=== PATIENT | male | born 1935 | race Caucasian/White ===

== ENCOUNTER 2018-05-13 10:05 | Inpatient (IN) ==
--- NOTE | 2018-05-13 11:17 | XRay Report ---
XR chest 1V portable CLINICAL HISTORY: weakness dyspnea COMPARISON STUDY: 03/13/2018 FINDINGS: Central catheter in superior vena cava. Lungs are considered clear. Diaphragms are smooth. IMPRESSION: No acute process. Lungs are clear. The above report was generated using voice recognition software. It may contain grammatical, syntax or spelling errors. Electronically signed by: Russell Rao M.D. 05/13/2018 11:16 AM
[2018-05-13 11:20] LABS: Hematocrit (blood only) 21.6 % (42-52); Hemoglobin 7.1 g/dL (14.0-18.0); Mean Corpuscular Hgb Conc 32.9 g/dL (32-36); Mean Corpuscular Volume 100.9 fL (80-100); RDW Coefficient of Variation 15.6 % (11.5-14.5); RDW Standard Deviation 57.2 fL (36.4-46.3); Red Blood Count 2.14 M/uL (4.7-6.1); White Blood Count 1.08 K/uL (4.8-10.8)
--- NOTE | 2018-05-13 11:26 | CT Scan Report ---
CT head/brain wo con CT DOSE: 537.48 mGy.cm HISTORY: Mental status change ams TECHNIQUE: Multiaxial CT images of the head were performed without the use of intravenous contrast. A dose lowering technique was utilized adhering to the principles of ALARA. Comparison: None. Findings: The paranasal sinuses and mastoid air cells are clear. The calvarium and skull base are int act. The ventricles and sulci are within normal limits. There is no mass, hematoma, midline shift, or acute infarct. Age-related atrophy and chronic small vessel change. Impression: No acute intracranial abnormality. Age-related change The above report was generated using voice recognition software. It may contain grammatical, syntax or spelling errors. Electronically signed by: Russell Rao M.D. 05/13/2018 11:24 AM
[2018-05-13 11:29] LABS: Albumin Level 2.6 gm/dl (3.4-5.0); BUN Creatinine Ratio 27.1 (10-20); Calcium 8.4 mg/dl (8.5-10.1); Creatinine Clr Calc Pharmacy 65.2 ml/min; Est GFR (African American) 86.6; Est GFR (Non-African American) 74.7; Potassium 4.4 mmol/L (3.5-5.1)
[2018-05-13 11:35] LABS: Platelet Count 40 K/uL (130-400)
[2018-05-13 11:40] LABS: Albumin Globulin Ratio 0.7 (0.9-2); Bilirubin,Total 0.5 mg/dl (0.2-1); Globulin 3.7 gm/dl (2.5-4.0); Total Protein 6.3 gm/dl (6.4-8.2)
[2018-05-13 11:41] LABS: Eosinophils # (auto) 0.02 K/uL (0-0.5); Eosinophils % (auto) 1.9 %; Immature Granulocytes # (auto) 0.02 K/uL (0.00-0.02); Immature Granulocytes % (auto) 1.9 %; Lymphocytes # (auto) 0.23 K/uL (1.2-3.4); Lymphocytes % (auto) 21.3 %; Monocytes # (auto) 0.01 K/uL (0.11-0.59); Monocytes % (auto) 0.9 %; Platelet Estimate Decreased (Normal)
[2018-05-13 11:55] LABS: Appearance Urine Clear (Clear); Bacteria Urine Automated Negative (Negative); Bilirubin Urine Negative (Negative); Blood Urine Trace (Negative); Color Urine Yellow; Glucose Urine UA Negative (Negative); Ketones Urine Negative (Negative); Leukocyte Esterase Urine Trace (Negative); Nitrite Urine Negative (Negative); Protein Urine Negative (Negative); RBC Urine Automated 0-4 /hpf (0-4); Specific Gravity Urine 1.021 (1.000-1.030); Urobilinogen Urine Negative (Negative); pH Urine 5.5 (4.5-7.5)
--- NOTE | 2018-05-13 14:01 | Emergency Department Note ---
Entered by Milana Romero acting as a scribe for History of Present Illness General Chief complaint: Referred by Doctor Stated complaint: REF BY , "CHEMO KEVIN" ([facility]) Source: patient and family () History of Present Illness Provider complaint: confusion Onset (ago): week(s) (last week) Location: head Pain Consistency: + other (persistent) Quality: + other (confusion) Associated symptoms: + other (increased urination, decreased appetite. Deneis: headache, chest pain, abdominal pain, nausea, vomiting, diarrhea, pain or burning with urination, any new pain) The patient is an 82 year old male who presents to the Emergency Room with complaints of persistent confusion beginning last week. His reports the patient has bladder cancer and last had chemo 5 days ago, and has had 35 days of radiation treatment. She notes the patient seems unable to express himself. The patient denies headache, chest pain, abdominal pain, nausea, vomiting, diarrhea, pain or burning with urination, or any new pain. His reports she believes he has had recent increased urination. She notes he has a decreased appetite. No other exacerbating or remitting factors. Home Medications Home Medications Medication Instructions Recorded Confirmed Type cyanocobalamin (vitamin B-12) 1,000 mcg PO QAM 02/15/18 05/13/18 History donepezil 10 mg PO HS 02/15/18 05/13/18 History glucosamine-chondroitin 1 cap PO BID 02/15/18 05/13/18 History memantine 5 mg PO BID 02/15/18 05/13/18 History cholecalciferol (vitamin D3) 2,000 2,000 units PO HS 03/01/18 05/13/18 History unit tablet lisinopril 10 mg tablet 10 mg PO QAM 03/01/18 05/13/18 History atorvastatin 20 mg PO HS 03/08/18 05/13/18 History ondansetron HCl 4 mg tablet 4 mg PO TID PRN 03/18/18 05/13/18 History prochlorperazine maleate 10 mg 10 mg PO BID PRN tab 03/18/18 05/13/18 History tablet tamsulosin 0.4 mg capsule 0.4 mg PO HS 03/18/18 05/13/18 History aspirin 81 mg PO QAM 04/29/18 05/13/18 History aprepitant 130 mg PO UD 05/13/18 05/13/18 History carboplatin 340 mg IV UD 05/13/18 05/13/18 History dexamethasone in 0.9 % sod chl 10 mg IV UD 05/13/18 05/13/18 History diphenhydramine in 0.9 % NaCl 50 mg IV UD 05/13/18 05/13/18 History epinephrine 0.3 mg IM UD 05/13/18 05/13/18 History etoposide phosphate 210 mg IV UD 05/13/18 05/13/18 History hydrocortisone sod succinate 100 mg IV UD 05/13/18 05/13/18 History methylprednisolone sod suc(PF) 125 mg IV UD 05/13/18 05/13/18 History olanzapine 2.5 mg PO UD 05/13/18 05/13/18 History palonosetron 0.25 mg IV UD 05/13/18 05/13/18 History pegfilgrastim [Neulasta] 0 mg SUBCUT UD 05/13/18 05/13/18 History psyllium husk [Metamucil] 1 tsp PO QAM 05/13/18 05/13/18 History Allergies Allergy/AdvReac Type Severity Reaction Status Date / Time No Known Allergies Allergy Verified 05/13/18 11:51 Past Med/Surg History Medical History CA prostate, adenoca DIAGNOSED 2009 Fatty liver disease, nonalcoholic Anemia CHRONIC PER RECORDS- BASELINE HGB 10 RANGE Asthma CHILDHOOD= "NO CURRENT PROBLEMS" BPH (benign prostatic hyperplasia) CVA (cerebral vascular accident) EVIDENCE OF OLD INFARCT ON MRI "YEARS AGO" Cancer BLADDER CANCER Enlarged prostate with lower urinary tract symptoms (LUTS) Gross hematuria HLD (hyperlipidemia) HTN (hypertension) History of asthma Impaired fasting glucose Memory loss Obesity Surgical History H/O transurethral resection of prostate Cystoscopy, TURBT= 02/18/18= LMA#5 at [facility] History of cataract surgery R/L History of colonoscopy History of tooth extraction Tibia fracture LEFT TIBIAL FRACTURE REPAIR (HARDWARE INTACT) Family History Mother , age 79 No problems noted. Father , age 79 Heart attack Brother , age 79 Dementia Daughter COPD (chronic obstructive pulmonary disease) Son No problems noted. Son No problems noted. Social History Preferred Language: Maori Beliefs That Will Affect Care: None Current Living Situation: Spouse Feels Safe at Home: Yes Smoking Status: Former smoker Hx Alcohol Use: Yes Hx Substance Use: No Review of Systems See HPI for pertinent positives & negatives. and A total of 10 systems reviewed and were otherwise negative Physical Exam Vital Signs Vital Signs - 24 hr 05/13/18 10:14 05/13/18 10:58 05/13/18 11:03 Temperature 36.6 C Temperature Source Oral Sepsis Recent Fever Within 48 Hours No Sepsis New/Unexplained Change in Mental Status No Sepsis Action Taken by Nursing No Action Required Pulse Rate 78 Pulse Rate [Right Finger] 66 Respiratory Rate 18 18 Respiratory Effort / Characteristics Non-Labored Spontaneous Respiratory Depth Normal Respiratory Pattern Regular Blood Pressure 119/65 Blood Pressure [Right Arm] 118/65 Blood Pressure Mean 83 Blood Pressure Mean [Right Arm] 82 Blood Pressure Position Sitting Pulse Oximetry 97 94 97 Oxygen Delivery Method Room Air Room Air Room Air 05/13/18 11:28 05/13/18 12:01 05/13/18 13:34 Temperature Temperature Source Sepsis Recent Fever Within 48 Hours Sepsis New/Unexplained Change in Mental Status Sepsis Action Taken by Nursing Pulse Rate Pulse Rate [Right Finger] 72 60 66 Respiratory Rate 17 18 18 Respiratory Effort / Characteristics Respiratory Depth Respiratory Pattern Blood Pressure Blood Pressure [Right Arm] 127/87 149/62 H 158/82 H Blood Pressure Mean Blood Pressure Mean [Right Arm] 100 91 107 Blood Pressure Position Pulse Oximetry 98 98 100 Oxygen Delivery Method Room Air Room Air Room Air GENERAL: Sitting up in bed, alert, well appearing, well nourished, no distress, non-toxic EYE EXAM: normal conjunctiva. PERRL and EOM's intact. OROPHARYNX: no exudate, no erythema, lips, buccal mucosa, and tongue normal and mucous membranes are moist NECK: supple, no nuchal rigidity, no adenopathy, non-tender LUNGS: Clear to auscultation. Normal chest wall mechanics HEART: no murmurs, S1 normal and S2 normal ABDOMEN: abdomen soft, non-tender, normo-active bowel, sounds, no masses, no rebound or guarding. BACK: Back is symmetrical on inspection and there is no deformity, no midline tenderness, no CVA tenderness. SKIN: no rashes and no bruising UPPER EXTREMITIES: upper extremities are grossly normal. LOWER EXTREMITIES: No pitting edema. NEURO EXAM: Normal sensorium, cranial nerves II-XII grossly intact, normal speech, no gross weakness of arms, no gross weakness of legs. No drift. Finger to nose intact. Gross sensation intact. Oriented to person, place, not year. Course ED COURSE: Vital signs were reviewed and showed no abnormalities. The patients medical record was reviewed The above diagnostic studies were performed and reviewed. ED treatments and interventions as stated above. 1036: The patient was evaluated in room B3B. A complete history and physical examination was performed. 1234: I reviewed the patient's case with Dr. العراقي, oncology. He recommends inpatient treatment. 1238: Upon reevaluation, the patient is resting. I discussed my findings with the patient and he understands and agrees with the treatment plan. 1245: I reviewed the patient's case with Dr. Greene, [facility] hospitalist. She will evaluate the patient for further management. Based on the patients age, coexisting illnesses, exam and lab findings the deci kristy to treat as an inpatient was made. The patient remained stable while under my care. The patient will be evaluated for further management. Consultations Consultation #1: Dr. العراقي, oncology. Time: 12:34 Consultation #2: Dr. Greene, [facility] hospitalist Time: 12:45 Medical Decision Making Differential Diagnosis Differential diagnoses includes but is not limited to toxic, metabolic, infectious, traumatic, cardiac, neurologic, hematologic, psychiatric and inflammatory etiologies. Medical Records Attestation: I reviewed the patient's medical records. Home Medications Current Medication List: was personally reviewed by me Laboratory Data Attestation: I reviewed the patient's lab results. Result diagrams: 05/13/18 11:01 05/13/18 11:01 Lab Results 05/13/18 05/13/18 05/13/18 Range/Units 11:01 11:01 11:28 WBC 1.08 L (4.8-10.8) K/uL RBC 2.14 L (4.7-6.1) M/uL Hgb 7.1 L (14.0-18.0) g/dL Hct 21.6 L (42-52) % MCV 100.9 H (80-100) fL MCH 33.2 (25-34) pg MCHC 32.9 (32-36) g/dL RDW Std Deviation 57.2 H (36.4-46.3) fL RDW Coeff of Latasha 15.6 H (11.5-14.5) % Plt Count 40 L (130-400) K/uL MPV 10.0 (7.4-10.4) fL Immature Gran % (Auto) 1.9 % Neut % (Auto) 74.0 % Lymph % (Auto) 21.3 % Fountain % (Auto) 0.9 % Eos % (Auto) 1.9 % Baso % (Auto) 0.0 % Immature Gran # (Auto) 0.02 (0.00-0.02) K/uL Neut # (Auto) 0.80 L* (1.4-6.5) K/uL Lymph # (Auto) 0.23 L (1.2-3.4) K/uL Fountain # (Auto) 0.01 L (0.11-0.59) K/uL Eos # (Auto) 0.02 (0-0.5) K/uL Baso # (Auto) 0.00 (0-0.2) K/uL Hyposegmented Neuts 1+ Platelet Estimate Decreased (Normal) Sodium 142 (136-145) mmol/L Potassium 4.4 (3.5-5.1) mmol/L Chloride 108 H (98-107) mmol/L Carbon Dioxide 28 (21-32) mmol/L Anion Gap 5.0 (3-11) BUN 25 H (7-18) mg/dl Creatinine 0.94 (0.6-1.4) mg/dl Est Cr Clr Drug Dosing 65.2 ml/min Est GFR ( Amer) 86.6 Est GFR (Non-Af Amer) 74.7 BUN/Creatinine Ratio 27.1 H (10-20) Glucose 144 H (70-99) mg/dl Calcium 8.4 L (8.5-10.1) mg/dl Total Bilirubin 0.5 (0.2-1) mg/dl AST 12 L (15-37) U/L ALT 22 (12-78) U/L Alkaline Phosphatase 60 (45-117) U/L Total Protein 6.3 L (6.4-8.2) gm/dl Albumin 2.6 L (3.4-5.0) gm/dl Globulin 3.7 (2.5-4.0) gm/dl Albumin/Globulin Ratio 0.7 L (0.9-2) TSH 0.519 (0.300-4.500) uIu/ml Urine Color Yellow Urine Appearance Clear (Clear) Urine pH 5.5 (4.5-7.5) Ur Specific [place] 1.021 (1.000-1.030) Urine Protein Negative (Negative) Urine Glucose (UA) Negative (Negative) Urine Ketones Negative (Negative) Urine Blood Trace H (Negative) Urine Nitrite Negative (Negative) Urine Bilirubin Negative (Negative) Urine Urobilinogen Negative (Negative) Ur Leukocyte Esterase Trace H (Negative) Urine WBC (Auto) 1-5 (0-5) /hpf Urine RBC (Auto) 0-4 (0-4) /hpf U Hyaline Cast (Auto) 1-5 (0-5) /lpf U Epithel Cells (Auto) 5-10 H (0-5) /lpf Urine Bacteria (Auto) Negative (Negative) Imaging Data Radiologist's Impression: Radiology results as stated below per my review and t he radiologist's interpretation: CT head/brain wo con CT DOSE: 537.48 mGy.cm HISTORY: Mental status change ams TECHNIQUE: Multiaxial CT images of the head were performed without the use of intravenous contrast. A dose lowering technique was utilized adhering to the principles of ALARA. Comparison: None. Findings: The paranasal sinuses and mastoid air cells are clear. The calvarium and skull base are intact. The ventricles and sulci are within normal limits. There is no mass, hematoma, midline shift, or acute infarct. Age-related atrophy and chronic small vessel change. Impression: No acute intracranial abnormality. Age-related change The above report was generated using voice recognition software. It may contain grammatical, syntax or spelling errors. Electronically signed by: Russell Rao M.D. 05/13/2018 11:24 AM XR chest 1V portable CLINICAL HISTORY: weakness dyspnea COMPARISON STUDY: 03/13/2018 FINDINGS: Central catheter in superior vena cava. Lungs are considered clear. Diaphragms are smooth. IMPRESSION: No acute process. Lungs are clear. The above report was generated using voice recognition software. It may contain grammatical, syntax or spelling errors. Electronically signed by: Russell Rao M.D. 05/13/2018 11:16 AM ECG Data Attestation: I personally reviewed and interpreted this ECG as follows: Indication: altered mental status Rate (beats per minute): 65 Rhythm: normal sinus Findings: + left axis deviation; no PVC Blood Pressure Blood Pressure Findings: Normal blood pressure Blood Pressure Disposition: did not require urgent referral MDM Narrative Patient is an 82-year-old male with squamous cell carcinoma of the bladder referred in for confusion. This is been present since this past Sunday and gradually worsening. No other complaints at this time. He denies any headaches or change in vision. No neck pain. Nothing to suggest meningitis. Afebrile. Patient did get chemo on the first of this month. Labs were obtained and show an anemia at 7 down from a baseline of about 8. Patient also has a leukopenia with an absolute neutrophil count of 800 showing a moderate neutropenia. BMP was unremarkable. LFTs and TSH was unremarkable. UA was negative. CT head and chest x-ray were unremarkable. Patient was updated bedside as well as his . Discussed with the hospitalist and hematology oncology for observation secondary to confusion. Impression & Plan Altered mental status Discharge Plan Visit Data Chief Complaint: Referred by Doctor Stated Complaint: REF BY , "CHEMO FOG" ([facility]) ED Provider: Haroon Noguera Discharge Problem: Altered mental status Patient Disposition: Being Evaluated by Hospitalist Forms Stand Alone Forms: My [facility] [employer] Prescriptions Prescriptions: No Action lisinopril 10 mg tablet 10 mg PO QAM RF: 0 cholecalciferol (vitamin D3) 2,000 unit tablet 2,000 units PO HS RF: 0 tamsulosin 0.4 mg capsule 0.4 mg PO HS RF: 0 ondansetron HCl [Zofran] 4 mg tablet 4 mg PO TID PRN (Reason: nausea and vomiting) RF: 0 prochlorperazine maleate [Compazine] 10 mg tablet 10 mg PO BID PRN (Reason: nausea and vomiting) RF: 0 donepezil 10 mg Tablet 10 mg PO HS RF: 0 cyanocobalamin (vitamin B-12) 1,000 mcg Tablet 1,000 mcg PO QAM RF: 0 memantine 5 mg Tablet 5 mg PO BID RF: 0 glucosamine-chondroitin 167-133 mg Capsule 1 cap PO BID RF: 0 aspirin 81 mg Tablet,Delayed Release (Dr/Ec) 81 mg PO QAM RF: 0 atorvastatin 20 mg Tablet 20 mg PO HS RF: 0 olanzapine 2.5 mg Tablet 2.5 mg PO UD RF: 0 etoposide phosphate 100 mg Recon Soln 210 mg IV UD RF: 0 hydrocortisone sod succinate 100 mg Recon Soln 100 mg IV UD RF: 0 palonosetron 0.25 mg/5 mL Solution 0.25 mg IV UD RF: 0 epinephrine 1 mg/mL Solution 0.3 mg IM UD RF: 0 carboplatin 10 mg/mL Solution 340 mg IV UD RF: 0 methylprednisolone sod suc(PF) 125 mg/2 mL Recon Soln 125 mg IV UD RF: 0 diphenhydramine in 0.9 % NaCl 50 mg/50 mL Piggyback 50 mg IV UD RF: 0 dexamethasone in 0.9 % sod chl 10 mg/50 mL Piggyback 10 mg IV UD RF: 0 Neulasta 6 mg/0.6 mL Syringe, W/ Wearable Injector SUBCUT UD RF: 0 Metamucil 3.4 gram/5.4 gram Powder 1 tsp PO QAM RF: 0 aprepitant 125 mg (25 mg/ mL final conc.) Suspension For Reconstitution 130 mg PO UD RF: 0 Referrals Referrals: Yeny Mast MD [Primary Care Provider] - Discharge Problem: Altered mental status Qualifiers: Altered mental status type: unspecified Qualified Code(s): R41.82 - Altered mental status, unspecified The scribe's documentation has been prepared under my direction and personally reviewed by me in its entirety. I confirm that the note above accurately reflects all work, treatment, procedures, and medical decision making performed by me.
--- NOTE | 2018-05-13 14:51 | History & Physical Report ---
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 العراقي is 05/24 (3) Thrombocytopenia: Noted Recent chemo Recheck in AM Required PRBC x2 units 2 weeks ago (4) Hyperlipidemia: continue home meds (5) HTN (hypertension): continue home meds (6) Dementia: continue home meds (7) Abnormal urine: + leuk est, neg nitrites Cx pending Will start on ceftriaxone given AMS and immunosuppressed state, can d/c if cx neg (8) RBBB: Appears to be a new issue Repeat EKG Will hold on ECHO for now given no cardiac based sx, t/c outpt ECHO for further work-up if desired (9) CA prostate, adenoca: Not an active issue (10) DVT prophylaxis: SCDs Aspirin 81mg Holding on further rx proph until repeat Hb noted History of Present Illness Primary Care Provider: Yeny Mast MD 82 y/o M c/o confusion. states that pt has had issues for several months with following directions. She can only give him one directive at a time or else he becomes confused. She states that since pt has been having even more difficulty with directions. He also doesn't answer questions directly, now instead responding with "I don't know" for questions like what would you like to eat or what would you like to do about something. She states that yesterday he did not know what the car fob was for and she had to explain this to him. He is walking without issue. No trouble with eating although she feels his appetite is a bit less than usual. Pt himself states that he feels fine in general but "I just can't keep up with it all." He states he is feeling overwhelmed with the number of appts and tx and labs, etc related to his cancer tx. Pt denies fever, SOB, chest pain, abd pain, n/v/c/d, LE pain or swelling. No urinary sx or bleeding noted. Pt is currently undergoing chemo for small cell bladder cancer. His last chemo was 05/06. He finished 35 radiation tx prior to this. He is currently scheduled for f/u with Dr. العراقي on 05/24 with plans to have 3 days of chemo shortly after. Pt required 2 units PRBC about 2 weeks ago for low Hb noted on routine labs. Allergies Allergy/AdvReac Type Severity Reaction Status Date / Time No Known Allergies Allergy Verified 05/13/18 11:51 Home Medications Home Medications Medication Instructions Recorded Confirmed Type cyanocobalamin (vitamin B-12) 1,000 mcg PO QAM 02/15/18 05/13/18 History donepezil 10 mg PO HS 02/15/18 05/13/18 History glucosamine-chondroitin 1 cap PO BID 02/15/18 05/13/18 History memantine 5 mg PO BID 02/15/18 05/13/18 History cholecalciferol (vitamin D3) 2,000 2,000 units PO HS 03/01/18 05/13/18 History unit tablet lisinopril 10 mg tablet 10 mg PO QAM 03/01/18 05/13/18 History atorvastatin 20 mg PO HS 03/08/18 05/13/18 History ondansetron HCl 4 mg tablet 4 mg PO TID PRN 03/18/18 05/13/18 History prochlorperazine maleate 10 mg 10 mg PO BID PRN tab 03/18/18 05/13/18 History tablet tamsulosin 0.4 mg capsule 0.4 mg PO HS 03/18/18 05/13/18 History aspirin 81 mg PO QAM 04/29/18 05/13/18 History aprepitant 130 mg PO 05/13/18 05/13/18 History carboplatin 340 mg IV UD 05/13/18 05/13/18 History dexamethasone in 0.9 % sod chl 10 mg IV UD 05/13/18 05/13/18 History diphenhydramine in 0.9 % NaCl 50 mg IV UD 05/13/18 05/13/18 History epinephrine 0.3 mg IM UD 05/13/18 05/13/18 History etoposide phosphate 210 mg IV UD 05/13/18 05/13/18 History hydrocortisone sod succinate 100 mg IV UD 05/13/18 05/13/18 History methylprednisolone sod suc(PF) 125 mg IV UD 05/13/18 05/13/18 History olanzapine 2.5 mg PO UD 05/13/18 05/13/18 History palonosetron 0.25 mg IV UD 05/13/18 05/13/18 History pegfilgrastim [Neulasta] 0 mg SUBCUT UD 05/13/18 05/13/18 History psyllium husk [Metamucil] 1 tsp PO QAM 05/13/18 05/13/18 History Past Med/Surg History Medical History CA prostate, adenoca DIAGNOSED 2010 Fatty liver disease, nonalcoholic Anemia CHRONIC PER RECORDS- BASELINE HGB 10 RANGE Asthma CHILDHOOD= "NO CURRENT PROBLEMS" BPH (benign prostatic hyperplasia) CVA (cerebral vascular accident) EVIDENCE OF OLD INFARCT ON MRI "YEARS AGO" Cancer BLADDER CANCER Enlarged prostate with lower urinary tract symptoms (LUTS) Gross hematuria HLD (hyperlipidemia) HTN (hypertension) History of asthma Impaired fasting glucose Memory loss Obesity Surgical History H/O transurethral resection of prostate Cystoscopy, TURBT= 02/18/18= LMA#5 at [facility] History of cataract surgery R/L History of colonoscopy History of tooth extraction Tibia fracture LEFT TIBIAL FRACTURE REPAIR (HARDWARE INTACT) Family History Mother , age 79 No problems noted. Father , age 79 Heart attack Brother , age 79 Dementia Daughter COPD (chronic obstructive pulmonary disease) Son No problems noted. Son No problems noted. 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 Beliefs That Will Affect Care: None Current Living Situation: Spouse Other Information That Helps Us Care for You: No Feels Safe at Home: Yes Safety Concerns: Feels Safe At This Time Smoking Status: Former smoker Hx Alcohol Use: Yes Hx Substance Use: No Review of Systems Pertinent positives and negatives reviewed in HPI--all others negative Physical Exam 2 Vital Signs (Past 24 Hours): Last Vital Signs Temp 36.6 C 05/13/18 10:14 Pulse 66 05/13/18 13:34 Resp 18 05/13/18 13:34 BP 158/82 H 05/13/18 13:34 Pulse Ox 100 05/13/18 13:34 Constitutional: WD/WN, vitals as above Eyes: normal visual samayoa by confrontation and + anicteric sclerae Neck: normal visual inspection and trachea midline Respiratory: normal respiratory effort, lungs clear to auscultation Cardiovascular: Rate/Rhythm: regular rate and regular rhythm Gastrointestinal (Abdomen): Inspection/Auscultation: abdomen not distended Percussion/Palpation: abdomen soft; abdomen nontender Musculoskeletal: Head/Neck/Chest: normocephalic and head atraumatic negative for edema, peripheral pulses intact Skin: no rashes, warm and dry Neurologic: awake Speech / Cognition: normal speech Psychiatric: Orientation: oriented to person and oriented to place; + not oriented to time (pt cannot tell me year, month, or day of the week) Speech: normal rate/rhythm/volume of speech Affect: euthymic affect Pt follows basic commands. Answers to questions are appropriate for the question asked. If he is uncertain he states he does not know Results & Data Diagnostic Findings CXR: neg for acute CT head: neg for acute ECG Additional Comments: RBBB Code Status & VTE Plan Code Status DNR/DNI after prolonged discussion with pt and . This has no been discussed with pt prior. VTE Prophylaxis Plan VTE Prophylaxis will be ordered: Yes (1) Altered mental status Altered mental status type: unspecified Qualified Code(s): R41.82 - Altered mental status, unspecified
[2018-05-13] MEDS ORDERED: ACETAMINOPHEN 325 MG TAB PO PRN (17:01)
[2018-05-13] MEDS ORDERED: PROCHLORPERAZINE MALEATE 10 MG TAB PO PRN (17:01)
[2018-05-13] MEDS ORDERED: ONDANSETRON 4 MG TAB PO PRN (17:01)
[2018-05-13] MEDS ORDERED: APREPITANT 125 MG CAP PO PRN (17:01)
[2018-05-13] MEDS ORDERED: MAGNESIUM HYDROXIDE SUSP 30 ML UDC PO PRN (17:01)
[2018-05-13] MEDS ORDERED: ONDANSETRON INJ 2 MG/ML 2 ML VIAL IV PRN (17:01)
[2018-05-13] MEDS: cefTRIAXone SODIUM 1,000 MG in DEXTROSE 5% 50 ML IV SCH (19:17)
[2018-05-13] MEDS: HEPARIN 100 UNIT/ML 5ML FLUSH FLUSH PRN (19:52)
[2018-05-13] MEDS: MEMANTINE HCL 5 MG TAB PO SCH (20:00)
[2018-05-13] MEDS: TAMSULOSIN HCL 0.4 MG CAP PO SCH (20:00)
[2018-05-13] MEDS: CHOLECALCIFEROL 1,000 UNITS TAB PO SCH (20:00)
[2018-05-13] MEDS: DONEPEZIL HCL 10 MG TAB PO SCH (20:00)
[2018-05-13] MEDS: ATORVASTATIN 20 MG TAB PO SCH (20:01)
[2018-05-13] MEDS ORDERED: NON-FORMULARY MEDICATION (Glucosamine-Chondroitin 1 CAP) PO SCH (21:00)
[2018-05-14] MEDS: ASPIRIN 81 MG ECTAB PO SCH (08:57)
[2018-05-14] MEDS: CYANOCOBALAMIN 500 MCG TABLET (VITAMIN B-12) PO SCH (08:57)
[2018-05-14] MEDS: MEMANTINE HCL 5 MG TAB PO SCH ×2 (08:57→19:44)
[2018-05-14] MEDS: PSYLLIUM 58.6% POWDER PACKET PO SCH (08:57)
[2018-05-14] MEDS: LISINOPRIL 10 MG TAB PO SCH (08:57)
[2018-05-14 09:07] LABS: Mean Corpuscular Hgb Conc 33.3 g/dL (32-36); Mean Corpuscular Volume 97.7 fL (80-100); Mean Platelet Volume 10.9 fL (7.4-10.4); Platelet Count 27 K/uL (130-400); Platelet Estimate SIGNIFIC DECREASED (Normal); RDW Coefficient of Variation 15.4 % (11.5-14.5); RDW Standard Deviation 55.2 fL (36.4-46.3); Red Blood Count 2.15 M/uL (4.7-6.1)
[2018-05-14 09:27] LABS: BUN Creatinine Ratio 21.8 (10-20); Calcium 8.3 mg/dl (8.5-10.1); Creatinine Clr Calc Pharmacy 54.9 ml/min; Est GFR (African American) 78.4; Est GFR (Non-African American) 67.7; Potassium 4.2 mmol/L (3.5-5.1)
--- NOTE | 2018-05-14 17:35 | Hospitalist Progress Note ---
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 (10) DVT prophylaxis: SCDs Aspirin 81mg Holding on further rx proph until repeat Hb noted (11) Pancytopenia: Today's WBC is 0.4 from 1, hemoglobin 7 from 7.1 platelet 27,000 from 40 We will continue monitor, transfusion, Neupogen, or platelet transfusion if needed, consult oncology if needed, Need to follow blood culture and sensitivity results, Possible not ready to be discharge yet Physical Exam Vital Signs (Past 24 Hours): Last Vital Signs Temp 36.7 C 05/14/18 15:34 Pulse 73 05/14/18 15:34 Resp 18 05/14/18 15:34 BP 137/70 05/14/18 15:34 Pulse Ox 98 05/14/18 15:34 (1) Altered mental status Altered mental status type: unspecified Qualified Code(s): R41.82 - Altered mental status, unspecified
[2018-05-14] MEDS: cefTRIAXone SODIUM 1,000 MG in DEXTROSE 5% 50 ML IV SCH (18:27)
[2018-05-14] MEDS: DONEPEZIL HCL 10 MG TAB PO SCH (19:40)
[2018-05-14] MEDS: ATORVASTATIN 20 MG TAB PO SCH (19:41)
[2018-05-14] MEDS: CHOLECALCIFEROL 1,000 UNITS TAB PO SCH (19:42)
[2018-05-14] MEDS: TAMSULOSIN HCL 0.4 MG CAP PO SCH (19:43)
[2018-05-15] MEDS: ASPIRIN 81 MG ECTAB PO SCH (08:00)
[2018-05-15] MEDS: CYANOCOBALAMIN 500 MCG TABLET (VITAMIN B-12) PO SCH (08:00)
[2018-05-15] MEDS: MEMANTINE HCL 5 MG TAB PO SCH ×2 (08:01→20:13)
[2018-05-15] MEDS: LISINOPRIL 10 MG TAB PO SCH (08:01)
[2018-05-15] MEDS: PSYLLIUM 58.6% POWDER PACKET PO SCH (08:01)
[2018-05-15 08:04] LABS: BUN Creatinine Ratio 25.1 (10-20); Calcium 8.5 mg/dl (8.5-10.1); Creatinine Clr Calc Pharmacy 55.4 ml/min; Est GFR (African American) 79.4; Est GFR (Non-African American) 68.5; Magnesium 1.5 mg/dl (1.8-2.4); Potassium 4.1 mmol/L (3.5-5.1)
[2018-05-15 08:07] LABS: Hematocrit (blood only) 21.6 % (42-52); Hemoglobin 7.2 g/dL (14.0-18.0); Mean Corpuscular Hgb Conc 33.3 g/dL (32-36); Mean Corpuscular Volume 99.1 fL (80-100); Mean Platelet Volume 10.9 fL (7.4-10.4); Platelet Count 16 K/uL (130-400); RDW Coefficient of Variation 15.4 % (11.5-14.5); RDW Standard Deviation 55.8 fL (36.4-46.3); Red Blood Count 2.18 M/uL (4.7-6.1); White Blood Count 0.24 K/uL (4.8-10.8)
[2018-05-15] MEDS: MAGNESIUM SULFATE / D5W 1 GM/100 ML BAG IV SCH ×2 (10:04→11:01)
[2018-05-15] MEDS: HEPARIN 100 UNIT/ML 5ML FLUSH FLUSH PRN ×2 (12:03→19:14)
--- NOTE | 2018-05-15 17:10 | Hospitalist Progress Note ---
Date of Service May 15, 2018 Assessment & Plan (1) UTI (urinary tract infection): UA on 05/13 indicated infection, but urine culture grew nothing >1,000 CFU. However, given neutropenia; will treat with 7-day course and follow blood cultures. - Continue ceftriaxone (2) Altered mental status: Likely from UTI which has been improving and resolved. - UTI as above (3) Pancytopenia: Presumably due to his chemotherapy on 05/06. Neutropenia - ANC was almost certainly <500 today, though his diff was not done. Also with thrombocytopenia and anemia. Due to chemotherapy. 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 العراقي is 05/24 (6) Hyperlipidemia: - Continue home statin (7) HTN (hypertension): BP presently 105/65. - Continue home meds (8) Dementia: On 05/15, he was alert and conversant. At baseline per his . - Continue home meds (9) RBBB: New issue from 02/2018. - Repeat EKG on 05/16 - Hold echo for now given no cardiac based sx (10) CA prostate, adenoca: - Not an active issue (11) DVT prophylaxis: SCDs - Holding heparin and ASA until counts return to normal Subjective Improved today. Feels he is seeing lots of people, but really denies any focal complaints. Reports no fevers/chills, chest pain, shortness of breath, abdominal pain, nausea, or vomiting. Physical Exam Vital Signs (Past 24 Hours): Last Vital Signs Temp 35.7 C L 05/15/18 15:57 Pulse 77 05/15/18 15:57 Resp 18 05/15/18 15:57 BP 105/64 05/15/18 15:57 Pulse Ox 96 05/15/18 15:57 Constitutional: WD/WN, vitals as above Eyes: normal visual samayoa by confrontation and + anicteric sclerae Neck: normal visual inspection and trachea midline Respiratory: normal respiratory effort, lungs clear to auscultation Cardiovascular: Rate/Rhythm: regular rate and regular rhythm Gastrointestinal (Abdomen): Inspection/Auscultation: abdomen not distended Percussion/Palpation: abdomen soft; abdomen nontender Musculoskeletal: Head/Neck/Chest: normocephalic and head atraumatic Skin: no rashes, warm and dry Neurologic: awake Speech / Cognition: normal speech Psychiatric: Orientation: oriented to person and oriented to place Speech: normal rate/rhythm/volume of speech Affect: euthymic affect (1) Altered mental status Altered mental status type: unspecified Qualified Code(s): R41.82 - Altered mental status, unspecified
[2018-05-15] MEDS: cefTRIAXone SODIUM 1,000 MG in DEXTROSE 5% 50 ML IV SCH (18:41)
[2018-05-15] MEDS: TAMSULOSIN HCL 0.4 MG CAP PO SCH (20:12)
[2018-05-15] MEDS: CHOLECALCIFEROL 1,000 UNITS TAB PO SCH (20:14)
[2018-05-15] MEDS: DONEPEZIL HCL 10 MG TAB PO SCH (20:14)
[2018-05-16 06:29] LABS: Hematocrit (blood only) 20.2 % (42-52); Hemoglobin 6.7 g/dL (14.0-18.0); Mean Corpuscular Hgb Conc 33.2 g/dL (32-36); Mean Corpuscular Volume 98.5 fL (80-100); Platelet Count 10 K/uL (130-400); RDW Coefficient of Variation 15.5 % (11.5-14.5); RDW Standard Deviation 56.3 fL (36.4-46.3); Red Blood Count 2.05 M/uL (4.7-6.1); White Blood Count 0.29 K/uL (4.8-10.8)
[2018-05-16 06:45] LABS: Albumin Level 2.4 gm/dl (3.4-5.0); BUN Creatinine Ratio 32.1 (10-20); Calcium 8.2 mg/dl (8.5-10.1); Creatinine Clr Calc Pharmacy 56.5 ml/min; Est GFR (Non-African American) 63.9; Magnesium 1.8 mg/dl (1.8-2.4); Potassium 4.1 mmol/L (3.5-5.1)
[2018-05-16 06:48] LABS: Albumin Globulin Ratio 0.6 (0.9-2); Bilirubin,Total 0.3 mg/dl (0.2-1); Globulin 3.7 gm/dl (2.5-4.0); Phosphorus 3.9 mg/dl (2.5-4.9); Total Protein 6.1 gm/dl (6.4-8.2)
[2018-05-16] MEDS ORDERED: SODIUM CHLORIDE 0.9% 250 ML IV PRN (07:22)
[2018-05-16] MEDS: LISINOPRIL 10 MG TAB PO SCH (07:49)
[2018-05-16] MEDS: PSYLLIUM 58.6% POWDER PACKET PO SCH (07:49)
[2018-05-16] MEDS: MEMANTINE HCL 5 MG TAB PO SCH ×2 (07:49→21:03)
[2018-05-16] MEDS: CYANOCOBALAMIN 500 MCG TABLET (VITAMIN B-12) PO SCH (07:49)
--- NOTE | 2018-05-16 10:09 | Consultation Report ---
DATE OF CONSULTATION: 05/16/2018 MEDICAL ONCOLOGY CONSULTATION REASON FOR CONSULTATION: An 82-year-old gentleman with extrapulmonary small cell cancer (bladder) admitted to [facility] with altered mental status. HISTORY OF PRESENT ILLNESS: Mr. Arenas is a pleasant very confused 82-year-old gentleman who was admitted to [facility] on May 13, basically admitted because of diminishing cognitive function and memory issues. According to the H and P, the patient's has become increasingly frustrated because Mr. Arenas cannot follow directions. He has also failed to answer direct questions and I experienced that with my interview with him today, not really knowing why he is in the hospital. He does know his name and he knows where he is, but beyond that, really cannot fill in with significant details. He has no specific complaints at this time. He is currently under Dr. 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 According to his outpatient records, recently finished his fourth cycle of combination carboplatin and etoposide administered on May 08. He is certainly pancytopenic attributable to combined modality therapy as I believe he is receiving radiation at this time as well. Again, unfortunately, Mr. Arenas himself is not a very good informant, his is not here at the time of my encounter. Thus, I am relying on clinical information from his medical record and nursing input. 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 PAST SURGICAL HISTORY: Includes TURP, cataract surgery, colonoscopy, tooth extraction, tibial fracture repair. MEDICATIONS: Prior to admission include cyanocobalamin 1000 mcg p.o. daily, donepezil 10 mg p.o. at bedtime, glucosamine chondroitin 1 capsule p.o. b.i.d., memantine 5 mg p.o. b.i.d., cholecalciferol 2000 units p.o. at bedtime, lisinopril 10 mg p.o. daily, atorvastatin 20 mg p.o. daily, Zofran 4 mg p.o. t.i.d. p.r.n., Compazine 10 mg p.o. b.i.d., tamsulosin 0.4 mg p.o. daily, aspirin 81 mg p.o. daily, ____ 130 mg p.o. UD, carboplatin 340 mg IV UD, dexamethasone 10 mg IV UD, Benadryl 50 mg IV UD, etoposide 210 mg IV UD, Neulasta 6 mg subQ UD and Metamucil 1 tablespoon p.o. daily. ALLERGIES: No known drug allergies. FAMILY AND SOCIAL HISTORY: Unobtainable because of patient's mental status. According to records, however, on family history, mother at age 79. Father at age 79 from heart attack. Brother at age 79 from dementia. REVIEW OF SYSTEMS: Again, unobtainable because of patient's mental status. PHYSICAL EXAMINATION: GENERAL: Very pleasant 82-year-old, awake and alert, but again, cannot answer direct questions. VITAL SIGNS: Temperature 36.5, pulse 79, respiratory rate 18, blood pressure 137/71. SKIN: No rashes or lesions. No petechiae or ecchymosis noted. HEENT: Atraumatic, normocephalic. Eyes: PERRLA, EOMI. Sclerae nonicteric. Nares patent without rhinorrhea or discharge. Throat is clear. Tongue midline. No buccal lesions or ulcerations. No evidence of thrush. NECK: Supple. Trachea midline. LYMPH: No cervical, supraclavicular palpable nodes. HEART: Regular rate and rhythm. No clicks, rubs or murmurs. LUNGS: Clear to auscultation bilaterally. ABDOMEN: Soft, nontender, nondistended. EXTREMITIES: No clubbing, cyanosis or edema. NEUROLOGICAL: He is awake and alert. He is oriented to name and place. LABORATORY DATA: WBC count 290, hemoglobin 6.7, platelet count 10,000. Sodium 142, potassium 4.1, chloride 111, carbon dioxide 29, BUN 34, creatinine 1.07, albumin 2.4. RADIOGRAPHIC DATA: CT scan of the head on admission, no acute intracranial anomaly. IMPRESSION: 1. Altered mental status. 2. Small cell carcinoma of the bladder. 3. Pancytopenia, attributable to chemotherapeutic effect. 4. Dementia. 5. Hypoalbuminemia. PLAN: Mr. Arenas is a pleasant 82-year-old gentleman well known to [facility], currently under Dr. 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 According to Dr. العراقي's notes, Mr. Arenas recently completed his fourth cycle of etoposide and carboplatin. His last chemotherapy was May 08. Again, upon my interview with Mr. Arenas this morning, he was unable to really answer any direct questions regarding why he is in the hospital and specific details about his ongoing treatment. Clearly, he is pancytopenic and recently completed the radiation portion of his regimen. We will engage Dr. العراقي to fill in more clinical details, but clearly he needs transfusional support which has been ordered. Would proceed with Leukop[place] filtered packed RBCs and platelets today. I will check in with his outpatient medical record to see if he has received granulocyte colony stimulating growth factor. Would like to interview his specifically for details regarding his admission to hospital. I agree with current medical management otherwise and will continue to follow him periodically during hospitalization. Again, I will advise Dr. العراقي of his admission and ensure outpatient followup upon discharge. Thank you very much for allowing us to participate in his care.
--- NOTE | 2018-05-16 13:57 | Hospitalist Progress Note ---
Date of Service May 16, 2018 Assessment & Plan (1) Pancytopenia: Presumably due to his chemotherapy on 05/08. Neutropenia - ANC <500 today. Also with thrombocytopenia and anemia. Due to chemotherapy. - Monitor counts - Replete hgb > 8 and plts > 10k (no signs of bleeding) - Monitor neutrophils; neutropenia precautions - Oncology consult - Dr. Cooley saw the patient on 05/16. Continue current care. - If he becomes febrile, would immediately re-culture, get CXR and UA, and esca late abx to Zosyn (with possible vanc if any concerns for MRSA infection) as this would be neutropenic fever. (2) UTI (urinary tract infection): UA on 05/13 indicated infection, but urine culture grew nothing >1,000 CFU. However, given neutropenia; will treat with 7-day course and follow blood cultures. Would likely need longer course if still neutropenic at the end of the treatment course. - Continue ceftriaxone (End date: 05/20) (3) Altered mental status: Likely from UTI which has been improving and resolved. 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 - Care as above - Next appt with Dr. العراقي is 05/24 (6) Hyperlipidemia: - Continue home statin (7) HTN (hypertension): BP presently 105/65. - Continue home meds (8) Dementia: On 05/15, he was alert and conversant. At baseline per his . - Continue home meds (9) RBBB: New issue from 02/2018. - Repeat EKG on 05/16 - Hold echo for now given no cardiac based sx (10) CA prostate, adenoca: - Not an active issue (11) DVT prophylaxis: SCDs - Holding heparin and ASA until counts return to normal Subjective Stable today. Denies any focal complaints. No bleeding. Reports no fevers/chills, chest pain, shortness of breath, abdominal pain, nausea, or vomiting. Physical Exam Vital Signs (Past 24 Hours): Last Vital Signs Temp 36.9 C 05/16/18 11:47 Pulse 78 05/16/18 11:47 Resp 18 05/16/18 11:47 BP 108/57 L 05/16/18 11:47 Pulse Ox 97 05/16/18 09:29 Constitutional: WD/WN, vitals as above Eyes: normal visual samayoa by confrontation and + anicteric sclerae Neck: normal visual inspection and trachea midline Respiratory: normal respiratory effort, lungs clear to auscultation Cardiovascular: Rate/Rhythm: regular rate and regular rhythm Gastrointestinal (Abdomen): Inspection/Auscultation: abdomen not distended Percussion/Palpation: abdomen soft; abdomen nontender Musculoskeletal: Head/Neck/Chest: normocephalic and head atraumatic Skin: no rashes, warm and dry Neurologic: awake Speech / Cognition: normal speech Psychiatric: Orientation: oriented to person and oriented to place Speech: normal rate/rhythm/volume of speech Affect: euthymic affect (1) Altered mental status Altered mental status type: unspecified Qualified Code(s): R41.82 - Altered mental status, unspecified
[2018-05-16] MEDS: cefTRIAXone SODIUM 1,000 MG in DEXTROSE 5% 50 ML IV SCH (20:28)
[2018-05-16] MEDS: TAMSULOSIN HCL 0.4 MG CAP PO SCH (21:03)
[2018-05-16] MEDS: DONEPEZIL HCL 10 MG TAB PO SCH (21:03)
[2018-05-16] MEDS: CHOLECALCIFEROL 1,000 UNITS TAB PO SCH (21:03)
[2018-05-17 06:38] LABS: BUN Creatinine Ratio 27.2 (10-20); Calcium 8.4 mg/dl (8.5-10.1); Est GFR (African American) 74.9; Est GFR (Non-African American) 64.6; Magnesium 1.6 mg/dl (1.8-2.4)
[2018-05-17 06:43] LABS: Hematocrit (blood only) 25.9 % (42-52); Hemoglobin 8.6 g/dL (14.0-18.0); Mean Corpuscular Hgb Conc 33.2 g/dL (32-36); Mean Corpuscular Volume 93.8 fL (80-100); Mean Platelet Volume 10.5 fL (7.4-10.4); Platelet Count 46 K/uL (130-400); RDW Coefficient of Variation 17.1 % (11.5-14.5); RDW Standard Deviation 58.9 fL (36.4-46.3); Red Blood Count 2.76 M/uL (4.7-6.1); White Blood Count 0.41 K/uL (4.8-10.8)
[2018-05-17] MEDS: PSYLLIUM 58.6% POWDER PACKET PO SCH (08:01)
[2018-05-17] MEDS: CYANOCOBALAMIN 500 MCG TABLET (VITAMIN B-12) PO SCH (08:02)
[2018-05-17] MEDS: MEMANTINE HCL 5 MG TAB PO SCH (08:02)
[2018-05-17] MEDS: LISINOPRIL 10 MG TAB PO SCH (08:02)
[2018-05-17] MEDS: MAGNESIUM SULFATE / D5W 1 GM/100 ML BAG IV SCH ×2 (10:57→11:53)
--- NOTE | 2018-05-17 12:29 | Progress Note ---
DATE: 05/17/2018 MEDICAL ONCOLOGY PROGRESS NOTE DIAGNOSES: 1. Altered mental status. 2. Small cell carcinoma of the bladder. 3. Pancytopenia, secondary to chemotherapeutic effect. 4. Dementia. 5. Hypoalbuminemia. SUBJECTIVE: Mr. Arenas was seen and examined at bedside this morning. Mentally, he seems a bit brighter. His is in the room with him today. She believes that he is much improved and definitely closer to his baseline than prior to admission. He is tolerating his diet, moving his bowels. He is ambulating with assistance. He remains profoundly pancytopenic, again attributable to treatment. He received single donor platelets and 2 units of packed RBCs without difficulty. OBJECTIVE: GENERAL: A very pleasant 82-year-old gentleman in no acute distress. VITAL SIGNS: Temperature of 36.6, pulse 66, respiratory rate 18, blood pressure 152/74. SKIN: Without rash or lesion. HEENT: No buccal lesions or ulcerations. No evidence of thrush. NECK: Supple. Trachea midline. HEART: Regular rate and rhythm. LUNGS: Clear to auscultation bilaterally. ABDOMEN: Soft, nontender, nondistended. EXTREMITIES: No clubbing, cyanosis or edema. NEUROLOGIC: Grossly intact. LABORATORY DATA: WBC count 410, hemoglobin 8.6, platelet count 46,000. Sodium 143, potassium 4.0, chloride 112, carbon dioxide 27, BUN 29, creatinine 1.06. Magnesium slightly decreased at 1.6. IMPRESSION: 1. Altered mental status. 2. Small cell carcinoma of the bladder. 3. Hypomagnesemia. 4. Hypoalbuminemia. 5. Pancytopenia. PLAN: Mr. Arenas was seen and examined at bedside around noon today. His was visiting and actually I was able to extract some more clinical information about Mr. Arenas. He answers questions reasonably appropriate. The patient's believes he is definitely closer to his baseline. Magnesium is low and currently being replaced. His peripheral blood counts while he remains neutropenic are satisfactory to head towards discharge. He appears to be tolerating his diet and moving his bowels. He does ambulate with some minimal assistance. At this point, there is really nothing further for me to add and honestly we would prefer Mr. Arenas to be discharged even though he remains neutropenic. Cultures have been negative to date. Thank you very much for allowing us to participate in his care. If you have any questions or concerns, feel free to contact me. I will advise Dr. العراقي of his clinical progress.
--- NOTE | 2018-05-17 15:47 | Discharge Summary ---
Date of Service May 17, 2018 Admission HPI Per Admitting Provider 82 y/o M c/o confusion. states that pt has had issues for several months with following directions. She can only give him one directive at a time or else he becomes confused. She states that since pt has been having even more difficulty with directions. He also doesn't answer questions directly, now instead responding with "I don't know" for questions like what would you like to eat or what would you like to do about something. She states that yesterday he did not know what the car fob was for and she had to explain this to him. He is walking without issue. No trouble with eating although she feels his appetite is a bit less than usual. Pt himself states that he feels fine in general but "I just can't keep up with it all." He states he is feeling overwhelmed with the number of appts and tx and labs, etc related to his cancer tx. Pt denies fever, SOB, chest pain, abd pain, n/v/c/d, LE pain or swelling. No urinary sx or bleeding noted. Pt is currently undergoing chemo for small cell bladder cancer. His last chemo was 05/06. He finished 35 radiation tx prior to this. He is currently scheduled for f/u with Dr. العراقي on 05/24 with plans to have 3 days of chemo shortly after. Pt required 2 units PRBC about 2 weeks ago for low Hb noted on routine labs. Principal Diagnosis Acute metabolic encephalopathy, anemia, pancytopenia Discharge Exam Constitutional WD/WN, vitals as above Eyes PERRL, conjunctivae normal, anicteric sclerae ENMT external ear and nose normal, oropharynx normal Neck trachea midline, no thyromegaly Respiratory normal respiratory effort, lungs clear to auscultation Cardiovascular Rate/Rhythm: regular rate and regular rhythm Heart Sounds: + murmur (2/6 at the RUSB) Extremities: + edema (Trace edema of the ankles bilaterally) Gastrointestinal (Abdomen) normal bowel sounds, soft, nontender, no hepatosplenomegaly Musculoskeletal Extremities: extremities normal to inspection; no cyanosis and no clubbing Skin no rashes, warm and dry Neurologic moves all extremities and awake; no focal motor deficits Psychiatric A+Ox3, euthymic affect Discharge Data Allergies Allergy/AdvReac Type Severity Reaction Status Date / Time No Known Allergies Allergy Verified 05/13/18 11:51 Consultations 05/13/18 12:38 ED Decision to Admit Stat 05/13/18 17:01 Consult Case Management - Discharge Planning Routine 05/15/18 17:19 Consult Oncology Routine Ordered Studies 05/13/18 10:46 CT head/brain wo con Stat Chest x-ray Hospital Course (1) Pancytopenia: Secondary to antineoplastic therapy received on 05/08. Neutropenia - ANC <500 on day of admission. Also with thrombocytopenia and anemia. Due to chemotherapy. He was transfused platelets and PRBCs and had improvement to hemoglobin 8.7 and platelets 46 on the day of discharge He did not have a fever while he was here He was seen by oncology and felt stable for discharge to home -He should have his blood counts repeated next week -Advised to discontinue his aspirin due to low platelets while undergoing chemotherapy (2) UTI (urinary tract infection): UA on 05/13 indicated infection, but urine culture grew nothing >1,000 CFU. However, given neutropenia; will treat with 7-day course and follow blood cultures. Would likely need longer course if still neutropenic at the end of the treatment course. 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 - Care as above - Next appt with Dr. العراقي is 05/24 (6) Hyperlipidemia: - Continue home statin (7) HTN (hypertension): Blood pressure stable - Continue home meds (8) Dementia: Doing very well, this is some mild dementia - Continue home meds (9) RBBB: New issue from 02/2018. - Repeat EKG on 05/16 again with it - Hold echo for now given no cardiac based sx (10) CA prostate, adenoca: - Not an active issue (11) DVT prophylaxis: SCDs - Holding heparin and ASA until counts return to normal Disposition-stable for discharge to home Total Time Total Time Spent Total Time Spent (In Minutes): Greater than 30 minutes Total Time Includes: Examination of the Patient, Discharge Planning, Medication Reconciliation and Communication With Other Providers (I discussed his care with his primary care physician, Dr. Mast) Discharge Plan Discharge Items Patient Disposition: Home - Self-Care Reason For Visit: Altered mental status Discharge Diagnosis: Acute encephalopathy, anemia Condition: Good Discharge Goals: Diagnostic testing, Improve disease control, Learn about illness and Therapeutic intervention Activity: As commented below Lifting: Gradually increase as tolerated Bathing: No limitations Exercise/Sports: Gradually increase as tolerated Non-emergency contact: Primary Care Provider and Oncologist Call non-emergency contact if: you have any medication questions, your symptoms worsen and your temperature is above 101 Follow-up/Referrals: Yeny Mast MD [Primary Care Provider] - 05/22/18 2:10 pm (follow up appointment at your primary care physician office with MAHESH Draper) Diet: Heart Healthy Addtl Provider Instructions: You were admitted with confusion/encephalopathy and found to be severely anemic due to your chemotherapy. There was also a question of whether you may have had a urinary tract infection. You improved with getting transfusion of blood and treatment with an antibiotic for urinary tract infection. Please finish out the course of antibiotics as prescribed. Please contact your oncologist office on Sunday to see if they want you to have repeat blood work prior to your appointment next Sunday. Please follow-up with primary care physician within 1 week after discharge as scheduled for you. Prescriptions: New cephalexin [Keflex] 500 mg capsule 500 mg PO BID 7 Days Qty: 14 RF: 0 Continued lisinopril 10 mg tablet 10 mg PO QAM RF: 0 cholecalciferol (vitamin D3) 2,000 unit tablet 2,000 units PO HS RF: 0 tamsulosin 0.4 mg capsule 0.4 mg PO HS RF: 0 ondansetron HCl [Zofran] 4 mg tablet 4 mg PO TID PRN (Reason: nausea and vomiting) RF: 0 prochlorperazine maleate [Compazine] 10 mg tablet 10 mg PO BID PRN (Reason: nausea and vomiting) RF: 0 donepezil 10 mg Tablet 10 mg PO HS RF: 0 cyanocobalamin (vitamin B-12) 1,000 mcg Tablet 1,000 mcg PO QAM RF: 0 memantine 5 mg Tablet 5 mg PO BID RF: 0 glucosamine-chondroitin 167-133 mg Capsule 1 cap PO BID RF: 0 atorvastatin 20 mg Tablet 20 mg PO HS RF: 0 olanzapine 2.5 mg Tablet 2.5 mg PO UD RF: 0 etoposide phosphate 100 mg Recon Soln 210 mg IV UD RF: 0 hydrocortisone sod succinate 100 mg Recon Soln 100 mg IV UD RF: 0 palonosetron 0.25 mg/5 mL Solution 0.25 mg IV UD RF: 0 epinephrine 1 mg/mL Solution 0.3 mg IM UD RF: 0 carboplatin 10 mg/mL Solution 340 mg IV UD RF: 0 methylprednisolone sod suc(PF) 125 mg/2 mL Recon Soln 125 mg IV UD RF: 0 diphenhydramine in 0.9 % NaCl 50 mg/50 mL Piggyback 50 mg IV UD RF: 0 dexamethasone in 0.9 % sod chl 10 mg/50 mL Piggyback 10 mg IV UD RF: 0 Neulasta 6 mg/0.6 mL Syringe, W/ Wearable Injector SUBCUT UD RF: 0 Metamucil 3.4 gram/5.4 gram Powder 1 tsp PO QAM RF: 0 aprepitant 125 mg (25 mg/ mL final conc.) Suspension For Reconstitution 130 mg PO UD RF: 0 Discontinued aspirin 81 mg Tablet,Delayed Release (Dr/Ec) 81 mg PO QAM RF: 0 Stand-Alone Forms: [facility] Discharge Orders: Discharge Order (Routine); Ordered 05/17/18 Ordered By: Mali Reyes Admission Data Admit Date/Time: 05/13/18 14:45 Attending Provider: Mali Reyes Admit Provider: Cher Greene Primary Care Provider: Yeny Mast Other Providers: Luciano Garcia ; Nehemiah العراقي Service: Oncology Other Pending Studies at Discharge: No
[2018-05-17 16:21] VITALS: BP 123/66; PULSE 69; TEMP 99; O2SAT 99
== END 2018-05-17 16:34 | disposition home or self-care (01) | DRG 686 ==
LOC: ED 10:05 → 4E 14:45 → SUATTDRO 14:45 → 4E 16:41

== ENCOUNTER 2019-07-08 06:34 | Inpatient (IN) ==
[2019-07-08] MEDS ORDERED: SODIUM CHLORIDE 0.9% 250 ML IV PRN (07:02)
[2019-07-08 07:15] LABS: iSTAT Creatinine 1.4 mg/dl (0.6-1.3); iSTAT Hemoglobin 6.1 g/dl (14.0-18.0); iSTAT Ionized Calcium 1.14 mmol/l (1.12-1.32); iSTAT Potassium 3.9 mmol/L (3.3-5.0)
[2019-07-08 07:17] LABS: Hematocrit (blood only) 19.7 % (42-52); Hemoglobin 6.3 g/dL (14.0-18.0); Mean Corpuscular Volume 112.6 fL (80-100); Nucleated RBC # (auto) 0.02 K/uL (0-0); Nucleated RBC % (auto) 0.4 %; Platelet Count 149 K/uL (130-400); Red Blood Count 1.75 M/uL (4.7-6.1); White Blood Count 4.73 K/uL (4.8-10.8)
[2019-07-08 07:24] LABS: Alanine Aminotransferase 24 U/L (12-78); Albumin Level 3.2 gm/dl (3.4-5.0); BUN Creatinine Ratio 20.3 (10-20); Blood Urea Nitrogen 29 mg/dl (7-18); Calcium 8.5 mg/dl (8.5-10.1); Carbon Dioxide 24 mmol/L (21-32); Chloride 113 mmol/L (98-107); Creatinine Clr Calc Pharmacy 41.7 ml/min; Est GFR (African American) 52.2; Glucose 122 mg/dl (70-99); Potassium 3.9 mmol/L (3.5-5.1); Sodium 143 mmol/L (136-145)
[2019-07-08 07:26] LABS: Basophils # (auto) 0.03 K/uL (0-0.2); Basophils % (auto) 0.6 %; Eosinophils # (auto) 0.03 K/uL (0-0.5); Eosinophils % (auto) 0.6 %; Immature Granulocytes # (auto) 0.03 K/uL (0.00-0.02); Immature Granulocytes % (auto) 0.6 %; Lymphocytes # (auto) 0.73 K/uL (1.2-3.4); Lymphocytes % (auto) 15.4 %; Macrocytosis Present; Monocytes # (auto) 0.44 K/uL (0.11-0.59); Monocytes % (auto) 9.3 %; Neutrophils # (auto) 3.47 K/uL (1.4-6.5); Neutrophils % (auto) 73.5 %; Polychromasia 1+
[2019-07-08 07:29] LABS: Alkaline Phosphatase 53 U/L (45-117); Aspartate Aminotransferase 17 U/L (15-37); Bilirubin,Total 0.4 mg/dl (0.2-1); Creatine Kinase 147 U/L (39-308); Creatine Kinase MB 2.6 ng/ml (0.5-3.6); Globulin 3.3 gm/dl (2.5-4.0); INR 1.1 (0.9-1.1); Partial Thromboplastin Ratio 0.8; Partial Thromboplastin Time 22.2 Seconds (21.0-31.0); Prothrombin Time 11.7 Seconds (9.0-12.0); Total Protein 6.5 gm/dl (6.4-8.2); Troponin I < 0.015 ng/ml (0-0.045)
--- NOTE | 2019-07-08 08:20 | History & Physical Report ---
Date of Service July 08, 2019 Assessment & Plan (1) Acute blood loss anemia: 83 y/o M with h/o bladder cancer, recently known hemorrhoidal bleeding also noted to have inflammation in the rectal mucosa on colonoscopy who was scheduled to have blood transfusion today presents with rectal bleeding and hematuria Rectal bleeding with h/o radiation proctitis -Keep on Tele -PRBC transfusion arranged by ED. -IVF, NPO -IV protonix -GI consult Hematuria in setting of bladder ca -acute worsening -kat in place -consult urology Acute blood loss anemia -monitor h/h and transfuse BPH with h/o prostate ca/HLD -flomax, statin SCD DNR IVF, NPO consider palliative care discussion during hospital stay. 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 He underwent colonoscopy recently showing radiation changes in the rectal area. Yesterday he was noted to have hb of 6 which runs around 9 at [facility] and was arranged to have a blood transfusion today. noted worse rectal bleeding and blood in urine and so brought him to ED. 3 way Kat placed in ED - No clots were noted in the catheter. Bladder scan with no excessive urine. He denies any abdominal, back pain. Allergies Allergy/AdvReac Type Severity Reaction Status Date / Time No Known Allergies Allergy Verified 07/08/19 07:37 Home Medications Home Medications Medication Instructions Recorded Confirmed Type cyanocobalamin (vitamin B-12) 1,000 mcg PO QAM 02/15/18 07/08/19 History cholecalciferol (vitamin D3) 50 2,000 units PO HS 03/01/18 07/08/19 History mcg (2,000 unit) tablet atorvastatin 20 mg PO QAM 03/08/18 07/08/19 History Metamucil 1 tsp PO QAM 05/13/18 07/08/19 History Glucosamine Chondroitin 2 cap PO DAILY 02/25/19 07/08/19 History tamsulosin 0.4 mg capsule 0.4 mg PO HS #30 cap 05/16/19 07/08/19 Rx oxybutynin chloride 10 mg 10 mg PO DAILY #30 tab 06/19/19 07/08/19 Rx tablet,extended release 24 hr Past Med/Surg History Medical History Anemia s/p transfusion (04/2018) felt r/t chemo Asthma childhood/no current issues Cancer bladder, prostate cancer; s/p chemo/xrt completed 04/2018 CVA (cerebral vascular accident) evidence of old infarct on MRI "years ago" HLD (hyperlipidemia) HTN (hypertension) Left knee DJD Lung nodule Short-term memory loss "mild"/no definitive diagnosis Thrombocytopenia hx Surgical History History of bladder surgery Cystoscopy, TURBT= 02/18/18= LMA#5 at [facility] History of bronchoscopy History of cataract surgery R/L History of colonoscopy History of tooth extraction History of vascular access device A-port inserted and removed S/P bronchoscopy with biopsy (03/07/19) Endobronchial Ultrasound Dr. 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) Family History Mother , age 79 Heart disease Father , age 79 Myocardial infarction Brother , age 79 Dementia Daughter COPD (chronic obstructive pulmonary disease) Son No problems noted. Son No problems noted. 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 Other Information That Helps Us Care for You: No Feels Safe at Home: Yes Safety Concerns: Feels Safe At This Time Smoking Status: Former smoker Number of Years Since Quit: 42 ; Second Hand Exposure: No ; Hx Alcohol Use: Yes Alcohol type: beer Alcohol Intake Frequency Comment: 3 drinks a week Hx Substance Use: No Review of Systems Review of Systems: no fever, chills, vision problem, hearing problem, chest pain, shortness of breath, numbness/tingling, joint pain, headache, focal weakness, unusual skin rash, depression, anxiety Physical Exam Constitutional: WD/WN, vitals as above + ill appearing Pale Eyes: PERRL, conjunctivae normal, anicteric sclerae ENMT: external ear and nose normal, oropharynx normal Neck: trachea midline, no thyromegaly Respiratory: normal respiratory effort, lungs clear to auscultation Cardiovascular: Rate/Rhythm: regular rate and regular rhythm Heart Sounds: + murmur Gastrointestinal (Abdomen): normal bowel sounds, soft, nontender, no hepatosplenomegaly Skin: no rashes, warm and dry Neurologic: PERRL, EOMI, accommodation nl, no face palsy, no dysarthria moves all extremities Psychiatric: A+Ox3, euthymic affect Genitourinary: kat - dark colored urine Results & Data Results & Data ([facility]) Vital Signs (Past 12 Hours) Vital Signs Temp Pulse Pulse Resp BP BP Pulse Ox 07/08/19 07:49 60 12 118/56 L 98 07/08/19 07:29 93 07/08/19 06:41 36.5 C 82 16 178/85 H 98
--- NOTE | 2019-07-08 09:12 | Emergency Department Note ---
History of Present Illness General Chief complaint: Hematuria Stated complaint: RECTAL BLEED Time Seen by Provider: 07/08/19 06:36 Source: patient, family (), RN notes reviewed and old records reviewed Mode of arrival: ambulatory Limitations: no limitations History of Present Illness Provider complaint: Rectal bleeding and hematuria Onset (ago): month(s) 1 Maximum Pain Intensity: 0 Associated symptoms: + weakness Treatments prior to arrival: none This is an 83-year-old male who presents emergency department complaining about the bleeding Home Medications Home Medications Medication Instructions Recorded Confirmed Type cyanocobalamin (vitamin B-12) 1,000 mcg PO QAM 02/15/18 07/08/19 History cholecalciferol (vitamin D3) 50 2,000 units PO HS 03/01/18 07/08/19 History mcg (2,000 unit) tablet atorvastatin 20 mg PO QAM 03/08/18 07/08/19 History Metamucil 1 tsp PO QAM 05/13/18 07/08/19 History Glucosamine Chondroitin 2 cap PO DAILY 02/25/19 07/08/19 History tamsulosin 0.4 mg capsule 0.4 mg PO HS #30 cap 05/16/19 07/08/19 Rx oxybutynin chloride 10 mg 10 mg PO DAILY #30 tab 06/19/19 07/08/19 Rx tablet,extended release 24 hr Allergies Allergy/AdvReac Type Severity Reaction Status Date / Time No Known Allergies Allergy Verified 07/09/19 10:12 Past Med/Surg History Medical History Anemia s/p transfusion (04/2018) felt r/t chemo Asthma childhood/no current issues Cancer bladder, prostate cancer; s/p chemo/xrt completed 04/2018 CVA (cerebral vascular accident) evidence of old infarct on MRI "years ago" HLD (hyperlipidemia) HTN (hypertension) Left knee DJD Lung nodule Short-term memory loss "mild"/no definitive diagnosis Thrombocytopenia hx Surgical History History of bladder surgery Cystoscopy, TURBT= 02/18/18= LMA#5 at [facility] History of bronchoscopy History of cataract surgery R/L History of colonoscopy History of tooth extraction History of vascular access device A-port inserted and removed S/P bronchoscopy with biopsy (03/07/19) Endobronchial Ultrasound Dr. 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) Family History Mother , age 79 Heart disease Father , age 79 Myocardial infarction Brother , age 79 Dementia Daughter COPD (chronic obstructive pulmonary disease) Son No problems noted. Son No problems noted. 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 Other Information That Helps Us Care for You: No Feels Safe at Home: Yes Safety Concerns: Feels Safe At This Time Smoking Status: Former smoker Number of Years Since Quit: 42 ; Second Hand Exposure: No ; Hx Alcohol Use: Yes Alcohol type: beer Alcohol Intake Frequency Comment: 3 drinks a week Hx Substance Use: No Review of Systems A total of 10 systems reviewed and were otherwise negative Physical Exam Vital Signs Vital Signs - 24 hr 07/08/19 06:41 07/08/19 07:29 07/08/19 07:49 Temperature 36.5 C Temperature Source Oral Pulse Rate 82 Pulse Rate [Left Finger] 60 Respiratory Rate 16 12 Respiratory Depth Normal Blood Pressure 178/85 H Blood Pressure [Left Arm] 118/56 L Blood Pressure Mean 116 Blood Pressure Mean [Left Arm] 76 Blood Pressure Position Lying Pulse Oximetry 98 93 98 Oxygen Delivery Method Room Air Room Air Room Air Sepsis Recent Fever Within 48 Hours No Sepsis New/Unexplained Change in Mental Status No Sepsis Action Taken by Nursing No Action Required 07/08/19 09:08 Temperature Temperature Source Pulse Rate Pulse Rate [Left Finger] 57 L Respiratory Rate 18 Respiratory Depth Blood Pressure Blood Pressure [Left Arm] 121/57 L Blood Pressure Mean Blood Pressure Mean [Left Arm] 78 Blood Pressure Position Pulse Oximetry 97 Oxygen Delivery Method Room Air Sepsis Recent Fever Within 48 Hours Sepsis New/Unexplained Change in Mental Status Sepsis Action Taken by Nursing VITAL SIGNS - Vital signs and nursing notes were reviewed. GENERAL - 83-year-old male appearing stated age who is in no acute distress. Communicates well with provider and answers questions appropriately. SKIN - Without rashes. HEAD - NC/AT. EYES - PERRL with EOMI bilaterally. Sclera anicteric. Palpebral conjunctiva pink and moist with no injection noted. EARS - No deformities of external structures noted on gross examination bilaterally. No pain elicited with palpation of the tragus bilaterally. External auditory canals without discharge or otorrhea. Tympanic membranes pearly watson without retraction or bulging. No fluid or purulent material visualized behind the TM. Handle of malleus, umbo, cone of light, pars tensa/flaccid all easily visualized. NOSE - Midline and without cyanosis. No epistaxis or purulent drainage noted. Septum midline without deviation or septal hematoma noted. MOUTH/OROPHARYNX - Without perioral cyanosis. Buccal mucosa pink and moist and without leukoplakia. Tongue midline with equal elevation of palate bilaterally. No tonsillar hypertrophy, erythema, or exudates noted. dentition noted. NECK - Neck with FROM. Supple to palpation. lymphadenopathy noted. No nuchal rigidity. LUNGS - Chest wall symmetric without accessory muscle use, intercostals retractions, or central cyanosis. Normal vesicular breath sounds CTA B/L. No wheezes, rales, or rhonchi appreciated. CARDIAC - RRR with S1/S2. No murmur, rubs, or gallops appreciated. ABDOMEN - Abdominal contour without pulsations or visible masses. BS normoactive all four quadrants. No tenderness, palpable masses, hepatosplenomegaly, or ascites noted. RECTAL: BRBPR EXTREMITIES - No clubbing or peripheral cyanosis. No pretibial edema present. +3/5 radial, posterior tibial, and dorsalis pedis pulses palpated throughout. +5/5 strength noted in UE/LE bilaterally. NEUROLOGIC - Cranial nerves II through XII grossly intact. Sensory intact to light touch throughout. Patellar reflexes +2/4. PSYCH - A&Ox3 and cooperates fully with examiner. Pt is very pleasant and interacts well with examiner. Course Administered Medications Acetaminophen (Tylenol) 650 mg PO Q4H PRN PRN Reason: Pain or Fever Stop: 08/07/19 12:16 Last Admin: 07/08/19 21:21 Dose: 650 mg Documented by: [id number] Atorvastatin Calcium (Lipitor) 20 mg PO QAM [facility] Stop: 08/07/19 12:16 Last Admin: 07/09/19 11:02 Dose: 20 mg Documented by: [id number] Admin: 07/08/19 13:35 Dose: Not Given Documented by: [id number] Ciprofloxacin (Cipro) 500 mg PO BID [facility] Stop: 07/19/19 10:29 Last Admin: 07/09/19 21:08 Dose: 500 mg Documented by: [id number] Admin: 07/09/19 11:51 Dose: 500 mg Documented by: [id number] Metronidazole (Flagyl) 500 mg PO BID [facility] Stop: 07/19/19 10:29 Last Admin: 07/09/19 21:08 Dose: 500 mg Documented by: [id number] Admin: 07/09/19 11:51 Dose: 500 mg Documented by: [id number] Oxybutynin Chloride (Ditropan Xl) 10 mg PO DAILY [facility] Stop: 08/07/19 12:16 Last Admin: 07/09/19 11:03 Dose: 10 mg Documented by: [id number] Admin: 07/08/19 13:35 Dose: 10 mg Documented by: [id number] Tamsulosin HCl (Flomax) 0.4 mg PO HS [facility] Stop: 08/07/19 20:59 Last Admin: 07/09/19 21:08 Dose: 0.4 mg Documented by: [id number] Admin: 07/08/19 20:38 Dose: 0.4 mg Documented by: [id number] Discontinued Medications Ephedrine Sulfate (Ephedrine Sulfate) Confirm Administered Dose 10 mg .ROUTE .STK-MED [facility] Stop: 07/09/19 10:16 Last Admin: 07/09/19 11:39 Dose: Not Given Documented by: [id number] Potassium Chloride/Sodium Chloride (1/2 Nss + 20meq Kcl 1000ml) 20 meq in 1,000 mls @ 75 mls/hr IV .[id number] [facility] Stop: 07/09/19 15:39 Last Infusion: 07/09/19 07:27 Dose: 0 mls/hr Documented by: [id number] Admin: 07/08/19 20:38 Dose: 125 mls/hr Documented by: [id number] Infusion: 07/08/19 20:38 Dose: 125 mls/hr Documented by: [id number] Admin: 07/08/19 13:10 Dose: 125 mls/hr Documented by: [id number] Pantoprazole Sodium 80 mg/ (Dextrose) 120 mls @ 480 mls/hr IV TODAY@1245 [facility] Stop: 07/08/19 12:59 Last Infusion: 07/08/19 13:35 Dose: 0 mls/hr Documented by: [id number] Admin: 07/08/19 13:10 Dose: 480 mls/hr Documented by: [id number] Pantoprazole Sodium 40 mg/ (Dextrose) 100 mls @ 20 mls/hr IV Q5H [facility] Stop: 08/07/19 12:59 Last Infusion: 07/09/19 13:45 Dose: 0 mg/hr, 0 mls/hr Documented by: [id number] Admin: 07/09/19 11:40 Dose: Not Given Documented by: [id number] Admin: 07/09/19 11:02 Dose: 8 mg/hr, 20 mls/hr Documented by: [id number] Infusion: 07/09/19 08:17 Dose: 8 mg/hr, 20 mls/hr Documented by: [id number] Admin: 07/09/19 03:17 Dose: 8 mg/hr, 20 mls/hr Documented by: [id number] Infusion: 07/09/19 00:25 Dose: 8 mg/hr, 20 mls/hr Documented by: [id number] Admin: 07/08/19 19:25 Dose: 8 mg/hr, 20 mls/hr Documented by: [id number] Infusion: 07/08/19 18:10 Dose: 8 mg/hr, 20 mls/hr Documented by: [id number] Admin: 07/08/19 13:10 Dose: 8 mg/hr, 20 mls/hr Documented by: [id number] Lidocaine HCl (Xylocaine 2%) Confirm Administered Dose 4 ml INFIL .STK-MED ONE Stop: 07/09/19 10:04 Last Admin: 07/09/19 11:39 Dose: Not Given Documented by: [id number] Propofol (Diprivan) Confirm Administered Dose 400 mg IV .STK-MED ONE Stop: 07/09/19 10:04 Last Admin: 07/09/19 11:39 Dose: Not Given Documented by: [id number] Critical Care Time I have personally spent greater than 30 minutes of critical care time in the direct management of this patient. This includes bedside care, interpretation of diagnostic studies, and testing, discussion with consultants, patient, and family members, and other required patient management activities. This 30 minutes is in excess of all separately billable procedures. Medical Decision Making Differential Diagnosis Diverticulosis, AVM, coagulopathy, colitis, inflammatory bowel disease, malignancy, Dasia-Jarquin tear, esophagitis, peptic ulcer disease, variceal bleed, gastritis, epistaxis, fissure, hemorrhoids, as well as other pathologies. Medical Records Attestation: I reviewed the patient's medical records. Home Medications Current Medication List: was personally reviewed by me Laboratory Data Attestation: I reviewed the patient's lab results. Result diagrams: 07/10/19 04:14 07/10/19 04:14 Lab Results 07/08/19 07/08/19 07/08/19 Range/Units 06:50 06:50 06:50 WBC 4.73 L (4.8-10.8) K/uL RBC 1.75 L (4.7-6.1) M/uL Hgb 6.3 L* (14.0-18.0) g/dL POC Hgb (14.0-18.0) g/dl Hct 19.7 L* (42-52) % POC Hct (42-52) % MCV 112.6 H (80-100) fL MCH 36.0 H (25-34) pg MCHC 32.0 (32-36) g/dL RDW Std Deviation 78.0 H (36.4-46.3) fL RDW Coeff of Latasha 19.0 H (11.5-14.5) % Plt Count 149 (130-400) K/uL MPV 9.0 (7.4-10.4) fL Immature Gran % (Auto) 0.6 % Neut % (Auto) 73.5 % Lymph % (Auto) 15.4 % [place] % (Auto) 9.3 % Eos % (Auto) 0.6 % Baso % (Auto) 0.6 % Immature Gran # (Auto) 0.03 H (0.00-0.02) K/uL Neut # (Auto) 3.47 (1.4-6.5) K/uL Lymph # (Auto) 0.73 L (1.2-3.4) K/uL [place] # (Auto) 0.44 (0.11-0.59) K/uL Eos # (Auto) 0.03 (0-0.5) K/uL Baso # (Auto) 0.03 (0-0.2) K/uL Absolute Nucleated RBC 0.02 H (0-0) K/uL Nucleated RBC % (auto) 0.4 % Polychromasia 1+ Macrocytosis Present PT (9.0-12.0) Seconds INR (0.9-1.1) APTT (21.0-31.0) Seconds PTT Ratio POC Sodium (135-144) mmol/L Sodium 143 (136-145) mmol/L POC Potassium (3.3-5.0) mmol/L Potassium 3.9 (3.5-5.1) mmol/L POC Chloride (101-112) mmol/L Chloride 113 H (98-107) mmol/L Carbon Dioxide 24 (21-32) mmol/L POC Total CO2 (24-31) mmol/L Anion Gap 6.0 (3-11) POC Anion Gap (16-25) mmol/L POC BUN (7-18) mg/dl BUN 29 H (7-18) mg/dl Creatinine 1.42 H (0.6-1.4) mg/dl POC Creatinine (0.6-1.3) mg/dl Est Cr Clr Drug Dosing 41.7 ml/min Est GFR ( Amer) 52.2 Est GFR (Non-Af Amer) 45.0 BUN/Creatinine Ratio 20.3 H (10-20) Glucose 122 H (70-99) mg/dl POC Glucose (other) (70-99) mg/dl Calcium 8.5 (8.5-10.1) mg/dl POC Ioniz Calcium Ken (1.12-1.32) mmol/l Total Bilirubin 0.4 (0.2-1) mg/dl AST 17 (15-37) U/L ALT 24 (12-78) U/L Alkaline Phosphatase 53 (45-117) U/L Total Creatine Kinase 147 (39-308) U/L CK-MB (CK-2) 2.6 (0.5-3.6) ng/ml CK/CKMB % Calc 1.8 (0-3.0) Troponin I < 0.015 (0-0.045) ng/ml Total Protein 6.5 (6.4-8.2) gm/dl Albumin 3.2 L (3.4-5.0) gm/dl Globulin 3.3 (2.5-4.0) gm/dl Albumin/Globulin Ratio 1.0 (0.9-2) Blood Type A Positive Antibody Screen POSITIVE A Antibody Identification Anti-Fya Antibody ID Comment Crossmatch See Detail 07/08/19 07/08/19 Range/Units 06:50 07:00 WBC (4.8-10.8) K/uL RBC (4.7-6.1) M/uL Hgb (14.0-18.0) g/dL POC Hgb 6.1 L* (14.0-18.0) g/dl Hct (42-52) % POC Hct 18 L* (42-52) % MCV (80-100) fL MCH (25-34) pg MCHC (32-36) g/dL RDW Std Deviation (36.4-46.3) fL RDW Coeff of Latasha (11.5-14.5) % Plt Count (130-400) K/uL MPV (7.4-10.4) fL Immature Gran % (Auto) % Neut % (Auto) % Lymph % (Auto) % [place] % (Auto) % Eos % (Auto) % Baso % (Auto) % Immature Gran # (Auto) (0.00-0.02) K/uL Neut # (Auto) (1.4-6.5) K/uL Lymph # (Auto) (1.2-3.4) K/uL [place] # (Auto) (0.11-0.59) K/uL Eos # (Auto) (0-0.5) K/uL Baso # (Auto) (0-0.2) K/uL Absolute Nucleated RBC (0-0) K/uL Nucleated RBC % (auto) % Polychromasia Macrocytosis PT 11.7 (9.0-12.0) Seconds INR 1.1 (0.9-1.1) APTT 22.2 (21.0-31.0) Seconds PTT Ratio 0.8 POC Sodium 143 (135-144) mmol/L Sodium (136-145) mmol/L POC Potassium 3.9 (3.3-5.0) mmol/L Potassium (3.5-5.1) mmol/L POC Chloride 110 (101-112) mmol/L Chloride (98-107) mmol/L Carbon Dioxide (21-32) mmol/L POC Total CO2 21 L (24-31) mmol/L Anion Gap (3-11) POC Anion Gap 17.0 (16-25) mmol/L POC BUN 25 H (7-18) mg/dl BUN (7-18) mg/dl Creatinine (0.6-1.4) mg/dl POC Creatinine 1.4 H (0.6-1.3) mg/dl Est Cr Clr Drug Dosing ml/min Est GFR ( Amer) Est GFR (Non-Af Amer) BUN/Creatinine Ratio (10-20) Glucose (70-99) mg/dl POC Glucose (other) 128 H (70-99) mg/dl Calcium (8.5-10.1) mg/dl POC Ioniz Calcium Ken 1.14 (1.12-1.32) mmol/l Total Bilirubin (0.2-1) mg/dl AST (15-37) U/L ALT (12-78) U/L Alkaline Phosphatase (45-117) U/L Total Creatine Kinase (39-308) U/L CK-MB (CK-2) (0.5-3.6) ng/ml CK/CKMB % Calc (0-3.0) Troponin I (0-0.045) ng/ml Total Protein (6.4-8.2) gm/dl Albumin (3.4-5.0) gm/dl Globulin (2.5-4.0) gm/dl Albumin/Globulin Ratio (0.9-2) Blood Type Antibody Screen Antibody Identification Antibody ID Comment Crossmatch ECG Data Attestation: I personally reviewed and interpreted this ECG as follows: Indication: + other (gi bleed) Rate (beats per minute): 81 Rhythm: + normal sinus ECG Intervals/blocks: + Normal QT-c (441) ECG Bellamy: + Normal ECG ST segments: no ST depression and no ST elevation ECG Findings: + PACs Comparison ECG Date: from (06/20/2019) Change: the following changes noted (PACs now present) MDM Narrative This is an 83-year-old male who presents the emergency department complaining of both hematuria as well as rectal bleeding. His hemoglobin was noted to be 7.5 here. He was typed and crossed for 2 units of packed red blood cells. The patient is having difficulty urinating therefore a Ang catheter was placed and irrigation was initiated. He was therefore sent discussed with urology. Because the patient is bleeding from 2 areas I do feel he should be admitted to the hospital. He was then discussed with the hospitalist service who did agree to admit the patient. Patient was seen and evaluated as above in room C9. Review was performed of nursing notes and vital signs. I did review pertinent previous visits and patient history. After obtaining a thorough history and physical examination the above work up was performed. While in the department, I personally reevaluated the patient several times and each time the patient was found to be resting comfortably. The patient was educated upon management, educated upon todays findings/results, educated upon importance of follow up from today's visit, educated upon symptoms in which to return, had questions answered prior to discharge, verbalized understanding, and was discharged home in good condition. An order was placed for continuous cardiac monitoring. The monitor shows a rate of 74 with Normal Sinus rhythm. The patient was evaluated during the global COVID-19 pandemic, and that diagnosis was suspected/considered upon their initial presentation. Their evaluation, treatment and testing was consistent with current guidelines for patients who present with complaints or symptoms that may be related to COVID- 19. Impression & Plan Gross hematuria, Rectal bleeding, Acute blood loss anemia Discharge Plan Visit Data *Final* Discharge Date/Time: 07/08/19 11:30 Chief Complaint: Hematuria Stated Complaint: RECTAL BLEED ED Provider: Patrick Anderson Discharge Problem: Gross hematuria, Rectal bleeding, Acute blood loss anemia Patient Disposition: Admitted As Inpatient Discharge Instructions Interventions: ED Discharge Assessment Last Done: 07/08/19 11:30
[2019-07-08] MEDS ORDERED: PANTOprazole 40 MG in DEXTROSE 5% 100 ML IV SCH (12:15)
[2019-07-08] MEDS ORDERED: ACETAMINOPHEN 325 MG TAB PO PRN (12:17)
[2019-07-08] MEDS ORDERED: ONDANSETRON INJ 2 MG/ML 2 ML VIAL IV PRN (12:17)
--- NOTE | 2019-07-08 12:17 | Urology Consultation ---
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 now with anemia believed to be secondary to primarily a GI bleed with likely smaller component Three-way Ang catheter is placed and draining He has not had imaging and I cannot definitively rule out the presence of some clot within his bladder but at present he is tolerating the catheterization well and his PVR was relatively low prior to catheter placement At present I think we should observe from a standpoint continue CBI, if he experiences severe abdominal pain CBI should be stopped immediately and a bladder scan performed to rule out severe bladder distentionparticularly in light of his prior radiation and fragility of his bladder History of Present Illness Attending Physician: Yeny Mast MD History of Present Illness 83-year-old gentleman with a 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 Bladder scan was not excessive. No other imaging was performed today. They have started CBI with normal saline and it is now running well and clear. He has no abdominal discomfort, no suprapubic discomfort Allergies Allergy/AdvReac Type Severity Reaction Status Date / Time No Known Allergies Allergy Verified 07/08/19 07:37 Home Medications Home Medications Medication Instructions Recorded Confirmed Type cyanocobalamin (vitamin B-12) 1,000 mcg PO QAM 02/15/18 07/08/19 History cholecalciferol (vitamin D3) 50 2,000 units PO HS 03/01/18 07/08/19 History mcg (2,000 unit) tablet atorvastatin 20 mg PO QAM 03/08/18 07/08/19 History Metamucil 1 tsp PO QAM 05/13/18 07/08/19 History Glucosamine Chondroitin 2 cap PO DAILY 02/25/19 07/08/19 History tamsulosin 0.4 mg capsule 0.4 mg PO HS #30 cap 05/16/19 07/08/19 Rx oxybutynin chloride 10 mg 10 mg PO DAILY #30 tab 06/19/19 07/08/19 Rx tablet,extended release 24 hr Patient History Medical History Anemia s/p transfusion (04/2018) felt r/t chemo Asthma childhood/no current issues Cancer bladder, prostate cancer; s/p chemo/xrt completed 04/2018 CVA (cerebral vascular accident) evidence of old infarct on MRI "years ago" HLD (hyperlipidemia) HTN (hypertension) Left knee DJD Lung nodule Short-term memory loss "mild"/no definitive diagnosis Thrombocytopenia hx Surgical History History of bladder surgery Cystoscopy, TURBT= 02/18/18= LMA#5 at [facility] History of bronchoscopy History of cataract surgery R/L History of colonoscopy History of tooth extraction History of vascular access device A-port inserted and removed S/P bronchoscopy with biopsy (03/07/19) Endobronchial Ultrasound Dr. 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) Family History Mother , age 79 Heart disease Father , age 79 Myocardial infarction Brother , age 79 Dementia Daughter COPD (chronic obstructive pulmonary disease) Son No problems noted. Son No problems noted. 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 Feels Safe at Home: Yes Smoking Status: Former smoker Number of Years Since Quit: 42 ; Second Hand Exposure: No ; Hx Alcohol Use: Yes Alcohol type: hard liquor Alcohol Intake Frequency Comment: 3 drinks a week Hx Substance Use: No Review of Systems Constitutional: no fever, no chills and no fatigue Eyes: no worsening vision Ear, Nose, Mouth, Throat: no facial pain and no pain with swallowing Respiratory: no cough and no dyspnea Cardiovascular: no chest pain and no palpitations Gastrointestinal: + nausea, + vomiting, + change in stools and + blood in stools; no abdominal pain Genitourinary: + problem reported Musculoskeletal: no back pain Integumentary: no rash and no urticaria Neurologic: no gait abnormality and no unsteadiness Psychiatric: no behavioral changes and no depression Endocrine: no fatigue Physical Exam Constitutional: well developed and well nourished; no acute distress Comfortable appearing, in an ICU bed, receiving a blood transfusion Neck: neck nontender Respiratory: normal respiratory effort; no respiratory distress and does not use accessory muscles Cardiovascular: Rate/Rhythm: regular rate Vessels: radial pulses present Extremities: no edema Gastrointestinal (Abdomen): Inspection/Auscultation: abdomen normal to inspection Percussion/Palpation: abdomen soft; abdomen nontender and no guarding Musculoskeletal: Head/Neck/Chest: normocephalic and head atraumatic Extremities: extremities normal to inspection Skin: no rashes and no lesions Trauma: no evidence of skin trauma Neurologic: awake; not obtunded Speech / Cognition: normal speech Motor/Sensory: no tremor Psychiatric: Orientation: alert and oriented x 3 Genitourinary: no CVA tenderness 20 American three-way Ang catheter in place draining clear/pink-tinged urine, running appropriately without restrictionslow in flow at present Lymphatic: no lymphadenopathy Results & Data Vital Signs (Past 12 Hours) Vital Signs Temp Pulse Pulse Resp BP BP Pulse Ox 07/08/19 11:26 36.8 C 61 14 144/76 H 98 07/08/19 11:20 36.7 C 57 L 16 115/62 95 07/08/19 11:11 36.8 C 58 L 14 143/78 H 97 07/08/19 11:05 62 14 143/78 H 97 07/08/19 10:15 36.7 C 56 L 14 140/70 100 07/08/19 10:03 36.3 C L 62 14 158/82 H 98 07/08/19 09:46 36.7 C 73 14 145/70 H 100 07/08/19 09:35 36.8 C 59 L 16 113/62 96 07/08/19 09:25 36.7 C 60 14 121/57 L 97 07/08/19 09:15 36.7 C 59 L 14 121/57 L 97 06/02/20 09:08 57 L 18 121/57 L 97 07/08/19 07:49 60 12 118/56 L 98 07/08/19 07:29 93 07/08/19 06:41 36.5 C 82 16 178/85 H 98 PG Care Time/CCT Total # of Minutes Spent Total Time Spent with Patient: Total time spent is greater than 50% in coordination of care (as documented) at patient's floor/unit and/or counseling patient: Coding Level of Care Code 29900 Inpt Consult Level 4 Diagnoses Small cell carcinoma of bladder C67.9
--- NOTE | 2019-07-08 12:33 | Electrocardiogram Report ---
Test Reason : Blood Pressure : / mmHG Vent. Rate : 081 BPM Atrial Rate : 081 BPM P-R Int : 126 ms QRS Dur : 098 ms QT Int : 380 ms P-R-T Axes : -17 -29 052 degrees QTc Int : 441 ms Sinus rhythm with Premature atrial complexes Moderate voltage criteria for LVH, may be normal variant Borderline ECG When compared with ECG of 20-JUN-2019 10:51, Premature atrial complexes are now Present Confirmed by Reuben Chaudhari ([id number]) on 07/08/2019 12:33:02 PM Referred By: REFERRED SELF Confirmed By:Reuben Chaudhari
--- NOTE | 2019-07-08 12:37 | Gastrointestinal Consultation ---
Date of Consultation July 08, 2019 Assessment & Plan (1) Rectal bleedin83 y/o male with known small cell CA of the bladder s/p chemo, radiation, ongoing hematuria and rectal bleeding for the last few months and known radiation proctitis on colonoscopy 06/23/19, presented today with hematuri a,hematochezia and acute on chronic anemia (HGB 9.3 -> 6.2, BUN chronically elevated). Urology is following. Has not had GI output since admission. Currently VSS, abd is soft. Diff dx - most likely etiology of rectal bleeding is radiation proctitis, but also consider UGI source. - Continue IV PPI - Trend H&H, BUN, transfuse PRN - IVF - Monitor all GI output - Keep NPO - Plan for EGD, flex sig tomorrow once more medically stable - Tap water enema x 1 this afternoon and once in the AM prior to procedure Thank you for allowing us to participate in the care of this patient. Please call with any acute changes, questions or concerns. Please see addendum below with additional recommendation from my supervising physician. Supervising Physician Co-Signing Physician Notes I performed a history and physical examination of the patient today, including specifically on physical exam - soft abdomen. I have discussed the patient's management with the advanced practitioner. Please refer to the nurse practitioner's note for the documented findings and plan of care. Flex sig tomorrow with APC therapy for radiation proctitis. EGD as well. History of Present Illness Reason for Consultation: rectal bleeding Attending Physician: Yeny Mast MD History of Present Illness 83 y/o male with PMhx prostate CA and small cell carcinoma of the bladder treated with chemo and radiation after initial TURBT for diagnosis in 2019, with intermittent hematuria as well as hematochezia several times a day over the past several months (pt admits his "memory isn't the best"), and could not be more specific. 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 On arrival today he was found to have acute on chronic anemia. Labs on arrival with HGB 9.3 -> 6.3, BUN chronically elevated around 28 (is 29). VSS (BP 132/72, P 60, afebrile). He was started on IV PPI and pRBC transfusion. Presently denies abd pain, nausea, vomiting, hematemesis, heartburn, regurgitation, dysphagia, rectal pain, fever, chills, chest pain, syncope, dyspnea. Allergies Allergy/AdvReac Type Severity Reaction Status Date / Time No Known Allergies Allergy Verified 07/08/19 07:37 Home Medications Home Medications Medication Instructions Recorded Confirmed Type cyanocobalamin (vitamin B-12) 1,000 mcg PO QAM 02/15/18 07/08/19 History cholecalciferol (vitamin D3) 50 2,000 units PO HS 03/01/18 07/08/19 History mcg (2,000 unit) tablet atorvastatin 20 mg PO QAM 03/08/18 07/08/19 History Metamucil 1 tsp PO QAM 05/13/18 07/08/19 History Glucosamine Chondroitin 2 cap PO DAILY 02/25/19 07/08/19 History tamsulosin 0.4 mg capsule 0.4 mg PO HS #30 cap 05/16/19 07/08/19 Rx oxybutynin chloride 10 mg 10 mg PO DAILY #30 tab 06/19/19 07/08/19 Rx tablet,extended release 24 hr Patient History Medical History Anemia s/p transfusion (04/2018) felt r/t chemo Asthma childhood/no current issues Cancer bladder, prostate cancer; s/p chemo/xrt completed 04/2018 CVA (cerebral vascular accident) evidence of old infarct on MRI "years ago" HLD (hyperlipidemia) HTN (hypertension) Left knee DJD Lung nodule Short-term memory loss "mild"/no definitive diagnosis Thrombocytopenia hx Surgical History History of bladder surgery Cystoscopy, TURBT= 02/18/18= LMA#5 at [facility] History of bronchoscopy History of cataract surgery R/L History of colonoscopy History of tooth extraction History of vascular access device A-port inserted and removed S/P bronchoscopy with biopsy (03/07/19) Endobronchial Ultrasound Dr. 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) Family History Mother , age 79 Heart disease Father , age 79 Myocardial infarction Brother , age 79 Dementia Daughter COPD (chronic obstructive pulmonary disease) Son No problems noted. Son No problems noted. 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 Other Information That Helps Us Care for You: No Feels Safe at Home: Yes Safety Concerns: Feels Safe At This Time Smoking Status: Former smoker Number of Years Since Quit: 42 ; Second Hand Exposure: No ; Hx Alcohol Use: Yes Alcohol type: beer Alcohol Intake Frequency Comment: 3 drinks a week Hx Substance Use: No Review of Systems Review of Systems: Somewhat limited due to pt's cognitive issues Respiratory: no cough and no dyspnea Cardiovascular: no chest pain and no dyspnea Gastrointestinal: as per Subjective / HPI Genitourinary: + as per Subjective / HPI Physical Exam Constitutional: Somewhat chronically ill, no acute distress, resting comfortably in bed Eyes: pale conjunctiva Respiratory: normal respiratory effort, lungs clear to auscultation Cardiovascular: Rate/Rhythm: regular rate and regular rhythm Gastrointestinal (Abdomen): normal bowel sounds, soft, nontender, no hepatosplenomegaly Skin: no rashes, warm and dry Psychiatric: Orientation: alert Speech: normal rate/rhythm/volume of speech exhibits memory deficits as to recent medical history and symptoms Genitourinary: Ang in place with pink-tinged urine in bag Results & Data ([facility]) Vital Signs (Past 12 Hours) Vital Signs Temp Pulse Pulse Resp BP BP Pulse Ox 07/08/19 12:11 36.4 C L 60 18 132/72 98 07/08/19 11:41 36.4 C L 59 L 18 132/72 98 07/08/19 11:26 36.8 C 61 14 144/76 H 98 07/08/19 11:20 36.7 C 57 L 16 115/62 95 07/08/19 11:11 36.8 C 58 L 14 143/78 H 97 07/08/19 11:05 62 14 143/78 H 97 07/08/19 10:15 36.7 C 56 L 14 140/70 100 07/08/19 10:03 36.3 C L 62 14 158/82 H 98 07/08/19 09:46 36.7 C 73 14 145/70 H 100 07/08/19 09:35 36.8 C 59 L 16 113/62 96 07/08/19 09:25 36.7 C 60 14 121/57 L 97 07/08/19 09:15 36.7 C 59 L 14 121/57 L 97 07/08/19 09:08 57 L 18 121/57 L 97 07/08/19 07:49 60 12 118/56 L 98 07/08/19 07:29 93 07/08/19 06:41 36.5 C 82 16 178/85 H 98 Laboratory Results 07/08/19 07/08/19 07/08/19 Range/Units 07:00 06:50 06:50 WBC 4.73 L (4.8-10.8) K/uL RBC 1.75 L (4.7-6.1) M/uL Hgb 6.3 L* (14.0-18.0) g/dL POC Hgb 6.1 L* (14.0-18.0) g/dl Hct 19.7 L* (42-52) % POC Hct 18 L* (42-52) % MCV 112.6 H (80-100) fL MCH 36.0 H (25-34) pg MCHC 32.0 (32-36) g/dL RDW Std Deviation 78.0 H (36.4-46.3) fL RDW Coeff of Latasha 19.0 H (11.5-14.5) % Plt Count 149 (130-400) K/uL MPV 9.0 (7.4-10.4) fL Immature Gran % (Auto) 0.6 % Neut % (Auto) 73.5 % Lymph % (Auto) 15.4 % [place] % (Auto) 9.3 % Eos % (Auto) 0.6 % Baso % (Auto) 0.6 % Immature Gran # (Auto) 0.03 H (0.00-0.02) K/uL Neut # (Auto) 3.47 (1.4-6.5) K/uL Lymph # (Auto) 0.73 L (1.2-3.4) K/uL [place] # (Auto) 0.44 (0.11-0.59) K/uL Eos # (Auto) 0.03 (0-0.5) K/uL Baso # (Auto) 0.03 (0-0.2) K/uL Absolute Nucleated RBC 0.02 H (0-0) K/uL Nucleated RBC % (auto) 0.4 % Polychromasia 1+ Macrocytosis Present PT 11.7 (9.0-12.0) Seconds INR 1.1 (0.9-1.1) APTT 22.2 (21.0-31.0) Seconds PTT Ratio 0.8 POC Sodium 143 (135-144) mmol/L Sodium (136-145) mmol/L POC Potassium 3.9 (3.3-5.0) mmol/L Potassium (3.5-5.1) mmol/L POC Chloride 110 (101-112) mmol/L Chloride (98-107) mmol/L Carbon Dioxide (21-32) mmol/L POC Total CO2 21 L (24-31) mmol/L Anion Gap (3-11) POC Anion Gap 17.0 (16-25) mmol/L POC BUN 25 H (7-18) mg/dl BUN (7-18) mg/dl Creatinine (0.6-1.4) mg/dl POC Creatinine 1.4 H (0.6-1.3) mg/dl Est Cr Clr Drug Dosing ml/min Est GFR ( Amer) Est GFR (Non-Af Amer) BUN/Creatinine Ratio (10-20) Glucose (70-99) mg/dl POC Glucose (other) 128 H (70-99) mg/dl Calcium (8.5-10.1) mg/dl POC Ioniz Calcium Ken 1.14 (1.12-1.32) mmol/l Total Bilirubin (0.2-1) mg/dl AST (15-37) U/L ALT (12-78) U/L Alkaline Phosphatase (45-117) U/L Total Creatine Kinase (39-308) U/L CK-MB (CK-2) (0.5-3.6) ng/ml CK/CKMB % Calc (0-3.0) Troponin I (0-0.045) ng/ml Total Protein (6.4-8.2) gm/dl Albumin (3.4-5.0) gm/dl Globulin (2.5-4.0) gm/dl Albumin/Globulin Ratio (0.9-2) Blood Type Antibody Screen Antibody Identification Antibody ID Comment Crossmatch 07/08/19 07/08/19 Range/Units 06:50 06:50 WBC (4.8-10.8) K/uL RBC (4.7-6.1) M/uL Hgb (14.0-18.0) g/dL POC Hgb (14.0-18.0) g/dl Hct (42-52) % POC Hct (42-52) % MCV (80-100) fL MCH (25-34) pg MCHC (32-36) g/dL RDW Std Deviation (36.4-46.3) fL RDW Coeff of Latasha (11.5-14.5) % Plt Count (130-400) K/uL MPV (7.4-10.4) fL Immature Gran % (Auto) % Neut % (Auto) % Lymph % (Auto) % [place] % (Auto) % Eos % (Auto) % Baso % (Auto) % Immature Gran # (Auto) (0.00-0.02) K/uL Neut # (Auto) (1.4-6.5) K/uL Lymph # (Auto) (1.2-3.4) K/uL [place] # (Auto) (0.11-0.59) K/uL Eos # (Auto) (0-0.5) K/uL Baso # (Auto) (0-0.2) K/uL Absolute Nucleated RBC (0-0) K/uL Nucleated RBC % (auto) % Polychromasia Macrocytosis PT (9.0-12.0) Seconds INR (0.9-1.1) APTT (21.0-31.0) Seconds PTT Ratio POC Sodium (135-144) mmol/L Sodium 143 (136-145) mmol/L POC Potassium (3.3-5.0) mmol/L Potassium 3.9 (3.5-5.1) mmol/L POC Chloride (101-112) mmol/L Chloride 113 H (98-107) mmol/L Carbon Dioxide 24 (21-32) mmol/L POC Total CO2 (24-31) mmol/L Anion Gap 6.0 (3-11) POC Anion Gap (16-25) mmol/L POC BUN (7-18) mg/dl BUN 29 H (7-18) mg/dl Creatinine 1.42 H (0.6-1.4) mg/dl POC Creatinine (0.6-1.3) mg/dl Est Cr Clr Drug Dosing 41.7 ml/min Est GFR ( Amer) 52.2 Est GFR (Non-Af Amer) 45.0 BUN/Creatinine Ratio 20.3 H (10-20) Glucose 122 H (70-99) mg/dl POC Glucose (other) (70-99) mg/dl Calcium 8.5 (8.5-10.1) mg/dl POC Ioniz Calcium Ken (1.12-1.32) mmol/l Total Bilirubin 0.4 (0.2-1) mg/dl AST 17 (15-37) U/L ALT 24 (12-78) U/L Alkaline Phosphatase 53 (45-117) U/L Total Creatine Kinase 147 (39-308) U/L CK-MB (CK-2) 2.6 (0.5-3.6) ng/ml CK/CKMB % Calc 1.8 (0-3.0) Troponin I < 0.015 (0-0.045) ng/ml Total Protein 6.5 (6.4-8.2) gm/dl Albumin 3.2 L (3.4-5.0) gm/dl Globulin 3.3 (2.5-4.0) gm/dl Albumin/Globulin Ratio 1.0 (0.9-2) Blood Type A Positive Antibody Screen POSITIVE A Antibody Identification Anti-Fya Antibody ID Comment Crossmatch See Detail
[2019-07-08] MEDS ORDERED: PANTOprazole 80 MG in DEXTROSE 5% 100 ML IV SCH (12:45)
[2019-07-08] MEDS: SODIUM CHLOR 0.45% + 20MEQ KCL 20 MEQ/1,000 ML BAG IV SCH ×2 (13:10→20:38)
[2019-07-08] MEDS: PANTOprazole 40 MG in DEXTROSE 5% 100 ML IV SCH ×2 (13:10→19:25)
[2019-07-08] MEDS: ATORVASTATIN 20 MG TAB PO SCH (13:35)
[2019-07-08] MEDS: OXYBUTYNIN CHLORIDE XL 5 MG TABCR PO SCH (13:35)
[2019-07-08 14:24] LABS: Hematocrit (blood only) 25.5 % (42-52); Hemoglobin 8.3 g/dL (14.0-18.0)
[2019-07-08] MEDS: TAMSULOSIN HCL 0.4 MG CAP PO SCH (20:38)
[2019-07-08 21:16] LABS: Hematocrit (blood only) 27.1 % (42-52); Hemoglobin 8.9 g/dL (14.0-18.0)
[2019-07-09] MEDS: PANTOprazole 40 MG in DEXTROSE 5% 100 ML IV SCH ×3 (03:17→11:40)
[2019-07-09 04:32] LABS: Hematocrit (blood only) 24.9 % (42-52); Hemoglobin 8.1 g/dL (14.0-18.0); Mean Corpuscular Hemoglobin 33.3 pg (25-34); Mean Corpuscular Hgb Conc 32.5 g/dL (32-36); Mean Corpuscular Volume 102.5 fL (80-100); Mean Platelet Volume 8.9 fL (7.4-10.4); Platelet Count 108 K/uL (130-400); RDW Coefficient of Variation 23.7 % (11.5-14.5); RDW Standard Deviation 83.3 fL (36.4-46.3); Red Blood Count 2.43 M/uL (4.7-6.1); White Blood Count 6.58 K/uL (4.8-10.8)
[2019-07-09 05:10] LABS: BUN Creatinine Ratio 16.4 (10-20); Calcium 7.7 mg/dl (8.5-10.1); Creatinine Clr Calc Pharmacy 45.9 ml/min; Est GFR (African American) 60.9; Est GFR (Non-African American) 52.5; Potassium 4.5 mmol/L (3.5-5.1)
[2019-07-09 05:20] LABS: Anisocytosis Present; Basophils # (auto) 0.03 K/uL (0-0.2); Basophils % (auto) 0.5 %; Eosinophils # (auto) 0.06 K/uL (0-0.5); Eosinophils % (auto) 0.9 %; Immature Granulocytes # (auto) 0.02 K/uL (0.00-0.02); Immature Granulocytes % (auto) 0.3 %; Lymphocytes # (auto) 0.64 K/uL (1.2-3.4); Lymphocytes % (auto) 9.7 %; Monocytes # (auto) 0.61 K/uL (0.11-0.59); Monocytes % (auto) 9.3 %; Neutrophils # (auto) 5.22 K/uL (1.4-6.5); Neutrophils % (auto) 79.3 %
--- NOTE | 2019-07-09 07:28 | Urology Progress Note ---
Date of Service July 09, 2019 Assessment & Plan (1) Gross hematuria: (2) Rectal bleeding: (3) Small cell carcinoma of bladder: 83 year-old male patient, with history of prostate cancer and small cell carcinoma of bladder status post chemo and radiation, admitted secondary to rectal bleeding and gross hematuria. -Patient undergoing EGD and sigmoidoscopy today secondary to GI bleed. -Three-way Ang catheter in place and draining clear. -Did require hand irrigation from nursing staff overnight due to clot retention with associated discomfort. -Continue CBI for now and hand irrigation PRN clots. -If patient experiences severe abdominal pain, CBI should be stopped immediately and a bladder scan performed to rule out severe bladder distention particularly in light of his prior radiation and fragility of his bladder. -Will plan on making patient NPO at midnight in the event hematuria worsens and he requires surgical intervention. -Continue to follow closely from perspective. Subjective Patient reports he is feeling "much better" this morning. He is awake, alert, and appears comfortable. Per nursing, has required hand irrigation roughly 4 times since yesterday secondary to clots with associated abdominal pain. Last hand irrigation around 4 this morning. Patient currently denies abdominal pain. Has been tolerating catheter. CBI running, urine clear this morning without clots or gross hematuria. Denies fevers or chills. Denies nausea or vomiting. Patient is undergoing EGD and sigmoidoscopy today secondary to GI bleed. Chart review: Afebrile Wbc 6.58 Hgb 8.1 - received 2 units PRBC (6.3 on admission) Creatinine 1.25 Review of Systems Constitutional: no fever and no chills Respiratory: no cough and no dyspnea Gastrointestinal: as per Subjective / HPI Genitourinary: + as per Subjective / HPI Neurologic: no dizziness and no syncope Physical Exam Constitutional: well developed and comfortable; no acute distress and not ill appearing Neck: normal visual inspection and trachea midline Respiratory: normal respiratory effort and able to speak in complete sentences; no respiratory distress and no audible wheezes Cardiovascular: Extremities: no edema Gastrointestinal (Abdomen): Inspection/Auscultation: abdomen normal to inspection; abdomen not distended Percussion/Palpation: abdomen soft; abdomen nontender and no guarding Psychiatric: Orientation: alert, oriented x 3 and cooperative Affect: euthymic affect Genitourinary: no CVA tenderness CBI running, clear urine without clots. Results & Data Vital Signs (Past 12 Hours) Vital Signs Temp Pulse Resp BP Pulse Ox 07/09/19 03:24 36.9 C 56 L 15 121/63 91 07/08/19 23:28 36.8 C 62 22 152/50 H 93 PG Care Time/CCT Total # of Minutes Spent Total Time Spent with Patient: Total time spent is greater than 50% in coordination of care (as documented) at patient's floor/unit and/or counseling patient: Coding Level of Care Code 10933 Subseq Hosp Care Lvl 2 Diagnoses Gross hematuria R31.0 Rectal bleeding K62.5 Small cell carcinoma of bladder C67.9
--- NOTE | 2019-07-09 08:50 | Anesthesiology Consultation ---
Date of Service July 09, 2019 History Surgery Operation Date: 07/09/19 16:30 Proposed Procedures p Flexible Sigmoidoscopy Dr Jhonathan Ring MD s Esophagogastroduodenoscopy Dr Jhonathan Ring MD Height/Weight Height: 5 ft 7 in Weight: 86.1 kg Allergies Allergy/AdvReac Type Severity Reaction Status Date / Time No Known Allergies Allergy Verified 07/08/19 07:37 Medications Home Medications Medication Instructions Recorded Confirmed Last Taken cyanocobalamin (vitamin B-12) 1,000 mcg PO QAM 02/15/18 07/08/19 03/23/19 09:00 cholecalciferol (vitamin D3) 50 2,000 units PO HS 03/01/18 07/08/19 03/23/19 2 0:00 mcg (2,000 unit) tablet atorvastatin 20 mg PO QAM 03/08/18 07/08/19 03/23/19 20:00 Metamucil 1 tsp PO QAM 05/13/18 07/08/19 03/23/19 09:00 Glucosamine Chondroitin 2 cap PO DAILY 02/25/19 07/08/19 02/21/19 tamsulosin 0.4 mg capsule 0.4 mg PO HS #30 cap 05/16/19 07/08/19 Unknown oxybutynin chloride 10 mg 10 mg PO DAILY #30 tab 06/19/19 07/08/19 Unknown tablet,extended release 24 hr Active Medications Generic Name Dose Route Start Last Admin Trade Name Freq PRN Reason Stop Dose Admin Acetaminophen 650 mg 07/08/19 12:17 07/08/19 21:21 Tylenol PO 08/07/19 12:16 650 mg Q4H PRN Administration Pain or Fever Atorvastatin Calcium 20 mg 07/08/19 12:17 07/08/19 13:35 Lipitor PO 08/07/19 12:16 Not Given QAM MIL[place]RO Potassium Chloride/Sodium Chloride 20 meq in 1,000 mls @ 75 mls/hr 07/08/19 13:00 07/09/19 07:27 1/2 Nss + 20meq Kcl 1000ml IV 07/09/19 15:39 Infused .[id number] MIL[place]RO Infusion Pantoprazole Sodium 40 mg/ 100 mls @ 20 mls/hr 07/08/19 13:00 07/09/19 03:17 Dextrose IV 08/07/19 12:59 8 mg/hr Q5H MILAGRO 20 mls/hr Administration 8 MG/HR Oxybutynin Chloride 10 mg 07/08/19 12:17 07/08/19 13:35 Ditropan Xl PO 08/07/19 12:16 10 mg DAILY [place] Administration Tamsulosin HCl 0.4 mg 07/08/19 21:00 07/08/19 20:38 Flomax PO 08/07/19 20:59 0.4 mg HS MILAGRO Administration Past Medical History Medical History Anemia s/p transfusion (04/2018) felt r/t chemo Asthma childhood/no current issues Cancer bladder, prostate cancer; s/p chemo/xrt completed 04/2018 CVA (cerebral vascular accident) evidence of old infarct on MRI "years ago" HLD (hyperlipidemia) HTN (hypertension) Left knee DJD Lung nodule Short-term memory loss "mild"/no definitive diagnosis Thrombocytopenia hx Past Family History Family History Mother , age 79 Heart disease Father , age 79 Myocardial infarction Brother , age 79 Dementia Daughter COPD (chronic obstructive pulmonary disease) Son No problems noted. Son No problems noted. Grandmother Diabetes Past Surgical History Surgical History History of bladder surgery Cystoscopy, TURBT= 02/18/18= LMA#5 at [facility] History of bronchoscopy History of cataract surgery R/L History of colonoscopy History of tooth extraction History of vascular access device A-port inserted and removed S/P bronchoscopy with biopsy (03/07/19) Endobronchial Ultrasound Dr. 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) Social History Smoking Status: Former smoker Hx Alcohol Use: Yes Alcohol type: beer alcohol intake frequency: a few times a month Hx Substance Use: No substance use type: does not use Physical Exam Vital Signs Last Vital Signs Temp 36.4 C L 07/09/19 07:46 Pulse 59 L 07/09/19 07:46 Resp 17 07/09/19 07:46 BP 125/64 07/09/19 07:46 Pulse Ox 97 07/09/19 07:46 Testing Laboratory Results 07/09/19 04:17 07/09/19 04:17 PT 11.7 Seconds (9.0-12.0) 07/08/19 06:50 INR 1.1 (0.9-1.1) 07/08/19 06:50 APTT 22.2 Seconds (21.0-31.0) 07/08/19 06:50 Blood Type A Positive 07/08/19 06:50 Antibody Screen POSITIVE A 07/08/19 06:50 07/09/19 07/09/19 06:00 00:02 POC Glucose 104 H 113 H Electrocardiogram Date: 07/08/19 Sinus rhythm with Premature atrial complexes Moderate voltage criteria for LVH, may be normal variant Borderline ECG When compared with ECG of 20-JUN-2019 10:51, Premature atrial complexes are now Present Confirmed by Reuben Chaudhari ([id number]) on 07/08/2019 12:33:02 PM Chest X-Ray Date: 03/07/19 1. No evidence of pneumothorax status post bronchoscopy 2. 3 cm right lower lobe pulmonary nodule. Right hilar adenopathy.
--- NOTE | 2019-07-09 09:04 | History & Physical Bridge Note ---
Date of Service July 09, 2019 History & Physical Bridge Note I have examined the patient, reviewed the History & Physical and in the interval since the performance of the History & Physical I have noted the following changes of clinical significance: no changes noted EGD/Flex sig today
[2019-07-09] MEDS ORDERED: LIDOCAINE HCL 2% 2 ML VIAL/AMP(20MG/ML) INFIL ONE (10:03)
[2019-07-09] MEDS ORDERED: PROPOFOL IV EMULSION 10 MG/ML 20 ML VIAL IV ONE (10:03)
--- NOTE | 2019-07-09 10:08 | GI REPORT ---
Patient Name: Dale Arenas Procedure Date: 07/09/2019 9:28 AM Date of : 1935 Admit Type: Inpatient Age: 83 Gender: Male Attending MD: Patricio Ring MD Procedure: Upper GI endoscopy Providers: Patricio Ring MD Referring MD: Yeny Mast Indications: Hematochezia Medicines: Propofol per Anesthesia Complications: No immediate complications. Estimated Blood Loss: Estimated blood loss: none. Procedure: Pre-Anesthesia Assessment: - Prior to the procedure, a History and Physical was performed, and patient medications, allergies and sensitivities were reviewed. The patient's tolerance of previous anesthesia was reviewed. - The risks and benefits of the procedure and the sedation options and risks were discussed with the patient. All questions were answered and informed consent was obtained. - Patient identification and proposed procedure were verified prior to the procedure by the physician and the nurse. The procedure was verified in the procedure room. - Pre-procedure physical examination revealed no contraindications to sedation. After obtaining informed consent, the endoscope was passed under direct vision. Throughout the procedure, the patient's blood pressure, pulse, and oxygen saturations were monitored continuously. The Endoscope was introduced through the mouth, and advanced to the second part of duodenum. The upper GI endoscopy was accomplished without difficulty. The patient tolerated the procedure well. Findings: The examined esophagus was normal. A small hiatal hernia was present. The entire examined stomach was normal. The duodenal bulb and second portion of the duodenum were normal. Impression: - Normal esophagus. - Small hiatal hernia. - Normal stomach. - Normal duodenal bulb and second portion of the duodenum. - No specimens collected. Recommendation: - Perform a flexible sigmoidoscopy today. Patricio Ring MD 07/09/2019 10:08:07 AM This report has been signed electronically. Note Initiated On: 07/09/2019 9:28 AM Number of Addenda: 0 I attest to the content of the Intraoperative Record and orders documented therein, exceptions below {[id number]}
[2019-07-09] MEDS ORDERED: ePHEDrine sulfate 50 MG/ML SYR ONE (10:15)
--- NOTE | 2019-07-09 10:18 | GI REPORT ---
Patient Name: Dale Arenas Procedure Date: 07/09/2019 9:27 AM Date of : 1935 Admit Type: Inpatient Age: 83 Gender: Male Attending MD: Patricio Ring MD Procedure: Flexible Sigmoidoscopy Providers: Patricio Ring MD Referring MD: Yeny Mast Indications: Rectal hemorrhage Medicines: Propofol per Anesthesia Complications: No immediate complications. Estimated Blood Loss: Estimated blood loss: none. Procedure: Pre-Anesthesia Assessment: - Prior to the procedure, a History and Physical was performed, and patient medications, allergies and sensitivities were reviewed. The patient's tolerance of previous anesthesia was reviewed. - The risks and benefits of the procedure and the sedation options and risks were discussed with the patient. All questions were answered and informed consent was obtained. - Patient identification and proposed procedure were verified prior to the procedure by the physician and the nurse. The procedure was verified in the procedure room. - Pre-procedure physical examination revealed no contraindications to sedation. After obtaining informed consent, the endoscope was passed under direct vision. Throughout the procedure, the patient's blood pressure, pulse, and oxygen saturations were monitored continuously. The Endoscope was introduced through the anus and advanced to the sigmoid colon. The flexible sigmoidoscopy was accomplished without difficulty. The patient tolerated the procedure well. The quality of the bowel preparation was fair. Findings: The perianal and digital rectal examinations were normal. Solid stool was found in the rectum, precluding visualization. Removal of stool was accomplished with a Vieyra net. Localized actively bleeding angioectasia due to severe radiation proctitis found in the rectum. Vaporization for hemostasis using argon plasma was successful. Non-bleeding internal hemorrhoids were found during retroflexion. The hemorrhoids were small. Impression: - Actively bleeding angioectasias related to severe radiation proctitis. Treated with argon plasma coagulation (APC). - Non-bleeding internal hemorrhoids. Recommendation: - Return patient [facility] for [facility] care. - Use Sucralfate (CARAFATE) 1 GM/10ML suspension, Dilute 20 ml with 50 ml of tap water. Instill rectally twice daily using a catheter tip syringe or a gravity enema bag for 2 weeks. - Soft diet. - Use fiber, for example Citrucel, Fibercon, Konsyl or Metamucil. - Miralax 1 capful (17 grams) in 8 ounces of water PO daily. - Repeat flexible sigmoidoscopy in 4 weeks for retreatment. Patricio Ring MD 07/09/2019 10:18:25 AM This report has been signed electronically. Note Initiated On: 07/09/2019 9:27 AM Number of Addenda: 0 I attest to the content of the Intraoperative Record and orders documented therein, exceptions below {[id number]}
--- NOTE | 2019-07-09 10:40 | Gastroenterology Progress Note ---
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 He underwent EGD/flexible sigmoidoscopy this AM; EGD was normal; flex sig = actively bleeding angioectasias related to severe radiation proctitis, tx with APC; int hemorrhoids (nonbleeding). HGB stable at 8.1; he has received 2 units PRBCs. Abd is soft. - Use Sucralfate (CARAFATE) 1 GM/10ML suspension, Dilute 20 ml with 50 ml of tap water. Instill rectally twice daily using a catheter tip syringe or a gravity enema bag for 2 weeks. - Soft diet. - Use fiber, for example Citrucel, Fibercon, Konsyl or Metamucil. - Miralax 1 capful (17 grams) in 8 ounces of water PO daily. - Repeat flexible sigmoidoscopy in 4 weeks for retreatment. - Trend H&H, BUN, transfuse PRN - Continue supportive care for gross hematuria; defer to urology service Thank you for allowing us to participate in the care of this patient. Please call with any acute changes, questions or concerns. Please see addendum below with additional recommendation from my supervising physician. Admission and Anticipated Discharge Date Admission Date: July 08, 2019 Supervising Physician Co-Signing Physician Notes I performed a history and physical examination of the patient today, including specifically on physical exam - soft abdomen. I have discussed the patient's management with the advanced practitioner. Please refer to the nurse practitioner's note for the documented findings and plan of care. Subjective Pt seen and examined. No acute events overnight. HGB stable at 8.1 (received 2 units PRBC; was 6.3 on admission). Having brown watery stools this AM. He's afebrile; no abd pain. Pt underwent EGD/flexible sigmoidoscopy this AM: EGD: Normal esophagus. Small hiatal hernia. Normal stomach. Normal duodenal bulb and second portion of the duodenum. No specimens collected. Flexible sigmoidoscopy: Actively bleeding angioectasias related to severe radiation proctitis. Treated with argon plasma coagulation (APC). Non-bleeding internal hemorrhoids. Review of Systems Constitutional: no fever and no chills Cardiovascular: no chest pain and no dyspnea Gastrointestinal: as per Subjective / HPI Physical Exam Constitutional: well developed; no acute distress Respiratory: normal respiratory effort Cardiovascular: Rate/Rhythm: regular rate and regular rhythm Gastrointestinal (Abdomen): Inspection/Auscultation: abdomen normal to inspection Percussion/Palpation: abdomen soft; abdomen nontender Skin: no rashes, warm and dry Psychiatric: A+Ox3, euthymic affect Results & Data ([facility]) Vital Signs (Past 12 Hours) Vital Signs Temp Pulse Pulse Resp BP BP Pulse Ox 07/09/19 10:27 64 18 114/59 L 97 07/09/19 10:12 63 18 111/54 L 96 07/09/19 08:00 65 07/09/19 07:46 36.4 C L 59 L 17 125/64 97 07/09/19 07:36 59 L 16 125/64 97 07/09/19 03:24 36.9 C 56 L 15 121/63 91 07/08/19 23:28 36.8 C 62 22 152/50 H 93 Laboratory Results 07/09/19 07/09/19 07/09/19 Range/Units 06:00 04:17 04:17 WBC 6.58 (4.8-10.8) K/uL RBC 2.43 L (4.7-6.1) M/uL Hgb 8.1 L (14.0-18.0) g/dL Hct 24.9 L (42-52) % MCV 102.5 H D (80-100) fL MCH 33.3 (25-34) pg MCHC 32.5 (32-36) g/dL RDW Std Deviation 83.3 H (36.4-46.3) fL RDW Coeff of Latasha 23.7 H (11.5-14.5) % Plt Count 108 L (130-400) K/uL MPV 8.9 (7.4-10.4) fL Immature Gran % (Auto) 0.3 % Neut % (Auto) 79.3 % Lymph % (Auto) 9.7 % [place] % (Auto) 9.3 % Eos % (Auto) 0.9 % Baso % (Auto) 0.5 % Immature Gran # (Auto) 0.02 (0.00-0.02) K/uL Neut # (Auto) 5.22 (1.4-6.5) K/uL Lymph # (Auto) 0.64 L (1.2-3.4) K/uL [place] # (Auto) 0.61 H (0.11-0.59) K/uL Eos # (Auto) 0.06 (0-0.5) K/uL Baso # (Auto) 0.03 (0-0.2) K/uL Anisocytosis Present Sodium 144 (136-145) mmol/L Potassium 4.5 D (3.5-5.1) mmol/L Chloride 114 H (98-107) mmol/L Carbon Dioxide 26 (21-32) mmol/L Anion Gap 4.0 (3-11) BUN 20 H (7-18) mg/dl Creatinine 1.25 (0.6-1.4) mg/dl Est Cr Clr Drug Dosing 45.9 ml/min Est GFR ( Amer) 60.9 Est GFR (Non-Af Amer) 52.5 BUN/Creatinine Ratio 16.4 (10-20) Glucose 103 H (70-99) mg/dl POC Glucose 104 H (70-99) mg/dl Calcium 7.7 L (8.5-10.1) mg/dl Blood Type Antibody Screen Antibody Identification Antibody ID Comment Crossmatch 07/09/19 07/08/19 07/08/19 Range/Units 00:02 21:10 18:08 WBC (4.8-10.8) K/uL RBC (4.7-6.1) M/uL Hgb 8.9 L (14.0-18.0) g/dL Hct 27.1 L (42-52) % MCV (80-100) fL MCH (25-34) pg MCHC (32-36) g/dL RDW Std Deviation (36.4-46.3) fL RDW Coeff of Latasha (11.5-14.5) % Plt Count (130-400) K/uL MPV (7.4-10.4) fL Immature Gran % (Auto) % Neut % (Auto) % Lymph % (Auto) % [place] % (Auto) % Eos % (Auto) % Baso % (Auto) % Immature Gran # (Auto) (0.00-0.02) K/uL Neut # (Auto) (1.4-6.5) K/uL Lymph # (Auto) (1.2-3.4) K/uL [place] # (Auto) (0.11-0.59) K/uL Eos # (Auto) (0-0.5) K/uL Baso # (Auto) (0-0.2) K/uL Anisocytosis Sodium (136-145) mmol/L Potassium (3.5-5.1) mmol/L Chloride (98-107) mmol/L Carbon Dioxide (21-32) mmol/L Anion Gap (3-11) BUN (7-18) mg/dl Creatinine (0.6-1.4) mg/dl Est Cr Clr Drug Dosing ml/min Est GFR ( Amer) Est GFR (Non-Af Amer) BUN/Creatinine Ratio (10-20) Glucose (70-99) mg/dl POC Glucose 113 H 100 H (70-99) mg/dl Calcium (8.5-10.1) mg/dl Blood Type Antibody Screen Antibody Identification Antibody ID Comment Crossmatch 07/08/19 07/08/19 Range/Units 14:10 06:50 WBC (4.8-10.8) K/uL RBC (4.7-6.1) M/uL Hgb 8.3 L (14.0-18.0) g/dL Hct 25.5 L (42-52) % MCV (80-100) fL MCH (25-34) pg MCHC (32-36) g/dL RDW Std Deviation (36.4-46.3) fL RDW Coeff of Latasha (11.5-14.5) % Plt Count (130-400) K/uL MPV (7.4-10.4) fL Immature Gran % (Auto) % Neut % (Auto) % Lymph % (Auto) % [place] % (Auto) % Eos % (Auto) % Baso % (Auto) % Immature Gran # (Auto) (0.00-0.02) K/uL Neut # (Auto) (1.4-6.5) K/uL Lymph # (Auto) (1.2-3.4) K/uL [place] # (Auto) (0.11-0.59) K/uL Eos # (Auto) (0-0.5) K/uL Baso # (Auto) (0-0.2) K/uL Anisocytosis Sodium (136-145) mmol/L Potassium (3.5-5.1) mmol/L Chloride (98-107) mmol/L Carbon Dioxide (21-32) mmol/L Anion Gap (3-11) BUN (7-18) mg/dl Creatinine (0.6-1.4) mg/dl Est Cr Clr Drug Dosing ml/min Est GFR ( Amer) Est GFR (Non-Af Amer) BUN/Creatinine Ratio (10-20) Glucose (70-99) mg/dl POC Glucose (70-99) mg/dl Calcium (8.5-10.1) mg/dl Blood Type A Positive Antibody Screen POSITIVE A Antibody Identification Anti-Fya Antibody ID Comment Crossmatch See Detail
[2019-07-09] MEDS: ATORVASTATIN 20 MG TAB PO SCH (11:02)
[2019-07-09] MEDS: OXYBUTYNIN CHLORIDE XL 5 MG TABCR PO SCH (11:03)
[2019-07-09] MEDS: metroNIDAZOLE 500 MG TAB PO SCH ×2 (11:51→21:08)
[2019-07-09] MEDS: CIPROFLOXACIN 500 MG TAB PO SCH ×2 (11:51→21:08)
[2019-07-09 12:14] LABS: Target Cells 1+
--- NOTE | 2019-07-09 14:07 | Hospitalist Progress Note ---
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 Anemia 2/2 Rectal Bleeding -admission hgb 6.2. S/P 2 units. Stable H/H now. Cont trend H/H, will transfuse prn -likely 2/2 radiation proctitis -- seen on colonoscopy 06/23/19 -07/08 EGD: unremarkable minus small hiatal hernia -07/08 Flex Sig: Actively bleeding angioectasias related to severe radiation proctitis. Treated with APC. Non-bleeding internal hemorrhoids. Will repeat in 4 wks for retreatment -Medical Management: Sucralfate 1 GM/10ML suspension (Dilute 20 ml with 50 ml of tap water. 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 Had one episode of clot retention this admission -will make NPO after midnight in off chance hematuria worsens and needs sx intervention. Cont IVF -appreciate Urology consult CKD, stage 3 -stable. Follow. BPH -cont tamsulosin 0.4mg HLD -cont atorvastatin 20mg FEN/GI: 1/2 NSS w/ 20meq KCl. Soft Diet. NPO after midnight DVT Prophylaxis: SCD's DNR/DNI Dispo: Telemetry Admission and Anticipated Discharge Date Admission Date: July 08, 2019 Supervising Physician Co-Signing Physician Notes Resident Physician Supervision Note: I independently interviewed and examined the patient and verified the wasserman history and physical, reviewed labs and image studies, discussed the case with the resident Dr. Davis and agree with the findings and care plan. Subjective 83 yo M found in bed this AM in NAD. No reported overnight events. H/H stable. Pt denies F/N/V, abd pain. Loose stools this AM. Seen post EGD/flex sig. Pt with no other acute concerns or complaints. Review of Systems Review of Systems: All systems reviewed & are unremarkable except as noted in HPI & below Physical Exam Constitutional: WD/WN, vitals as above Eyes: PERRL, conjunctivae normal, anicteric sclerae Respiratory: normal respiratory effort; no respiratory distress and no labored breathing Cardiovascular: RRR, no murmur, no edema Gastrointestinal (Abdomen): normal bowel sounds, soft, nontender, no hepatosplenomegaly Skin: no rashes, warm and dry Psychiatric: A+Ox3, euthymic affect Results & Data Results & Data ([facility]) Vital Signs (Past 12 Hours) Vital Signs Temp Pulse Pulse Resp BP BP Pulse Ox 07/09/19 11:28 36.5 C 62 16 125/59 L 99 07/09/19 10:43 62 18 118/61 94 07/09/19 10:27 64 18 114/59 L 97 07/09/19 10:12 63 18 111/54 L 96 07/09/19 08:00 65 07/09/19 07:46 36.4 C L 59 L 17 125/64 97 07/09/19 07:36 59 L 16 125/64 97 07/09/19 03:24 36.9 C 56 L 15 121/63 91 Laboratory Results Laboratory Results - last 24 hr 07/08/19 07/08/19 07/08/19 06:50 14:10 18:08 WBC RBC Hgb 8.3 L Hct 25.5 L MCV MCH MCHC RDW Std Deviation RDW Coeff of Latasha Plt Count MPV Immature Gran % (Auto) Neut % (Auto) Lymph % (Auto) [place] % (Auto) Eos % (Auto) Baso % (Auto) Immature Gran # (Auto) Neut # (Auto) Lymph # (Auto) [place] # (Auto) Eos # (Auto) Baso # (Auto) Anisocytosis Target Cells Sodium Potassium Chloride Carbon Dioxide Anion Gap BUN Creatinine Est Cr Clr Drug Dosing Est GFR ( Amer) Est GFR (Non-Af Amer) BUN/Creatinine Ratio Glucose POC Glucose 100 H Calcium Blood Type A Positive Antibody Screen POSITIVE A Antibody Identification Anti-Fya Antibody ID Comment Crossmatch See Detail 07/08/19 07/09/19 07/09/19 21:10 00:02 04:17 WBC 6.58 RBC 2.43 L Hgb 8.9 L 8.1 L Hct 27.1 L 24.9 L MCV 102.5 H D MCH 33.3 MCHC 32.5 RDW Std Deviation 83.3 H RDW Coeff of Latasha 23.7 H Plt Count 108 L MPV 8.9 Immature Gran % (Auto) 0.3 Neut % (Auto) 79.3 Lymph % (Auto) 9.7 [place] % (Auto) 9.3 Eos % (Auto) 0.9 Baso % (Auto) 0.5 Immature Gran # (Auto) 0.02 Neut # (Auto) 5.22 Lymph # (Auto) 0.64 L [place] # (Auto) 0.61 H Eos # (Auto) 0.06 Baso # (Auto) 0.03 Anisocytosis Present Target Cells 1+ Sodium Potassium Chloride Carbon Dioxide Anion Gap BUN Creatinine Est Cr Clr Drug Dosing Est GFR ( Amer) Est GFR (Non-Af Amer) BUN/Creatinine Ratio Glucose POC Glucose 113 H Calcium Blood Type Antibody Screen Antibody Identification Antibody ID Comment Crossmatch 07/09/19 07/09/19 07/09/19 04:17 06:00 11:22 WBC RBC Hgb Hct MCV MCH MCHC RDW Std Deviation RDW Coeff of Latasha Plt Count MPV Immature Gran % (Auto) Neut % (Auto) Lymph % (Auto) [place] % (Auto) Eos % (Auto) Baso % (Auto) Immature Gran # (Auto) Neut # (Auto) Lymph # (Auto) [place] # (Auto) Eos # (Auto) Baso # (Auto) Anisocytosis Target Cells Sodium 144 Potassium 4.5 D Chloride 114 H Carbon Dioxide 26 Anion Gap 4.0 BUN 20 H Creatinine 1.25 Est Cr Clr Drug Dosing 45.9 Est GFR ( Amer) 60.9 Est GFR (Non-Af Amer) 52.5 BUN/Creatinine Ratio 16.4 Glucose 103 H POC Glucose 104 H 110 H Calcium 7.7 L Blood Type Antibody Screen Antibody Identification Antibody ID Comment Crossmatch Medications Administered Current Inpatient Medications Acetaminophen (Tylenol) 650 mg PO Q4H PRN PRN Reason: Pain or Fever Stop: 08/07/19 12:16 Last Admin: 07/08/19 21:21 Dose: 650 mg Documented by: Atorvastatin Calcium (Lipitor) 20 [facility] Stop: 08/07/19 12:16 Last Admin: 07/09/19 11:02 Dose: 20 mg Documented by: Ciprofloxacin (Cipro) 500 mg PO BID MIL[place]RO Stop: 07/19/19 10:29 Last Admin: 07/09/19 11:51 Dose: 500 mg Documented by: Potassium Chloride/Sodium Chloride (1/2 Nss + 20meq Kcl 1000ml) 20 meq in 1,000 mls @ 75 mls/hr IV .[id number] [place]RO Stop: 07/09/19 15:39 Last Infusion: 07/09/19 07:27 Dose: Infused Documented by: Metronidazole (Flagyl) 500 mg PO BID MIL[place]RO Stop: 07/19/19 10:29 Last Admin: 07/09/19 11:51 Dose: 500 mg Documented by: Ondansetron HCl (Zofran) 4 mg IV Q6H PRN PRN Reason: Nausea Stop: 08/07/19 12:16 Oxybutynin Chloride (Ditropan Xl) 10 mg PO DAILY [place] Stop: 08/07/19 12:16 Last Admin: 07/09/19 11:03 Dose: 10 mg Documented by: Polyethylene Glycol (Miralax Powder Packet) 17 gm PO DAILY [facility] Stop: 08/09/19 08:59 Psyllium Hydrophilic Mucilloid (Metamucil) 1 pkt PO QAM [facility] Stop: 08/09/19 08:59 Sucralfate (Carafate Tab) 1 gm PO BID [facility] Stop: 08/08/19 20:59 Tamsulosin HCl (Flomax) 0.4 mg PO HS [place] Stop: 08/07/19 20:59 Last Admin: 07/08/19 20:38 Dose: 0.4 mg Documented by: Resident Activity Tracking Resident Involvement: Resident Care Provided Care Provided: Adult Hospital Medicine
--- NOTE | 2019-07-09 14:12 | Anesthesiology Progress Note ---
Date of Service July 09, 2019 Anesthesia Post Procedure Vital Signs Vital Signs: Temp Pulse Pulse Resp BP BP Pulse Ox 07/09/19 11:28 36.5 C 62 16 125/59 L 99 07/09/19 10:43 62 18 118/61 94 07/09/19 10:27 64 18 114/59 L 97 07/09/19 10:12 63 18 111/54 L 96 07/09/19 08:00 65 07/09/19 07:46 36.4 C L 59 L 17 125/64 97 07/09/19 07:36 59 L 16 125/64 97 07/09/19 03:24 36.9 C 56 L 15 121/63 91 07/08/19 23:28 36.8 C 62 22 152/50 H 93 07/08/19 18:50 36.7 C 63 22 127/66 95 07/08/19 18:00 58 L 14 07/08/19 17:00 57 L 18 07/08/19 16:00 54 L 19 07/08/19 15:26 52 L 12 131/61 99 07/08/19 15:00 56 L 7 L Pain Intensity Lower Abdomen: Pain Intensity: 4 Transfer of Care Handoff Completed per policy Notes Mental Status: alert / awake / arousable and participated in evaluation Patient Amnestic to Procedure: Yes Nausea / Vomiting: adequately controlled Pain: adequately controlled Airway Patency, RR, SpO2: stable & adequate BP & HR: stable & adequate Hydration State: stable & adequate Anesthetic Complications: no major complications apparent and Pt Satisfied with anesthetic care
[2019-07-09 14:28] LABS: Hemoglobin 7.9 g/dL (14.0-18.0)
[2019-07-09] MEDS ORDERED: Nursing to Pharmacy Communication ONE (14:39)
[2019-07-09] MEDS ORDERED: SUCRALFATE 1 GM/10 ML UDC PR SCH (21:00)
[2019-07-09] MEDS: TAMSULOSIN HCL 0.4 MG CAP PO SCH (21:08)
[2019-07-10 04:53] LABS: Hematocrit (blood only) 23.5 % (42-52); Hemoglobin 7.5 g/dL (14.0-18.0); Mean Corpuscular Hemoglobin 32.8 pg (25-34); Mean Corpuscular Hgb Conc 31.9 g/dL (32-36); Mean Corpuscular Volume 102.6 fL (80-100); Mean Platelet Volume 9.3 fL (7.4-10.4); Platelet Count 113 K/uL (130-400); RDW Coefficient of Variation 22.8 % (11.5-14.5); RDW Standard Deviation 82.2 fL (36.4-46.3); Red Blood Count 2.29 M/uL (4.7-6.1); White Blood Count 8.45 K/uL (4.8-10.8)
[2019-07-10 05:11] LABS: BUN Creatinine Ratio 13.1 (10-20); Calcium 7.4 mg/dl (8.5-10.1); Creatinine Clr Calc Pharmacy 39.7 ml/min; Est GFR (African American) 50.9; Est GFR (Non-African American) 43.9; Potassium 4.2 mmol/L (3.5-5.1)
[2019-07-10 05:13] LABS: Anisocytosis Present; Basophils # (auto) 0.02 K/uL (0-0.2); Basophils % (auto) 0.2 %; Eosinophils # (auto) 0.05 K/uL (0-0.5); Eosinophils % (auto) 0.6 %; Immature Granulocytes # (auto) 0.04 K/uL (0.00-0.02); Immature Granulocytes % (auto) 0.5 %; Lymphocytes # (auto) 0.68 K/uL (1.2-3.4); Monocytes # (auto) 0.79 K/uL (0.11-0.59); Monocytes % (auto) 9.3 %; Neutrophils # (auto) 6.87 K/uL (1.4-6.5); Neutrophils % (auto) 81.4 %
[2019-07-10] MEDS: CIPROFLOXACIN 500 MG TAB PO SCH ×2 (08:16→21:42)
[2019-07-10] MEDS: OXYBUTYNIN CHLORIDE XL 5 MG TABCR PO SCH (08:16)
[2019-07-10] MEDS: metroNIDAZOLE 500 MG TAB PO SCH ×2 (08:16→21:42)
[2019-07-10] MEDS: ATORVASTATIN 20 MG TAB PO SCH (08:16)
[2019-07-10] MEDS: PSYLLIUM 58.6% POWDER PACKET PO SCH (08:17)
[2019-07-10] MEDS: POLYETHYLENE (MIRALAX) 17 GM PACK PO SCH (08:17)
[2019-07-10] MEDS ORDERED: Nursing to Pharmacy Communication ONE (11:51)
--- NOTE | 2019-07-10 11:53 | Gastroenterology Progress Note ---
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 EGD/flexible sigmoidoscopy yesterday; EGD was normal; flex sig = actively bleeding angioectasias related to severe radiation proctitis, tx with APC; int hemorrhoids (nonbleeding). HGB stable at 7.8; he has received PRBC transfusions. He's had no further GIB; stool is brown. - Use Sucralfate (CARAFATE) 1 GM/10ML suspension, Dilute 20 ml with 50 ml of tap water. Instill rectally twice daily using a catheter tip syringe or a gravity enema bag for 2 weeks. - Soft diet. - Use fiber, for example Citrucel, Fibercon, Konsyl or Metamucil. - Miralax 1 capful (17 grams) in 8 ounces of water PO daily. - Repeat flexible sigmoidoscopy in 4 weeks for retreatment. - Trend H&H, BUN, transfuse PRN - Continue supportive care for gross hematuria; defer to urology service - GI will sign off; please call with questions. Thank you for allowing us to participate in the care of this patient. Please call with any acute changes, questions or concerns. Please see addendum below with additional recommendation from my supervising physician. Admission and Anticipated Discharge Date Admission Date: July 08, 2019 Supervising Physician Co-Signing Physician Notes I have discussed the patient's management with the advanced practitioner. Please refer to the nurse practitioner's note for the documented findings and plan of care. Rectal Bleeding resolved after APC. Recall GI if needed. Subjective Pt underwent EGD/flex sig yest for acute drop in HGB, hematochezia - found to have actively bleeding angioectasias related to severe radiation proctitis, tx with bipolar cautery. Has had no further GIB. Denies any abd pain, n/v. Admit HGB 6.2 -> 7.8 now. Results & Data ([facility]) Vital Signs (Past 12 Hours) Vital Signs Temp Pulse Resp BP Pulse Ox 07/10/19 08:00 36.8 C 70 14 100/59 L 07/10/19 04:38 36.7 C 74 20 102/48 L 95 07/10/19 00:58 36.8 C 81 18 111/53 L 94
[2019-07-10] MEDS ORDERED: SUCRALFATE 1 GM/10 ML UDC PR ONE ×2 (12:00)
[2019-07-10] MEDS: SUCRALFATE 1 GM/10 ML UDC PR SCH ×2 (13:57→21:42)
--- NOTE | 2019-07-10 14:09 | Urology Progress Note ---
Date of Service July 10, 2019 Assessment & Plan (1) Gross hematuria: Assessment Gross hematuria Hematuria has now cleared Would observe overnight can discontinue CBI as long as the urine remains clear Subjective Patient is afebrile Vital signs are stable Urine clear yellow via Ang with minimal CBI Not having any abdominal pain Physical Exam Physical Exam: Constitutional In no acute distress Neuro/psych Alert and oriented x3 Normal mood Normal affect Normal coordination Skin Normal color Normal turgor No rashes Warm and Dry Neck Normal visual inspection Pulmonary Normal rhythm and effort No respiratory distress No audible wheezes Able to speak in complete sentences Cardiac No peripheral edema Results & Data Vital Signs (Past 12 Hours) Vital Signs Temp Pulse Pulse Resp BP BP Pulse Ox 07/10/19 11:57 36.5 C 70 16 104/54 L 98 07/10/19 08:00 36.8 C 70 14 100/59 L 07/10/19 04:38 36.7 C 74 20 102/48 L 95 PG Care Time/CCT Total # of Minutes Spent Total Time Spent with Patient: Total time spent is greater than 50% in coordination of care (as documented) at patient's floor/unit and/or counseling patient: Coding Level of Care Code 97025 Subseq Hosp Care Lvl 1 Diagnoses Gross hematuria R31.0
--- NOTE | 2019-07-10 14:47 | Hospitalist Progress Note ---
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 Acute blood loss Anemia 2/2 Rectal Bleeding -admission hgb 6.2. S/P 2 units on admission. Stable H/H now. Cont trend H/H, will transfuse prn -likely 2/2 radiation proctitis -- seen on colonoscopy 06/23/19 -07/08 EGD: unremarkable minus small hiatal hernia -07/08 Flex Sig: Actively bleeding angioectasias related to severe radiation proctitis. Treated with APC. Non-bleeding internal hemorrhoids. Will repeat in 4 wks for retreatment -Medical Management: Sucralfate 1 GM/10ML suspension (Dilute 20 ml with 50 ml of tap water. Instill rectally BID using a catheter tip syringe or a gravity enema bag for 2 weeks), Metamucil, Miralax 1 capful (17 grams) in 8 ounces of water PO daily -Cont antibiotic regimen with Cipro/Flagyl -advancing diet as tolerated , soft diet -appreciate GI consult Hematuria-resolved -h/o prostate cancer and small cell carcinoma of bladder s/p chemo and radiation -3way kat draining clear -cont CBI with hand irrigation for any clots. Had one episode of clot retention this admission -can d/c CBI if urine remains clear tomorrow -appreciate Urology consult CKD, stage 3 -Stable. Follow. BPH -cont tamsulosin 0.4mg HLD -cont atorvastatin 20mg FEN/GI: Soft Diet DVT Prophylaxis: SCD's DNR/DNI Dispo: Downgraded to Med Surg . Consider outpt palliative care consult on d/c. Admission and Anticipated Discharge Date Admission Date: July 08, 2019 Supervising Physician Co-Signing Physician Notes Resident Physician Supervision Note: I independently interviewed and examined the patient and verified the wasserman history and physical, reviewed labs and image studies, discussed the case with the resident Dr. Davis and agree with the findings and care plan. Subjective 83 yo M found in bed this AM in NAD. No reported overnight events. H/H stable. Pt denies F/N/V, abd pain. Urine clear in bag. Pt with no other acute concerns or complaints. Review of Systems Review of Systems: All systems reviewed & are unremarkable except as noted in HPI & below Physical Exam Constitutional: WD/WN, vitals as above Eyes: PERRL, conjunctivae normal, anicteric sclerae ENMT: external ear and nose normal, oropharynx normal Respiratory: normal respiratory effort; no respiratory distress and no labored breathing Cardiovascular: RRR, no murmur, no edema Gastrointestinal (Abdomen): normal bowel sounds, soft, nontender, no hepatosplenomegaly Skin: no rashes, warm and dry Psychiatric: A+Ox3, euthymic affect Results & Data Results & Data ([facility]) Vital Signs (Past 12 Hours) Vital Signs Temp Pulse Pulse Resp BP BP Pulse Ox 07/10/19 11:57 36.5 C 70 16 104/54 L 98 07/10/19 08:00 36.8 C 70 14 100/59 L 07/10/19 04:38 36.7 C 74 20 102/48 L 95 Laboratory Results Laboratory Results - last 24 hr 07/10/19 07/10/19 04:14 04:14 WBC 8.45 RBC 2.29 L Hgb 7.5 L Hct 23.5 L MCV 102.6 H MCH 32.8 MCHC 31.9 L RDW Std Deviation 82.2 H RDW Coeff of Latasha 22.8 H Plt Count 113 L MPV 9.3 Immature Gran % (Auto) 0.5 Neut % (Auto) 81.4 Lymph % (Auto) 8.0 [place] % (Auto) 9.3 Eos % (Auto) 0.6 Baso % (Auto) 0.2 Immature Gran # (Auto) 0.04 H Neut # (Auto) 6.87 H Lymph # (Auto) 0.68 L [place] # (Auto) 0.79 H Eos # (Auto) 0.05 Baso # (Auto) 0.02 Anisocytosis Present Sodium 140 Potassium 4.2 Chloride 110 H Carbon Dioxide 26 Anion Gap 4.0 BUN 19 H Creatinine 1.45 H Est Cr Clr Drug Dosing 39.7 Est GFR ( Amer) 50.9 Est GFR (Non-Af Amer) 43.9 BUN/Creatinine Ratio 13.1 Glucose 132 H Calcium 7.4 L Medications Administered Current Inpatient Medications Acetaminophen (Tylenol) 650 mg PO Q4H PRN PRN Reason: Pain or Fever Stop: 08/07/19 12:16 Last Admin: 07/08/19 21:21 Dose: 650 mg Documented by: Atorvastatin Calcium (Lipitor) 20 mg PO QAM [facility] Stop: 08/07/19 12:16 Last Admin: 07/10/19 08:16 Dose: 20 mg Documented by: Ciprofloxacin (Cipro) 500 mg PO BID [place] Stop: 07/19/19 10:29 Last Admin: 07/10/19 08:16 Dose: 500 mg Documented by: Metronidazole (Flagyl) 500 mg PO BID [place] Stop: 07/19/19 10:29 Last Admin: 07/10/19 08:16 Dose: 500 mg Documented by: Ondansetron HCl (Zofran) 4 mg IV Q6H PRN PRN Reason: Nausea Stop: 08/07/19 12:16 Oxybutynin Chloride (Ditropan Xl) 10 mg PO DAILY [facility] Stop: 08/07/19 12:16 Last Admin: 07/10/19 08:16 Dose: 10 mg Documented by: Polyethylene Glycol (Miralax Powder Packet) 17 gm PO DAILY [facility] Stop: 08/09/19 08:59 Last Admin: 07/10/19 08:17 Dose: 17 gm Documented by: Psyllium Hydrophilic Mucilloid (Metamucil) 1 pkt PO QAM [facility] Stop: 08/09/19 08:59 Last Admin: 07/10/19 08:17 Dose: 1 pkt Documented by: Sucralfate (Carafate) 2 gm HI BID [place] Stop: 08/09/19 11:59 Last Admin: 07/10/19 13:57 Dose: 2 gm Documented by: Tamsulosin HCl (Flomax) 0.4 mg PO HS [facility] Stop: 08/07/19 20:59 Last Admin: 07/09/19 21:08 Dose: 0.4 mg Documented by: Resident Activity Tracking Resident Involvement: Resident Care Provided Care Provided: Adult Hospital Medicine
[2019-07-10] MEDS: TAMSULOSIN HCL 0.4 MG CAP PO SCH (21:42)
[2019-07-11 07:26] LABS: Basophils # (auto) 0.03 K/uL (0-0.2); Basophils % (auto) 0.5 %; Eosinophils % (auto) 1.7 %; Hematocrit (blood only) 23.3 % (42-52); Hemoglobin 7.3 g/dL (14.0-18.0); Immature Granulocytes # (auto) 0.03 K/uL (0.00-0.02); Immature Granulocytes % (auto) 0.5 %; Lymphocytes # (auto) 0.52 K/uL (1.2-3.4); Lymphocytes % (auto) 8.9 %; Mean Corpuscular Hemoglobin 32.7 pg (25-34); Mean Corpuscular Hgb Conc 31.3 g/dL (32-36); Mean Corpuscular Volume 104.5 fL (80-100); Mean Platelet Volume 9.2 fL (7.4-10.4); Monocytes # (auto) 0.45 K/uL (0.11-0.59); Monocytes % (auto) 7.7 %; Neutrophils # (auto) 4.72 K/uL (1.4-6.5); Neutrophils % (auto) 80.7 %; Platelet Count 103 K/uL (130-400); RDW Coefficient of Variation 21.6 % (11.5-14.5); RDW Standard Deviation 80.8 fL (36.4-46.3); Red Blood Count 2.23 M/uL (4.7-6.1); White Blood Count 5.85 K/uL (4.8-10.8)
[2019-07-11 08:00] LABS: BUN Creatinine Ratio 12.7 (10-20); Calcium 7.7 mg/dl (8.5-10.1); Creatinine Clr Calc Pharmacy 42.8 ml/min; Est GFR (African American) 55.5; Est GFR (Non-African American) 47.9; Potassium 4.1 mmol/L (3.5-5.1)
[2019-07-11 08:14] LABS: Anisocytosis Present; Polychromasia 1+
[2019-07-11] MEDS: OXYBUTYNIN CHLORIDE XL 5 MG TABCR PO SCH (09:20)
[2019-07-11] MEDS: metroNIDAZOLE 500 MG TAB PO SCH ×2 (09:21→22:03)
[2019-07-11] MEDS: ATORVASTATIN 20 MG TAB PO SCH (09:21)
[2019-07-11] MEDS: CIPROFLOXACIN 500 MG TAB PO SCH ×2 (09:21→22:03)
[2019-07-11] MEDS: PSYLLIUM 58.6% POWDER PACKET PO SCH (09:21)
[2019-07-11] MEDS: SUCRALFATE 1 GM/10 ML UDC PR SCH ×2 (09:21→22:09)
[2019-07-11] MEDS: POLYETHYLENE (MIRALAX) 17 GM PACK PO SCH (09:22)
[2019-07-11] MEDS ORDERED: SODIUM CHLORIDE 0.9% 250 ML IV PRN (09:43)
--- NOTE | 2019-07-11 11:11 | Discharge Summary ---
Date of Service July 11, 2019 Admission HPI Per Admitting Provider 83 y/o male with PMhx prostate CA and small cell carcinoma of the bladder treated with chemo and radiation who has had intermittent hematuria and rectal bleeding off and on several times a day over the past several months. He underwent colonoscopy recently showing radiation changes in the rectal area. Yesterday he was noted to have hb of 6 which runs around 9 at [facility] and was arranged to have a blood transfusion today. noted worse rectal bleeding and blood in urine and so brought him to ED. 3 way Kat placed in ED - No clots were noted in the catheter. Bladder scan with no excessive urine. He denies any abdominal, back pain. Discharge Exam Constitutional comfortable; no acute distress Respiratory normal respiratory effort, lungs clear to auscultation Cardiovascular Rate/Rhythm: regular rate and regular rhythm Gastrointestinal (Abdomen) Percussion/Palpation: abdomen soft; abdomen nontender Discharge Data Allergies Allergy/AdvReac Type Severity Reaction Status Date / Time No Known Allergies Allergy Verified 07/09/19 10:12 Consultations 07/08/19 07:54 ED Decision to Admit Stat 07/08/19 10:11 Consult Urology Stat 07/08/19 12:17 Consult Gastroenterology Routine Consult Urology Routine Procedures Performed Operation Date: 07/09/19 16:30 Actual Procedures s Esophagogastroduodenoscopy - Patricio Ring MD p Flexible Sigmoidoscopy Hemostasis - Patricio Ring MD Hospital Course (1) Radiation proctitis: 83 yo M with PMH prostate CA and 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 Acute blood loss Anemia 2/2 Rectal Bleeding -admission hgb 6.2. S/P 2 units on admission. Stable H/H now. Cont trend H/H, will transfuse prn -likely 2/2 radiation proctitis -- seen on colonoscopy 06/23/19 -07/08 EGD: unremarkable minus small hiatal hernia -07/08 Flex Sig: Actively bleeding angioectasias related to severe radiation proctitis. Treated with APC. Non-bleeding internal hemorrhoids. Will repeat in 4 wks for retreatment -Medical Management: Sucralfate 1 GM/10ML suspension (Dilute 20 ml with 50 ml of tap water. Instill rectally BID using a catheter tip syringe or a gravity enema bag for 2 weeks), Metamucil, Miralax 1 capful (17 grams) in 8 ounces of water PO daily -Cont antibiotic regimen with Cipro/Flagyl -advancing diet as tolerated , soft diet -appreciate GI consult Hematuria-resolved -h/o prostate cancer and small cell carcinoma of bladder s/p chemo and radiation -3way kat draining clear -cont CBI with hand irrigation for any clots. Had one episode of clot retention this admission -can d/c CBI if urine remains clear tomorrow -appreciate Urology consult CKD, stage 3 -Stable. Follow. BPH -cont tamsulosin 0.4mg HLD -cont atorvastatin 20mg FEN/GI: Soft Diet DVT Prophylaxis: SCD's DNR/DNI Dispo: Downgraded to Med Surg . Consider outpt palliative care consult on d/c. Discharge Plan Discharge Items Patient Disposition: Home - Self-Care Reason For Visit: RECTAL BLEEDING Discharge Diagnosis: Anemia, rectal bleeding, blood in urine Activity: Per Instructions section Non-emergency contact: Primary Care Provider Call non-emergency contact if: you have any medication questions, your symptoms worsen and you have a fever Follow-up/Referrals: Yeny Mast MD [Primary Care Provider] - Diet: Regular Addtl Attending Provider Instructions: Mr. Arenas, you were seen at [facility] due to blood in your urine and bowel movements. You were seen by the urology team, who placed a catheter, and washed out your bladder with fluid. You were also seen by the GI team who performed an EGD (scope to look at your stomach and small intestines) and a sigmoidoscopy (looking at the ending part of your colon). You were found to have inflammation in your colon called radiation proctitis. The GI team was able to coagulate the areas that were bleeding to stop them from continuing to bleed. They will be repeating this in 4 weeks. In the meantime, they have made a few recommendations, including: - Use Sucralfate (CARAFATE) 1 GM/10ML suspension, Dilute 20 ml with 50 ml of tap water. Instill rectally twice a day for the next 2 weeks. - Try and consume a soft diet. - Use fiber, for example Citrucel, Fibercon, Konsyl or Metamucil. - Miralax 1 capful (17 grams) in 8 ounces of water once a day - two antibiotics (ciprofloxacin and flagyl) - please take these twice a day until they are finished You were transfused with 3 units of blood while you were admitted. Please go to the [facility] ([facility]) on Sunday (July 13) to have a repeat blood count checked. These results will go to Dr. Mast. If you have further bleeding, chest pain, fever, chills, or feel lightheaded/dizzy, please seek medical attention. Pending Studies at Discharge: No Stand-Alone Forms: [facility], Smoking Cessation Medications and DC Order Prescriptions: New metronidazole 500 mg Tablet 500 mg PO BID 4 Days Qty: 8 RF: 0 ciprofloxacin HCl 500 mg Tablet 500 mg PO BID 4 Days Qty: 8 RF: 0 polyethylene glycol 3350 [Miralax] 17 gram Powder In Packet 17 g PO DAILY 30 Days Qty: 30 RF: 3 sucralfate 100 mg/mL Suspension 2 g SD BID 13 Days Qty: 520 RF: 0 Continued cholecalciferol (vitamin D3) 2,000 unit tablet 2,000 units PO HS RF: 0 tamsulosin 0.4 mg capsule 0.4 mg PO HS Qty: 30 RF: 2 oxybutynin chloride 10 mg tablet extended release 24hr 10 mg PO DAILY Qty: 30 RF: 2 cyanocobalamin (vitamin B-12) 1,000 mcg Tablet 1,000 mcg PO QAM RF: 0 Glucosamine Chondroitin 550-30-1 mg Capsule 2 cap PO DAILY RF: 0 atorvastatin 20 mg Tablet 20 mg PO QAM RF: 0 Metamucil 3.4 gram/5.4 gram Powder 1 tsp PO QAM RF: 0 Admission Data Admit Date/Time: 07/08/19 08:33 Attending Provider: Yeny Mast Admit Provider: Yeny Mast Primary Care Provider: Yeny Mast Other Providers: Marcell Gannon ; Reid Jarrell ; Patricio Ring ; Ifeanyi Araiza
--- NOTE | 2019-07-11 12:29 | Urology Progress Note ---
Date of Service July 11, 2019 Assessment & Plan (1) Small cell carcinoma of bladder: Patient likely discharge later today. Underwent work-up for GI and bleeding. Has improved over time. Continues to have some weakness and low energy. Discussed options including removal of catheter. Patient will need cystoscopy at some point in the near future likely in the next 3 to 4 weeks. If he is able to void later today can go home without catheter however if he is unable to void may need catheter replaced. Patient has a chronic sloughing/irritated area along his right lateral wall at the site of previous tumor resection. Likely will have intermittent bleeding from this over time. Will need to discuss further options if this becomes continued or bothersome. (2) Gross hematuria: Subjective Patient resting comfortably. No major issues or problems. Tolerated the colonoscopy with no major findings or significant bleed. Patient currently has catheter in place without major bleeding or problems. CBI is been off for the last day. No other major changes or issues. Overall is been doing well. Discussed different options. Is hoping to have catheter removed today prior to leaving. Does have plans for transfusion later this afternoon. Review of Systems Review of Systems: All systems reviewed & are unremarkable except as noted in HPI & below Physical Exam Physical Exam: General: Alert in no acute distress. Advanced age. Chronic Medical issues. HEENT: Normocephalic. Inspection normal. Cranial Nerves 2-12 Grossly intact with some hearing issues. Normal inspection of face. Normal inspection of neck. Psychologic: Normal affect. Baseline issues with memory. Respiratory: Nonlabored. No use of accessory muscles. No tachypnea or dyspnea. Cardiovascular: No tachycardia Skin: [place] and Dry. No rashes or visible lesions. Extremities/Lymphatics: Minor Mobility issues. Slow Gait. Abdomen: Soft Non-distended. No rebound or guarding. : Catheter in place draining clear yellow urine Results & Data Vital Signs (Past 12 Hours) Vital Signs Temp Pulse Resp BP Pulse Ox 07/11/19 07:20 36.6 C 70 18 117/69 97 PG Care Time/CCT Total # of Minutes Spent Total Time Spent with Patient: Total time spent is greater than 50% in coordination of care (as documented) at patient's floor/unit and/or counseling patient: Coding Level of Care Code 12023 Subseq Hosp Care Lvl 3 Diagnoses Small cell carcinoma of bladder C67.9 Gross hematuria R31.0
--- NOTE | 2019-07-11 16:21 | Hospitalist Progress Note ---
Date of Service July 11, 2019 Assessment & Plan (1) Radiation proctitis: Mr. 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 Acute blood loss Anemia 2/2 Rectal Bleeding -admission hgb 6.2. S/P 2 units on admission. 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 Treated with APC. Non-bleeding internal hemorrhoids. Will repeat in 4 wks for retreatment -Medical Management: Sucralfate 1 GM/10ML suspension (Dilute 20 ml with 50 ml of tap water. Instill rectally BID using a catheter tip syringe or a gravity enema bag for 2 weeks), Metamucil, Miralax 1 capful (17 grams) in 8 ounces of water PO daily -Cont antibiotic regimen with Cipro/Flagyl for a total of 7 days -continue soft diet -appreciate GI consult -planned discharge for today, however upon working w/PT this AM, he had an orthostatic episode where he became lightheaded and his BP dropped to 70s/40s -Hgb 7.3 today - transfused 1 more unit today for a total of 3 units during his admission -will see how he does with PT/OT tomorrow to determine if he is stable for d/c home. Patient extremely eager to be discharged home, has excellent support from his Hematuria-resolved -h/o prostate cancer and small cell carcinoma of bladder s/p chemo and radiation -initially had 3 way kat placed with CBI - discontinued both today due to resolution of hematuria -appreciate Urology consult -> Patient will eventually need cystoscopy, likely in the next 3 to 4 weeks -> replace kat if unable to void CKD, stage 3 -Stable. Follow. BPH/prostate ca -cont tamsulosin 0.4mg -> may be contributing to orthostatic symptoms but necessary medication HLD -cont atorvastatin 20mg Mild cognitive deficit -stable FEN/GI: Soft Diet DVT Prophylaxis: SCD's Code status: DNR/DNI Disposition: remains on med/surg. Consider outpt palliative care consult on d/c. Admission and Anticipated Discharge Date Admission Date: July 08, 2019 Supervising Physician Co-Signing Physician Notes Resident Physician Supervision Note: I independently interviewed and examined the patient and verified the wasserman history and physical, reviewed labs and image studies, discussed the case with the resident Dr. Cisneros and agree with the findings and care plan. Subjective Mr. Arenas reports he feels well today. He ate well at breakfast. He has not had any further episodes of bloody BMs. He is eager to be discharged. He wonders about how often he will need blood transfusions in the future. Review of Systems Constitutional: + fatigue; no fever and no chills Respiratory: no cough and no dyspnea Cardiovascular: no chest pain and no palpitations Gastrointestinal: no abdominal pain and no vomiting Physical Exam Constitutional: WD/WN, vitals as above comfortable; no acute distress Respiratory: normal respiratory effort, lungs clear to auscultation Cardiovascular: Rate/Rhythm: regular rate and regular rhythm Gastrointestinal (Abdomen): Percussion/Palpation: abdomen soft; abdomen nontender Psychiatric: Orientation: alert, oriented x 3 and cooperative Results & Data Results & Data ([facility]) Vital Signs (Past 12 Hours) Vital Signs Temp Pulse Pulse Resp BP BP BP 07/11/19 15:45 36.5 C 73 18 136/75 07/11/19 15:17 36.5 C 92 H 17 125/71 07/11/19 15:14 36.5 C 70 70 18 125/71 125/71 07/11/19 14:47 36.6 C 73 18 125/69 07/11/19 14:32 36.8 C 73 18 119/67 07/11/19 14:17 36.7 C 74 18 112/68 07/11/19 07:20 36.6 C 70 18 117/69 Pulse Ox 07/11/19 15:45 98 07/11/19 15:17 92 07/11/19 15:14 92 07/11/19 14:47 93 07/11/19 14:32 94 07/11/19 14:17 07/11/19 07:20 97 Resident Activity Tracking Resident Involvement: Resident Care Provided Care Provided: Adult Hospital Medicine
[2019-07-11] MEDS: TAMSULOSIN HCL 0.4 MG CAP PO SCH (22:03)
[2019-07-12 07:23] VITALS: PULSE 64; TEMP 98.2; O2SAT 98
[2019-07-12 07:48] LABS: Basophils # (auto) 0.04 K/uL (0-0.2); Basophils % (auto) 0.8 %; Eosinophils # (auto) 0.15 K/uL (0-0.5); Hematocrit (blood only) 25.1 % (42-52); Immature Granulocytes # (auto) 0.03 K/uL (0.00-0.02); Immature Granulocytes % (auto) 0.6 %; Lymphocytes # (auto) 0.56 K/uL (1.2-3.4); Lymphocytes % (auto) 11.3 %; Mean Corpuscular Hemoglobin 32.1 pg (25-34); Mean Corpuscular Hgb Conc 31.9 g/dL (32-36); Mean Corpuscular Volume 100.8 fL (80-100); Mean Platelet Volume 9.5 fL (7.4-10.4); Monocytes # (auto) 0.54 K/uL (0.11-0.59); Monocytes % (auto) 10.9 %; Neutrophils # (auto) 3.65 K/uL (1.4-6.5); Neutrophils % (auto) 73.4 %; Platelet Count 109 K/uL (130-400); RDW Coefficient of Variation 21.2 % (11.5-14.5); RDW Standard Deviation 76.1 fL (36.4-46.3); Red Blood Count 2.49 M/uL (4.7-6.1); White Blood Count 4.97 K/uL (4.8-10.8)
[2019-07-12 08:17] LABS: BUN Creatinine Ratio 14.2 (10-20); Creatinine Clr Calc Pharmacy 42.2 ml/min; Est GFR (African American) 54.5; Potassium 4.3 mmol/L (3.5-5.1)
[2019-07-12 08:20] LABS: Anisocytosis Present
[2019-07-12] MEDS: OXYBUTYNIN CHLORIDE XL 5 MG TABCR PO SCH (09:02)
[2019-07-12] MEDS: metroNIDAZOLE 500 MG TAB PO SCH (09:02)
[2019-07-12] MEDS: CIPROFLOXACIN 500 MG TAB PO SCH (09:02)
[2019-07-12] MEDS: PSYLLIUM 58.6% POWDER PACKET PO SCH (09:03)
[2019-07-12] MEDS: ATORVASTATIN 20 MG TAB PO SCH (09:04)
[2019-07-12] MEDS: POLYETHYLENE (MIRALAX) 17 GM PACK PO SCH (09:08)
[2019-07-12] MEDS: SUCRALFATE 1 GM/10 ML UDC PR SCH (10:47)
--- NOTE | 2019-07-12 11:45 | Discharge Summary ---
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 He underwent colonoscopy recently showing radiation changes in the rectal area. Yesterday he was noted to have hb of 6 which runs around 9 at [facility] and was arranged to have a blood transfusion today. noted worse rectal bleeding and blood in urine and so brought him to ED. 3 way Kat placed in ED - No clots were noted in the catheter. Bladder scan with no excessive urine. He denies any abdominal, back pain. Admission Exam Per Admitting Provider Constitutional: WD/WN, vitals as above + ill appearing Pale Eyes: PERRL, conjunctivae normal, anicteric sclerae ENMT: external ear and nose normal, oropharynx normal Neck: trachea midline, no thyromegaly Respiratory: normal respiratory effort, lungs clear to auscultation Cardiovascular: Rate/Rhythm: regular rate and regular rhythm Heart Sounds: + murmur Gastrointestinal (Abdomen): normal bowel sounds, soft, nontender, no hepatosplenomegaly Skin: no rashes, warm and dry Neurologic: PERRL, EOMI, accommodation nl, no face palsy, no dysarthria moves all extremities Psychiatric: A+Ox3, euthymic affect Genitourinary: kat - dark colored urine Principal Diagnosis Hematuria Rectal Bleed Discharge Exam General: Alert, oriented. No acute distress sitting in chair near bed Skin: No noted rashes or bruises Psych: Appropriate mood and affect Neuro: No gross deficits HEENT: NC/AT Chest: Nontender to palpation. CV: RRR, Normal s1, s2. Blowing murmur appreciated Resp: Breath sounds clear bilaterally, no increased effort of breathing. No crackles/rhonchi/rales. Abdomen: BS+. Soft, nontender, nondistended. No guarding. No organomegaly appreciated. Extremities: Trace edema in lower extremities bilaterally. Discharge Data Allergies Allergy/AdvReac Type Severity Reaction Status Date / Time No Known Allergies Allergy Verified 07/09/19 10:12 Consultations 07/08/19 07:54 ED Decision to Admit Stat 07/08/19 10:11 Consult Urology Stat 07/08/19 12:17 Consult Gastroenterology Routine Consult Urology Routine Procedures Performed Operation Date: 07/09/19 16:30 Actual Procedures s Esophagogastroduodenoscopy - Patricio Ring MD p Flexible Sigmoidoscopy Hemostasis - Patricio Ring MD Hospital Course (1) Acute blood loss anemia: Mr. Arenas is a 83 year old male with a past medical history of prostate CA and small cell CA of the bladder s/p chemo/ radiation who presented with rectal bleeding and hematuria for the last few months. He was admitted on July 07 and discharged on July 12 2019. Acute blood loss Anemia 2/2 Rectal Bleeding -admission hgb 6.2. S/P 2 units on admission. 1 additional unit on 07/10. 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 Treated with APC. Non-bleeding internal hemorrhoids. Will repeat in 4 wks for retreatment -Medical Management: Sucralfate 1 GM/10ML suspension (Dilute 20 ml with 50 ml of tap water. Instill rectally BID using a catheter tip syringe or a gravity enema bag for 2 weeks), Metamucil, Miralax 1 capful (17 grams) in 8 ounces of water PO daily -Cont antibiotic regimen with Cipro/Flagyl for a total of 7 days -continue soft diet -had an orthostatic episode where he became lightheaded and his BP dropped to 70s/40s with hgb 7.3 day before discharge. Received third unit of blood then. -Hgb 8.0 on day of discharge (07/12/2019) -Patient discharged home, has excellent support from his . Can consider home health services if needed. -recheck cbc early next wk Hematuria-resolved -h/o prostate cancer and small cell carcinoma of bladder s/p chemo and radiation -initially had 3 way kat placed with CBI - discontinued both today due to resolution of hematuria -appreciate Urology consult -> Patient will eventually need cystoscopy, likely in the next 3 to 4 weeks -> replace kat if unable to void CKD, stage 3 -Stable. BPH/prostate ca -cont tamsulosin 0.4mg -> may be contributing to orthostatic symptoms but necessary medication HLD -cont atorvastatin 20mg Mild cognitive deficit -stable Consider outpt palliative care consult on d/c. (2) Radiation proctitis: Total Time Total Time Spent Total Time Spent (In Minutes): See Attending attestation Discharge Plan Discharge Items Patient Disposition: Home - Self-Care Reason For Visit: RECTAL BLEEDING Discharge Diagnosis: Anemia, rectal bleeding, blood in urine Activity: Per Instructions section Non-emergency contact: Primary Care Provider Call non-emergency contact if: you have any medication questions, your symptoms worsen and you have a fever Follow-up/Referrals: Yeny Mast MD [Primary Care Provider] - Diet: Regular Addtl Attending Provider Instructions: Mr. Arenas, you were seen at [facility] due to blood in your urine and bowel movements. You were seen by the urology team, who placed a catheter, and washed out your bladder with fluid. You were also seen by the GI team who performed an EGD (scope to look at your stomach and small intestines) and a sigmoidoscopy (looking at the ending part of your colon). You were found to have inflammation in your colon called radiation proctitis. The GI team was able to coagulate the areas that were bleeding to stop them from continuing to bleed. They will be repeating this in 4 weeks. In the meantime, they have made a few recommendations, including: - Use Sucralfate (CARAFATE) 1 GM/10ML suspension, Dilute 20 ml with 50 ml of tap water. Instill rectally twice a day for the next 2 weeks. - Try and consume a soft diet. - Use fiber, for example Citrucel, Fibercon, Konsyl or Metamucil. - Miralax 1 capful (17 grams) in 8 ounces of water once a day - two antibiotics (ciprofloxacin and flagyl) - please take these twice a day until they are finished You were transfused with 3 units of blood while you were admitted. Please go to the [facility] ([facility]) on Sunday (July 13) to have a repeat blood count checked. These results will go to Dr. Mast. If you have further bleeding, chest pain, fever, chills, or feel l ightheaded/dizzy, please seek medical attention. Pending Studies at Discharge: No Stand-Alone Forms: My Acompli, Smoking Cessation Medications and DC Order Prescriptions: New metronidazole 500 mg Tablet 500 mg PO BID 4 Days Qty: 8 RF: 0 ciprofloxacin HCl 500 mg Tablet 500 mg PO BID 4 Days Qty: 8 RF: 0 polyethylene glycol 3350 [Miralax] 17 gram Powder In Packet 17 g PO DAILY 30 Days Qty: 30 RF: 3 sucralfate 100 mg/mL Suspension 2 g [place] BID 13 Days Qty: 520 RF: 0 Continued cholecalciferol (vitamin D3) 2,000 unit tablet 2,000 units PO HS RF: 0 tamsulosin 0.4 mg capsule 0.4 mg PO HS Qty: 30 RF: 2 oxybutynin chloride 10 mg tablet extended release 24hr 10 mg PO DAILY Qty: 30 RF: 2 cyanocobalamin (vitamin B-12) 1,000 mcg Tablet 1,000 mcg PO QAM RF: 0 Glucosamine Chondroitin 550-30-1 mg Capsule 2 cap PO DAILY RF: 0 atorvastatin 20 mg Tablet 20 mg PO QAM RF: 0 Metamucil 3.4 gram/5.4 gram Powder 1 tsp PO QAM RF: 0 Discharge Orders: Discharge Order (Routine); Ordered 07/12/19 Ordered By: Tiffanie David Admission Data Admit Date/Time: 07/08/19 08:33 Attending Provider: Yeny Mast Admit Provider: Yeny Mast Primary Care Provider: Yeny Mast Other Providers: Marcell Gannon ; Reid Jarrell ; Patricio Ring ; Ifeanyi Araiza Other Interventions: Discharge Summary Assessment (RN) Last Done: 07/12/19 12:59 DC Date/Time DO NOT enter until pt leaves facility: 07/12/19 14:15 Supervising Physician Co-Signing Physician Notes Resident Physician Supervision Note: I independently interviewed and examined the patient and verified the wasserman history and physical, reviewed labs and image studies, discussed the case with the resident Dr. David and agree with the findings and care plan. Time spent in discharge 35min Resident Activity Tracking Resident Involvement: Resident Care Provided Care Provided: Adult Hospital Medicine
[2019-07-12 13:06] VITALS: BP 136/75
== END 2019-07-12 14:15 | disposition home or self-care (01) | DRG 378 ==
LOC: ED 06:34 → 1E 08:33 → 2W 07-10 14:39

== ENCOUNTER 2019-08-14 03:20 | Inpatient (IN) ==
--- NOTE | 2019-08-14 04:01 | Emergency Department Note ---
Impression & Plan Acute blood loss anemia, Hematuria ED Provider Note NAME: BRIANA MENDES AGE: 83 SEX: M ARRIVES VIA: Ambulance INFORMANT: Patient,his ED PROVIDER(S): Candy Prado DO CHIEF COMPLAINT: hematuria and weakness PLAN: Disposition: Admitted by the [facility] service MEDICAL DECISION MAKING: This is an 83-year-old male who presents to the emergency department with significant hematuria and weakness. Patient has a history of bladder cancer and has been followed closely by urology. Over the past 2-3 days, the patient has had increasing hematuria and generalized weakness. The patient has been having bladder spasms tonight and expelling blood around the urinary catheter. Laboratory studies reveal severe anemia with a hemoglobin that has dropped by more than 3 g in the past couple of days. This would explain the patient's extreme weakness. The patient was typed and crossed for packed red blood cells. He remained hemodynamically stable while here in the emergency department. [facility] for [facility] management. Triage Nursing notes reviewed and agree them. Additional history obtained from the patient's Prior medical records reviewed Vital Signs: reviewed and unremarkable Differential diagnosis: Anemia, electrolyte abnormality, UTI ER treatment provided: IV normal saline Type and cross for packed red blood cells-2 units Diagnostics interpreted by me: ECG: None Cardiac Monitoring: None Laboratory studies: See below HPI: 83/M arrives for evaluation of hematuria and generalized weakness. This is an 83-year-old male patient with a history of bladder cancer who presents to the emergency department by EMS for worsening hematuria and generalized weakness . The explains that the patient has been followed by Dr. Araiza very closely for bladder irrigation. He is scheduled to have surgery in approximately 5 days. However, tonight, the patient became increasingly weak and confused and developed bladder spasms. The explains that he would e xpel some blood from around the urinary catheter. She states that he became very weak and pale and began to moan. After his urology appointment today, the patient could only crawl back to his bedroom because he was so weak. ROS: See above HPI for pertinent positives & negatives. A total of 10 systems reviewed and were otherwise negative. PAST MEDICAL HISTORY:See Below PAST SURGICAL HISTORY:See Below FAMILY HISTORY:See Below SOCIAL HISTORY:See Below HOME MEDICATIONS:See list ALLERGIES:None VITALS:See Below PHYSICAL EXAMINATION: HEENT: Head - normocephalic and atraumatic Pupils are equal, round, and reactive to light. Extraocular eye muscles are intact, and sclera are anicteric. Nose - moist nasal mucosa without discharge. Mouth -extremely dry buccal mucosa. Oropharynx is nonerythematous and there is no tonsillar exudate or edema noted. Neck: Supple; no thyromegaly or cervical lymphadenopathy Heart: Regular rate and rhythm. There is a normal S1 and S2 with no murmurs, clicks, or gallops appreciated. Lungs: Clear to auscultation bilaterally with no wheezes, rales, or rhonchi. Abdomen: Soft, completely nontender, nondistended, with good bowel sounds. There are no palpable pulsatile masses or hepatosplenomegaly. There is no guarding, rigidity, or rebound noted. Extremities: 1+ lower extremity edema there are easily palpable peripheral pulses. Skin: Extremely pale, warm and dry with good turgor and no rashes. ED COURSE: Times/Reassessments: 0330: The patient was evaluated in room C9. A complete history and physical was performed. Previous electronic medical records were reviewed. Laboratory studies were drawn as above. An order was placed for continuous cardiac monitoring. The patient was in a normal sinus rhythm at a rate of 78. Nursing staff attempted to irrigate the patient's catheter because he was producing dark red blood. It did clear somewhat to pink. The patient was typed and crossed for 2 units of packed red blood cells because he was so significantly anemic. He remained hemodynamically stable while here in the emergency department. I discussed the case with the [facility] Hospitalist and they will evaluate the patient for further management. 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 Feels Safe at Home: Yes Smoking Status: Former smoker Number of Years Since Quit: 42 ; Second Hand Exposure: No ; Hx Alcohol Use: Yes Alcohol type: beer Alcohol Intake Frequency Comment: 3 drinks a week Hx Substance Use: No Allergies Allergies Allergy/AdvReac Type Severity Reaction Status Date / Time No Known Allergies Allergy Verified 08/14/19 03:53 Home Meds Home Medications Medication Instructions Recorded Confirmed cyanocobalamin (vitamin B-12) 1,000 mcg PO QAM 02/15/18 08/14/19 cholecalciferol (vitamin D3) 50 2,000 units PO HS 03/01/18 08/14/19 mcg (2,000 unit) tablet atorvastatin 20 mg PO QAM 03/08/18 08/14/19 Metamucil 1 tsp PO QAM 05/13/18 08/14/19 Glucosamine Chondroitin 2 cap PO DAILY 02/25/19 08/14/19 acetaminophen [Tylenol] 650 mg PO DIRECTED PRN 08/14/19 08/14/19 lisinopril 5 mg PO DAILY 08/14/19 08/14/19 memantine 5 mg PO BID 08/14/19 08/14/19 Previous Rx's Medication Instructions Recorded tamsulosin 0.4 mg capsule 0.4 mg PO HS #30 cap 05/16/19 oxybutynin chloride 10 mg 10 mg PO DAILY #30 tab 06/19/19 tablet,extended release 24 hr polyethylene glycol 3350 [Miralax] 17 g PO DAILY 30 Days #30 ea 07/11/19 Results & Data (ED) Vital Signs Vital Signs - 24 hr 08/14/19 03:30 08/14/19 05:05 08/14/19 06:48 Temperature 36.4 C L Temperature Source Oral Pulse Rate 95 H Pulse Rate [Apical] 93 H 78 Respiratory Rate 18 17 15 Blood Pressure 106/72 Blood Pressure [Right Arm] 117/59 L 112/60 Blood Pressure Mean 83 Blood Pressure Mean [Right Arm] 78 77 Pulse Oximetry 97 96 93 Oxygen Delivery Method Room Air Room Air Room Air Sepsis Recent Fever Within 48 Hours No Sepsis Action Taken by Nursing No Action Required Laboratory Data Result diagrams: 08/14/19 03:25 08/14/19 03:25 Lab Results 08/14/19 08/14/19 08/14/19 Range/Units 03:25 03:25 03:57 WBC 12.25 H (4.8-10.8) K/uL RBC 2.00 L (4.7-6.1) M/uL Hgb 6.4 L* (14.0-18.0) g/dL Hct 19.9 L* (42-52) % MCV 99.5 (80-100) fL MCH 32.0 (25-34) pg MCHC 32.2 (32-36) g/dL RDW Std Deviation 68.5 H (36.4-46.3) fL RDW Coeff of Latasha 19.4 H (11.5-14.5) % Plt Count 242 (130-400) K/uL MPV 8.9 (7.4-10.4) fL Immature Gran % (Auto) 2.3 % Neut % (Auto) 83.5 % Lymph % (Auto) 9.1 % [place] % (Auto) 4.9 % Eos % (Auto) 0.0 % Baso % (Auto) 0.2 % Neut # (Auto) 10.23 H (1.4-6.5) K/uL Lymph # (Auto) 1.11 L (1.2-3.4) K/uL [place] # (Auto) 0.60 H (0.11-0.59) K/uL Eos # (Auto) 0.00 (0-0.5) K/uL Baso # (Auto) 0.03 (0-0.2) K/uL Immature Gran # (Auto) 0.28 H (0.00-0.02) K/uL Absolute Nucleated RBC 0.03 H (0-0) K/uL Nucleated RBC % (auto) 0.2 % RBC Morphology Unremarkable Sodium 139 (136-145) mmol/L Potassium 4.9 (3.5-5.1) mmol/L Chloride 108 H (98-107) mmol/L Carbon Dioxide 20 L (21-32) mmol/L Anion Gap 11.0 (3-11) BUN 39 H (7-18) mg/dl Creatinine 2.48 H (0.6-1.4) mg/dl Est Cr Clr Drug Dosing 22.4 ml/min Est GFR ( Amer) 26.6 Est GFR (Non-Af Amer) 22.9 BUN/Creatinine Ratio 15.8 (10-20) Glucose 198 H (70-99) mg/dl Calcium 8.2 L (8.5-10.1) mg/dl Total Bilirubin 0.5 (0.2-1) mg/dl AST 14 L (15-37) U/L ALT 16 (12-78) U/L Alkaline Phosphatase 78 (45-117) U/L Total Protein 6.9 (6.4-8.2) gm/dl Albumin 2.7 L (3.4-5.0) gm/dl Globulin 4.2 H (2.5-4.0) gm/dl Albumin/Globulin Ratio 0.6 L (0.9-2) Lipase 196 (73-393) U/L Urine Color Red Urine Appearance Cloudy A (Clear) Urine pH 7.5 (4.5-7.5) Ur Specific [place] 1.025 (1.000-1.030) Urine Protein 3+ H (Negative) Urine Glucose (UA) Trace H (Negative) Urine Ketones Negative (Negative) Urine Blood 3+ H (Negative) Urine Nitrite Positive A (Negative) Urine Bilirubin Negative (Negative) Urine Urobilinogen Negative (Negative) Ur Leukocyte Esterase Trace H (Negative) Urine RBC >30 H (0-4) /hpf Urine WBC >30 H (0-5) /hpf Ur Epithelial Cells 5-10 H (0-5) /lpf Urine Bacteria 1+ H (Negative) Blood Type Antibody Screen Crossmatch 08/14/19 Range/Units 05:02 WBC (4.8-10.8) K/uL RBC (4.7-6.1) M/uL Hgb (14.0-18.0) g/dL Hct (42-52) % MCV (80-100) fL MCH (25-34) pg MCHC (32-36) g/dL RDW Std Deviation (36.4-46.3) fL RDW Coeff of Latasha (11.5-14.5) % Plt Count (130-400) K/uL MPV (7.4-10.4) fL Immature Gran % (Auto) % Neut % (Auto) % Lymph % (Auto) % [place] % (Auto) % Eos % (Auto) % Baso % (Auto) % Neut # (Auto) (1.4-6.5) K/uL Lymph # (Auto) (1.2-3.4) K/uL [place] # (Auto) (0.11-0.59) K/uL Eos # (Auto) (0-0.5) K/uL Baso # (Auto) (0-0.2) K/uL Immature Gran # (Auto) (0.00-0.02) K/uL Absolute Nucleated RBC (0-0) K/uL Nucleated RBC % (auto) % RBC Morphology Sodium (136-145) mmol/L Potassium (3.5-5.1) mmol/L Chloride (98-107) mmol/L Carbon Dioxide (21-32) mmol/L Anion Gap (3-11) BUN (7-18) mg/dl Creatinine (0.6-1.4) mg/dl Est Cr Clr Drug Dosing ml/min Est GFR ( Amer) Est GFR (Non-Af Amer) BUN/Creatinine Ratio (10-20) Glucose (70-99) mg/dl Calcium (8.5-10.1) mg/dl Total Bilirubin (0.2-1) mg/dl AST (15-37) U/L ALT (12-78) U/L Alkaline Phosphatase (45-117) U/L Total Protein (6.4-8.2) gm/dl Albumin (3.4-5.0) gm/dl Globulin (2.5-4.0) gm/dl Albumin/Globulin Ratio (0.9-2) Lipase (73-393) U/L Urine Color Urine Appearance (Clear) Urine pH (4.5-7.5) Ur Specific [place] (1.000-1.030) Urine Protein (Negative) Urine Glucose (UA) (Negative) Urine Ketones (Negative) Urine Blood (Negative) Urine Nitrite (Negative) Urine Bilirubin (Negative) Urine Urobilinogen (Negative) Ur Leukocyte Esterase (Negative) Urine RBC (0-4) /hpf Urine WBC (0-5) /hpf Ur Epithelial Cells (0-5) /lpf Urine Bacteria (Negative) Blood Type A Positive Antibody Screen POSITIVE A Crossmatch See Detail Administered Medications Sodium Chloride (Nss) 500 mls @ 125 mls/hr IV .Q4H [facility] Stop: 09/13/19 05:14 Last Admin: 08/14/19 05:26 Dose: 125 mls/hr Documented by: [id number] Discontinued Medications Fentanyl Citrate (Fentanyl Citrate) 25 mcg IV NOW ONE Stop: 08/14/19 04:56 Last Admin: 08/14/19 05:01 Dose: 25 mcg Documented by: [id number] Sodium Chloride (Nss 1000ml) 500 mls @ 999 mls/hr IV .Q31M ONE Stop: 08/14/19 05:31 Last Infusion: 08/14/19 05:37 Dose: 0 mls/hr Documented by: [id number] Admin: 08/14/19 05:04 Dose: 999 mls/hr Documented by: [id number] Discharge Plan Visit Data Chief Complaint: Hematuria Stated Complaint: hematuria ED Provider: Candy Prado Discharge Problem: Acute blood loss anemia, Hematuria Discharge Instructions Interventions: ED Discharge Assessment Last Done: 08/14/19 06:56 Discharge Problem: Hematuria Qualifiers: Hematuria type: gross Qualified Code(s): R31.0 - Gross hematuria
[2019-08-14 04:18] LABS: Albumin Level 2.7 gm/dl (3.4-5.0); BUN Creatinine Ratio 15.8 (10-20); Calcium 8.2 mg/dl (8.5-10.1); Creatinine Clr Calc Pharmacy 22.4 ml/min; Est GFR (African American) 26.6; Est GFR (Non-African American) 22.9; Potassium 4.9 mmol/L (3.5-5.1)
[2019-08-14 04:21] LABS: Albumin Globulin Ratio 0.6 (0.9-2); Bilirubin,Total 0.5 mg/dl (0.2-1); Globulin 4.2 gm/dl (2.5-4.0); Hematocrit (blood only) 19.9 % (42-52); Hemoglobin 6.4 g/dL (14.0-18.0); Mean Corpuscular Hgb Conc 32.2 g/dL (32-36); Mean Corpuscular Volume 99.5 fL (80-100); Mean Platelet Volume 8.9 fL (7.4-10.4); Nucleated RBC # (auto) 0.03 K/uL (0-0); Nucleated RBC % (auto) 0.2 %; Platelet Count 242 K/uL (130-400); RDW Coefficient of Variation 19.4 % (11.5-14.5); RDW Standard Deviation 68.5 fL (36.4-46.3); Total Protein 6.9 gm/dl (6.4-8.2); White Blood Count 12.25 K/uL (4.8-10.8)
[2019-08-14 04:25] LABS: Basophils # (auto) 0.03 K/uL (0-0.2); Basophils % (auto) 0.2 %; Immature Granulocytes # (auto) 0.28 K/uL (0.00-0.02); Immature Granulocytes % (auto) 2.3 %; Lymphocytes # (auto) 1.11 K/uL (1.2-3.4); Lymphocytes % (auto) 9.1 %; Monocytes % (auto) 4.9 %; Neutrophils # (auto) 10.23 K/uL (1.4-6.5); Neutrophils % (auto) 83.5 %; RBC Morphology Unremarkable
[2019-08-14 04:33] LABS: Appearance Urine Cloudy (Clear); Bilirubin Urine Negative (Negative); Blood Urine 3+ (Negative); Color Urine Red; Glucose Urine UA Trace (Negative); Ketones Urine Negative (Negative); Leukocyte Esterase Urine Trace (Negative); Nitrite Urine Positive (Negative); Specific Gravity Urine 1.025 (1.000-1.030); Urobilinogen Urine Negative (Negative); pH Urine 7.5 (4.5-7.5)
[2019-08-14 04:38] LABS: Protein Urine 3+ (Negative)
[2019-08-14 04:39] LABS: Bacteria Urine 1+ (Negative); RBC Urine >30 /hpf (0-4); Sulfosalicylic Acid Urine Positive (Negative); WBC Urine >30 /hpf (0-5)
[2019-08-14] MEDS ORDERED: SODIUM CHLORIDE 0.9% 250 ML IV PRN ×2 (04:54→07:45)
[2019-08-14] MEDS ORDERED: fentaNYL citrate 100 MCG/2 ML VIAL IV ONE (04:55)
[2019-08-14] MEDS ORDERED: SODIUM CHLORIDE 0.9% 1000ML 500 ML IV ONE (05:01)
[2019-08-14] MEDS ORDERED: SODIUM CHLORIDE 0.9% 500 ML IV SCH (05:15)
--- NOTE | 2019-08-14 06:24 | History & Physical Report ---
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 Araiza who is life skills consultant this week Consulted Urology, plan initially was for surgery on Sunday Has received radiation and left with proctitis with rectal bleeding, cystitis and prostate damage, plan was for hyperbaric O2 treatment as outpatient PILY Likely pre renal plus anemia causing his creatinine spike Will transfuse and rehydrate currently awaiting blood and running NSS at 125mls/hour DVT PPx: SMITH F/E?N: NPO, NSS 125 mls/hour Dispo: PCU for close monitoring and transfusion DNR/DNI (2) Acute blood loss anemia: (3) Anemia: History of Present Illness Chief Complaint: Hematuria, symptomatic Anemia Primary Care Provider: Yeny Mast MD Dale Arenas is an 83 year old man with a past medical history significant for bladder cancer followed by [facility] Dr. Araiza. He has been having hematuria for some time, was just seen in office yesterday and had his bladder irrigated and was found to have a small bleeding vessel in bladder neck. 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 They were informed to come to ED if hematuria did not slow. Patient continued to have dark red hematuria both into his catheter and around catheter along with bladder spasm and progressie weakness. When he got home tonight he was unable to even get himself up into bed he was so weak. decided to bring him in to be evaluated. In ED vitals WNL labwork significant for elevated white count and severe blood loss anemia with hemoglobin of 6.4. He was also found to have an PILY with creatinine of 2.48. At time of my visit patient is quite confused and unable to answer most of my questions but fortunately is able to give me history. She tells me his mental status is about his baseline and over the last several years it has been slowly declining. On review of systems only positive symptoms are hematuria, progressive weakness, and bladder discomfort. Lives at home with who cares for him, former smoker forty years ago, former social drinker nothing in several months, no history of drug use. DNR/DNI Allergies Allergy/AdvReac Type Severity Reaction Status Date / Time No Known Allergies Allergy Verified 08/14/19 03:53 Home Medications Home Medications Medication Instructions Recorded Confirmed Type cyanocobalamin (vitamin B-12) 1,000 mcg PO QAM 02/15/18 08/14/19 History cholecalciferol (vitamin D3) 50 2,000 units PO HS 03/01/18 08/14/19 History mcg (2,000 unit) tablet atorvastatin 20 mg PO QAM 03/08/18 08/14/19 History Metamucil 1 tsp PO QAM 05/13/18 08/14/19 History Glucosamine Chondroitin 2 cap PO DAILY 02/25/19 08/14/19 History tamsulosin 0.4 mg capsule 0.4 mg PO HS #30 cap 05/16/19 08/14/19 Rx oxybutynin chloride 10 mg 10 mg PO DAILY #30 tab 06/19/19 08/14/19 Rx tablet,extended release 24 hr polyethylene glycol 3350 [Miralax] 17 g PO DAILY 30 Days #30 ea 07/11/19 08/14/19 Rx acetaminophen [Tylenol] 650 mg PO DIRECTED PRN 08/14/19 08/14/19 History lisinopril 5 mg PO DAILY 08/14/19 08/14/19 History memantine 5 mg PO BID 08/14/19 08/14/19 History Past Med/Surg History Medical History Anemia s/p transfusion (04/2018) felt r/t chemo Asthma childhood/no current issues Cancer bladder, prostate cancer; s/p chemo/xrt completed 04/2018 CVA (cerebral vascular accident) evidence of old infarct on MRI "years ago" HLD (hyperlipidemia) HTN (hypertension) Left knee DJD Lung nodule Short-term memory loss "mild"/no definitive diagnosis Thrombocytopenia hx Surgical History History of bladder surgery Cystoscopy, TURBT= 02/18/18= LMA#5 at [facility] History of bronchoscopy History of cataract surgery R/L History of colonoscopy History of tooth extraction History of vascular access device A-port inserted and removed S/P bronchoscopy with biopsy (03/07/19) Endobronchial Ultrasound Dr. 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) Family History Mother , age 79 Heart disease Father , age 79 Myocardial infarction Brother , age 79 Dementia Daughter COPD (chronic obstructive pulmonary disease) Son No problems noted. Son No problems noted. 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 Feels Safe at Home: Yes Smoking Status: Former smoker Number of Years Since Quit: 42 ; Second Hand Exposure: No ; Hx Alcohol Use: No Hx Substance Use: No Review of Systems Review of Systems: All systems reviewed & are unremarkable except as noted in HPI & below Physical Exam Physical Exam: Contistutional: Pale appearing 83 year old man resting in bed Eyes: PERRLA, Anicteric sclerae, ENMT: NAD Respiratory: No increased work of breathing, lung sounds vesicular throughout Cardiovascular: Systolic ejection murmur, regular rate regular rhythm no lower limb edema, peripheral pulses present and equal GI: Abdomen soft/nontender G/U: Ang catheter in place, hematuria dark red Results & Data Results & Data ([facility]) Vital Signs (Past 12 Hours) Vital Signs Temp Pulse Pulse Resp BP BP Pulse Ox 08/14/19 05:05 93 H 17 117/59 L 96 08/14/19 03:30 36.4 C L 95 H 18 106/72 97 Supervising Physician Co-Signing Physician Notes Patient seen and examined, chart reviewed, case discussed with Dr. Carlin and I agree with his assessment and plan as documented above Resident Activity Tracking Resident Involvement: Resident Care Provided Care Provided: Adult Hospital Medicine (1) Complication of Ang catheter Encounter type: initial encounter Qualified Code(s): T83.9XXA - Unspecified complication of genitourinary prosthetic device, implant and graft, initial encounter
[2019-08-14] MEDS ORDERED: ONDANSETRON INJ 2 MG/ML 2 ML VIAL IV PRN (07:34)
[2019-08-14] MEDS ORDERED: ACETAMINOPHEN 325 MG TAB PO PRN (07:34)
[2019-08-14] MEDS: cefTRIAXone SODIUM 2,000 MG in DEXTROSE 5% 50 ML IV SCH (08:14)
[2019-08-14] MEDS ORDERED: MoRPHine SULFATE 4 MG/ML 1 ML CARP\\VIAL IV PRN (08:30)
[2019-08-14] MEDS: OXYBUTYNIN CHLORIDE XL 5 MG TABCR PO SCH (08:32)
[2019-08-14] MEDS: MEMANTINE HCL 5 MG TAB PO SCH ×2 (08:32→20:59)
[2019-08-14] MEDS: ATORVASTATIN 20 MG TAB PO SCH (08:32)
[2019-08-14] MEDS: CYANOCOBALAMIN 500 MCG TABLET (VITAMIN B-12) PO SCH (08:33)
[2019-08-14] MEDS: POLYETHYLENE (MIRALAX) 17 GM PACK PO SCH (08:33)
[2019-08-14] MEDS: PSYLLIUM 58.6% POWDER PACKET PO SCH (08:33)
[2019-08-14] MEDS ORDERED: NON-FORMULARY MEDICATION (Glucos Sul 2kcl-Msm-Chond-C-Mn [Glucosamine Chondroitin] 2 CAP) PO SCH (09:00)
[2019-08-14] MEDS: SODIUM CHLORIDE 0.9% 1000ML 1,000 ML IV SCH ×2 (09:26→22:39)
[2019-08-14] MEDS: MoRPHine SULFATE 2 MG/ML CARP IV PRN (09:40)
--- NOTE | 2019-08-14 10:48 | Urology Consultation ---
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 Araiza is also working actively on arranging outpatient hyperbaric oxygen He is receiving a blood transfusion today, presuming he shows clinical improvement we will delay intervention until tomorrow morning N.p.o. 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, chemoradiation He has had intermittent hematuria and radiation proctitis since treatment He presented back to the emergency room last evening secondary to severe hematuria He was found to have reactionary anemia from the blood loss He has been receiving a blood transfusion this morning He subjectively reports that he feels well His catheter appears to be draining appropriately at the present time -but remains quite bloody This is been a recurrent problem for him Allergies Allergy/AdvReac Type Severity Reaction Status Date / Time No Known Allergies Allergy Verified 08/14/19 03:53 Home Medications Home Medications Medication Instructions Recorded Confirmed Type cyanocobalamin (vitamin B-12) 1,000 mcg PO QAM 02/15/18 08/14/19 History cholecalciferol (vitamin D3) 50 2,000 units PO HS 03/01/18 08/14/19 History mcg (2,000 unit) tablet atorvastatin 20 mg PO QAM 03/08/18 08/14/19 History Metamucil 1 tsp PO QAM 05/13/18 08/14/19 History Glucosamine Chondroitin 2 cap PO DAILY 02/25/19 08/14/19 History tamsulosin 0.4 mg capsule 0.4 mg PO HS #30 cap 05/16/19 08/14/19 Rx oxybutynin chloride 10 mg 10 mg PO DAILY #30 tab 06/19/19 08/14/19 Rx tablet,extended release 24 hr polyethylene glycol 3350 [Miralax] 17 g PO DAILY 30 Days #30 ea 07/11/19 08/14/19 Rx acetaminophen [Tylenol] 650 mg PO DIRECTED PRN 08/14/19 08/14/19 History lisinopril 5 mg PO DAILY 08/14/19 08/14/19 History memantine 5 mg PO BID 08/14/19 08/14/19 History Patient History Medical History Anemia s/p transfusion (04/2018) felt r/t chemo Asthma childhood/no current issues Cancer bladder, prostate cancer; s/p chemo/xrt completed 04/2018 CVA (cerebral vascular accident) evidence of old infarct on MRI "years ago" HLD (hyperlipidemia) HTN (hypertension) Left knee DJD Lung nodule Short-term memory loss "mild"/no definitive diagnosis Thrombocytopenia hx Surgical History History of bladder surgery Cystoscopy, TURBT= 02/18/18= LMA#5 at [facility] History of bronchoscopy History of cataract surgery R/L History of colonoscopy History of tooth extraction History of vascular access device A-port inserted and removed S/P bronchoscopy with biopsy (03/07/19) Endobronchial Ultrasound Dr. 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) Family History Mother , age 79 Heart disease Father , age 79 Myocardial infarction Brother , age 79 Dementia Daughter COPD (chronic obstructive pulmonary disease) Son No problems noted. Son No problems noted. 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 Other Information That Helps Us Care for You: No Feels Safe at Home: Yes Safety Concerns: Feels Safe At This Time Smoking Status: Former smoker Do You Dip or Chew Tobacco: No ; Number of Years Since Quit: 42 ; Second Hand Exposure: No ; Hx Alcohol Use: No Hx Substance Use: No Review of Systems Constitutional: + fatigue; no fever and no chills Eyes: no worsening vision Ear, Nose, Mouth, Throat: no facial pain and no pain with swallowing Respiratory: no cough and no dyspnea Cardiovascular: no chest pain and no palpitations Gastrointestinal: + abdominal pain and + blood in stools; no nausea and no vomiting Genitourinary: + hematuria and + problem reported Musculoskeletal: no back pain Integumentary: no rash and no urticaria Neurologic: no gait abnormality and no unsteadiness Psychiatric: no behavioral changes and no depression Endocrine: no fatigue Results & Data Vital Signs (Past 12 Hours) Vital Signs Temp Pulse Pulse Resp BP BP Pulse Ox 08/14/19 10:22 36.6 C 22 131/74 95 08/14/19 09:22 36.5 C 15 138/74 98 08/14/19 08:52 36.6 C 92 H 20 115/59 L 98 08/14/19 08:37 36.6 C 108 H 20 96/47 L 98 08/14/19 08:20 37.1 C 118 H 20 113/59 L 98 08/14/19 07:34 36.8 C 95 H 16 107/54 L 97 08/14/19 06:48 78 15 112/60 93 08/14/19 05:05 93 H 17 117/59 L 96 08/14/19 03:30 36.4 C L 95 H 18 106/72 97 PG Care Time/CCT Total # of Minutes Spent Total Time Spent with Patient: Total time spent is greater than 50% in coordination of care (as documented) at patient's floor/unit and/or counseling patient: Coding Level of Care Code 73892 Inpt Consult Level 4 Diagnoses Hematuria R31.0 Hematuria type: gross Acute blood loss anemia D62 (1) Hematuria Hematuria type: gross Qualified Code(s): R31.0 - Gross hematuria
[2019-08-14 15:42] LABS: Hematocrit (blood only) 23.9 % (42-52); Hemoglobin 8.2 g/dL (14.0-18.0)
[2019-08-14] MEDS: TAMSULOSIN HCL 0.4 MG CAP PO SCH (20:59)
--- NOTE | 2019-08-14 22:21 | Billing Data ---
Date of Service August 14, 2019 Coding Level of Care Code 44338 Initial Inpt Care Lvl 3
--- NOTE | 2019-08-14 23:46 | History & Physical Bridge Note ---
Date of Service August 14, 2019 History & Physical Bridge Note I have examined the patient, reviewed the History & Physical and in the interval since the performance of the History & Physical I have noted the following changes of clinical significance: patient admitted after midnight he was transfused two units for Hb of 6.4, Hb up to 8.2 has hematuria with clots in kat bag urology plans for cystoscopy tomorrow HR and BP stable after transfused two units, not eating well, continue IV fluids
[2019-08-15] MEDS: MoRPHine SULFATE 2 MG/ML CARP IV PRN (04:12)
[2019-08-15] MEDS: SODIUM CHLORIDE 0.9% 1000ML 1,000 ML IV SCH ×2 (06:05→12:48)
[2019-08-15 06:46] LABS: Hematocrit (blood only) 22.8 % (42-52); Hemoglobin 7.5 g/dL (14.0-18.0); Mean Corpuscular Hemoglobin 31.8 pg (25-34); Mean Corpuscular Hgb Conc 32.9 g/dL (32-36); Mean Corpuscular Volume 96.6 fL (80-100); Mean Platelet Volume 8.5 fL (7.4-10.4); Platelet Count 137 K/uL (130-400); RDW Coefficient of Variation 18.3 % (11.5-14.5); Red Blood Count 2.36 M/uL (4.7-6.1); White Blood Count 11.36 K/uL (4.8-10.8)
[2019-08-15 07:26] LABS: BUN Creatinine Ratio 14.6 (10-20); Calcium 7.1 mg/dl (8.5-10.1); Est GFR (African American) 20.1; Est GFR (Non-African American) 17.3
[2019-08-15 07:34] LABS: Basophils # (auto) 0.03 K/uL (0-0.2); Basophils % (auto) 0.3 %; Eosinophils # (auto) 0.02 K/uL (0-0.5); Eosinophils % (auto) 0.2 %; Immature Granulocytes # (auto) 0.09 K/uL (0.00-0.02); Immature Granulocytes % (auto) 0.8 %; Lymphocytes # (auto) 0.42 K/uL (1.2-3.4); Lymphocytes % (auto) 3.7 %; Monocytes % (auto) 8.8 %; Neutrophils % (auto) 86.2 %; RBC Morphology Unremarkable
--- NOTE | 2019-08-15 08:19 | Urology Progress Note ---
Date of Service August 15, 2019 Assessment & Plan (1) Hematuria: Given the severity of his hematuria, intervention required I believe we need to temporize his bleeding or risk continuous need for transfusions and potential life-threatening risk to his health I hope to be able to cauterize any actively bleeding vessels and evacuate any clothopefully inferring some benefit to his renal function I suspect we may need alum irrigation after the procedure We are working on outpatient hyperbaric oxygen Consent on chart receiving rocephin now Subjective 83-year-old gentleman with significant chronic disease including small cell bladder cancer status post chemo and radiation He has had refractory hematuria He recently was admitted with severe anemia, AK I, general failure to thrive He was transfused yesterday and is seen stabilization of his hemoglobin although still had an anemic level His creatinine has risen further today He remains hematuric Physical Exam Physical Exam: Comfortable appearing Blood in the urine Constitutional: well developed and well nourished Neck: neck nontender Respiratory: normal respiratory effort; no respiratory distress and does not use accessory muscles Cardiovascular: Rate/Rhythm: regular rate Vessels: radial pulses present Extremities: no edema Gastrointestinal (Abdomen): Inspection/Auscultation: abdomen normal to inspection Percussion/Palpation: abdomen soft; abdomen nontender and no guarding Musculoskeletal: Head/Neck/Chest: normocephalic and head atraumatic Extremities: extremities normal to inspection Skin: no rashes and no lesions Trauma: no evidence of skin trauma Neurologic: awake; not obtunded Speech / Cognition: normal speech Motor/Sensory: no tremor Psychiatric: Orientation: alert and oriented x 3 Genitourinary: no CVA tenderness Lymphatic: no lymphadenopathy Results & Data Vital Signs (Past 12 Hours) Vital Signs Temp Pulse Pulse Pulse Resp BP Pulse Ox 08/15/19 07:07 36.5 C 78 20 123/66 98 08/15/19 02:51 36.6 C 76 18 124/63 98 08/15/19 00:00 84 08/14/19 23:17 36.5 C 86 20 110/62 97 PG Care Time/CCT Total # of Minutes Spent Total Time Spent with Patient: Total time spent is greater than 50% in coordination of care (as documented) at patient's floor/unit and/or counseling patient: Coding Level of Care Code 89868 Subseq Hosp Care Lvl 2 Diagnoses Hematuria R31.0 Hematuria type: gross (1) Hematuria Hematuria type: gross Qualified Code(s): R31.0 - Gross hematuria
[2019-08-15] MEDS: POLYETHYLENE (MIRALAX) 17 GM PACK PO SCH (08:47)
[2019-08-15] MEDS: CYANOCOBALAMIN 500 MCG TABLET (VITAMIN B-12) PO SCH (08:47)
[2019-08-15] MEDS: MEMANTINE HCL 5 MG TAB PO SCH ×2 (08:47→20:20)
[2019-08-15] MEDS: PSYLLIUM 58.6% POWDER PACKET PO SCH (08:47)
[2019-08-15] MEDS: ATORVASTATIN 20 MG TAB PO SCH (08:48)
[2019-08-15] MEDS: OXYBUTYNIN CHLORIDE XL 5 MG TABCR PO SCH (08:49)
[2019-08-15] MEDS: cefTRIAXone SODIUM 2,000 MG in DEXTROSE 5% 50 ML IV SCH (08:49)
[2019-08-15] MEDS ORDERED: LIDOCAINE HCL 2% 2 ML VIAL/AMP(20MG/ML) INFIL ONE (09:23)
[2019-08-15] MEDS ORDERED: PROPOFOL IV EMULSION 10 MG/ML 20 ML VIAL IV ONE (09:23)
[2019-08-15] MEDS ORDERED: fentaNYL citrate 100 MCG/2 ML VIAL ONE (09:23)
--- NOTE | 2019-08-15 09:31 | Anesthesiology Consultation ---
Date of Service August 15, 2019 Assessment & Plan (1) Encounter for pre-operative examination: Chart Review Chart Review: Acceptable Risk for Surgery Consults Requested none ASA ASA4 Proposed Anesthesia Anesthesia Type: General Risk / Benefits Reviewed With: PT / POA / Parent / Guardian, Accepts Plan and Informed Consent Obtained History Surgery Operation Date: 08/15/19 09:15 Proposed Procedures p Cystoscopy, Clot Evacuation and Fulguration - Reid Jarrell MD Height/Weight Height: 5 ft 7 in Weight: 82.3 kg Allergies Allergy/AdvReac Type Severity Reaction Status Date / Time No Known Allergies Allergy Verified 08/14/19 03:53 Medications Home Medications Medication Instructions Recorded Confirmed Last Taken cyanocobalamin (vitamin B-12) 1,000 mcg PO QAM 02/15/18 08/14/19 03/23/19 09:00 cholecalciferol (vitamin D3) 50 2,000 units PO HS 03/01/18 08/14/19 03/23/19 20:00 mcg (2,000 unit) tablet atorvastatin 20 mg PO QAM 03/08/18 08/14/19 03/23/19 20:00 Metamucil 1 tsp PO QAM 05/13/18 08/14/19 03/23/19 09:00 Glucosamine Chondroitin 2 cap PO DAILY 02/25/19 08/14/19 02/21/19 tamsulosin 0.4 mg capsule 0.4 mg PO HS #30 cap 05/16/19 08/14/19 Unknown oxybutynin chloride 10 mg 10 mg PO DAILY #30 tab 06/19/19 08/14/19 Unknown tablet,extended release 24 hr polyethylene glycol 3350 [Miralax] 17 g PO DAILY 30 Days #30 ea 07/11/19 08/14/19 Unknown acetaminophen [Tylenol] 650 mg PO DIRECTED PRN 08/14/19 08/14/19 Unknown lisinopril 5 mg PO DAILY 08/14/19 08/14/19 Unknown memantine 5 mg PO BID 08/14/19 08/14/19 Unknown Active Medications Generic Name Dose Route Start Last Admin Trade Name Freq PRN Reason Stop Dose Admin Atorvastatin Calcium 20 mg 08/14/19 09:00 08/15/19 08:48 Lipitor PO 09/13/19 08:59 Not Given QAM MILAGRO Cyanocobalamin 1,000 mcg 08/14/19 09:00 08/15/19 08:47 Vitamin B-12 PO 09/13/19 08:59 Not Given QAM MILAGRO Ceftriaxone Sodium 2,000 mg/ 70 mls @ 100 mls/hr 08/14/19 08:00 08/15/19 08:49 Dextrose IV 08/24/19 07:59 100 mls/hr Q24H MILAGRO Administration Protocol Sodium Chloride 1,000 mls @ 80 mls/hr 08/14/19 09:15 08/15/19 06:05 Nss 1000ml IV 09/13/19 09:14 80 mls/hr .[id number] MILAGRO Administration Memantine 5 mg 08/14/19 09:00 08/15/19 08:47 Namenda PO 09/13/19 08:59 Not Given BID MILAGRO Morphine Sulfate 2 mg 08/14/19 08:30 08/15/19 04:12 Morphine Sulfate IV 08/28/19 08:29 2 mg Q4H PRN Administration Pain Oxybutynin Chloride 10 mg 08/14/19 09:00 08/15/19 08:49 Ditropan Xl PO 09/13/19 08:59 10 mg DAILY MILAGRO Administration Polyethylene Glycol 17 gm 08/14/19 09:00 08/15/19 08:47 Miralax Powder Packet PO 09/13/19 08:59 Not Given DAILY MILAGRO Psyllium Hydrophilic Mucilloid 1 pkt 08/14/19 09:00 08/15/19 08:47 Metamucil PO 09/13/19 08:59 Not Given QAM MILAGRO Tamsulosin HCl 0.4 mg 08/14/19 21:00 08/14/19 20:59 Flomax PO 09/13/19 20:59 0.4 mg HS MILAGRO Administration NPO Date Last Intake of Fluids: 08/14/19 Time Last Intake of Fluids: 10:00 Date Last Intake of Solids: 08/14/19 Time Last Intake of Solids: 10:00 Past Medical History Medical History Anemia s/p transfusion (04/2018) felt r/t chemo Asthma childhood/no current issues Cancer bladder, prostate cancer; s/p chemo/xrt completed 04/2018 CVA (cerebral vascular accident) evidence of old infarct on MRI "years ago" HLD (hyperlipidemia) HTN (hypertension) Left knee DJD Lung nodule Short-term memory loss "mild"/no definitive diagnosis Thrombocytopenia hx Exercise / Class Metabolic Activity II 4-5 Yardwork/Stairs/Walk up hill Past Family History Family History Mother , age 79 Heart disease Father , age 79 Myocardial infarction Brother , age 79 Dementia Daughter COPD (chronic obstructive pulmonary disease) Son No problems noted. Son No problems noted. Grandmother Diabetes Past Surgical History Surgical History History of bladder surgery Cystoscopy, TURBT= 02/18/18= LMA#5 at [facility] History of bronchoscopy History of cataract surgery R/L History of colonoscopy History of tooth extraction History of vascular access device A-port inserted and removed S/P bronchoscopy with biopsy (03/07/19) Endobronchial Ultrasound Dr. 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) Past Anesthesia History No Hx of Anesthesia Complications and No Family Hx of Anesthesia Complications History of PONV No Hx of PONV and No Hx of Motion Sickness Social History Smoking Status: Former smoker Do You Dip or Chew Tobacco: No Hx Alcohol Use: No Alcohol type: beer alcohol intake frequency: a few times a month Hx Substance Use: No substance use type: does not use Physical Exam Vital Signs Last Vital Signs Temp 97.7 F 08/15/19 07:07 Pulse 78 08/15/19 07:07 Resp 20 08/15/19 07:07 BP 123/66 08/15/19 07:07 Pulse Ox 98 08/15/19 07:07 ENMT Mouth: no dentition abnormality Thyromental Distance: > or= 3.5 Finger Breadths Mallampati Class: II Neck normal visual inspection Respiratory normal respiratory effort Auscultation: lungs clear to auscultation bilaterally Cardiovascular Rate/Rhythm: regular rate and regular rhythm Testing Laboratory Results 08/15/19 05:59 08/15/19 05:59 Urine Color Red 08/14/19 03:57 Urine Appearance Cloudy (Clear) A 08/14/19 03:57 Urine pH 7.5 (4.5-7.5) 08/14/19 03:57 Ur Specific [place] 1.025 (1.000-1.030) 08/14/19 03:57 Urine Protein 3+ (Negative) H 08/14/19 03:57 Urine Glucose (UA) Trace (Negative) H 08/14/19 03:57 Urine Ketones Negative (Negative) 08/14/19 03:57 Urine Nitrite Positive (Negative) A 08/14/19 03:57 Ur Leukocyte Esterase Trace (Negative) H 08/14/19 03:57 Urine RBC >30 /hpf (0-4) H 08/14/19 03:57 Urine WBC >30 /hpf (0-5) H 08/14/19 03:57 Ur Epithelial Cells 5-10 /lpf (0-5) H 08/14/19 03:57 Blood Type A Positive 08/14/19 05:02 Antibody Screen POSITIVE A 08/14/19 05:02 08/14/19 03:57 Urine Culture - Preliminary Urine,Straight Cath Gram negative bacilli Gram negative bacilli#2 Electrocardiogram Date: 08/09/19 Sinus rhythm with Premature atrial complexes, rate 83 bpm Left axis deviation Abnormal ECG When compared with ECG of 24-JUL-2019 15:28, No significant change was found Confirmed by Vaughn Martinez ([id number]) on 08/09/2019 2:40:10 PM Chest X-Ray Date: 08/09/19 IMPRESSION: 1. No evidence of pneumothorax status post bronchoscopy 2. 3 cm right lower lobe pulmonary nodule. Right hilar adenopathy.
[2019-08-15] MEDS ORDERED: ONDANSETRON INJ 2 MG/ML 2 ML VIAL IV PRN (09:32)
[2019-08-15] MEDS ORDERED: fentaNYL citrate 100 MCG/2 ML VIAL IV PRN (09:32)
[2019-08-15] MEDS ORDERED: ePHEDrine sulfate 50 MG/ML AMP IV PRN (09:32)
[2019-08-15] MEDS ORDERED: ATROPINE SULFATE 0.1 MG/ML 10ML SYR IV PRN (09:32)
[2019-08-15] MEDS ORDERED: PHENYLEPHRINE 100MCG/ML 5ML SYR ONE (10:13)
[2019-08-15] MEDS ORDERED: NEOSTIGMINE METHYLSULFATE 5 MG/5 ML SYR ONE (10:28)
[2019-08-15] MEDS ORDERED: GLYCOPYRROLATE 0.2 MG/ML VIAL ONE (10:28)
--- NOTE | 2019-08-15 10:57 | Operative Report ---
PG Post Operative Report Pre & Post Diagnosis Operation Date: 08/15/19 09:15 Pre-Op Diagnosis: Hematuria Post-Op Diagnosis: Hematuria I identified the patient and participated in the time-out.: Yes Procedure Operation Date: 08/15/19 09:15 Actual Procedures p Cystoscopy, Clot Evacuation and Fulguration(Not Applicable) - Reid Jarrell MD Surgeon Micah Jarrell MD Continuous Improvement Director none Estimated Blood Loss 0 Findings Consistent with Post-Op Diagnosis Specimens none Description of Procedure The patient was identified in the preoperative holding area, appropriate informed consents were reviewed and completed and the patient was transferred to the operative suite. Upon arrival, appropriate antibiotics and anesthesia were administered and the patient was placed in dorsal lithotomy position and prepped and draped in sterile fashion. To begin the case I passed a 27 Lao resectoscope with 30 degree lens and visual obturator. Urethra was relatively healthy. His prostate was not actively bleeding but there was some clot within the prostatic urethra. Upon entry into the bladder it was immediately clear that his bladder is filled with a significant amount of old clot. Initially attempted to irrigate some of this clot out of the bladder but it was quite adherent to the wall and initial efforts were unsuccessful. I then passed a working element using a loop electrode. Without using any cautery, I used the loop to scrape the clot from the bladder wall and free up as much of it as possible. I pulled several large pieces of clot out of the bladder utilizing the loop as a grasping element. I then reattached the Geoffrey syringe and was successful in irrigating approximately 750 cc of old clot out of the bladder. This relieved the majority of the trouble and I was able to inspect the bladder wall. He has expected changes from prior radiation to both the bladder and prostate. There were no l arge vessels actively bleeding. I did cauterize several small oozing veins. I then ensured that all small clots were free of the bladder before placing a 22 Lao three-way hematuria catheter and beginning continuous bladder irrigation. We will plan to convert from saline to alum irrigation to further cauterize the small oozing veins that are circumferentially present around his bladder. He w as extubated and taken to the PACU in stable condition. There were no complications. I attest to the content of the Intraoperative Record and any orders documented therein. Any exceptions are noted below.
--- NOTE | 2019-08-15 11:11 | Anesthesiology Progress Note ---
Date of Service August 15, 2019 Anesthesia Post Procedure Vital Signs Vital Signs: Temp Pulse Pulse Pulse Resp BP BP 08/15/19 11:05 98.4 F 74 16 116/57 L 08/15/19 10:55 75 16 113/58 L 08/15/19 10:45 82 16 124/52 L 08/15/19 10:39 97.7 F 89 16 134/60 08/15/19 09:22 98.2 F 70 18 08/15/19 07:07 97.7 F 78 20 08/15/19 02:51 97.9 F 76 18 08/15/19 00:00 84 08/14/19 23:17 97.7 F 86 20 08/14/19 19:37 98.8 F 96 H 20 08/14/19 16:00 98 H 08/14/19 15:29 97.7 F 96 H 23 08/14/19 14:13 97.9 F 93 H 18 152/69 H 08/14/19 13:38 98.2 F 93 H 18 158/86 H 08/14/19 12:37 97.9 F 115 H 28 H 149/78 H 08/14/19 12:08 97.9 F 108 H 20 154/86 H 08/14/19 11:53 98.1 F 104 H 22 128/107 H 08/14/19 11:37 98.1 F 100 H 22 158/90 H 08/14/19 11:32 98.1 F 100 H 22 158/90 H 08/14/19 11:21 97.9 F 100 H 22 152/72 H BP Pulse Ox 08/15/19 11:05 95 08/15/19 10:55 97 08/15/19 10:45 100 08/15/19 10:39 100 08/15/19 09:22 111/58 L 98 08/15/19 07:07 123/66 98 08/15/19 02:51 124/63 98 08/15/19 00:00 08/14/19 23:17 110/62 97 08/14/19 19:37 130/69 96 08/14/19 16:00 08/14/19 15:29 162/73 H 99 08/14/19 14:13 99 08/14/19 13:38 96 08/14/19 12:37 98 08/14/19 12:08 98 07/09/20 11:53 97 08/14/19 11:37 98 08/14/19 11:32 98 08/14/19 11:21 97 Transfer of Care Handoff Completed per policy Notes Mental Status: alert / awake / arousable and participated in evaluation Patient Amnestic to Procedure: Yes Nausea / Vomiting: adequately controlled Pain: adequately controlled Airway Patency, RR, SpO2: stable & adequate BP & HR: stable & adequate Hydration State: stable & adequate Anesthetic Complications: no major complications apparent and Pt Satisfied with anesthetic care
[2019-08-15 16:36] LABS: Hematocrit (blood only) 23.1 % (42-52); Hemoglobin 7.5 g/dL (14.0-18.0)
[2019-08-15] MEDS: TAMSULOSIN HCL 0.4 MG CAP PO SCH (20:20)
--- NOTE | 2019-08-15 22:43 | Hospitalist Progress Note ---
Date of Service August 15, 2019 Assessment & Plan (1) Complication of Ang catheter: Complication of Ang catheter: Anemia Secondary to hematuria Transfuseed 2 PRBC, hemoglobin improved from 6.4 to 8.2 then to 7.5 will repeat hemoglobin agin, if it drops below 7, will transfuse Urology consulted for definitive management of bleeding Irrigate bladder as necessary for clots Patient has intervention planned later this AM. 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 Araiza who is cotton converter this week Consulted Urology, plan initially was for surgery on Sunday Has received radiation and left with proctitis with rectal bleeding, cystitis and prostate damage, plan was for hyperbaric O2 treatment as outpatient PILY Despite transfusion and fluids, creatinine has nacho increasing, will continue to monitor. DVT PPx: SMITH F/E?N: NPO, NSS 125 mls/hour Dispo: PCU for close monitoring and transfusion DNR/DNI (2) Acute blood loss anemia: (3) Anemia: (4) Metabolic encephalopathy: Appears to have improved. Admission and Anticipated Discharge Date Admission Date: August 14, 2019 Subjective Patient reports feeling better. He continues to have hematuria, but feels a little bit stronger with more energy. He denies any dizziness at the time. Review of Systems Review of Systems: All systems reviewed & are unremarkable except as noted in HPI & below Physical Exam Physical Exam: Contistutional: Pale appearing 83 year old man resting in bed Eyes: PERRLA, Anicteric sclerae, ENMT: NAD Respiratory: No increased work of breathing, lung sounds vesicular throughout Cardiovascular: Systolic ejection murmur, regular rate regular rhythm no lower limb edema, peripheral pulses present and equal GI: Abdomen soft/nontender G/U: Ang catheter in place, hematuria dark red Results & Data Results & Data ([facility]) Vital Signs (Past 12 Hours) Vital Signs Temp Pulse Pulse Resp BP BP Pulse Ox 08/15/19 19:12 36.8 C 71 19 125/54 L 97 08/15/19 18:12 76 18 119/51 L 99 08/15/19 17:15 71 16 125/63 100 08/15/19 16:15 64 16 119/57 L 98 08/15/19 15:38 37.2 C 66 19 113/55 L 98 08/15/19 15:15 64 16 114/57 L 99 08/15/19 14:15 67 16 106/53 L 98 08/15/19 13:45 66 16 98/65 L 98 08/15/19 13:15 77 18 110/60 98 08/15/19 12:45 36.5 C 89 20 120/65 98 08/15/19 12:15 88 18 130/78 97 08/15/19 12:00 36.4 C L 85 16 113/98 98 08/15/19 11:45 90 18 123/80 99 08/15/19 11:30 36.4 C L 92 H 16 123/76 98 08/15/19 11:15 36.9 C 70 16 116/58 L 96 08/15/19 11:05 36.9 C 74 16 116/57 L 95 08/15/19 10:55 75 16 113/58 L 97 08/15/19 10:45 82 16 124/52 L 100 PG Care Time/CCT Total # of Minutes Spent Total Time Spent with Patient: Total time spent is greater than 50% in coordination of care (as documented) at patient's floor/unit and/or counseling patient: Coding Level of Care Code 03910 Subs Hosp Care Lvl 3 Diagnoses Complication of Ang catheter T83.9XXA Encounter type: initial encounter Acute blood loss anemia D62 Anemia D64.9 Metabolic encephalopathy G93.41 Time Spent (min) 35 (1) Complication of Ang catheter Encounter type: initial encounter Qualified Code(s): T83.9XXA - Unspecified complication of genitourinary prosthetic device, implant and graft, initial encounter
[2019-08-16 06:22] LABS: Basophils # (auto) 0.03 K/uL (0-0.2); Basophils % (auto) 0.3 %; Eosinophils # (auto) 0.04 K/uL (0-0.5); Eosinophils % (auto) 0.5 %; Hematocrit (blood only) 21.9 % (42-52); Hemoglobin 7.2 g/dL (14.0-18.0); Immature Granulocytes % (auto) 1.2 %; Lymphocytes # (auto) 0.41 K/uL (1.2-3.4); Lymphocytes % (auto) 4.7 %; Mean Corpuscular Hemoglobin 32.1 pg (25-34); Mean Corpuscular Hgb Conc 32.9 g/dL (32-36); Mean Corpuscular Volume 97.8 fL (80-100); Mean Platelet Volume 8.8 fL (7.4-10.4); Monocytes # (auto) 0.55 K/uL (0.11-0.59); Monocytes % (auto) 6.3 %; Neutrophils # (auto) 7.55 K/uL (1.4-6.5); Platelet Count 136 K/uL (130-400); RDW Coefficient of Variation 18.1 % (11.5-14.5); RDW Standard Deviation 63.4 fL (36.4-46.3); Red Blood Count 2.24 M/uL (4.7-6.1); White Blood Count 8.68 K/uL (4.8-10.8)
[2019-08-16 06:57] LABS: BUN Creatinine Ratio 18.2 (10-20); Calcium 7.3 mg/dl (8.5-10.1); Creatinine Clr Calc Pharmacy 23.7 ml/min; Est GFR (Non-African American) 24.1; Potassium 4.4 mmol/L (3.5-5.1)
[2019-08-16 07:32] LABS: Polychromasia 1+
[2019-08-16] MEDS: MEMANTINE HCL 5 MG TAB PO SCH ×2 (08:06→20:51)
[2019-08-16] MEDS: OXYBUTYNIN CHLORIDE XL 5 MG TABCR PO SCH (08:07)
[2019-08-16] MEDS: ATORVASTATIN 20 MG TAB PO SCH (08:07)
[2019-08-16] MEDS: PSYLLIUM 58.6% POWDER PACKET PO SCH (08:08)
[2019-08-16] MEDS: CYANOCOBALAMIN 500 MCG TABLET (VITAMIN B-12) PO SCH (08:08)
[2019-08-16] MEDS: POLYETHYLENE (MIRALAX) 17 GM PACK PO SCH (08:09)
[2019-08-16] MEDS: cefTRIAXone SODIUM 2,000 MG in DEXTROSE 5% 50 ML IV SCH (08:16)
[2019-08-16] MEDS: SODIUM CHLORIDE 0.9% 1000ML 1,000 ML IV SCH ×2 (12:04→23:49)
[2019-08-16] MEDS ORDERED: SODIUM CHLORIDE 0.9% 250 ML IV PRN (12:38)
--- NOTE | 2019-08-16 12:56 | Hospitalist Progress Note ---
Date of Service August 16, 2019 Assessment & Plan (1) Complication of Ang catheter: Complication of Ang catheter: Anemia Secondary to hematuria Transfused 2 PRBC on admission, hemoglobin improved from 6.4 to 8.2 then to 7.5 on 08/14, but with slight decrease today Additional 2 units PRBC on 08/15 Urology consulted for definitive management of bleeding Irrigate bladder as necessary for clots Patient has intervention planned later this AM. 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 Araiza who is home restoration service cleaner this week Consulted Urology, plan initially was for surgery on Sunday Has received radiation and left with proctitis with rectal bleeding, cystitis and prostate damage, plan was for hyperbaric O2 treatment as outpatient PILY Despite transfusion and fluids, creatinine has nacho increasing, will continue to monitor. DVT PPx: SMITH F/E?N: NPO, NSS 125 mls/hour Dispo: PCU for close monitoring and transfusion DNR/DNI (2) Acute blood loss anemia: (3) Anemia: (4) Metabolic encephalopathy: Appears to have improved. (5) Depression: States recent hx of SI, but not currently No prior hx of depression or antidepressant use Start remeron 15mg HS, to be titrated as needed by PCP vs psych No hx of psych care, will need an appt for f/u on d/c noted that a family friend is a psychologist. I did advise her against seeking psych care with a friend. She is agreeable to CM making an appt for pt Gave breathing exercise handout as well Admission and Anticipated Discharge Date Admission Date: August 14, 2019 Subjective Pt is very frustrated with his ongoing health care needs and being dependent on others. He feels he has no control over his health at this point. He tells me that he has had thoughts of killing himself in the more recent past. He mentioned shooting himself. He states that he knows that this is not the answer and that it would be selfish of him to do so because he has so many people would help him and who would be upset over his , especially if it was a suicide. He states that he does not feel this way at present. He admits to feeling depressed. He states that he doesn't eat much due to no appetite. When questioned further he states that he thinks his lack of appetite is related to feelings of "what's the difference if I eat or not". Pt and deny prior hx of depression. He states he has not told any other physicians about this issue. He has never been on medications for anx/dep in the past. Pt states that he would be open to medication and breathing exercises to help with this issue. Otherwise, pt feels he is stable. Pt denies fever, SOB, chest pain, abd pain, n/v/c/d, LE pain or swelling. mentions in the [place] that pt has been resistant to leaving the house, even to go out on their porch/deck. She does endorse that he has told her that he has thought about shooting himself, but that "I don't think he would do it". She states that they have a close friend who is a psychologist and asks if pt should see this person for counseling. She tells me that prior to the bladder cancer diagnosis, pt was completely healthy and that this has been very hard on him. Review of Systems Review of Systems: Pertinent positives and negatives reviewed in HPI--all others negative Physical Exam Constitutional: WD/WN, vitals as above Eyes: normal visual samayoa by confrontation and + anicteric sclerae Neck: normal visual inspection and trachea midline Respiratory: normal respiratory effort, lungs clear to auscultation Cardiovascular: Rate/Rhythm: regular rate and regular rhythm Gastrointestinal (Abdomen): Inspection/Auscultation: abdomen not distended Percussion/Palpation: abdomen soft; abdomen nontender Musculoskeletal: Head/Neck/Chest: normocephalic and head atraumatic negative for edema, peripheral pulses intact Skin: no rashes, warm and dry Neurologic: awake; not confused Speech / Cognition: normal speech Psychiatric: Orientation: oriented x 3 Affect: + depressed affect and + tearful affect (at times) Results & Data Results & Data ([facility]) Vital Signs (Past 12 Hours) Vital Signs Temp Pulse Resp BP Pulse Ox 08/16/19 11:04 37.3 C 78 18 107/54 L 95 08/16/19 07:36 36.7 C 85 22 120/71 98 08/16/19 04:35 37.0 C 75 18 125/62 96 PG Care Time/CCT Total # of Minutes Spent Total Time Spent with Patient: Total time spent is greater than 50% in coordination of care (as documented) at patient's floor/unit and/or counseling patient: Coding Level of Care Code 97178 Subseq Hosp Care Lvl 3 Diagnoses Complication of Ang catheter T83.9XXA Encounter type: initial encounter Acute blood loss anemia D62 Anemia D64.9 Metabolic encephalopathy G93.41 Depression F32.9 (1) Complication of Ang catheter Encounter type: initial encounter Qualified Code(s): T83.9XXA - Unspecified complication of genitourinary prosthetic device, implant and graft, initial encounter
[2019-08-16] MEDS: MoRPHine SULFATE 2 MG/ML CARP IV PRN ×2 (13:39→20:51)
[2019-08-16] MEDS: AMMONIUM ALUM 30 GM in SODIUM CHLORIDE 0.9% IRRIG 3,000 ML IR SCH ×2 (14:19→16:31)
--- NOTE | 2019-08-16 15:06 | Urology Progress Note ---
Date of Service August 16, 2019 Assessment & Plan (1) Acute blood loss anemia: Patient is tolerating catheter and alum irrigation very well. Has appearance of near complete resolution of bleeding. Did discuss this at length with patient. Discussed the rare dark debris within the bladder. Discussed findings. Discussed concerns and issues. 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 He appears in better spirits today. 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 Patient's is bedside. Discussed plans for future management. Patient is currently undergoing transfusion. Is being monitored closely in the ICU. As patient improves with supportive care agree with plans for likely transfer the floor and then likely home once he is fully stabilized. Discussed future options moving forward. With recurrent bouts of significant blood loss from multiple issues including nonhealing areas of the bladder with radiation cystitis patient may be a good candidate for other intervention such as hyperbaric oxygen. A order has already placed through my office and we are attempting to facilitate this for the patient. Otherwise patient has considerable bowel issues. Does take a bowel regimen at home and will likely need to continue with this management. We will plan to follow. If any major issues or concerns please alert. Will monitor output and attempt to wean patient off of irrigation. 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 Patient has been tolerating well. Has noticed some frequency and urgency. Has not had severe pain in the back and flank. Does have occasional burning and irritation. No severe episodes or major changes. No new nausea or vomiting. Had tolerated anesthesia without major problems Overall drastically improved his issues. Patient is requiring transfusions due to anemia. 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 Subsequently has developed recurrent/metastasis. Has been on therapy. Patient has developed both radiation proctitis and cystitis with multiple hospitalizations for acute blood loss anemia. Patient is tolerating alum very well. At this point drainage is clear with rare dark debris. No considerable blood. No significant sign of active bleeding. Patient is very comfortable with catheter in place currently. Review of Systems Review of Systems: All systems reviewed & are unremarkable except as noted in HPI & below Constitutional: + fatigue; no fever and no chills Gastrointestinal: + abdominal pain and + blood in stools; no nausea and no vomiting Genitourinary: + hematuria and + problem reported Physical Exam Physical Exam: General: Alert in no acute distress. Chronic illness. HEENT: Normocephalic Atraumatic. Inspection normal. Cranial Nerves 2-12 Grossly intact. Normal inspection of face. Normal inspection of neck. Psychologic: Normal affect. Improved with resolution of acute issues. Respiratory: Nonlabored. No use of accessory muscles. No tachypnea or dyspnea. Cardiovascular: No tachycardia Skin: [place] and Dry. No rashes or visible lesions. Extremities/Lymphatics: No edema Abdomen: Soft Non-distended. No rebound or guarding. : Catheter in place draining clear urine with rare small dark debris. Results & Data Vital Signs (Past 12 Hours) Vital Signs Temp Pulse Pulse Resp BP BP Pulse Ox 08/16/19 13:47 36.6 C 77 16 95/48 L 95 08/16/19 13:40 36.6 C 75 16 107/58 L 92 08/16/19 11:04 37.3 C 78 18 107/54 L 95 08/16/19 07:36 36.7 C 85 22 120/71 98 08/16/19 04:35 37.0 C 75 18 125/62 96 PG Care Time/CCT Total # of Minutes Spent Total Time Spent with Patient: Total time spent is greater than 50% in coordination of care (as documented) at patient's floor/unit and/or counseling patient: Coding Level of Care Code 27946 Subseq Hosp Care Lvl 3 Diagnoses Acute blood loss anemia D62 Radiation proctitis K62.7 Small cell carcinoma of bladder C67.9
[2019-08-16] MEDS ORDERED: Nursing to Pharmacy Communication SCH (16:30)
[2019-08-16] MEDS: CIPROFLOXACIN / D5W 400 MG/200 ML BAG IV SCH (20:51)
[2019-08-16] MEDS: TAMSULOSIN HCL 0.4 MG CAP PO SCH (20:51)
[2019-08-16] MEDS: MIRTAZAPINE TAB 15 MG TAB PO SCH (20:51)
[2019-08-17 05:45] LABS: Basophils # (auto) 0.03 K/uL (0-0.2); Basophils % (auto) 0.4 %; Eosinophils # (auto) 0.15 K/uL (0-0.5); Eosinophils % (auto) 1.8 %; Hematocrit (blood only) 28.9 % (42-52); Hemoglobin 9.5 g/dL (14.0-18.0); Immature Granulocytes % (auto) 1.2 %; Lymphocytes # (auto) 0.62 K/uL (1.2-3.4); Lymphocytes % (auto) 7.5 %; Mean Corpuscular Hemoglobin 31.3 pg (25-34); Mean Corpuscular Hgb Conc 32.9 g/dL (32-36); Mean Corpuscular Volume 95.1 fL (80-100); Mean Platelet Volume 9.1 fL (7.4-10.4); Monocytes # (auto) 0.62 K/uL (0.11-0.59); Monocytes % (auto) 7.5 %; Neutrophils # (auto) 6.74 K/uL (1.4-6.5); Neutrophils % (auto) 81.6 %; Platelet Count 103 K/uL (130-400); RDW Coefficient of Variation 16.8 % (11.5-14.5); RDW Standard Deviation 55.9 fL (36.4-46.3); Red Blood Count 3.04 M/uL (4.7-6.1); White Blood Count 8.26 K/uL (4.8-10.8)
[2019-08-17 06:09] LABS: BUN Creatinine Ratio 17.6 (10-20); Calcium 7.1 mg/dl (8.5-10.1); Creatinine Clr Calc Pharmacy 31.2 ml/min; Est GFR (African American) 38.2; Est GFR (Non-African American) 32.9; Potassium 4.7 mmol/L (3.5-5.1)
[2019-08-17] MEDS: AMMONIUM ALUM 30 GM in SODIUM CHLORIDE 0.9% IRRIG 3,000 ML IR SCH ×4 (07:44→17:28)
[2019-08-17] MEDS: ATORVASTATIN 20 MG TAB PO SCH (07:45)
[2019-08-17] MEDS: OXYBUTYNIN CHLORIDE XL 5 MG TABCR PO SCH (07:46)
[2019-08-17] MEDS: MEMANTINE HCL 5 MG TAB PO SCH ×2 (07:46→21:33)
[2019-08-17] MEDS: POLYETHYLENE (MIRALAX) 17 GM PACK PO SCH (07:47)
[2019-08-17] MEDS: CYANOCOBALAMIN 500 MCG TABLET (VITAMIN B-12) PO SCH (07:47)
[2019-08-17] MEDS: PSYLLIUM 58.6% POWDER PACKET PO SCH (07:47)
[2019-08-17] MEDS: SODIUM CHLORIDE 0.9% 1000ML 1,000 ML IV SCH (07:52)
--- NOTE | 2019-08-17 14:39 | Hospitalist Progress Note ---
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 Araiza who is acquisition professional this week Consulted Urology, plan initially was for surgery on Sunday Has received radiation and left with proctitis with rectal bleeding, cystitis and prostate damage, plan was for hyperbaric O2 treatment as outpatient PILY Despite transfusion and fluids, creatinine has nacho increasing, will continue to monitor. DVT PPx: SMITH F/E?N: NPO, NSS 125 mls/hour Dispo: PCU for close monitoring and transfusion DNR/DNI (2) Acute blood loss anemia: (3) Anemia: (4) Metabolic encephalopathy: Appears to have improved. (5) Depression: States recent hx of SI, but not currently No prior hx of depression or antidepressant use Start remeron 15mg HS, to be titrated as needed by PCP vs psych No hx of psych care, will need an appt for f/u on d/c noted that a family friend is a psychologist. I did advise her against seeking psych care with a friend. She is agreeable to CM making an appt for pt Gave breathing exercise handout as well Admission and Anticipated Discharge Date Admission Date: August 14, 2019 Subjective Pt states he feels better overall today. He feels his mood is even better. No issues with tolerating antidepressant started last HS. Tolerating PO without issue. Pt denies fever, SOB, chest pain, abd pain, n/v/c/d, LE pain or swelling. He is very happy that there is no longer visible blood in his kat bag. Review of Systems Review of Systems: Pertinent positives and negatives reviewed in HPI--all others negative Physical Exam Constitutional: WD/WN, vitals as above Eyes: normal visual samayoa by confrontation and + anicteric sclerae Neck: normal visual inspection and trachea midline Respiratory: normal respiratory effort, lungs clear to auscultation Cardiovascular: Rate/Rhythm: regular rate and regular rhythm Gastrointestinal (Abdomen): Inspection/Auscultation: abdomen not distended Percussion/Palpation: abdomen soft; abdomen nontender Musculoskeletal: Head/Neck/Chest: normocephalic and head atraumatic Skin: no rashes, warm and dry Neurologic: awake; not confused Speech / Cognition: normal speech Psychiatric: A+Ox3, euthymic affect Orientation: oriented x 3 Affect: no depressed affect and no tearful affect Results & Data Results & Data ([facility]) Vital Signs (Past 12 Hours) Vital Signs Temp Pulse Resp BP BP Pulse Ox 08/17/19 11:08 36.4 C L 61 20 118/62 95 08/17/19 07:06 36.4 C 65 20 139/73 96 08/17/19 03:08 36.7 C 66 16 135/70 97 PG Care Time/CCT Total # of Minutes Spent Total Time Spent with Patient: Total time spent is greater than 50% in coordination of care (as documented) at patient's floor/unit and/or counseling patient: Coding Level of Care Code 32807 Subseq Hosp Care Lvl 3 Diagnoses Complication of Kat catheter T83.9XXA Encounter type: initial encounter Acute blood loss anemia D62 Anemia D64.9 Metabolic encephalopathy G93.41 Depression F32.9 (1) Complication of Kat catheter Encounter type: initial encounter Qualified Code(s): T83.9XXA - Unspecified complication of genitourinary prosthetic device, implant and graft, initial encounter
[2019-08-17] MEDS: CIPROFLOXACIN / D5W 400 MG/200 ML BAG IV SCH (21:32)
[2019-08-17] MEDS: TAMSULOSIN HCL 0.4 MG CAP PO SCH (21:33)
[2019-08-17] MEDS: MIRTAZAPINE TAB 15 MG TAB PO SCH (21:33)
[2019-08-18] MEDS: SODIUM CHLORIDE 0.9% 1000ML 1,000 ML IV SCH ×2 (00:04→12:07)
[2019-08-18] MEDS: AMMONIUM ALUM 30 GM in SODIUM CHLORIDE 0.9% IRRIG 3,000 ML IR SCH ×3 (03:12→23:15)
--- NOTE | 2019-08-18 07:55 | Hospitalist Progress Note ---
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 now has returned to CKD3 on tamsulosin for h/o BPH DVT PPx: TEDs/SCD due to bleeding Dispo: PCU for close monitoring DNR/DNI (2) Acute blood loss anemia: pt has acute blood loss anemia from bleeding from bladder, s/p radiation (3) Metabolic encephalopathy: resolved remains on namenda for dementia (4) Depression: States recent hx of SI, but not currently No prior hx of depression or antidepressant use tolerating the start of remeron 15mg HS, to be titrated as needed by PCP vs psych No hx of psych care, will need an appt for f/u on d/c noted that a family friend is a psychologist. I did advise her against seeking psych care with a friend. She is agreeable to CM making an appt for pt Gave breathing exercise handout as well Admission and Anticipated Discharge Date Admission Date: August 14, 2019 Subjective this pt is encouraged that his kat drainage has remained clear and that urology has d/c the CBI. He offers no specific complaints but is worried that he is becoming deconditioned Pt is agreeable to participate in Physical therapy and Occupational therapy Review of Systems Review of Systems: Mild to moderate distress and moderate fatigue no headache, blurry or double vision no speech or swallowing issues no chest pain, pressure or palpitations no shortness of breath, cough or wheezes no abdominal pain, nausea or vomiting, diarrhea concerns with constipation no dysuria, hematuria has resolved at this point no focal joint pain or swelling no back pain, CVA tenderness or radicular pain no bruising, bleeding or rashes no focal signs of weakness or numbness or altered sensation no complaints or anxiety or depression. Physical Exam Physical Exam: The patient appeared well nourished and normally developed. Vital signs as documented. Head exam is normocephalic atraumatic no scleral icterus Neck is without JVD, thyromegaly, or carotid bruits. Lungs are clear to auscultation, no focal loss of breath sounds Cardiac exam, Rhythm is regular.. No murmurs, rubs or gallops. Abdominal exam reveals normal bowel sounds, soft non tender, no masses Extremities are nonedematous and both pedal pulses are normal. Neurologic exam is alert and oriented, no focal loss of strength or sensation Skin is without bruises or rashes Psychologically is without concerns for anxiety or depression Results & Data Results & Data ([facility]) Vital Signs (Past 12 Hours) Vital Signs Temp Pulse Resp BP Pulse Ox 08/18/19 07:01 97.7 F 53 L 18 157/81 H 97 08/18/19 05:04 97.7 F 56 L 20 160/73 H 94 08/17/19 23:34 98.1 F 59 L 18 133/74 96 PG Care Time/CCT Total # of Minutes Spent Total Time Spent with Patient: Total time spent is greater than 50% in coordination of care (as documented) at patient's floor/unit and/or counseling patient: Coding Level of Care Code 59316 Subseq Hosp Care Lvl 3 Diagnoses Complication of Kat catheter T83.9XXA Encounter type: initial encounter Acute blood loss anemia D62 Metabolic encephalopathy G93.41 Depression F32.9 (1) Complication of Kat catheter Encounter type: initial encounter Qualified Code(s): T83.9XXA - Unspecified complication of genitourinary prosthetic device, implant and graft, initial encounter
[2019-08-18 08:38] LABS: Hematocrit (blood only) 31.8 % (42-52); Hemoglobin 10.2 g/dL (14.0-18.0); Mean Corpuscular Hemoglobin 31.4 pg (25-34); Mean Corpuscular Hgb Conc 32.1 g/dL (32-36); Mean Corpuscular Volume 97.8 fL (80-100); Mean Platelet Volume 9.5 fL (7.4-10.4); Platelet Count 114 K/uL (130-400); RDW Coefficient of Variation 16.5 % (11.5-14.5); RDW Standard Deviation 56.9 fL (36.4-46.3); Red Blood Count 3.25 M/uL (4.7-6.1)
[2019-08-18 09:05] LABS: BUN Creatinine Ratio 14.5 (10-20); Calcium 7.8 mg/dl (8.5-10.1); Creatinine Clr Calc Pharmacy 34.2 ml/min; Est GFR (African American) 43.2; Est GFR (Non-African American) 37.3; Potassium 4.6 mmol/L (3.5-5.1)
[2019-08-18] MEDS: ATORVASTATIN 20 MG TAB PO SCH (09:30)
[2019-08-18] MEDS: OXYBUTYNIN CHLORIDE XL 5 MG TABCR PO SCH (09:30)
[2019-08-18] MEDS: MEMANTINE HCL 5 MG TAB PO SCH ×2 (09:31→21:06)
[2019-08-18] MEDS: PSYLLIUM 58.6% POWDER PACKET PO SCH (09:31)
[2019-08-18] MEDS: POLYETHYLENE (MIRALAX) 17 GM PACK PO SCH (09:31)
[2019-08-18] MEDS: CYANOCOBALAMIN 500 MCG TABLET (VITAMIN B-12) PO SCH (09:31)
[2019-08-18] MEDS ORDERED: bisacodyL 10 MG SUPP PR STA (15:36)
[2019-08-18] MEDS: CIPROFLOXACIN / D5W 400 MG/200 ML BAG IV SCH (21:06)
[2019-08-18] MEDS: MIRTAZAPINE TAB 15 MG TAB PO SCH (21:06)
[2019-08-18] MEDS: TAMSULOSIN HCL 0.4 MG CAP PO SCH (21:06)
[2019-08-19] MEDS: SODIUM CHLORIDE 0.9% 1000ML 1,000 ML IV SCH ×2 (02:03→12:27)
[2019-08-19] MEDS: AMMONIUM ALUM 30 GM in SODIUM CHLORIDE 0.9% IRRIG 3,000 ML IR SCH ×8 (04:18→22:53)
[2019-08-19 07:20] LABS: Creatinine Clr Calc Pharmacy 36.2 ml/min; Est GFR (African American) 46.2; Est GFR (Non-African American) 39.9
[2019-08-19] MEDS: MEMANTINE HCL 5 MG TAB PO SCH ×2 (07:45→20:20)
[2019-08-19] MEDS: OXYBUTYNIN CHLORIDE XL 5 MG TABCR PO SCH (07:47)
[2019-08-19] MEDS: ATORVASTATIN 20 MG TAB PO SCH (07:49)
[2019-08-19] MEDS: CYANOCOBALAMIN 500 MCG TABLET (VITAMIN B-12) PO SCH (07:49)
[2019-08-19] MEDS: POLYETHYLENE (MIRALAX) 17 GM PACK PO SCH (07:50)
[2019-08-19] MEDS: PSYLLIUM 58.6% POWDER PACKET PO SCH (07:50)
--- NOTE | 2019-08-19 09:14 | Hospitalist Progress Note ---
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 now has returned to CKD3 on tamsulosin for h/o BPH DNR/DNI (2) Acute blood loss anemia: pt has acute blood loss anemia from bleeding from bladder, s/p radiation despite recurrence of gross hematuria his hemoglobin is remained stable at 10 g range (3) Metabolic encephalopathy: resolved remains on namenda for dementia (4) Depression: States recent hx of SI, but not currently No prior hx of depression or antidepressant use tolerating the start of remeron 15mg HS, to be titrated as needed by PCP vs psych No hx of psych care, will need an appt for f/u on d/c noted that a family friend is a psychologist. I did advise her against seeking psych care with a friend. She is agreeable to CM making an appt for pt Gave breathing exercise handout as well Admission and Anticipated Discharge Date Admission Date: August 14, 2019 Subjective Patient had recurrence of his hematuria last evening with manipulation of his Ang catheter reinstitution of his three-way bladder irrigation with an alum containing fluid to promote hemostasis otherwise patient has no complaints or problems Review of Systems Review of Systems: Mild to moderate distress and moderate fatigue no headache, blurry or double vision no speech or swallowing issues no chest pain, pressure or palpitations no shortness of breath, cough or wheezes no abdominal pain, nausea or vomiting, diarrhea concerns with constipation no dysuria, hematuria returned overnight but now is resolved once again no focal joint pain or swelling no back pain, CVA tenderness or radicular pain no bruising, bleeding or rashes no focal signs of weakness or numbness or altered sensation patient mostly concerned with deconditioning no complaints or anxiety or depression. Physical Exam Physical Exam: The patient appeared well nourished and normally developed. Vital signs as documented. Head exam is normocephalic atraumatic no scleral icterus Neck is without JVD, thyromegaly, or carotid bruits. Lungs are clear to auscultation, no focal loss of breath sounds Cardiac exam, Rhythm is regular.. No murmurs, rubs or gallops. Abdominal exam reveals normal bowel sounds, soft non tender, no masses no suprapubic tenderness Extremities are nonedematous and both pedal pulses are normal. Neurologic exam is alert and oriented, no focal loss of strength or sensation Skin is without bruises or rashes Psychologically is without concerns for anxiety or depression Results & Data Results & Data ([facility]) Vital Signs (Past 12 Hours) Vital Signs Temp Pulse Resp BP Pulse Ox 08/19/19 07:03 98.6 F 61 20 148/77 H 95 08/19/19 03:55 98.6 F 61 22 140/82 96 08/18/19 23:14 98.1 F 69 20 152/76 H 96 PG Care Time/CCT Total # of Minutes Spent Total Time Spent with Patient: Total time spent is greater than 50% in coordination of care (as documented) at patient's floor/unit and/or counseling patient: Coding Level of Care Code 69955 Subseq Hosp Care Lvl 2 Diagnoses Complication of Ang catheter T83.9XXA Encounter type: initial encounter Acute blood loss anemia D62 Metabolic encephalopathy G93.41 Depression F32.9 (1) Complication of Ang catheter Encounter type: initial encounter Qualified Code(s): T83.9XXA - Unspecified complication of genitourinary prosthetic device, implant and graft, initial encounter
[2019-08-19 09:45] LABS: Basophils # (auto) 0.03 K/uL (0-0.2); Basophils % (auto) 0.6 %; Eosinophils # (auto) 0.17 K/uL (0-0.5); Eosinophils % (auto) 3.4 %; Hematocrit (blood only) 30.6 % (42-52); Hemoglobin 10.1 g/dL (14.0-18.0); Immature Granulocytes # (auto) 0.13 K/uL (0.00-0.02); Immature Granulocytes % (auto) 2.6 %; Lymphocytes # (auto) 0.63 K/uL (1.2-3.4); Lymphocytes % (auto) 12.7 %; Mean Corpuscular Hemoglobin 31.9 pg (25-34); Mean Corpuscular Volume 96.5 fL (80-100); Mean Platelet Volume 8.9 fL (7.4-10.4); Monocytes # (auto) 0.41 K/uL (0.11-0.59); Monocytes % (auto) 8.2 %; Neutrophils % (auto) 72.5 %; Platelet Count 128 K/uL (130-400); RDW Coefficient of Variation 16.2 % (11.5-14.5); Red Blood Count 3.17 M/uL (4.7-6.1); White Blood Count 4.97 K/uL (4.8-10.8)
[2019-08-19 10:17] LABS: BUN Creatinine Ratio 16.7 (10-20); Calcium 7.8 mg/dl (8.5-10.1); Creatinine Clr Calc Pharmacy 35.5 ml/min; Est GFR (African American) 45.2; Potassium 4.4 mmol/L (3.5-5.1)
--- NOTE | 2019-08-19 11:41 | Urology Progress Note ---
Date of Service August 19, 2019 Assessment & Plan (1) Hematuria: Assessment Hematuria Continue CBI with 1% alum for at least another 24 hours And if the urine remains clear can discontinue CBI after the 24 hours Subjective Patient's afebrile vital signs are stable He has no complaints Apparently he had a recurrence of his hematuria yesterday Currently on CBI with 1% alum Urine today is clear Physical Exam Physical Exam: Constitutional Well-developed well-nourished In no acute distress, Healthy appearing Neuro/psych Alert and oriented x3 Normal mood Normal affect Normal coordination Skin Normal color Normal turgor No rashes Warm and Dry Neck Normal visual inspection Pulmonary Normal rhythm and effort No respiratory distress No audible wheezes Able to speak in complete sentences Cardiac No peripheral edema Results & Data Vital Signs (Past 12 Hours) Vital Signs Temp Pulse Resp BP Pulse Ox 08/19/19 11:34 36.4 C L 68 20 155/84 H 99 08/19/19 07:03 37.0 C 61 20 148/77 H 95 08/19/19 03:55 37.0 C 61 22 140/82 96 PG Care Time/CCT Total # of Minutes Spent Total Time Spent with Patient: Total time spent is greater than 50% in coordination of care (as documented) at patient's floor/unit and/or counseling patient: Coding Level of Care Code 38666 Subseq Hosp Care Lvl 1 Diagnoses Hematuria R31.0 Hematuria type: gross (1) Hematuria Hematuria type: gross Qualified Code(s): R31.0 - Gross hematuria
[2019-08-19] MEDS: CIPROFLOXACIN 500 MG TAB PO SCH ×2 (12:32→20:20)
[2019-08-19] MEDS: MIRTAZAPINE TAB 15 MG TAB PO SCH (20:20)
[2019-08-19] MEDS: TAMSULOSIN HCL 0.4 MG CAP PO SCH (20:21)
[2019-08-19] MEDS: OXYCODONE HCL IR 5 MG TAB (IMMEDIATE RELEASE) PO PRN (21:17)
--- NOTE | 2019-08-20 00:19 | Communication Note ---
Date of Service: August 20, 2019 Abrupt onset of tachycardia noted by staff in 140s. ECG obtained and sinus tachy, QRS not prolonged, no ST elevations/depressions. Patient was being sanchez ged by staff and appears uncomfortable. Denies any new symptoms, denies pain. Was requesting to sit in bedside chair. Ang cath bag not with significant bloody appearance. Has been transfused during stay for hematuria. Appears uncomfortable but heart rate declined to 120s after being changed and appeared tired. Mucous membranes appear moist. Will continue to monitor, hopefully he can get some rest and comfort. Will consider small fluid bolus or repeating Hgb/labs with more continued clinical evaluation.
[2019-08-20] MEDS: SODIUM CHLORIDE 0.9% 1000ML 1,000 ML IV SCH ×2 (00:22→11:55)
[2019-08-20] MEDS: CYANOCOBALAMIN 500 MCG TABLET (VITAMIN B-12) PO SCH (07:31)
[2019-08-20] MEDS: ATORVASTATIN 20 MG TAB PO SCH (07:31)
[2019-08-20] MEDS: OXYBUTYNIN CHLORIDE XL 5 MG TABCR PO SCH (07:31)
[2019-08-20] MEDS: MEMANTINE HCL 5 MG TAB PO SCH ×2 (07:31→20:28)
[2019-08-20] MEDS: CIPROFLOXACIN 500 MG TAB PO SCH ×2 (07:32→20:28)
[2019-08-20] MEDS: POLYETHYLENE (MIRALAX) 17 GM PACK PO SCH (07:32)
[2019-08-20] MEDS: PSYLLIUM 58.6% POWDER PACKET PO SCH (07:32)
--- NOTE | 2019-08-20 07:40 | Urology Progress Note ---
Date of Service August 20, 2019 Assessment & Plan (1) Hematuria: Gross hematuria secondary to bladder cancer treated with radiation Status post clot evacuation and fulguration Has had alum running for several days His hemoglobin has remained stable, his creatinine has improved Subjectively feeling well Maximally slowed CBI today Clamp tomorrow morning, consider voiding trial if urine remains clear Subjective Denies subjective complaints CBI running with 1% alumurine relatively clear with some granular old clot in the dependent portion of the bag CBI is running very slowly He denies abdominal pain Physical Exam Physical Exam: Urine clear Constitutional: well developed and well nourished Respiratory: no respiratory distress Cardiovascular: Extremities: no pedal edema Gastrointestinal (Abdomen): Inspection/Auscultation: abdomen normal to inspection Results & Data Vital Signs (Past 12 Hours) Vital Signs Temp Pulse Pulse Resp BP BP Pulse Ox 08/20/19 04:14 81 08/20/19 04:00 36.8 C 85 20 138/65 96 08/20/19 00:23 36.7 C 130 H 20 151/88 H 94 08/19/19 23:47 160 H 176/97 H 08/19/19 23:26 36.7 C 85 18 165/87 H 92 PG Care Time/CCT Total # of Minutes Spent Total Time Spent with Patient: Total time spent is greater than 50% in coordination of care (as documented) at patient's floor/unit and/or counseling patient: Coding Level of Care Code 01397 Subseq Hosp Care Lvl 2 Diagnoses Hematuria R31.0 Hematuria type: gross (1) Hematuria Hematuria type: gross Qualified Code(s): R31.0 - Gross hematuria
--- NOTE | 2019-08-20 08:10 | Hospitalist Progress Note ---
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 now has returned to CKD3 on tamsulosin for h/o BPH DNR/DNI (2) Acute blood loss anemia: pt has acute blood loss anemia from bleeding from bladder, s/p radiation despite recurrence of gross hematuria his hemoglobin is remained stable at 10 g range (3) Metabolic encephalopathy: resolved remains on namenda for dementia (4) Depression: States recent hx of SI, but not currently No prior hx of depression or antidepressant use tolerating the start of remeron 15mg HS, to be titrated as needed by PCP vs psych No hx of psych care, will need an appt for f/u on d/c noted that a family friend is a psychologist. I did advise her against seeking psych care with a friend. She is agreeable to CM making an appt for pt (5) DVT prophylaxis: scd due to acute blood loss anemia making chemoprophylaxis a risk Admission and Anticipated Discharge Date Admission Date: August 14, 2019 Subjective this pt had sinus tachycardia and gross hematuria with clots in kat, overnight, labs remain stable and urology has seen and recommends continued bladder irrigation. pt is in no distress but is disappointed in the lack of progress Review of Systems Review of Systems: Mild to moderate distress and moderate fatigue no headache, blurry or double vision no speech or swallowing issues no chest pain, pressure or palpitations no shortness of breath, cough or wheezes no abdominal pain, nausea or vomiting, diarrhea concerns with constipation no dysuria, hematuria returned one agian overnight but now is resolved no focal joint pain or swelling no back pain, CVA tenderness or radicular pain no bruising, bleeding or rashes no focal signs of weakness or numbness or altered sensation patient mostly concerned with deconditioning no complaints or anxiety or depression. Physical Exam Physical Exam: The patient appeared well nourished and normally developed. Vital signs as documented. Head exam is normocephalic atraumatic no scleral icterus Neck is without JVD, thyromegaly, or carotid bruits. Lungs are clear to auscultation, no focal loss of breath sounds Cardiac exam, Rhythm is regular.. No murmurs, rubs or gallops. Abdominal exam reveals normal bowel sounds, soft non tender, remains without suprapubic tenderness Extremities are nonedematous and both pedal pulses are normal. Neurologic exam is alert and oriented, no focal loss of strength or sensation Skin is without bruises or rashes Psychologically is without concerns for anxiety or depression Results & Data Results & Data ([facility]) Vital Signs (Past 12 Hours) Vital Signs Temp Pulse Pulse Resp BP BP Pulse Ox 08/20/19 04:14 81 08/20/19 04:00 98.2 F 85 20 138/65 96 08/20/19 00:23 98.1 F 130 H 20 151/88 H 94 08/19/19 23:47 160 H 176/97 H 08/19/19 23:26 98.1 F 85 18 165/87 H 92 PG Care Time/CCT Total # of Minutes Spent Total Time Spent with Patient: Total time spent is greater than 50% in coordination of care (as documented) at patient's floor/unit and/or counseling patient: Coding Level of Care Code 11853 Subseq Hosp Care Lvl 2 Diagnoses Complication of Kat catheter T83.9XXA Encounter type: initial encounter Acute blood loss anemia D62 Metabolic encephalopathy G93.41 Depression F32.9 DVT prophylaxis Z29.9 (1) Complication of Kat catheter Encounter type: initial encounter Qualified Code(s): T83.9XXA - Unspecified complication of genitourinary prosthetic device, implant and graft, initial encounter
[2019-08-20] MEDS: AMMONIUM ALUM 30 GM in SODIUM CHLORIDE 0.9% IRRIG 3,000 ML IR SCH ×2 (08:39→18:45)
[2019-08-20 08:49] LABS: Hematocrit (blood only) 31.8 % (42-52); Hemoglobin 10.4 g/dL (14.0-18.0)
[2019-08-20 09:06] LABS: BUN Creatinine Ratio 14.6 (10-20); Calcium 8.3 mg/dl (8.5-10.1); Creatinine Clr Calc Pharmacy 34.2 ml/min; Est GFR (African American) 42.9; Potassium 4.8 mmol/L (3.5-5.1)
--- NOTE | 2019-08-20 19:15 | Electrocardiogram Report ---
Test Reason : Blood Pressure : / mmHG Vent. Rate : 112 BPM Atrial Rate : 112 BPM P-R Int : 122 ms QRS Dur : 084 ms QT Int : 326 ms P-R-T Axes : 029 -45 052 degrees QTc Int : 444 ms Poor data quality, interpretation may be adversely affected Sinus tachycardia Possible Left atrial enlargement Left anterior fascicular block Abnormal ECG When compared with ECG of 09-AUG-2019 12:39, Premature atrial complexes are no longer Present Confirmed by Micah Guzmán ([id number]) on 08/20/2019 7:15:26 PM Referred By: Ifeanyi Araiza Confirmed By:Octavio Guzmán
[2019-08-20] MEDS: CALCIUM CARBONATE 500 MG CHEWABLE TAB PO PRN (19:22)
[2019-08-20] MEDS: TAMSULOSIN HCL 0.4 MG CAP PO SCH (20:27)
[2019-08-20] MEDS: MIRTAZAPINE TAB 15 MG TAB PO SCH (20:27)
[2019-08-20] MEDS: OXYCODONE HCL IR 5 MG TAB (IMMEDIATE RELEASE) PO PRN (23:34)
[2019-08-21] MEDS: SODIUM CHLORIDE 0.9% 1000ML 1,000 ML IV SCH ×3 (00:30→23:11)
--- NOTE | 2019-08-21 07:45 | Hospitalist Progress Note ---
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 now has returned to CKD3 on tamsulosin for h/o BPH DNR/DNI (2) Acute blood loss anemia: pt has acute blood loss anemia from bleeding from bladder, follow hemaglobin expectantly (3) Metabolic encephalopathy: resolved remains on namenda for dementia (4) Depression: States recent hx of SI, but not currently No prior hx of depression or antidepressant use tolerating the start of remeron 15mg HS, to be titrated as needed by PCP vs psych No hx of psych care, will need an appt for f/u on d/c noted that a family friend is a psychologist. I did advise her against seeking psych care with a friend. She is agreeable to CM making an appt for pt (5) DVT prophylaxis: scd due to acute blood loss anemia making chemoprophylaxis a risk Admission and Anticipated Discharge Date Admission Date: August 14, 2019 Subjective this pt did have some issues with difficult to evacuate clots in his kat this am, Hgb did drop into the 8 gm range, pt is weakened but now targeting rehab post discharge Review of Systems Review of Systems: Mild to moderate distress and moderate fatigue no headache, blurry or double vision no speech or swallowing issues no chest pain, pressure or palpitations no shortness of breath, cough or wheezes no abdominal pain, nausea or vomiting, diarrhea concerns with constipation no dysuria, hematuria returned one agian overnight but now is resolved no focal joint pain or swelling remains without back pain, CVA tenderness or radicular pain no bruising, bleeding or rashes no focal signs of weakness or numbness or altered sensation patient mostly concerned with deconditioning no complaints or anxiety or depression. Physical Exam Physical Exam: The patient appeared well nourished and normally developed. Vital signs as documented. Head exam is normocephalic atraumatic no scleral icterus Neck is without JVD, thyromegaly, or carotid bruits. Lungs are clear to auscultation, no focal loss of breath sounds Cardiac exam, Rhythm is regular.. No murmurs, rubs or gallops. Abdominal exam reveals normal bowel sounds, soft non tender, remains without suprapubic tenderness Extremities are nonedematous and both pedal pulses are normal. Neurologic exam is alert and oriented, no focal loss of strength or sensation Skin is without bruises or rashes Psychologically is without concerns for anxiety or depression Results & Data Results & Data ([facility]) Vital Signs (Past 12 Hours) Vital Signs Temp Pulse Pulse Resp BP BP Pulse Ox 08/21/19 04:08 98.2 F 86 21 113/76 97 08/21/19 01:23 74 08/21/19 00:13 99.0 F 84 20 144/101 H 94 08/20/19 19:59 97.7 F 73 19 118/61 94 PG Care Time/CCT Total # of Minutes Spent Total Time Spent with Patient: Total time spent is greater than 50% in coordination of care (as documented) at patient's floor/unit and/or counseling patient: Coding Level of Care Code 03305 Subseq Hosp Care Lvl 2 Diagnoses Complication of Kat catheter T83.9XXA Encounter type: initial encounter Acute blood loss anemia D62 Metabolic encephalopathy G93.41 Depression F32.9 DVT prophylaxis Z29.9 (1) Complication of Kat catheter Encounter type: initial encounter Qualified Code(s): T83.9XXA - Unspecified complication of genitourinary prosthetic device, implant and graft, initial encounter
[2019-08-21 08:32] LABS: Hematocrit (blood only) 27.1 % (42-52); Hemoglobin 8.8 g/dL (14.0-18.0); Mean Corpuscular Hemoglobin 31.2 pg (25-34); Mean Corpuscular Hgb Conc 32.5 g/dL (32-36); Mean Corpuscular Volume 96.1 fL (80-100); Mean Platelet Volume 8.5 fL (7.4-10.4); Platelet Count 141 K/uL (130-400); RDW Coefficient of Variation 16.6 % (11.5-14.5); Red Blood Count 2.82 M/uL (4.7-6.1); White Blood Count 10.04 K/uL (4.8-10.8)
--- NOTE | 2019-08-21 08:32 | Urology Progress Note ---
Date of Service August 21, 2019 Assessment & Plan (1) Hematuria: Hematuria secondary to prior radiation for bladder cancer Catheter functioning appropriately again after manual irrigation I would consider clamping this later today Ideally I would love to remove his catheter but I am uncertain if this will be easily be accomplished Stable from a clinical standpoint Subjective Patient did well yesterday but he had some trouble with his CBI this morningcalled to the room by nursing secondary to inability to irrigate the catheter and spasms causing urine to drain around the catheter When I entered the room he was quite comfortable and reports that he had no pain He did have relatively clear urine within the tubing of his catheter. CBI was clamped. I manually irrigated him with normal saline and drained approximately 15 cc of granular old clot. Further irrigation was clear and CBI was reinitiated. I suspect he may have just been experiencing a bladder spasm this morning with minimal clot within the bladder Review of Systems Review of Systems: All systems reviewed & are unremarkable except as noted in HPI & below Physical Exam Constitutional: well developed and well nourished Respiratory: no respiratory distress Cardiovascular: Extremities: no pedal edema Gastrointestinal (Abdomen): Inspection/Auscultation: abdomen normal to inspect ion Results & Data Vital Signs (Past 12 Hours) Vital Signs Temp Pulse Pulse Pulse Resp BP BP 08/21/19 07:49 36.6 C 84 20 122/68 08/21/19 04:08 36.8 C 86 21 113/76 08/21/19 01:23 74 08/21/19 00:13 37.2 C 84 20 144/101 H Pulse Ox 08/21/19 07:49 95 08/21/19 04:08 97 08/21/19 01:23 08/21/19 00:13 94 PG Care Time/CCT Total # of Minutes Spent Total Time Spent with Patient: Total time spent is greater than 50% in coordination of care (as documented) at patient's floor/unit and/or counseling patient: Coding Level of Care Code 00910 Subseq Hosp Care Lvl 2 Diagnoses Hematuria R31.0 Hematuria type: gross (1) Hematuria Hematuria type: gross Qualified Code(s): R31.0 - Gross hematuria
[2019-08-21] MEDS: OXYBUTYNIN CHLORIDE XL 5 MG TABCR PO SCH (08:45)
[2019-08-21] MEDS: POLYETHYLENE (MIRALAX) 17 GM PACK PO SCH (08:45)
[2019-08-21] MEDS: PSYLLIUM 58.6% POWDER PACKET PO SCH (08:45)
[2019-08-21] MEDS: CYANOCOBALAMIN 500 MCG TABLET (VITAMIN B-12) PO SCH (08:46)
[2019-08-21] MEDS: ATORVASTATIN 20 MG TAB PO SCH (08:47)
[2019-08-21] MEDS: MEMANTINE HCL 5 MG TAB PO SCH ×2 (08:47→20:29)
[2019-08-21] MEDS: CIPROFLOXACIN 500 MG TAB PO SCH ×2 (08:48→20:29)
[2019-08-21] MEDS: AMMONIUM ALUM 30 GM in SODIUM CHLORIDE 0.9% IRRIG 3,000 ML IR SCH ×2 (08:55→17:09)
[2019-08-21 09:14] LABS: BUN Creatinine Ratio 16.4 (10-20); Calcium 7.9 mg/dl (8.5-10.1); Creatinine Clr Calc Pharmacy 39.8 ml/min; Est GFR (African American) 51.3; Est GFR (Non-African American) 44.3; Potassium 4.4 mmol/L (3.5-5.1)
[2019-08-21] MEDS: CALCIUM CARBONATE 500 MG CHEWABLE TAB PO PRN (17:11)
[2019-08-21] MEDS: OXYCODONE HCL IR 5 MG TAB (IMMEDIATE RELEASE) PO PRN (20:29)
[2019-08-21] MEDS: TAMSULOSIN HCL 0.4 MG CAP PO SCH (20:29)
[2019-08-21] MEDS: MIRTAZAPINE TAB 15 MG TAB PO SCH (20:29)
[2019-08-21] MEDS: MoRPHine SULFATE 2 MG/ML CARP IV PRN (23:51)
--- NOTE | 2019-08-22 07:18 | Hospitalist Progress Note ---
Date of Service August 22, 2019 Assessment & Plan (1) Complication of Ang catheter: Complication of Ang catheter: Acute Blood loss Anemia secondary to hematuria Transfused 2 PRBC on admission, Additional 2 units PRBC on 08/15 bladder spasms tried b& o suppository and will increase ditropan Urology consulted for definitive management of bleeding Gross hematuria once again recurred on the evening of 1316 and recommendation of continuous bladder irrigation urology continues using alum and following blood counts, if blood counts drops consider formalin per urology, blood count will be stable 08/21 Bladder cancer 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 Araiza Consulted Urology, did have cystoscopy, evacuation of clot and fulguration of bleed veins in the bladder 08/14 Has received radiation and left with proctitis with rectal bleeding, cystitis and prostate damage, plan was for hyperbaric O2 treatment as outpatient resolving with transfusion and fluids. now has returned to CKD3 on tamsulosin for h/o BPH DNR/DNI (2) Acute blood loss anemia: pt has acute blood loss anemia from bleeding from bladder, follow hemaglobin expectantly (3) Metabolic encephalopathy: resolved remains on namenda for dementia (4) Depression: States recent hx of SI, but not currently No prior hx of depression or antidepressant use tolerating the start of remeron 15mg HS, to be titrated as needed by PCP vs psych No hx of psych care, will need an appt for f/u on d/c noted that a family friend is a psychologist. I did advise her against see rippey psych care with a friend. She is agreeable to making an appt for pt (5) DVT prophylaxis: scd due to acute blood loss anemia making chemoprophylaxis a risk Admission and Anticipated Discharge Date Admission Date: August 14, 2019 Subjective Hgb did drop into the 8 gm range on 08/20, pt is weakened but now targeting rehab post discharge this pt still with significant bladder spasms, on B&O, oxybutinin and stil with some mild hematuria Review of Systems Review of Systems: Mild to moderate distress and moderate fatigue mostly complaining of bladder spasm no headache, blurry or double vision no speech or swallowing issues no chest pain, pressure or palpitations no shortness of breath, cough or wheezes suprapubic abdominal pain, no nausea or vomiting, concerns with constipation no dysuria, hematuria returned less clots but still discolored urine no focal joint pain or swelling remains without back pain, CVA tenderness or radicular pain no bruising, bleeding or rashes no focal signs of weakness or numbness or altered sensation patient mostly concerned with deconditioning no complaints or anxiety or depression. Physical Exam Physical Exam: The patient appeared well nourished and normally developed. Vital signs as documented. Head exam is normocephalic atraumatic no scleral icterus Neck is without JVD, thyromegaly, or carotid bruits. Lungs are clear to auscultation, no focal loss of breath sounds Cardiac exam, Rhythm is regular.. No murmurs, rubs or gallops. Abdominal exam reveals normal bowel sounds, soft non tender, remains without suprapubic tenderness Extremities are mildly edematous and both pedal pulses are normal. Neurologic exam is alert and oriented, no focal loss of strength or sensation Skin is without bruises or rashes Psychologically is without concerns for anxiety or depression Results & Data Results & Data ([facility]) Vital Signs (Past 12 Hours) Vital Signs Temp Pulse Pulse Resp BP Pulse Ox 08/22/19 07:14 79 08/22/19 04:34 98.2 F 89 18 126/70 94 08/22/19 00:02 98.1 F 88 16 143/80 H 93 08/21/19 19:37 98.1 F 76 20 133/74 97 PG Care Time/CCT Total # of Minutes Spent Total Time Spent with Patient: Total time spent is greater than 50% in sales recruiting coordinator rdination of care (as documented) at patient's floor/unit and/or counseling patient: Coding Level of Care Code 73397 Subseq Hosp Care Lvl 3 Diagnoses Complication of Ang catheter T83.9XXA Encounter type: initial encounter Acute blood loss anemia D62 Metabolic encephalopathy G93.41 Depression F32.9 DVT prophylaxis Z29.9 (1) Complication of Ang catheter Encounter type: initial encounter Qualified Code(s): T83.9XXA - Unspecified complication of genitourinary prosthetic device, implant and graft, initial encounter
[2019-08-22] MEDS: PSYLLIUM 58.6% POWDER PACKET PO SCH (08:22)
[2019-08-22] MEDS: MEMANTINE HCL 5 MG TAB PO SCH ×2 (08:23→21:23)
[2019-08-22] MEDS: POLYETHYLENE (MIRALAX) 17 GM PACK PO SCH (08:23)
[2019-08-22] MEDS: CIPROFLOXACIN 500 MG TAB PO SCH ×2 (08:23→21:22)
[2019-08-22] MEDS: ATORVASTATIN 20 MG TAB PO SCH (08:23)
[2019-08-22] MEDS: CYANOCOBALAMIN 500 MCG TABLET (VITAMIN B-12) PO SCH (08:24)
[2019-08-22] MEDS: OXYBUTYNIN CHLORIDE XL 5 MG TABCR PO SCH ×2 (08:24→21:23)
[2019-08-22 08:26] LABS: Hematocrit (blood only) 27.7 % (42-52); Hemoglobin 8.9 g/dL (14.0-18.0); Mean Corpuscular Hemoglobin 31.1 pg (25-34); Mean Corpuscular Hgb Conc 32.1 g/dL (32-36); Mean Corpuscular Volume 96.9 fL (80-100); Mean Platelet Volume 8.6 fL (7.4-10.4); Platelet Count 170 K/uL (130-400); RDW Coefficient of Variation 16.9 % (11.5-14.5); RDW Standard Deviation 57.6 fL (36.4-46.3); Red Blood Count 2.86 M/uL (4.7-6.1); White Blood Count 9.56 K/uL (4.8-10.8)
[2019-08-22] MEDS: OXYCODONE HCL IR 5 MG TAB (IMMEDIATE RELEASE) PO PRN (08:33)
[2019-08-22 08:53] LABS: BUN Creatinine Ratio 15.1 (10-20); Calcium 8.1 mg/dl (8.5-10.1); Creatinine Clr Calc Pharmacy 37.3 ml/min; Est GFR (African American) 47.3; Est GFR (Non-African American) 40.8; Potassium 4.2 mmol/L (3.5-5.1)
[2019-08-22] MEDS: SODIUM CHLORIDE 0.9% 1000ML 1,000 ML IV SCH ×2 (09:15→21:50)
[2019-08-22] MEDS: MoRPHine SULFATE 2 MG/ML CARP IV PRN (09:52)
[2019-08-22] MEDS ORDERED: BELLADONNA/OPIUM SUPP 60 MG SUPP PR PRN (09:57)
[2019-08-22] MEDS: AMMONIUM ALUM 30 GM in SODIUM CHLORIDE 0.9% IRRIG 3,000 ML IR SCH ×2 (11:15→21:24)
--- NOTE | 2019-08-22 16:10 | Urology Progress Note ---
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 Alum irrigation continues Hemoglobin remains relatively stable Plan for possible voiding trial tomorrow morning presuming no issues overnight Subjective Hemoglobin remained stable overnight No major issues with CBI Complaining to me today about lack of bowel movements Physical Exam Physical Exam: CBI running slowly, old blood within the tubing and bag, but relatively clear Constitutional: well developed and well nourished Respiratory: no respiratory distress Cardiovascular: Extremities: no pedal edema Gastrointestinal (Abdomen): Inspection/Auscultation: abdomen normal to inspection Results & Data Vital Signs (Past 12 Hours) Vital Signs Temp Pulse Pulse Pulse Resp BP Pulse Ox 08/22/19 15:30 37.0 C 86 20 154/76 H 96 08/22/19 11:35 36.8 C 84 18 137/74 95 08/22/19 07:24 36.8 C 81 17 109/72 92 08/22/19 07:14 79 08/22/19 04:34 36.8 C 89 18 126/70 94 PG Care Time/CCT Total # of Minutes Spent Total Time Spent with Patient: Total time spent is greater than 50% in coordinat ion of care (as documented) at patient's floor/unit and/or counseling patient: Coding Level of Care Code 93297 Subseq Hosp Care Lvl 2 Diagnoses Hematuria R31.0 Hematuria type: gross (1) Hematuria Hematuria type: gross Qualified Code(s): R31.0 - Gross hematuria
[2019-08-22] MEDS: MIRTAZAPINE TAB 15 MG TAB PO SCH (21:22)
[2019-08-22] MEDS: TAMSULOSIN HCL 0.4 MG CAP PO SCH (21:23)
[2019-08-23] MEDS: AMMONIUM ALUM 30 GM in SODIUM CHLORIDE 0.9% IRRIG 3,000 ML IR SCH ×2 (01:50→09:44)
[2019-08-23 05:17] LABS: Hematocrit (blood only) 23.5 % (42-52); Hemoglobin 7.7 g/dL (14.0-18.0); Mean Corpuscular Hemoglobin 31.8 pg (25-34); Mean Corpuscular Hgb Conc 32.8 g/dL (32-36); Mean Corpuscular Volume 97.1 fL (80-100); Mean Platelet Volume 8.7 fL (7.4-10.4); Platelet Count 150 K/uL (130-400); RDW Coefficient of Variation 16.9 % (11.5-14.5); RDW Standard Deviation 58.9 fL (36.4-46.3); Red Blood Count 2.42 M/uL (4.7-6.1); White Blood Count 6.79 K/uL (4.8-10.8)
[2019-08-23 05:46] LABS: BUN Creatinine Ratio 14.7 (10-20); Calcium 7.7 mg/dl (8.5-10.1); Creatinine Clr Calc Pharmacy 39.5 ml/min; Est GFR (African American) 50.5; Est GFR (Non-African American) 43.5; Potassium 4.1 mmol/L (3.5-5.1)
[2019-08-23] MEDS ORDERED: SODIUM CHLORIDE 0.9% 250 ML IV PRN (07:12)
--- NOTE | 2019-08-23 07:17 | Hospitalist Progress Note ---
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 now has returned to CKD3 on tamsulosin for h/o BPH DNR/DNI (2) Acute blood loss anemia: pt has acute blood loss anemia from bleeding from bladder,pt is still anemia, and will recieve additional transfusions 08/23/19 (3) Metabolic encephalopathy: resolved remains on namenda for dementia (4) Depression: Patient is psychologically is fairly depressed and at times now confused likely from hospital delirium continue recommendation for post discharge psychological follow-up (5) DVT prophylaxis: scd due to acute blood loss anemia making chemoprophylaxis a risk Admission and Anticipated Discharge Date Admission Date: August 14, 2019 Subjective Patient has decrement in his hemoglobin overnight he continues to have bladder spasms he is weak and tired and disappointed in general feels he has to move his bowels Review of Systems Review of Systems: Remains in moderate distress and moderate fatigue mostly complaining of bladder spasm no headache, blurry or double vision no speech or swallowing issues no chest pain, pressure or palpitations no shortness of breath, cough or wheezes suprapubic abdominal pain, no nausea or vomiting, concerns with constipation or feeling of rectal pressure no dysuria, hematuria returned less clots but still discolored urine no focal joint pain or swelling remains without back pain, CVA tenderness or radicular pain no bruising, bleeding or rashes no focal signs of weakness or numbness or altered sensation patient mostly concerned with deconditioning no complaints or anxiety or depression. Physical Exam Physical Exam: The patient appeared well nourished and normally developed. Vital signs as documented. Head exam is normocephalic atraumatic no scleral icterus Neck is without JVD, thyromegaly, or carotid bruits. Lungs are clear to auscultation, but diminished at the bases no focal loss of breath sounds Cardiac exam, Rhythm is regular.. No murmurs, rubs or gallops. Abdominal exam reveals normal bowel sounds, soft general mild tender, remains without suprapubic tenderness Extremities are mildly edematous and both pedal pulses are normal. Neurologic exam is alert and oriented, no focal loss of strength or sensation Skin is without bruises or rashes Psychologically is without concerns for anxiety or depression Results & Data Results & Data ([facility]) Vital Signs (Past 12 Hours) Vital Signs Temp Pulse Resp BP Pulse Ox 08/23/19 06:31 98.4 F 73 20 118/67 95 08/23/19 02:48 97.9 F 75 21 126/74 94 08/22/19 23:19 99.1 F 86 20 147/70 H 93 08/22/19 19:42 98.8 F 104 H 24 142/75 H 95 PG Care Time/CCT Total # of Minutes Spent Total Time Spent with Patient: Total time spent is greater than 50% in coordination of care (as documented) at patient's floor/unit and/or counseling patient: Coding Level of Care Code 91172 Subseq Hosp Care Lvl 2 Diagnoses Complication of Ang catheter T83.9XXA Encounter type: initial encounter Acute blood loss anemia D62 Metabolic encephalopathy G93.41 Depression F32.9 DVT prophylaxis Z29.9 (1) Complication of Ang catheter Encounter type: initial encounter Qualified Code(s): T83.9XXA - Unspecified complication of genitourinary prosthetic device, implant and graft, initial encounter
[2019-08-23] MEDS: CYANOCOBALAMIN 500 MCG TABLET (VITAMIN B-12) PO SCH (07:47)
[2019-08-23] MEDS: POLYETHYLENE (MIRALAX) 17 GM PACK PO SCH (07:48)
[2019-08-23] MEDS: CIPROFLOXACIN 500 MG TAB PO SCH ×2 (07:50→21:41)
[2019-08-23] MEDS: OXYBUTYNIN CHLORIDE XL 5 MG TABCR PO SCH ×2 (07:50→21:42)
[2019-08-23] MEDS: ATORVASTATIN 20 MG TAB PO SCH (07:51)
[2019-08-23] MEDS: PSYLLIUM 58.6% POWDER PACKET PO SCH (07:51)
[2019-08-23] MEDS: MEMANTINE HCL 5 MG TAB PO SCH ×2 (07:52→21:41)
[2019-08-23] MEDS: SODIUM CHLORIDE 0.9% 1000ML 1,000 ML IV SCH (08:44)
--- NOTE | 2019-08-23 10:40 | Urology Progress Note ---
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 Unfortunately, his hemoglobin continues to drop The drop does not seem to be explained by hematuria as his hematuria has been relatively modest for the past several days I suspect this is more hemolytic Due to receive a transfusion this morning From a bladder standpoint I suspect that bladder spasms and discomfort are outweighing the benefit of continuation of the catheter I anticipate he will continue to bleed in small amountslikely for the remainder of his life, however I think that the best thing we can do at this stage is to remove the catheter and see if he can begin voiding spontaneously His creatinine has improved substantially since admission I anticipate significant urine leakage and will require a diaper It may be difficult to monitor true I's and O's, however we will monitor his lab values and his comfort level I hope that this will allow him to reengage with physical therapy and potentially move towards discharge home If this plan fails and he begins to bleed at unacceptable rate, we can always consider formalin bladder irrigation (would require anesthesia) Subjective No major issues overnight He did have bladder spasms intermittently The frequency of the spasms is decreased slightly but is still fairly significant Urine remain relatively clear throughout the night as he remains on alum continuous bladder irrigation Hemoglobin dropped this morning Scheduled for transfusion now Review of Systems Review of Systems: All systems reviewed & are unremarkable except as noted in HPI & below Physical Exam Physical Exam: Irrigation running at a slow rate, clear fluid draining through the tubing and into the back of his catheter Constitutional: well developed and well nourished Respiratory: no respiratory distress Cardiovascular: Extremities: no pedal edema Gastrointestinal (Abdomen): Inspection/Auscultation: abdomen normal to inspection Results & Data Vital Signs (Past 12 Hours) Vital Signs Temp Pulse Resp BP Pulse Ox 08/23/19 06:31 36.9 C 73 20 118/67 95 08/23/19 02:48 36.6 C 75 21 126/74 94 08/22/19 23:19 37.3 C 86 20 147/70 H 93 PG Care Time/CCT Total # of Minutes Spent Total Time Spent with Patient: Total time spent is greater than 50% in coordination of care (as documented) at patient's floor/unit and/or counseling patient: Coding Level of Care Code 65610 Subseq Hosp Care Lvl 2 Diagnoses Gross hematuria R31.0
[2019-08-23] MEDS: MoRPHine SULFATE 2 MG/ML CARP IV PRN (11:03)
[2019-08-23] MEDS: TAMSULOSIN HCL 0.4 MG CAP PO SCH (21:42)
[2019-08-23] MEDS: MIRTAZAPINE TAB 15 MG TAB PO SCH (21:42)
[2019-08-24] MEDS: SODIUM CHLORIDE 0.9% 1000ML 1,000 ML IV SCH (03:40)
--- NOTE | 2019-08-24 07:13 | Hospitalist Progress Note ---
Date of Service August 24, 2019 Assessment & Plan (1) Acute blood loss anemia: pt has acute blood loss anemia from bleeding from bladder,pt is still anemia, and did recieve additional transfusions 08/23/19 Now is a total of 6 units of blood transfused (2) Metabolic encephalopathy: Encephalopathy remains could be multifactorial from ciprofloxacin, his urinary tract infection, increasing Ditropan or belladonna and opioid or even opiate attempts at controlling his pain. We are discontinuing all medications except for as needed pain medication at this time remains on namenda for dementia (3) Urinary tract infection: Patient had documented Klebsiella and Pseudomonas UTI on 13 August. 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 We will recollect a urine analysis and culture at this point time although this is difficult as he is currently incontinent of urine (4) Depression: Patient is psychologically is fairly depressed and at times now confused likely from hospital delirium continue recommendation for post discharge psychological follow-up (5) DVT prophylaxis: scd due to acute blood loss anemia making chemoprophylaxis a risk Admission and Anticipated Discharge Date Admission Date: August 14, 2019 Subjective This patient has appropriate rise of his hemoglobin after transfusion. He however is more confused lethargic and deconditioned as the days went on. Multiple factors may be impacting his confusion and lethargy including hospital delirium, antibiotics of Cipro which is used to treat his Klebsiella and Pseudomonas UTI, increasing Ditropan which was used to try to help his bladder spasms and belladonna and opioid suppositories. These were all been discontinued at this time Review of Systems Review of Systems: Remains in moderate distress and moderate fatigue plus moderate confusion mostly complaining of bladder spasm no headache, blurry or double vision no speech or swallowing issues no chest pain, pressure or palpitations no shortness of breath, cough or wheezes No abdominal pain on 08/24/2019, no nausea or vomiting, continues with concerns with constipation or feeling of rectal pressure no dysuria, hematuria returned less clots but still discolored urine no focal joint pain or lower extremity swelling remains without back pain, CVA tenderness or radicular pain no bruising, bleeding or rashes no focal signs of weakness or numbness or altered sensation no complaints patient is confused and rambling at this time Physical Exam Physical Exam: The patient appeared well nourished and normally developed. Appears more fatigued and is mildly confused Vital signs as documented. Head exam is normocephalic atraumatic no scleral icterus Neck is without JVD, thyromegaly, or carotid bruits. Lungs are clear to auscultation, but diminished at the bases no focal loss of breath sounds Cardiac exam, Rhythm is regular.. No murmurs, rubs or gallops. Abdominal exam reveals normal bowel sounds, soft general mild tender, remains without suprapubic tenderness Extremities are mildly edematous and both pedal pulses are normal. Neurologic exam is alert and oriented x2, no focal loss of strength or sensation Skin is without bruises or rashes Psychologically is without concerns for hospital delirium Results & Data Results & Data ([facility]) Vital Signs (Past 12 Hours) Vital Signs Temp Pulse Pulse Resp BP BP Pulse Ox 08/24/19 06:57 98.8 F 83 16 159/83 H 94 08/24/19 04:24 98.6 F 79 20 131/72 95 08/24/19 00:00 75 08/23/19 23:13 98.4 F 80 21 141/79 H 95 08/23/19 19:32 98.2 F 80 18 138/65 96 PG Care Time/CCT Total # of Minutes Spent Total Time Spent with Patient: Total time spent is greater than 50% in coordination of care (as documented) at patient's floor/unit and/or counseling patient: Coding Level of Care Code 19245 Subseq Hosp Care Lvl 3 Diagnoses Acute blood loss anemia D62 Metabolic encephalopathy G93.41 Urinary tract infection N39.0 Depression F32.9 DVT prophylaxis Z29.9
[2019-08-24] MEDS: ATORVASTATIN 20 MG TAB PO SCH (07:38)
[2019-08-24] MEDS: PSYLLIUM 58.6% POWDER PACKET PO SCH (07:38)
[2019-08-24] MEDS: CIPROFLOXACIN 500 MG TAB PO SCH (07:39)
[2019-08-24] MEDS: CYANOCOBALAMIN 500 MCG TABLET (VITAMIN B-12) PO SCH (07:39)
[2019-08-24] MEDS: OXYBUTYNIN CHLORIDE XL 5 MG TABCR PO SCH (07:39)
[2019-08-24] MEDS: POLYETHYLENE (MIRALAX) 17 GM PACK PO SCH (07:40)
[2019-08-24] MEDS: MEMANTINE HCL 5 MG TAB PO SCH ×2 (07:40→20:28)
--- NOTE | 2019-08-24 08:24 | Urology Progress Note ---
Date of Service August 24, 2019 Assessment & Plan (1) Gross hematuria: Catheter removed yesterday - I think this will offer an improved chance of PT and ultimately progression towards DC - will follow labs - for now, seems to be voiding adequately Subjective doing ok very verbose this AM, but rambling thoughts some difficulty providing appropriate answers to my questions denies physical discomfort expressed frustration that he can't move around more voiding into a diaper denies bladder spasms or dysuria incontinence - as expected Review of Systems Review of Systems: All systems reviewed & are unremarkable except as noted in HPI & below Physical Exam Physical Exam: abd soft, bladder not palpably distended no clots within diaper or collected urine Constitutional: well developed and well nourished Respiratory: no respiratory distress Cardiovascular: Extremities: no pedal edema Gastrointestinal (Abdomen): Inspection/Auscultation: abdomen normal to inspection Results & Data Vital Signs (Past 12 Hours) Vital Signs Temp Pulse Pulse Resp BP Pulse Ox 08/24/19 06:57 37.1 C 83 16 159/83 H 94 08/24/19 04:24 37.0 C 79 20 131/72 95 08/24/19 00:00 75 08/23/19 23:13 36.9 C 80 21 141/79 H 95 PG Care Time/CCT Total # of Minutes Spent Total Time Spent with Patient: Total time spent is greater than 50% in coordination of care (as documented) at patient's floor/unit and/or counseling patient: Coding Level of Care Code 99673 Subseq Hosp Care Lvl 2 Diagnoses Gross hematuria R31.0
[2019-08-24 08:34] LABS: Hematocrit (blood only) 30.7 % (42-52); Hemoglobin 10.3 g/dL (14.0-18.0); Mean Corpuscular Hemoglobin 31.2 pg (25-34); Mean Corpuscular Hgb Conc 33.6 g/dL (32-36); Mean Platelet Volume 8.9 fL (7.4-10.4); Platelet Count 163 K/uL (130-400); RDW Standard Deviation 55.6 fL (36.4-46.3); White Blood Count 7.13 K/uL (4.8-10.8)
[2019-08-24 08:53] LABS: BUN Creatinine Ratio 14.2 (10-20); Calcium 7.9 mg/dl (8.5-10.1); Creatinine Clr Calc Pharmacy 37.5 ml/min; Est GFR (African American) 47.7; Est GFR (Non-African American) 41.1; Potassium 4.2 mmol/L (3.5-5.1)
[2019-08-24] MEDS: MIRTAZAPINE TAB 15 MG TAB PO SCH (20:28)
[2019-08-24] MEDS: TAMSULOSIN HCL 0.4 MG CAP PO SCH (20:28)
[2019-08-25] MEDS: CALCIUM CARBONATE 500 MG CHEWABLE TAB PO PRN (03:08)
[2019-08-25] MEDS: MEMANTINE HCL 5 MG TAB PO SCH ×2 (08:38→20:47)
[2019-08-25] MEDS: CYANOCOBALAMIN 500 MCG TABLET (VITAMIN B-12) PO SCH (08:39)
[2019-08-25] MEDS: ATORVASTATIN 20 MG TAB PO SCH (08:39)
[2019-08-25] MEDS: PSYLLIUM 58.6% POWDER PACKET PO SCH (09:35)
[2019-08-25] MEDS: POLYETHYLENE (MIRALAX) 17 GM PACK PO SCH (09:35)
[2019-08-25 09:51] LABS: Basophils # (auto) 0.05 K/uL (0-0.2); Basophils % (auto) 0.6 %; Eosinophils # (auto) 0.07 K/uL (0-0.5); Eosinophils % (auto) 0.9 %; Hematocrit (blood only) 28.8 % (42-52); Hemoglobin 9.9 g/dL (14.0-18.0); Immature Granulocytes # (auto) 0.09 K/uL (0.00-0.02); Immature Granulocytes % (auto) 1.2 %; Lymphocytes # (auto) 0.77 K/uL (1.2-3.4); Lymphocytes % (auto) 9.9 %; Mean Corpuscular Hgb Conc 34.4 g/dL (32-36); Mean Corpuscular Volume 93.2 fL (80-100); Mean Platelet Volume 8.9 fL (7.4-10.4); Monocytes # (auto) 0.46 K/uL (0.11-0.59); Monocytes % (auto) 5.9 %; Neutrophils # (auto) 6.36 K/uL (1.4-6.5); Neutrophils % (auto) 81.5 %; Platelet Count 194 K/uL (130-400); RDW Standard Deviation 55.9 fL (36.4-46.3); Red Blood Count 3.09 M/uL (4.7-6.1)
[2019-08-25 10:23] LABS: Albumin Level 1.9 gm/dl (3.4-5.0); BUN Creatinine Ratio 12.3 (10-20); Calcium 8.2 mg/dl (8.5-10.1); Creatinine Clr Calc Pharmacy 37.8 ml/min; Est GFR (African American) 48.1; Est GFR (Non-African American) 41.5
[2019-08-25 10:26] LABS: Albumin Globulin Ratio 0.5 (0.9-2); Bilirubin,Total 0.5 mg/dl (0.2-1); Globulin 3.6 gm/dl (2.5-4.0); Total Protein 5.5 gm/dl (6.4-8.2)
--- NOTE | 2019-08-25 16:13 | Hospitalist Progress Note ---
Date of Service August 25, 2019 Assessment & Plan (1) Acute blood loss anemia: pt has acute blood loss anemia from bleeding from bladder - Bleeding began after insertion of catheter in urology office. Patient has history of radiation for small cell bladder cancer S/p cystoscopy, clot evacuation and fulguration qith subsequent alum irrigation which has been discontinued Now is a total of 6 units of blood transfused - last transfusion 08/22 Hgb stable from yesterday at 9.9 (2) Metabolic encephalopathy: Improving Could be multifactorial from ciprofloxacin, his urinary tract infection, increasing Ditropan or belladonna or opioid administration. Discontined these medications except for as needed pain medication at this time Continue Namenda for dementia (3) Urinary tract infection: Patient had documented Klebsiella and Pseudomonas UTI on 13 August. Catheter associated - catheter placed in urology office for urinary retention Patient received 6 days of treatment for his UTI. Recollected urine culture no growth Catheter pulled per urology. Patient voided, though frequently incontinent so Is & Os are not accurate (4) Acute on chronic renal failure: Creatinine peaked at 3.13 after admission and treated with IVF. Now 1.5 and stable for the last week or so. 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 History of radiation with subsequent proctitis and rectal bleeding, cystitis, and prostate damage. Patient will have hyperbaric O2 treatments after discharge per urology Continue tamsulosin Continue psyllium, BM today (6) Depression: Patient is fairly depressed and at times confused likely from hospital delirium Recommend post discharge psychological follow-up Continue Remeron 15 mg HS initiated this admission (7) DVT prophylaxis: scds, avoid chemoprophylaxis due to acute blood loss anemia Dispo: referral sent to [facility] Admission and Anticipated Discharge Date Admission Date: August 14, 2019 Subjective Mr. Arenas was somnolent this morning, but aroused easily. He was oriented though with some confusion. is at bedside ROS Constitutional: no chills, aches, sweats or fever Respiratory: no sob,cough, sputum, or wheezing Cardiac: no chest pain, palpitations, edema, orthopnea or lightheadedness GI: no abdominal pain, nausea, vomiting, diarrhea or constipation : no dysuria or hesitancy Extremities: no joint pain or weakness Skin: no rash All other systems reviewed and negative Physical Exam Physical Exam: General: no distress Eyes: normal inspection, PERLL Respiratory: chest non tender, clear to auscultation, normal breath sounds, no respiratory distress, no accessory muscle use Cardiac: regular rate and rhythm, no rub or gallop, no murmur, no edema, no jvd GI/: active bowel sounds, no abd pain or tenderness, soft, non distended Extremities: normal range of motion, normal strength, non tender Neuro/Psych: alert and oriented x 3, normal mood and affect, some confusion Skin: normal color, dry Results & Data Results & Data ([facility]) Vital Signs (Past 12 Hours) Vital Signs Temp Pulse Resp BP Pulse Ox 08/25/19 14:57 36.6 C 85 19 188/80 H 94 08/25/19 07:29 36.8 C 78 22 153/68 H 95 PG Care Time/CCT Total # of Minutes Spent Total Time Spent with Patient: Total time spent is greater than 50% in coordination of care (as documented) at patient's floor/unit and/or counseling patient: Coding Level of Care Code 13025 Subseq Hosp Care Lvl 3 Diagnoses Acute blood loss anemia D62 Metabolic encephalopathy G93.41 Urinary tract infection N39.0 Acute on chronic renal failure N17.9; N18.9 Small cell carcinoma of bladder C67.9 Depression F32.9 DVT prophylaxis Z29.9
[2019-08-25] MEDS: TAMSULOSIN HCL 0.4 MG CAP PO SCH (20:46)
[2019-08-25] MEDS: MIRTAZAPINE TAB 15 MG TAB PO SCH (20:47)
[2019-08-26 06:28] LABS: Hematocrit (blood only) 32.6 % (42-52); Hemoglobin 10.9 g/dL (14.0-18.0); Mean Corpuscular Hemoglobin 31.6 pg (25-34); Mean Corpuscular Hgb Conc 33.4 g/dL (32-36); Mean Corpuscular Volume 94.5 fL (80-100); Mean Platelet Volume 8.9 fL (7.4-10.4); Platelet Count 198 K/uL (130-400); RDW Coefficient of Variation 16.8 % (11.5-14.5); RDW Standard Deviation 56.4 fL (36.4-46.3); Red Blood Count 3.45 M/uL (4.7-6.1); White Blood Count 6.29 K/uL (4.8-10.8)
[2019-08-26 06:48] LABS: BUN Creatinine Ratio 11.5 (10-20); Calcium 8.5 mg/dl (8.5-10.1); Creatinine Clr Calc Pharmacy 38.6 ml/min; Est GFR (African American) 49.2; Est GFR (Non-African American) 42.5
[2019-08-26 06:51] LABS: Albumin Globulin Ratio 0.5 (0.9-2); Bilirubin,Total 0.5 mg/dl (0.2-1); Globulin 4.1 gm/dl (2.5-4.0); Total Protein 6.1 gm/dl (6.4-8.2)
[2019-08-26 06:56] LABS: Basophils # (auto) 0.07 K/uL (0-0.2); Basophils % (auto) 1.1 %; Eosinophils # (auto) 0.14 K/uL (0-0.5); Eosinophils % (auto) 2.2 %; Immature Granulocytes # (auto) 0.11 K/uL (0.00-0.02); Immature Granulocytes % (auto) 1.7 %; Lymphocytes # (auto) 0.82 K/uL (1.2-3.4); Monocytes # (auto) 0.45 K/uL (0.11-0.59); Monocytes % (auto) 7.2 %; Neutrophils % (auto) 74.8 %
--- NOTE | 2019-08-26 08:27 | Urology Progress Note ---
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 for bladder cancer Overall, seems to be improving after catheter removal From a standpoint he is stablehemoglobin is remained steady I think he would be okay for discharge home or to a rehab facility from a standpoint We will arrange outpatient follow-up, please contact us if further issues arise during this hospitalization Subjective Subjectively doing relatively well He is happy to be on a regular floor He was in bed when I evaluated him but he reports that he has been ambulatory Voiding into a diaperreports he has no discomfort Review of Systems Review of Systems: All systems reviewed & are unremarkable except as noted in HPI & below Physical Exam Physical Exam: Relatively clear urine in the diaper, several small granular clots but nothing of significant concern Constitutional: well developed and well nourished Respiratory: no respiratory distress Cardiovascular: Extremities: no pedal edema Gastrointestinal (Abdomen): Inspection/Auscultation: abdomen normal to inspection Results & Data Vital Signs (Past 12 Hours) Vital Signs Temp Pulse Resp BP BP Pulse Ox 08/26/19 07:53 36.6 C 74 18 150/81 H 95 08/26/19 07:30 36.6 C 74 18 150/81 H 95 08/25/19 22:14 36.8 C 77 20 165/75 H 97 PG Care Time/CCT Total # of Minutes Spent Total Time Spent with Patient: Total time spent is greater than 50% in coordination of care (as documented) at patient's floor/unit and/or counseling patient: Coding Level of Care Code 25176 Subseq Hosp Care Lvl 2 Diagnoses Hematuria R31.0 Hematuria type: gross (1) Hematuria Hematuria type: gross Qualified Code(s): R31.0 - Gross hematuria
[2019-08-26] MEDS: ATORVASTATIN 20 MG TAB PO SCH (09:43)
[2019-08-26] MEDS: POLYETHYLENE (MIRALAX) 17 GM PACK PO SCH (09:43)
[2019-08-26] MEDS: PSYLLIUM 58.6% POWDER PACKET PO SCH (09:43)
[2019-08-26] MEDS: CYANOCOBALAMIN 500 MCG TABLET (VITAMIN B-12) PO SCH (09:43)
[2019-08-26] MEDS: MEMANTINE HCL 5 MG TAB PO SCH ×2 (09:43→20:06)
--- NOTE | 2019-08-26 15:43 | Hospitalist Progress Note ---
Date of Service August 26, 2019 Assessment & Plan (1) Acute blood loss anemia: pt has acute blood loss anemia from bleeding from bladder - Bleeding began after insertion of catheter in urology office. Patient has history of radiation from small cell bladder cancer S/p cystoscopy, clot evacuation and fulguration with subsequent alum irrigation which has been discontinued Now is a total of 6 units of blood transfused - last transfusion 08/22 Hgb stable (2) Metabolic encephalopathy: Improving Could be multifactorial from ciprofloxacin, his urinary tract infection, increasing Ditropan or belladonna or opioid administration. Discontined these medications except for as needed pain medication at this time Continue Namenda for dementia (3) Urinary tract infection: Patient had documented Klebsiella and Pseudomonas UTI on 13 August. Catheter associated - catheter placed in urology office for urinary retention Patient received 6 days of treatment for his UTI. Recollected urine culture no growth Catheter pulled per urology. Patient voided, though frequently incontinent so Is & Os are not accurate (4) Acute on chronic renal failure: Creatinine peaked at 3.13 after admission and treated with IVF. Now stable around 1.5 for the last week or so. 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 History of radiation with subsequent proctitis and rectal bleeding, cystitis, and prostate damage. Patient will have hyperbaric O2 treatments after discharge per urology Continue tamsulosin Continue psyllium, BM today (6) Depression: Periods of depression during this stay but mood is good today. Recommend post discharge psychological follow-up Continue Remeron 15 mg HS initiated this admission (7) DVT prophylaxis: scds, avoid chemoprophylaxis due to acute blood loss anemia Dispo: referral sent to [facility], will need negative COVID swab before he can discharge, this is pending. Admission and Anticipated Discharge Date Admission Date: August 14, 2019 Subjective Mr. Arenas is feeling well. Continues to have some confusion and disorientation but pleasant. at bed side. ROS Constitutional: no chills, aches, sweats or fever Respiratory: no sob,cough, sputum, or wheezing Cardiac: no chest pain, palpitations, edema, orthopnea or lightheadedness GI: no abdominal pain, nausea, vomiting, diarrhea or constipation : no dysuria or hesitancy Extremities: no joint pain or weakness Skin: no rash All other systems reviewed and negative Physical Exam Physical Exam: General: no distress Eyes: normal inspection, PERLL Respiratory: chest non tender, clear to auscultation, normal breath sounds, no respiratory distress, no accessory muscle use Cardiac: regular rate and rhythm, no rub or gallop, no murmur, no edema, no jvd GI/: active bowel sounds, no abd pain or tenderness, soft, non distended Extremities: normal range of motion, normal strength, non tender Neuro/Psych: alert and oriented x 3, normal mood and affect Skin: normal color, dry Results & Data Results & Data ([facility]) Vital Signs (Past 12 Hours) Vital Signs Temp Pulse Resp BP Pulse Ox 08/26/19 07:53 36.6 C 74 18 150/81 H 95 08/26/19 07:30 36.6 C 74 18 150/81 H 95 PG Care Time/CCT Total # of Minutes Spent Total Time Spent with Patient: Total time spent is greater than 50% in coordination of care (as documented) at patient's floor/unit and/or counseling patient: Coding Level of Care Code 58854 Subseq Hosp Care Lvl 2 Diagnoses Acute blood loss anemia D62 Metabolic encephalopathy G93.41 Urinary tract infection N39.0 Acute on chronic renal failure N17.9; N18.9 Small cell carcinoma of bladder C67.9 Depression F32.9 DVT prophylaxis Z29.9
[2019-08-26] MEDS: MIRTAZAPINE TAB 15 MG TAB PO SCH (20:07)
[2019-08-26] MEDS: TAMSULOSIN HCL 0.4 MG CAP PO SCH (20:07)
[2019-08-27 06:36] LABS: Basophils # (auto) 0.05 K/uL (0-0.2); Basophils % (auto) 0.8 %; Eosinophils % (auto) 1.6 %; Hematocrit (blood only) 28.6 % (42-52); Hemoglobin 9.4 g/dL (14.0-18.0); Immature Granulocytes # (auto) 0.12 K/uL (0.00-0.02); Lymphocytes # (auto) 0.63 K/uL (1.2-3.4); Lymphocytes % (auto) 10.3 %; Mean Corpuscular Hemoglobin 31.6 pg (25-34); Mean Corpuscular Hgb Conc 32.9 g/dL (32-36); Mean Corpuscular Volume 96.3 fL (80-100); Mean Platelet Volume 8.7 fL (7.4-10.4); Monocytes # (auto) 0.48 K/uL (0.11-0.59); Monocytes % (auto) 7.9 %; Neutrophils # (auto) 4.71 K/uL (1.4-6.5); Neutrophils % (auto) 77.4 %; Platelet Count 192 K/uL (130-400); RDW Standard Deviation 57.7 fL (36.4-46.3); Red Blood Count 2.97 M/uL (4.7-6.1); White Blood Count 6.09 K/uL (4.8-10.8)
[2019-08-27 07:12] LABS: BUN Creatinine Ratio 10.8 (10-20); Est GFR (African American) 43.9; Est GFR (Non-African American) 37.8; Potassium 4.1 mmol/L (3.5-5.1)
[2019-08-27] MEDS: MEMANTINE HCL 5 MG TAB PO SCH ×2 (07:59→20:32)
[2019-08-27] MEDS: POLYETHYLENE (MIRALAX) 17 GM PACK PO SCH (07:59)
[2019-08-27] MEDS: PSYLLIUM 58.6% POWDER PACKET PO SCH (07:59)
[2019-08-27] MEDS: CYANOCOBALAMIN 500 MCG TABLET (VITAMIN B-12) PO SCH (07:59)
[2019-08-27] MEDS: ATORVASTATIN 20 MG TAB PO SCH (07:59)
--- NOTE | 2019-08-27 12:50 | Nephrology Consultation ---
Date of Consultation August 27, 2019 Assessment & Plan (1) Acute on chronic renal failure: Creatinine has plateaued around 1.6 milligram/deciliter. Serum electrolytes are appropriate. He is nonoliguric. Volume status appears to be euvolemic. IV fluids provided early during hospitalization. Patient presented with acute kidney injury attributed to ATN own in the setting of acute blood loss anemia requiring packed red blood cell transfusion support, Klebsiella urinary tract infection, and possible component of postobstructive Physiology. Is contributing factors have improved with management. Lisinopril has been held. There is no emergent indication to restart the medication at this time. Current medications are appropriately dosed for kidney function. Follow-up urine studies are being sent today per discussion with MAHESH Fish. no additional evaluation is required at this time. Appropriate perspective monitoring will be provided. I discussed the role follow-up in Nephrology Clinic with the patient's today. They expressed understanding. (2) Acute blood loss anemia: With cancer stabilized. Symptoms improved. Urology follow-up scheduled. This time reasonable to maintain hemoglobin above 8. no role for CLIFF therapy. (3) Urinary tract infection: Improved treatment symptoms have resolved. 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 Follow-up with Urology. Follow-up with Oncology. History of Present Illness Reason for Consultation: PILY Requesting Physician: Luciano Garcia MD Attending Physician: Luciano Garcia MD History of Present Illness Mr. Dale Arenas is an 83-year-old male with early dementia, bladder cancer with metastatic disease, history of prostate cancer, and BPH. He was admitted to [facility] on August 13 with significant gross hematuria. The patient required cystoscopy with clot evacuation, fulguration, and alum irrigation. he had significant acute blood loss anemia. He has received a total of 6 units of packed red blood cells throughout his hospitalization. Blood counts appear to have stabilized. The patient's Ang catheter has been removed. he states that he is voiding without difficulty. The patient was seen and evaluated with his at the bedside today. He has never been previously evaluated by a oil lease broker. Patient's baseline creatinine prior to July had been 1.2-1.4. On July 27 think serum creatinine was found to be 1.3 milligram/deciliter. On August 14 creatinine has increased to 3.1 milligram/deciliter. Since that time has trended down to 1.6 milligrams/deciliter. Creatinine has remained stable at 1.51.6 milligrams/deciliter for several days. he feels well. He has not had any fluid retention. Lisinopril has been held due to acute kidney injury. Blood pressure remains acceptable. At this time the patient's disposition remains potential discharge to [facility] once bed available. The patient underwent trans urethral resection of bladder tumor in February of 2019. this was then followed by chemotherapy and radiation. He completed chemotherapy with carboplatin and etoposide 3/4 cycles. Unfortunately follow- up imaging revealed lung nodules. The bus then confirmed this to be metastatic disease. The patient started single agent check point inhibitor therapy with pembrolizumab in May. unfortunately has developed notable cystitis and prostatitis related to radiation treatments. In addition a small lesion has been seen on cystoscopy at the proximal Neck of the bladder. Current plan of care per Urology is perspective monitoring. Patient's hospitalization was also complicated by Klebsiella urinary tract infection. This was diagnosed on admission. He has completed a course of ciprofloxacin for management. Allergies Allergy/AdvReac Type Severity Reaction Status Date / Time No Known Allergies Allergy Verified 08/14/19 03:53 Home Medications Home Medications Medication Instructions Recorded Confirmed Type cyanocobalamin (vitamin B-12) 1,000 mcg PO QAM 02/15/18 08/14/19 History cholecalciferol (vitamin D3) 50 2,000 units PO HS 03/01/18 08/14/19 History mcg (2,000 unit) tablet atorvastatin 20 mg PO QAM 03/08/18 08/14/19 History Metamucil 1 tsp PO QAM 05/13/18 08/14/19 History Glucosamine Chondroitin 2 cap PO DAILY 02/25/19 08/14/19 History tamsulosin 0.4 mg capsule 0.4 mg PO HS #30 cap 05/16/19 08/14/19 Rx oxybutynin chloride 10 mg 10 mg PO DAILY #30 tab 06/19/19 08/14/19 Rx tablet,extended release 24 hr polyethylene glycol 3350 [Miralax] 17 g PO DAILY 30 Days #30 ea 07/11/19 08/14/19 Rx acetaminophen [Tylenol] 650 mg PO DIRECTED PRN 08/14/19 08/14/19 History lisinopril 5 mg PO DAILY 08/14/19 08/14/19 History memantine 5 mg PO BID 08/14/19 08/14/19 History Patient History Medical History Anemia s/p transfusion (04/2018) felt r/t chemo Asthma childhood/no current issues Cancer bladder, prostate cancer; s/p chemo/xrt completed 04/2018 CVA (cerebral vascular accident) evidence of old infarct on MRI "years ago" HLD (hyperlipidemia) HTN (hypertension) Left knee DJD Lung nodule Short-term memory loss "mild"/no definitive diagnosis Thrombocytopenia hx Surgical History History of bladder surgery Cystoscopy, TURBT= 02/18/18= LMA#5 at [facility] History of bronchoscopy History of cataract surgery R/L History of colonoscopy History of tooth extraction History of vascular access device A-port inserted and removed S/P bronchoscopy with biopsy (03/07/19) Endobronchial Ultrasound Dr. 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) Family History Mother , age 79 Heart disease Father , age 79 Myocardial infarction Brother , age 79 Dementia Daughter COPD (chronic obstructive pulmonary disease) Son No problems noted. Son No problems noted. 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 Feels Safe at Home: Yes Review of Systems Constitutional: + weakness and + weight loss; no fever, no chills, no anorexia, no weight gain and no problem reported Eyes: no problem reported Ear, Nose, Mouth, Throat: no problem reported Respiratory: no problem reported Cardiovascular: no edema and no problem reported Gastrointestinal: no problem reported Genitourinary: + post-void dribbling and + hematuria; no dysuria Musculoskeletal: no problem reported Integumentary: no problem reported Neurologic: + tremor(s); no problem reported Psychiatric: no problem reported Endocrine: no problem reported Hematologic / Lymphatic: no easy bleeding, no easy bruising and no problem reported Physical Exam Constitutional: well developed; no acute distress Eyes: no scleral abnormality and no corneal abnormality ENMT: Mouth: no oral mucosal abnormality and oral mucous membranes not dry Neck: normal visual inspection and trachea midline Respiratory: normal respiratory effort Auscultation: lungs clear to auscultation bilaterally Cardiovascular: Rate/Rhythm: regular rate Heart Sounds: normal S1 and normal S2 Extremities: no edema Musculoskeletal: Extremities: no cyanosis and no clubbing Skin: normal turgor; no lesions Neurologic: Motor/Sensory: no tremor and no asterixis Psychiatric: Orientation: alert and oriented x 3 Results & Data Vital Signs (Past 12 Hours) Vital Signs Temp Pulse Resp BP Pulse Ox 08/27/19 07:15 36.7 C 71 20 126/77 93 Laboratory Results Laboratory Results - last 24 hr 08/27/19 08/27/19 06:05 06:05 WBC 6.09 RBC 2.97 L Hgb 9.4 L Hct 28.6 L MCV 96.3 MCH 31.6 MCHC 32.9 RDW Std Deviation 57.7 H RDW Coeff of Latasha 17.0 H Plt Count 192 MPV 8.7 Immature Gran % (Auto) 2.0 Neut % (Auto) 77.4 Lymph % (Auto) 10.3 [place] % (Auto) 7.9 Eos % (Auto) 1.6 Baso % (Auto) 0.8 Neut # (Auto) 4.71 Lymph # (Auto) 0.63 L [place] # (Auto) 0.48 Eos # (Auto) 0.10 Baso # (Auto) 0.05 Immature Gran # (Auto) 0.12 H Sodium 143 Potassium 4.1 Chloride 112 H Carbon Dioxide 29 Anion Gap 2.0 L BUN 18 Creatinine 1.64 H Est Cr Clr Drug Dosing 35.0 Est GFR ( Amer) 43.9 Est GFR (Non-Af Amer) 37.8 BUN/Creatinine Ratio 10.8 Glucose 113 H Calcium 8.0 L PG Care Time/CCT Total # of Minutes Spent Total Time Spent with Patient: Total time spent is greater than 50% in coordination of care (as documented) at patient's floor/unit and/or counseling patient: Coding Level of Care Code 74555 Inpt Consult Level 4 Diagnoses Acute on chronic renal failure N17.9; N18.9 Acute blood loss anemia D62 Urinary tract infection N39.0 Small cell carcinoma of bladder C67.9
--- NOTE | 2019-08-27 13:52 | Hospitalist Progress Note ---
Date of Service August 27, 2019 Assessment & Plan (1) Acute blood loss anemia: pt has acute blood loss anemia from bleeding from bladder - Bleeding began after insertion of catheter in urology office. Patient has history of radiation from small cell bladder cancer S/p cystoscopy, clot evacuation and fulguration with subsequent alum irrigation which has been discontinued Now is a total of 6 units of blood transfused - last transfusion 08/22 Hgb stable (2) Metabolic encephalopathy: Improving Could be multifactorial from ciprofloxacin, his urinary tract infection, increasing Ditropan or belladonna or opioid administration. Discontined these medications except for as needed pain medication at this time Continue Namenda for dementia (3) Urinary tract infection: Patient had documented Klebsiella and Pseudomonas UTI on 13 August. Catheter associated - catheter placed in urology office for urinary retention Patient received 6 days of treatment for his UTI. Recollected urine culture no growth Catheter pulled per urology. Patient voiding, though frequently incontinent so Is & Os are not accurate (4) Acute on chronic renal failure: Creatinine peaked at 3.13 after admission and treated with IVF. Now stable around 1.5 for the last week or so. 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 History of radiation with subsequent proctitis and rectal bleeding, cystitis, and prostate damage. Patient will have hyperbaric O2 treatments after discharge per urology Continue tamsulosin Continue psyllium (6) Depression: Periods of depression during this stay but mood has been good over the last few days. Recommend post discharge psychological follow-up Continue Remeron 15 mg HS initiated this admission (7) DVT prophylaxis: scds, avoid chemoprophylaxis due to acute blood loss anemia Dispo: referral sent to [facility], will need negative COVID swab before he can di scharge, this is pending. Admission and Anticipated Discharge Date Admission Date: August 14, 2019 Subjective Mr. Aernas feels well today, no complaints. at bedside. Per nursing notes he is incontinent of brown urine. His hgb has been stable. ROS Constitutional: no chills, aches, sweats or fever Respiratory: no sob,cough, sputum, or wheezing Cardiac: no chest pain, palpitations, edema, orthopnea or lightheadedness GI: no abdominal pain, nausea, vomiting, diarrhea or constipation : no dysuria or hesitancy Extremities: no joint pain or weakness Skin: no rash All other systems reviewed and negative Physical Exam Physical Exam: General: no distress Eyes: normal inspection, PERLL Respiratory: chest non tender, clear to auscultation, normal breath sounds, no respiratory distress, no accessory muscle use Cardiac: regular rate and rhythm, no rub or gallop, no murmur, no edema, no jvd GI/: active bowel sounds, no abd pain or tenderness, soft, non distended Extremities: normal range of motion, normal strength, non tender Neuro/Psych: alert and oriented x 3, normal mood and affect Skin: normal color, dry Results & Data Results & Data ([facility] Vital Signs (Past 12 Hours) Vital Signs Temp Pulse Resp BP Pulse Ox 08/27/19 07:15 36.7 C 71 20 126/77 93 PG Care Time/CCT Total # of Minutes Spent Total Time Spent with Patient: Total time spent is greater than 50% in coordination of care (as documented) at patient's floor/unit and/or counseling patient: Coding Level of Care Code 31181 Subseq Hosp Care Lvl 2 Diagnoses Acute blood loss anemia D62 Metabolic encephalopathy G93.41 Urinary tract infection N39.0 Acute on chronic renal failure N17.9; N18.9 Small cell carcinoma of bladder C67.9 Depression F32.9 DVT prophylaxis Z29.9
[2019-08-27 15:25] LABS: Appearance Urine Cloudy (Clear); Bilirubin Urine Negative (Negative); Blood Urine 3+ (Negative); Color Urine Brown; Glucose Urine UA Negative (Negative); Ketones Urine Negative (Negative); Leukocyte Esterase Urine 2+ (Negative); Nitrite Urine Negative (Negative); Protein Urine 2+ (Negative); Specific Gravity Urine 1.025 (1.000-1.030); Urobilinogen Urine Negative (Negative); pH Urine 6.5 (4.5-7.5)
[2019-08-27 15:37] LABS: Bacteria Urine 3+ (Negative); Epithelial Cell Urine >30 /lpf (0-5); RBC Urine >30 /hpf (0-4); WBC Urine >30 /hpf (0-5)
[2019-08-27] MEDS: MIRTAZAPINE TAB 15 MG TAB PO SCH (20:32)
[2019-08-27] MEDS: TAMSULOSIN HCL 0.4 MG CAP PO SCH (20:32)
[2019-08-28 06:37] LABS: Hematocrit (blood only) 28.4 % (42-52); Hemoglobin 9.3 g/dL (14.0-18.0); Mean Corpuscular Hemoglobin 31.2 pg (25-34); Mean Corpuscular Hgb Conc 32.7 g/dL (32-36); Mean Corpuscular Volume 95.3 fL (80-100); Mean Platelet Volume 8.9 fL (7.4-10.4); Platelet Count 194 K/uL (130-400); RDW Coefficient of Variation 16.7 % (11.5-14.5); RDW Standard Deviation 57.1 fL (36.4-46.3); Red Blood Count 2.98 M/uL (4.7-6.1); White Blood Count 4.56 K/uL (4.8-10.8)
[2019-08-28 07:04] LABS: BUN Creatinine Ratio 11.9 (10-20); Calcium 8.2 mg/dl (8.5-10.1); Creatinine Clr Calc Pharmacy 36.1 ml/min; Est GFR (African American) 45.5; Est GFR (Non-African American) 39.3; Potassium 3.8 mmol/L (3.5-5.1)
--- NOTE | 2019-08-28 09:13 | Nephrology Progress Note ---
Date of Service August 28, 2019 Assessment & Plan (1) Acute on chronic renal failure: Creatinine stable at 1.6 milligram/deciliter. Serum electrolytes are appropriate. Nonoliguric. Euvolemic. Medications appropriately dosed for kidney function. No emergent indication to restart ACEi at this time. BP is acceptable. Remains in recovery phase from PILY. Please repeat a metabolic profile in 1 week of discharge. Follow up in the nephrology clinic in 2 weeks. (2) Acute blood loss anemia: Urology follow-up scheduled. H/H stable. (3) Urinary tract infection: Denies any current symptoms. Tolerated treatment well. (4) Small cell carcinoma of bladder: Follow-up with Oncology. Admission and Anticipated Discharge Date Admission Date: August 14, 2019 Subjective No acute events overnight. Dale was resting comfortably in bed this morning. No fevers or chills or pain. Voiding without difficulty. Review of Systems Review of Systems: All systems reviewed & are unremarkable except as noted in HPI & below Physical Exam Constitutional: well developed and + thin; no acute distress Eyes: no scleral abnormality and no corneal abnormality ENMT: Mouth: no oral mucosal abnormality and oral mucous membranes not dry Neck: normal visual inspection and trachea midline Respiratory: normal respiratory effort Auscultation: lungs clear to auscultation bilaterally Cardiovascular: Rate/Rhythm: regular rate Heart Sounds: normal S1 and normal S2 Extremities: no edema Musculoskeletal: Extremities: no cyanosis and no clubbing Skin: normal turgor; no lesions Neurologic: Motor/Sensory: no tremor and no asterixis Psychiatric: Orientation: alert and oriented x 3 Results & Data ([facility]) Vital Signs (Past 12 Hours) Vital Signs Temp Pulse Resp BP Pulse Ox 08/28/19 07:06 36.3 C L 76 16 124/70 93 08/27/19 23:15 36.5 C 69 18 116/69 96 Laboratory Results Laboratory Results - last 24 hr 08/26/19 08/27/19 08/28/19 Unknown Unknown 06:10 WBC 4.56 L RBC 2.98 L Hgb 9.3 L Hct 28.4 L MCV 95.3 MCH 31.2 MCHC 32.7 RDW Std Deviation 57.1 H RDW Coeff of Latasha 16.7 H Plt Count 194 MPV 8.9 Sodium Potassium Chloride Carbon Dioxide Anion Gap BUN Creatinine Est Cr Clr Drug Dosing Est GFR ( Amer) Est GFR (Non-Af Amer) BUN/Creatinine Ratio Glucose Calcium Urine Color Brown Urine Appearance Cloudy A Urine pH 6.5 Ur Specific [place] 1.025 Urine Protein 2+ H Urine Glucose (UA) Negative Urine Ketones Negative Urine Blood 3+ H Urine Nitrite Negative Urine Bilirubin Negative Urine Urobilinogen Negative Ur Leukocyte Esterase 2+ H Urine RBC >30 H Urine WBC >30 H Ur Epithelial Cells >30 H Urine Bacteria 3+ H Granular Casts 10-20 H SARS-CoV-2 RNA (RT-PCR) NEGATIVE 08/28/19 06:10 WBC RBC Hgb Hct MCV MCH MCHC RDW Std Deviation RDW Coeff of Latasha Plt Count MPV Sodium 142 Potassium 3.8 Chloride 110 H Carbon Dioxide 26 Anion Gap 6.0 BUN 19 H Creatinine 1.59 H Est Cr Clr Drug Dosing 36.1 Est GFR ( Amer) 45.5 Est GFR (Non-Af Amer) 39.3 BUN/Creatinine Ratio 11.9 Glucose 92 Calcium 8.2 L Urine Color Urine Appearance Urine pH Ur Specific [place] Urine Protein Urine Glucose (UA) Urine Ketones Urine Blood Urine Nitrite Urine Bilirubin Urine Urobilinogen Ur Leukocyte Esterase Urine RBC Urine WBC Ur Epithelial Cells Urine Bacteria Granular Casts SARS-CoV-2 RNA (RT-PCR) PG Care Time/CCT Total # of Minutes Spent Total Time Spent with Patient: Total time spent is greater than 50% in coordination of care (as documented) at patient's floor/unit and/or counseling patient: Coding Level of Care Code 08729 Subseq Hosp Care Lvl 3 Diagnoses Acute on chronic renal failure N17.9; N18.9 Acute blood loss anemia D62 Urinary tract infection N39.0 Small cell carcinoma of bladder C67.9
[2019-08-28] MEDS: POLYETHYLENE (MIRALAX) 17 GM PACK PO SCH (10:28)
[2019-08-28] MEDS: PSYLLIUM 58.6% POWDER PACKET PO SCH (10:28)
[2019-08-28] MEDS: MEMANTINE HCL 5 MG TAB PO SCH ×2 (10:29→22:14)
[2019-08-28] MEDS: ATORVASTATIN 20 MG TAB PO SCH (10:29)
[2019-08-28] MEDS: CYANOCOBALAMIN 500 MCG TABLET (VITAMIN B-12) PO SCH (10:29)
--- NOTE | 2019-08-28 16:30 | Hospitalist Progress Note ---
Date of Service August 28, 2019 Assessment & Plan (1) Acute blood loss anemia: pt has acute blood loss anemia from bleeding from bladder - Bleeding began after insertion of catheter in urology office. Patient has history of radiation from small cell bladder cancer S/p cystoscopy, clot evacuation and fulguration with subsequent alum irrigation which has been discontinued Now is a total of 6 units of blood transfused - last transfusion 08/22 Hgb stable (2) Metabolic encephalopathy: Improving Could be multifactorial from ciprofloxacin, his urinary tract infection, increasing Ditropan or belladonna or opioid administration. Discontined these medications except for as needed pain medication at this time Continue Namenda for dementia (3) Urinary tract infection: Patient had documented Klebsiella and Pseudomonas UTI on 13 August. Catheter associated - catheter placed in urology office for urinary retention Patient received 6 days of treatment for his UTI. Recollected urine culture no growth Catheter pulled per urology. Patient voiding, though frequently incontinent so Is & Os are not accurate Urine culture from 08/26 pending (4) Acute on chronic renal failure: Creatinine peaked at 3.13 after admission and treated with IVF. Now stable around 1.5 for the last week or so. 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 History of radiation with subsequent proctitis and rectal bleeding, cystitis, and prostate damage. Patient will have hyperbaric O2 treatments after discharge per urology Continue tamsulosin Continue psyllium (6) Depression: Periods of depression during this stay but mood has been good over the last few days. Recommend post discharge psychological follow-up Continue Remeron 15 mg HS initiated this admission (7) DVT prophylaxis: scds, avoid chemoprophylaxis due to acute blood loss anemia - will doppler left leg as it is edematous greater than right Dispo: referral sent to [facility], will need negative COVID swab before he can discharge, this is pending. Admission and Anticipated Discharge Date Admission Date: August 14, 2019 Subjective Patient appears comfortable, no complaints. ROS Constitutional: no chills, aches, sweats or fever Respiratory: no sob,cough, sputum, or wheezing Cardiac: no chest pain, palpitations, edema, orthopnea or lightheadedness GI: no abdominal pain, nausea, vomiting, diarrhea or constipation : no dysuria or hesitancy Extremities: no joint pain or weakness Skin: no rash All other systems reviewed and negative Physical Exam Physical Exam: General: no distress Eyes: normal inspection, PERLL Respiratory: chest non tender, clear to auscultation, normal breath sounds, no respiratory distress, no accessory muscle use Cardiac: regular rate and rhythm, no rub or gallop, no murmur,left lower extremity edema, no jvd GI/: active bowel sounds, no abd pain or tenderness, soft, non distended Extremities: normal range of motion, normal strength, non tender Neuro/Psych: alert and oriented x 3, normal mood and affect Skin: normal color, dry Results & Data Results & Data ([facility]) Vital Signs (Past 12 Hours) Vital Signs Temp Pulse Resp BP BP Pulse Ox 08/28/19 15:17 36.8 C 76 18 123/69 96 08/28/19 07:06 36.3 C L 76 16 124/70 93 PG Care Time/CCT Total # of Minutes Spent Total Time Spent with Patient: Total time spent is greater than 50% in coordination of care (as documented) at patient's floor/unit and/or counseling patient: Coding Level of Care Code 19202 Subseq Hosp Care Lvl 2 Diagnoses Acute blood loss anemia D62 Metabolic encephalopathy G93.41 Urinary tract infection N39.0 Acute on chronic renal failure N17.9; N18.9 Small cell carcinoma of bladder C67.9 Depression F32.9 DVT prophylaxis Z29.9
--- NOTE | 2019-08-28 17:22 | Ultrasound Report ---
US venous doppler LE LT HISTORY: 83 years-old Male edema acute swelling of left lower extremity COMPARISON: None TECHNIQUE: Multiple real-time sonographic images of the left lower extremity deep venous structures w ere obtained assessing grayscale appearance, color and spectral flow FINDINGS: Occlusive thrombus of the distal popliteal vein is noted in addition to occlusive thrombus within one of the posterior tibial veins and also within the peroneal vein. Extensive arterial calcifications a re noted. IMPRESSION: 1. Occlusive deep venous thrombosis as above. 2. Extensive lower extremity arterial calcifications. ACT 112: Negative or not required by law. The above report was generated using voice recognition software. It may contain grammatical, syntax o r spelling errors. Electronically signed by: Pj Santo M.D. 08/28/2019 5:20 PM
[2019-08-28] MEDS: TAMSULOSIN HCL 0.4 MG CAP PO SCH (22:14)
[2019-08-28] MEDS: MIRTAZAPINE TAB 15 MG TAB PO SCH (22:14)
[2019-08-29 06:55] LABS: Hematocrit (blood only) 27.3 % (42-52); Mean Corpuscular Hemoglobin 31.5 pg (25-34); Mean Corpuscular Volume 95.5 fL (80-100); Mean Platelet Volume 8.7 fL (7.4-10.4); Platelet Count 180 K/uL (130-400); RDW Coefficient of Variation 16.6 % (11.5-14.5); RDW Standard Deviation 56.9 fL (36.4-46.3); Red Blood Count 2.86 M/uL (4.7-6.1); White Blood Count 4.42 K/uL (4.8-10.8)
[2019-08-29 07:20] LABS: Basophils # (auto) 0.04 K/uL (0-0.2); Basophils % (auto) 0.9 %; Eosinophils # (auto) 0.08 K/uL (0-0.5); Eosinophils % (auto) 1.8 %; Immature Granulocytes # (auto) 0.08 K/uL (0.00-0.02); Immature Granulocytes % (auto) 1.8 %; Lymphocytes # (auto) 0.67 K/uL (1.2-3.4); Lymphocytes % (auto) 15.2 %; Monocytes # (auto) 0.43 K/uL (0.11-0.59); Monocytes % (auto) 9.7 %; Neutrophils # (auto) 3.12 K/uL (1.4-6.5); Neutrophils % (auto) 70.6 %
[2019-08-29 07:27] LABS: BUN Creatinine Ratio 11.8 (10-20); Calcium 7.7 mg/dl (8.5-10.1); Creatinine Clr Calc Pharmacy 39.6 ml/min; Est GFR (African American) 50.9; Est GFR (Non-African American) 43.9; Potassium 4.4 mmol/L (3.5-5.1)
[2019-08-29] MEDS ORDERED: CEFAZOLIN 2000MG 2,000 MG/15 ML SYR IV SCH (07:58)
--- NOTE | 2019-08-29 08:00 | Consultation ---
Date of Consultation August 29, 2019 Assessment & Plan (1) Acute DVT (deep venous thrombosis): Due to the bleeding history and the high likelyhood of recurrent bleeding, would recommend insertion of filter. I have discussed the risks options and benefits of the procedure with the patient. The patient understands the risks options and benefits and agrees to the procedure. 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 He developed severe cytitis with significant bleeding requiring 6 units of blood. He now has developed an acute DVT of the left lower extremity. Urology claims he is not a candidate for anticoagulation being that he most likely will rebleed. Allergies Allergy/AdvReac Type Severity Reaction Status Date / Time No Known Allergies Allergy Verified 08/14/19 03:53 Home Medications Home Medications Medication Instructions Recorded Confirmed Type cyanocobalamin (vitamin B-12) 1,000 mcg PO QAM 02/15/18 08/14/19 History cholecalciferol (vitamin D3) 50 2,000 units PO HS 03/01/18 08/14/19 History mcg (2,000 unit) tablet atorvastatin 20 mg PO QAM 03/08/18 08/14/19 History Metamucil 1 tsp PO QAM 05/13/18 08/14/19 History Glucosamine Chondroitin 2 cap PO DAILY 02/25/19 08/14/19 History tamsulosin 0.4 mg capsule 0.4 mg PO HS #30 cap 05/16/19 08/14/19 Rx oxybutynin chloride 10 mg 10 mg PO DAILY #30 tab 06/19/19 08/14/19 Rx tablet,extended release 24 hr polyethylene glycol 3350 [Miralax] 17 g PO DAILY 30 Days #30 ea 07/11/19 08/14/19 Rx acetaminophen [Tylenol] 650 mg PO DIRECTED PRN 08/14/19 08/14/19 History lisinopril 5 mg PO DAILY 08/14/19 08/14/19 History memantine 5 mg PO BID 08/14/19 08/14/19 History Patient History Medical History Anemia s/p transfusion (04/2018) felt r/t chemo Asthma childhood/no current issues Cancer bladder, prostate cancer; s/p chemo/xrt completed 04/2018 CVA (cerebral vascular accident) evidence of old infarct on MRI "years ago" HLD (hyperlipidemia) HTN (hypertension) Left knee DJD Lung nodule Short-term memory loss "mild"/no definitive diagnosis Thrombocytopenia hx Surgical History History of bladder surgery Cystoscopy, TURBT= 02/18/18= LMA#5 at [facility] History of bronchoscopy History of cataract surgery R/L History of colonoscopy History of tooth extraction History of vascular access device A-port inserted and removed S/P bronchoscopy with biopsy (03/07/19) Endobronchial Ultrasound Dr. 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) Family History Mother , age 79 Heart disease Father , age 79 Myocardial infarction Brother , age 79 Dementia Daughter COPD (chronic obstructive pulmonary disease) Son No problems noted. Son No problems noted. 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 Feels Safe at Home: Yes Review of Systems Review of Systems: All systems reviewed & are unremarkable except as noted in HPI & below Physical Exam Constitutional: WD/WN, vitals as above Respiratory: normal respiratory effort, lungs clear to auscultation Cardiovascular: Rate/Rhythm: regular rate Gastrointestinal (Abdomen): Inspection/Auscultation: abdomen normal to inspection; abdomen not distended Percussion/Palpation: abdomen nontender Psychiatric: Orientation: alert and oriented x 3 Results & Data Vital Signs (Past 12 Hours) Vital Signs Temp Pulse Resp BP Pulse Ox 08/28/19 23:06 37.1 C 80 16 131/80 94
[2019-08-29] MEDS: PSYLLIUM 58.6% POWDER PACKET PO SCH (09:00)
[2019-08-29] MEDS: CYANOCOBALAMIN 500 MCG TABLET (VITAMIN B-12) PO SCH (09:00)
[2019-08-29] MEDS: MEMANTINE HCL 5 MG TAB PO SCH (09:00)
[2019-08-29] MEDS: POLYETHYLENE (MIRALAX) 17 GM PACK PO SCH (09:00)
[2019-08-29] MEDS: ATORVASTATIN 20 MG TAB PO SCH (09:00)
--- NOTE | 2019-08-29 10:25 | Hospitalist Progress Note ---
Date of Service August 29, 2019 Assessment & Plan (1) Acute blood loss anemia: pt has acute blood loss anemia from bleeding from bladder - Bleeding began after insertion of catheter in urology office. 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 Discontined these medications except for as needed pain medication at this time Continue Namenda for dementia (3) Urinary tract infection: Patient had documented Klebsiella and Pseudomonas UTI on 13 August. Catheter associated - catheter placed in urology office for urinary retention Patient received 6 days of treatment for his UTI. Recollected urine culture no growth Catheter pulled per urology. Patient voiding, though frequently incontinent so Is & Os are not accurate Urine culture from 08/26 pending - growing two staph species at present. Will hold off on treating as patient is not sypmtomatic (4) Acute on chronic renal failure: Creatinine peaked at 3.13 after admission and treated with IVF. Now stable around 1.5 for the last week or so. 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 History of radiation with subsequent proctitis and rectal bleeding, cystitis, and prostate damage. Multiple admissions for acute blood loss anemia Patient will have hyperbaric O2 treatments after discharge per urology Continue tamsulosin Continue psyllium (6) Depression: Periods of depression during this stay but mood has been good over the last few days. Recommend post discharge psychological follow-up Continue Remeron 15 mg HS initiated this admission (7) Acute DVT (deep venous thrombosis): US left lower extremity with DVT in distal popliteal, peroneal and tibial veins. Discussed with urology - patient is not a candidate for anticoagulation given his bleeding history and high risk for re-bleed Consulted vascular surgery - patient will have IVC filter placed today (8) DVT prophylaxis: SCDs held due to acute DVT Dispo: referral sent to [facility], not medically ready for discharge today due to filter placement, possibly able to discharge tomorrow Admission and Anticipated Discharge Date Admission Date: August 14, 2019 Subjective Mr. Arenas seems a little more confused today with increased word finding difficulties but pleasant and overall understanding of his care. His is bedside. He is scheduled for IVC filter placement today due to left lower extremity blood clot. He denies any pain though mentions that he feels he is having heartburn after meals with increased burping. He is not having any heartburn at this point and denies any chest pain or shortness of breath. He has a condom catheter in place which is draining yellow urine. ROS Constitutional: no chills, aches, sweats or fever Respiratory: no sob,cough, sputum, or wheezing Cardiac: no chest pain, palpitations, edema, orthopnea or lightheadedness GI: no abdominal pain, nausea, vomiting, diarrhea or constipation : no dysuria or hesitancy Extremities: no joint pain or weakness Skin: no rash All other systems reviewed and negative Physical Exam Physical Exam: General: no distress Eyes: normal inspection, PERLL Respiratory: chest non tender, clear to auscultation, normal breath sounds, no respiratory distress, no accessory muscle use Cardiac: regular rate and rhythm, no rub or gallop, systolic murmur 2/6 rusb, left lower extremity edema, no jvd GI/: active bowel sounds, no abd pain or tenderness, soft, non distended Extremities: normal range of motion, normal strength, non tender Neuro/Psych: alert and oriented x 3, normal mood and affect Skin: normal color, dry Results & Data Results & Data ([facility]) Vital Signs (Past 12 Hours) Vital Signs Temp Pulse Resp BP Pulse Ox 08/29/19 08:13 36.7 C 73 18 127/75 94 08/28/19 23:06 37.1 C 80 16 131/80 94 PG Care Time/CCT Total # of Minutes Spent Total Time Spent with Patient: Total time spent is greater than 50% in coordination of care (as documented) at patient's floor/unit and/or counseling patient: Coding Level of Care Code 61297 Subseq Hosp Care Lvl 3 Diagnoses Acute blood loss anemia D62 Metabolic encephalopathy G93.41 Urinary tract infection N39.0 Acute on chronic renal failure N17.9; N18.9 Small cell carcinoma of bladder C67.9 Depression F32.9 Acute DVT (deep venous thrombosis) I82.409 DVT prophylaxis Z29.9
[2019-08-29] MEDS ORDERED: LIDOCAINE HCL 1% 20 ML VIAL ONE (12:28)
[2019-08-29] MEDS ORDERED: MIDAZOLAM HCL 1 MG/ML 2ML VIAL ONE (12:37)
[2019-08-29] MEDS ORDERED: fentaNYL citrate 100 MCG/2 ML VIAL ONE (12:37)
--- NOTE | 2019-08-29 13:11 | Pre Anesthesia Assessment ---
Date of Service August 29, 2019 Pre Sedation Assessment Vital Signs Temp Pulse Resp BP Pulse Ox 08/29/19 12:24 36.7 C 67 18 132/70 08/29/19 08:13 36.7 C 73 18 127/75 94 08/28/19 23:06 37.1 C 80 16 131/80 94 08/28/19 15:17 36.8 C 76 18 123/69 96 Cardiovascular RRR, no murmur, no edema Respiratory normal respiratory effort, lungs clear to auscultation Pre-Sedation Airway Assessment Smoking Status: Former smoker Hx Sleep Apnea: No Short, Thick Neck: No Thyromental Distance: > or= 3.5 Finger Breadths Oral Cavity: + WNL Mallampati Class: II ASA: ASA3 NPO Status Date of Last Intake of Fluids: 08/28/19 Time of Last Intake of Fluids: 23:30 Date of Last Intake of Solid Food: 08/28/19 Time of Last Intake of Solid Foods: 23:30 Procedure Planning Contraindications for Sedation: none Current Medications Reviewed: Yes Notes The planned sedation has been discussed with the patient. Informed Consent was obtained. I have identified the patient, determined the appropriateness of sedation and have assessed the patient immediately prior to the procedure. All medicine(s) and interventions are by my order.
--- NOTE | 2019-08-29 13:46 | Operative Report ---
Post Operative Report Pre & Post Diagnosis Operation Date: 08/15/19 09:15 Pre-Op Diagnosis: Hematuria Post-Op Diagnosis: Hematuria Operation Date: 08/29/19 11:40 Pre-Op Diagnosis: Acute DVT, Contraindication to Anticoagulation Post-Op Diagnosis: Acute DVT, Contraindication to Anticoagulation I identified the patient and participated in the time-out.: Yes Procedure Operation Date: 08/15/19 09:15 Actual Procedures p Cystoscopy, Clot Evacuation and Fulguration(Not Applicable) - Reid Jarrell MD Operation Date: 08/29/19 11:40 Actual Procedures p Insertion of Vena Cava Filter, Right Femoral Approach, Ultrasound Localization of Right Femoral Vein, Fluoroscopy for Positioning; Moderate Sedation From 1318 to 1345. - Lg Beaver MD Surgeon E, MD Saranya Chief Sales Officer none Estimated Blood Loss 0 Findings Consistent with Post-Op Diagnosis Fluids Crystalloid Specimens None Drains None Anesthesia Type RN Sedation Complications none Disposition Accompanied Patient To Recovery: No Disposition: Recovery Room Indications Mr. Pedro Arenas is an 83-year-old male with a history of bladder cancer who presents with hematuria. Additionally he was found to have a DVT which will require anticoagulation but unfortunately this is contraindicated at this time. He presents today for placement of a vena cava filter. Description of Procedure The patient was brought to the angio suite and placed in the supine position. The right groin was prepped and draped in the usual fashion. The patient was identified and a timeout was performed. The right common femoral vein was located with ultrasound. It was patent, compressed easily, and had no filling defects. The vein was then punctured under ultrasound visualization. A guidewire was then passed centrally into the inferior vena cava under fluoroscopic guidance. The puncture site was then dilated and the filter sheath inserted. It was passed to the infra renal vena cava. A venacavagram was done which showed no cava clot and an acceptable size. The renal veins were identified. The filter was then passed through the sheath and deployed in the infra renal vena cava in an upright position. Satisfied with the positioning of the filter, the sheath was removed. Pressure was applied to the puncture site. Adequate hemostasis was obtained and a sterile dressing was applied. The chucky ent left the angio suite in good condition and tolerated the procedure well.Dr. Beaver was present and scrubbed for the entire procedure. I attest to the content of the Intraoperative Record and any orders documented therein. Any exceptions are noted below.
[2019-08-29] MEDS ORDERED: VISIPAQUE IV PRN (14:13)
[2019-08-29] MEDS ORDERED: LIDOCAINE HCL 1% 20 ML VIAL INJ ONE (14:20)
--- NOTE | 2019-08-29 15:43 | Discharge Summary ---
Date of Service August 29, 2019 Admission HPI Per Admitting Provider Dale Arenas is an 83 year old man with a past medical history significant for bladder cancer followed by [facility] Dr. Araiza. He has been having hematuria for some time, was just seen in office yesterday and had his bladder irrigated and was found to have a small bleeding vessel in bladder neck. 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 They were informed to come to ED if hematuria did not slow. Patient continued to have dark red hematuria both into his catheter and around catheter along with bladder spasm and progressie weakness. When he got home tonight he was unable to even get himself up into bed he was so weak. decided to bring him in to be evaluated. In ED vitals WNL labwork significant for elevated white count and severe blood loss anemia with hemoglobin of 6.4. He was also found to have an PILY with creatinine of 2.48. At time of my visit patient is quite confused and unable to answer most of my questions but fortunately is able to give me history. She tells me his mental status is about his baseline and over the last several years it has been slowly declining. On review of systems only positive symptoms are hematuria, progressive weakness, and bladder discomfort. Lives at home with who cares for him, former smoker forty years ago, former social drinker nothing in several months, no history of drug use. DNR/DNI Principal Diagnosis Hematuria Discharge Exam Constitutional WD/WN, vitals as above Respiratory normal respiratory effort, lungs clear to auscultation Cardiovascular Rate/Rhythm: regular rate and regular rhythm Heart Sounds: + murmur (2/6 systolic murmur) Gastrointestinal (Abdomen) Inspection/Auscultation: abdomen normal to inspection and normal bowel sounds; abdomen not distended Percussion/Palpation: abdomen soft; abdomen nontender Musculoskeletal no cyanosis or clubbing, extremities motor strength 5/5 Skin no rashes, warm and dry Neurologic moves all extremities and awake Psychiatric A+Ox3, euthymic affect (with short term memory loss) Discharge Data Allergies Allergy/AdvReac Type Severity Reaction Status Date / Time No Known Allergies Allergy Verified 08/14/19 03:53 Consultations 08/14/19 05:12 ED Decision to Admit Stat 08/14/19 07:34 Consult Urology Routine 08/14/19 08:09 Consult Case Management - Discharge Planning Routine 08/16/19 13:30 Consult Case Management - Discharge Planning Routine 08/27/19 08:58 Consult Nephrology Routine 08/28/19 17:38 Consult Vascular Surgery Routine Procedures Performed Operation Date: 08/15/19 09:15 Actual Procedures p Cystoscopy, Clot Evacuation and Fulguration(Not Applicable) - Reid Jarrell MD Operation Date: 08/29/19 11:40 Actual Procedures p Insertion of Vena Cava Filter, Right Femoral Approach, Ultrasound Localization of Right Femoral Vein, Fluoroscopy for Positioning; Moderate Sedation From 1318 to 1345. - Lg Beaver MD Ordered Studies 08/28/19 16:28 US venous doppler LE LT Routine 08/29/19 07:57 EV IVC filter placement Routine Hospital Course (1) Acute blood loss anemia: pt has acute blood loss anemia from bleeding from bladder - Bleeding began after insertion of catheter in urology office. 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 Discontined these medications except for as needed pain medication at this time Continue Namenda for dementia (3) Urinary tract infection: Patient had documented Klebsiella and Pseudomonas UTI on 13 August. Catheter associated - catheter placed in urology office for urinary retention Patient received 6 days of treatment for his UTI. Recollected urine culture no growth Catheter pulled per urology. Patient voiding, though frequently incontinent so Is & Os are not accurate Urine culture from 08/26 pending - growing two staph species at present. Will hold off on treating as patient is not symptomatic and is likely contaminant from skin isrrael (4) Acute on chronic renal failure: Creatinine peaked at 3.13 after admission and treated with IVF. Now stable around 1.5 for the last week or so. 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 History of radiation with subsequent proctitis and rectal bleeding, cystitis, and prostate damage. Multiple admissions for acute blood loss anemia Patient will have hyperbaric O2 treatments after discharge per urology Continue tamsulosin Continue psyllium (6) Depression: Periods of depression during this stay but mood has been good over the last few days. Recommend post discharge psychological follow-up Continue Remeron 15 mg HS initiated this admission (7) Acute DVT (deep venous thrombosis): US left lower extremity 08/27 with DVT in distal popliteal, peroneal and tibial veins. Discussed with urology - patient is not a candidate for anticoagulation given his bleeding history and high risk for re-bleed Consulted vascular surgery - patient had IVC filter placed today 08/[address] Beaver - patient is ok to discharge this evening following procedure. He can remove the dressing tomorrow. (8) DVT prophylaxis: SCDs held due to acute DVT Dispo: to [facility] Total Time Total Time Spent Total Time Spent (In Minutes): greater than 30 minutes Discharge Plan Discharge Items Patient Disposition: Transfer Nursing Home Fac Reason For Visit: ANEMIA, HEMATURIA BLADDER CANCER Discharge Diagnosis: Anemia, hematuria, bladder cancer Activity: Resume your previous activity Activity Comment: gradually as tolerated Non-emergency contact: Primary Care Provider and Urologist Call non-emergency contact if: you have any medication questions, your symptoms worsen and you have a fever Follow-up/Referrals: Yeny Mast MD [Primary Care Provider] - Diet: Regular Addtl Attending Provider Instructions: (1) Acute blood loss anemia: Hematuria - bleeding began after insertion of catheter in urology office. 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 Araiza in the urology office (2) Metabolic encephalopathy: Resolved Multifactorial from ciprofloxacin, his urinary tract infection, increasing Ditropan or belladonna or opioid administration. Discontinued these medications except for as needed pain medication at this time Continue Namenda for dementia (3) Urinary tract infection: Patient had documented Klebsiella and Pseudomonas UTI on 13 August. Catheter associated - catheter placed in urology office for urinary retention Patient received 6 days of treatment for his UTI. Recollected urine culture no growth Catheter pulled per urology. Patient voiding, though frequently incontinent so Is & Os are not accurate Urine culture from 08/26 - growing two as yet unidentified staph species at present. Will hold off on treating as patient is not symptomatic (4) Acute on chronic renal failure: Creatinine peaked at 3.13 after admission and treated with IV fluids. Now stable around 1.5 for the last week or so. 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 History of radiation with subsequent proctitis and rectal bleeding, cystitis, and prostate damage. Multiple admissions for acute blood loss anemia Patient will have hyperbaric O2 treatments after discharge per urology Continue tamsulosin Continue psyllium (6) Depression: Periods of depression during this stay but mood has been good over the last few days. Recommend post discharge psychological follow-up Continue Remeron 15 mg HS initiated this admission (7) Acute DVT (deep venous thrombosis): US left lower extremity with DVT in distal popliteal, peroneal and tibial veins. Discussed with urology - patient is not a candidate for anticoagulation given his bleeding history and high risk for re-bleed Consulted vascular surgery - patient had IVC filter placed today 08/28. Please monitor over the next 24 hours for any bleeding or swelling. If this occurs, hold pressure and contact provider. Please refer to enclosed information on IVC filter for warning signs and when to call provider. Dressing can be removed tomorrow. Pending Studies at Discharge: No Stand-Alone Forms: My [facility] Skilled Items Patient informed of condition?: Yes DNR: Yes Discharge Level of Care: Acute rehab Communicable Disease: No Discharge Prognosis: Stable Lines: None Urinary Catheter: No Medications and DC Order Prescriptions: New calcium carbonate [Tums] 200 mg calcium (500 mg) Tablet,Chewable 1,000 mg PO Q6H PRN (Reason: dyspepsia) Qty: 30 RF: 0 mirtazapine 15 mg Tablet 15 mg PO HS Qty: 30 RF: 0 Continued cholecalciferol (vitamin D3) 2,000 unit tablet 2,000 units PO HS RF: 0 tamsulosin 0.4 mg capsule 0.4 mg PO HS Qty: 30 RF: 2 oxybutynin chloride 10 mg tablet extended release 24hr 10 mg PO DAILY Qty: 30 RF: 2 cyanocobalamin (vitamin B-12) 1,000 mcg Tablet 1,000 mcg PO QAM RF: 0 Glucosamine Chondroitin 550-30-1 mg Capsule 2 cap PO DAILY RF: 0 atorvastatin 20 mg Tablet 20 mg PO QAM RF: 0 Metamucil 3.4 gram/5.4 gram Powder 1 tsp PO QAM RF: 0 polyethylene glycol 3350 [Miralax] 17 gram Powder In Packet 17 g PO DAILY 30 Days Qty: 30 RF: 3 acetaminophen [Tylenol] 325 mg Tablet 650 mg PO DIRECTED PRN (Reason: pain/fever) RF: 0 memantine 5 mg Tablet 5 mg PO BID RF: 0 Discontinued lisinopril 5 mg Tablet 5 mg PO DAILY RF: 0 Discharge Orders: Discharge Order (Routine); Ordered 08/29/19 Ordered By: Roya Ya/Other Patient Handouts: IVC Filter Placement Tx Admission Data Admit Date/Time: 08/14/19 06:23 Attending Provider: Luciano Garcia Admit Provider: Edu Carlin Primary Care Provider: Yeny Mast Other Providers: Ruth Kohli Shelby ; Anel Obregon ; Ifeanyi Araiza ; Patrick Livingston ; Lg Beaver Other Interventions: Discharge Summary Assessment (RN) Last Done: 08/29/19 16:17 DC Date/Time DO NOT enter until pt leaves facility: 08/29/19 17:15 Supervising Physician Co-Signing Physician Notes I supervised Roya Arellano NP on this patient's care. I examined the patient today independently of her. I discussed the plan of care with her with the plan being as written in her note except for any following changes/exceptions: None. Doing well today after his IVC filter placement. No pain, vitals stable. Ready for discharge to [facility]. Coding Level of Care Code D/C Day Management >30 mins Diagnoses Acute blood loss anemia D62 Metabolic encephalopathy G93.41 Urinary tract infection N39.0 Acute on chronic renal failure N17.9; N18.9 Small cell carcinoma of bladder C67.9 Depression F32.9 Acute DVT (deep venous thrombosis) I82.409 DVT prophylaxis Z29.9
[2019-08-29 16:28] VITALS: BP 114/67; PULSE 71; TEMP 97.9; O2SAT 95
== END 2019-08-29 17:15 | DRG 662 ==
LOC: ED 03:20 → 2E 06:23 → SUATTDRO 06:23 → 2E 06:56 → 3N 08-24 15:30

== ENCOUNTER 2019-09-17 15:36 | Inpatient (IN) ==
[2019-09-17] MEDS ORDERED: SODIUM CHLORIDE 0.9% 1000ML 500 ML IV ONE (15:43)
[2019-09-17 16:23] LABS: Basophils # (auto) 0.04 K/uL (0-0.2); Basophils % (auto) 0.7 %; Eosinophils # (auto) 0.04 K/uL (0-0.5); Eosinophils % (auto) 0.7 %; Hematocrit (blood only) 29.4 % (42-52); Hemoglobin 9.2 g/dL (14.0-18.0); Immature Granulocytes # (auto) 0.05 K/uL (0.00-0.02); Immature Granulocytes % (auto) 0.9 %; Lymphocytes # (auto) 0.79 K/uL (1.2-3.4); Lymphocytes % (auto) 14.4 %; Mean Corpuscular Hemoglobin 31.1 pg (25-34); Mean Corpuscular Hgb Conc 31.3 g/dL (32-36); Mean Corpuscular Volume 99.3 fL (80-100); Mean Platelet Volume 9.2 fL (7.4-10.4); Monocytes # (auto) 0.59 K/uL (0.11-0.59); Monocytes % (auto) 10.8 %; Neutrophils # (auto) 3.96 K/uL (1.4-6.5); Neutrophils % (auto) 72.5 %; Platelet Count 156 K/uL (130-400); RDW Coefficient of Variation 18.2 % (11.5-14.5); RDW Standard Deviation 65.3 fL (36.4-46.3); Red Blood Count 2.96 M/uL (4.7-6.1); White Blood Count 5.47 K/uL (4.8-10.8)
[2019-09-17 16:33] LABS: INR 1.1 (0.9-1.1); Partial Thromboplastin Ratio 0.9; Partial Thromboplastin Time 24.7 Seconds (21.0-31.0); Prothrombin Time 11.9 Seconds (9.0-12.0)
[2019-09-17 16:40] LABS: Alanine Aminotransferase 17 U/L (12-78); Albumin Level 2.7 gm/dl (3.4-5.0); Aspartate Aminotransferase 19 U/L (15-37); BUN Creatinine Ratio 14.5 (10-20); Blood Urea Nitrogen 26 mg/dl (7-18); Calcium 8.8 mg/dl (8.5-10.1); Carbon Dioxide 23 mmol/L (21-32); Chloride 114 mmol/L (98-107); Creatinine Clr Calc Pharmacy 31.5 ml/min; Est GFR (Non-African American) 34.5; Glucose 141 mg/dl (70-99); Magnesium 2.2 mg/dl (1.8-2.4); Potassium 4.2 mmol/L (3.5-5.1); Sodium 144 mmol/L (136-145)
--- NOTE | 2019-09-17 16:43 | XRay Report ---
SINGLE VIEW CHEST CLINICAL HISTORY: Sepsis. FINDINGS: An AP, portable, upright chest radiograph is compared to study dated 03/07/2019 and correlat ed with chest CT dated 04/22/2019. The heart is enlarged noting atherosclerotic calcification of the t horacic ureter. The pulmonary vasculature is noncongested. Chronic interstitial thickening is similar to previous. There is bibasilar scarring/atelectasis. No airspace consolidation or large pleural eff usion is identified. Numerous pulmonary nodules seen on the prior chest CT are not visualized by x-ra y. No pneumothorax is seen. The skeletal structures are osteopenic. The bony thorax is grossly intact . IMPRESSION: Mild cardiac enlargement with no acute cardiopulmonary abnormality. ACT 112: Negative or not required by law. Electronically signed by: Ángel Manjarrez M.D. 09/17/2019 4:42 PM
[2019-09-17 16:45] LABS: Albumin Globulin Ratio 0.6 (0.9-2); Alkaline Phosphatase 83 U/L (45-117); Bilirubin,Total 0.5 mg/dl (0.2-1); Globulin 4.5 gm/dl (2.5-4.0); Total Protein 7.2 gm/dl (6.4-8.2); Troponin I < 0.015 ng/ml (0-0.045)
[2019-09-17] MEDS ORDERED: SODIUM CHLORIDE 0.9% 500 ML IV ONE (18:47)
[2019-09-17 20:08] LABS: Appearance Urine Turbid (Clear); Bilirubin Urine Negative (Negative); Blood Urine 3+ (Negative); Color Urine Red; Glucose Urine UA Trace (Negative); Ketones Urine Negative (Negative); Leukocyte Esterase Urine Negative (Negative); Nitrite Urine Negative (Negative); Protein Urine 3+ (Negative); Specific Gravity Urine 1.025 (1.000-1.030); Urobilinogen Urine Negative (Negative); pH Urine 6.5 (4.5-7.5)
[2019-09-17 20:13] LABS: Bacteria Urine Negative (Negative); Epithelial Cell Urine 20-30 /lpf (0-5); RBC Urine >30 /hpf (0-4); WBC Urine >30 /hpf (0-5)
[2019-09-17] MEDS ORDERED: VANCOMYCIN HCL 1,500 MG in SODIUM CHLORIDE 0.9% 500 ML IV ONE (20:19)
[2019-09-17] MEDS ORDERED: VANCOMYCIN CONSULT ACTIVE PRN (20:19)
[2019-09-17] MEDS ORDERED: CEFEPIME 2,000 MG/20 ML VIAL IV STA (20:19)
--- NOTE | 2019-09-17 21:46 | History & Physical Report ---
Date of Service September 17, 2019 Assessment & Plan (1) Acute on chronic renal failure: (2) Urinary tract infection: Dale Arenas is an 83yo M witha PMHx of dementia and memory loss, prostate cancer with radiation cystitis, HLD, HTN, and recurrent urinary bleeding 2/2 radiation cystitis who presents with 1 day of low blood pressure, dysuria, urinary frequency, and penile pain with a UA concerning for UTI. Recurrent UTI with hx of multiple organisms including Pseudomonas -Received 1 L of fluids plus cefepime/vancomycin in ED Blood pressure improved UA with epithelials, otherwise potentially concerning for infection. Sent for culture Admit with cefepime/Dapto (convert from Vanco for concerns of underlying kidney function) CBC daily Pending UC/speciation Bladder scan as needed May condom cath if needed Pedal edema Patient reports that he has had pedal edema for several months, but does not have prior heart problems. His reports that they were supposed to be in the hospital tomorrow for some type of testing, she thinks for a echo but is not sure Provide with case management, patient is scheduled for a transthoracic routine echocardiogram. Will order to have performed while inpatient. Radiation cystitis, history of bladder cancer, intermittent LUTS Recurrent UTIs as above, history of recurrent hematuria recently treated with hyperbaric therapy Defer DVT pharmacal prophylaxis Continue tamsulosin followed as outpatient by urology. Follow clinically at this time Hypertension Improved with fluids and antibiotics as above Follow clinically Continue atorvastatin Chronic dementia, memory loss Continue memantine Continue Remeron Disposition: MedSurg with telemetry given hypertension and past history Diet: Regular DVT prophylaxis: SCDs, defer pharmacal prophylaxis given recurrent history of hematuria CODE STATUS: DNR/DNI. Confirmed with patient and his (3) DVT prophylaxis: (4) Radiation proctitis: (5) Rectal bleeding: (6) Enlarged prostate with lower urinary tract symptoms (LUTS): (7) Dementia: (8) HTN (hypertension): (9) 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: (10) UTI (urinary tract infection): History of Present Illness Chief Complaint: Hypertension, dysuria Primary Care Provider: Yeny Mast MD Mr. Arenas is an 83-year-old male with a past medical history of radiation cystitis, dementia and memory loss, and hypertension with recurrent urologic interventions who presents with dysuria, fatigue, and hypotension. He is seen at the bedside with his who helps give collateral. They report his symptoms began about 1 day ago, and he was seen at a follow-up appointment with urology who noted that he was hypotensive and recommended he be seen in the emergency department. He denies fever, chills, sweats, and abdominal pain but endorses bladder spasm, dysuria, and increased incontinence and urgency overnight for 1 day. He denies lightheadedness, syncope, presyncope. He has had multiple urinary tract infections before with multiple pathogens including Pseudomonas. His thinks that he was scheduled to have a test done tomorrow, but does not remember the name of the test and would like us to double check to see if this can be done while he is in the hospital. No other questions or concerns at time of HPI. Medical history: Reviewed Surgical history: Reviewed Medications: Reviewed Allergies: Reviewed Social: Former tobacco use, no current alcohol/tobacco/recreational drug use. CODE STATUS: NR/DNI, confirmed with patient and his Allergies Allergy/AdvReac Type Severity Reaction Status Date / Time No Known Allergies Allergy Verified 09/17/19 17:39 Home Medications Home Medications Medication Instructions Recorded Confirmed Type cyanocobalamin (vitamin B-12) 1,000 mcg PO QAM 02/15/18 09/17/19 History cholecalciferol (vitamin D3) 50 2,000 units PO HS 03/01/18 09/17/19 History mcg (2,000 unit) tablet atorvastatin 20 mg PO QAM 03/08/18 09/17/19 History Metamucil 1 tsp PO QAM PRN 05/13/18 09/17/19 History Glucosamine Chondroitin 2 cap PO DAILY 02/25/19 09/17/19 History polyethylene glycol 3350 [Miralax] 17 g PO DAILY 30 Days #30 ea 07/11/19 09/17/19 Rx memantine 5 mg PO BID 08/14/19 09/17/19 History calcium carbonate [Tums] 1,000 mg PO Q6H PRN #30 tab 08/29/19 09/17/19 Rx mirtazapine 15 mg PO HS #30 tab 08/29/19 09/17/19 Rx tamsulosin 0.4 mg capsule 0.4 mg PO HS #30 cap 09/08/19 09/17/19 Rx oxybutynin chloride 10 mg 10 mg PO DAILY #30 tab 09/11/19 09/17/19 Rx tablet,extended release 24 hr Past Med/Surg History Medical History Anemia s/p transfusion (04/2018) felt r/t chemo Asthma childhood/no current issues Cancer bladder, prostate cancer; s/p chemo/xrt completed 04/2018 CVA (cerebral vascular accident) evidence of old infarct on MRI "years ago" HLD (hyperlipidemia) HTN (hypertension) Left knee DJD Lung nodule Short-term memory loss "mild"/no definitive diagnosis Thrombocytopenia hx Surgical History History of bladder surgery Cystoscopy, TURBT= 02/18/18= LMA#5 at [facility] History of bronchoscopy History of cataract surgery R/L History of colonoscopy History of tooth extraction History of vascular access device A-port inserted and removed S/P bronchoscopy with biopsy (03/07/19) Endobronchial Ultrasound Dr. 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) Family History Mother , age 79 Heart disease Father , age 79 Myocardial infarction Brother , age 79 Dementia Daughter COPD (chronic obstructive pulmonary disease) Son No problems noted. Son No problems noted. 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 Endorses ankle swelling chronically over several months Respiratory: Denies shortness of breath, cough, sputum production, difficulty breathing Gastrointestinal: Denies abdominal pain, nausea, vomiting, constipation, diarrhea Genitourinary: See HPI Musculoskeletal: See HPI Integumentary:Denies acute rash, lesions, bruising Neurological: Denies headache, numbness, tingling, focal weakness Physical Exam Physical Exam: General: Alert, cooperative, pleasant. Not oriented to date. Oriented to place and name. HEENT: Atraumatic, normocephalic. Pupils equal and responsive to light and accommodation. Visual acuity grossly intact. Pulm: CTAB A&P. -wheezes, -rales, -rhonchi. Symmetrical chest rise. No increase work of breathing. No respiratory distress. Cardiac: RRR, -mrg. Radial pulses intact and symmetrical. Trace ankle edema bilaterally. Abdominal: Nontender, nondistended, soft. BS present. Extremities: Moving all extremities equally, sensation to soft touch grossly intact in upper and lower distal extremities without deficit. Results & Data Results & Data ([facility]) Vital Signs (Past 12 Hours) Vital Signs Temp Pulse Resp BP Pulse Ox 09/17/19 21:01 67 19 120/55 L 09/17/19 21:00 66 21 09/17/19 20:31 57 L 17 137/53 L 96 09/17/19 20:30 58 L 15 97 09/17/19 20:00 58 L 16 112/58 L 95 09/17/19 19:30 56 L 18 123/65 97 09/17/19 19:02 60 15 96 09/17/19 19:01 63 18 133/62 97 09/17/19 19:00 60 18 97 09/17/19 18:30 56 L 16 103/58 L 95 09/17/19 18:20 58 L 16 93 09/17/19 18:07 57 L 22 102/52 L 96 09/17/19 18:00 57 L 17 102/52 L 99 09/17/19 17:32 60 20 105/59 L 96 09/17/19 16:22 65 18 93/54 L 94 09/17/19 16:01 77 20 96 09/17/19 16:00 96 09/17/19 15:52 36.6 C 77 20 92/64 L 96 Code Status & VTE Plan VTE Prophylaxis Plan VTE Prophylaxis will be ordered: Yes Supervising Physician Co-Signing Physician Notes Attending addendum: I have physically seen this patient, have supervised the medical residents activities, and agree with the H&P unless as otherwise noted. Assessment and Plan: Acute on chronic CKD- Creatinine 1.77 upon admission, with range 1.45-1.67. Repeat BMP in a.m. Recurrent UTI/history of Pseudomonas and others- Received cefepime and vancomycin in the ED. Admit on cefepime and daptomycin Follow urine culture and sensitivities 1 L IV fluids normal saline given in ED Hyperlipidemia- Continue atorvastatin Dementia/Memory loss- Continue memantine and mirtazapine Remainder of orders and notations as noted Resident Activity Tracking Resident Involvement: Resident Care Provided Care Provided: Adult Hospital Medicine
[2019-09-17] MEDS ORDERED: CALCIUM CARBONATE 500 MG CHEWABLE TAB PO PRN (23:26)
[2019-09-17] MEDS ORDERED: PSYLLIUM 58.6% POWDER PACKET PO PRN (23:26)
[2019-09-17] MEDS ORDERED: DAPTOMYCIN CONSULT ACTIVE PRN (23:26)
[2019-09-17] MEDS ORDERED: POLYETHYLENE (MIRALAX) 17 GM PACK PO PRN ×2 (23:26)
[2019-09-17] MEDS ORDERED: ACETAMINOPHEN 325 MG TAB PO PRN ×2 (23:26)
[2019-09-18 05:58] LABS: Basophils # (auto) 0.03 K/uL (0-0.2); Basophils % (auto) 0.6 %; Eosinophils # (auto) 0.05 K/uL (0-0.5); Hematocrit (blood only) 24.7 % (42-52); Hemoglobin 8.2 g/dL (14.0-18.0); Immature Granulocytes # (auto) 0.03 K/uL (0.00-0.02); Immature Granulocytes % (auto) 0.6 %; Lymphocytes # (auto) 0.92 K/uL (1.2-3.4); Lymphocytes % (auto) 19.1 %; Mean Corpuscular Hemoglobin 33.2 pg (25-34); Mean Corpuscular Hgb Conc 33.2 g/dL (32-36); Mean Platelet Volume 9.2 fL (7.4-10.4); Monocytes # (auto) 0.62 K/uL (0.11-0.59); Monocytes % (auto) 12.9 %; Neutrophils # (auto) 3.16 K/uL (1.4-6.5); Neutrophils % (auto) 65.8 %; Platelet Count 135 K/uL (130-400); RDW Coefficient of Variation 18.4 % (11.5-14.5); RDW Standard Deviation 66.5 fL (36.4-46.3); Red Blood Count 2.47 M/uL (4.7-6.1); White Blood Count 4.81 K/uL (4.8-10.8)
[2019-09-18 06:26] LABS: BUN Creatinine Ratio 16.1 (10-20); Calcium 7.5 mg/dl (8.5-10.1); Creatinine Clr Calc Pharmacy 37.8 ml/min; Est GFR (Non-African American) 47.4; Potassium 4.8 mmol/L (3.5-5.1)
--- NOTE | 2019-09-18 06:36 | Electrocardiogram Report ---
Test Reason : Blood Pressure : / mmHG Vent. Rate : 074 BPM Atrial Rate : 074 BPM P-R Int : 130 ms QRS Dur : 094 ms QT Int : 392 ms P-R-T Axes : -19 -31 028 degrees QTc Int : 435 ms Normal sinus rhythm Left axis deviation Moderate voltage criteria for LVH, may be normal variant Abnormal ECG When compared with ECG of 20-AUG-2019 00:00, Vent. rate has decreased BY 38 BPM Confirmed by Arian Bear ([id number]) on 09/18/2019 6:35:48 AM Referred By: Confirmed By:Arian Bear
[2019-09-18] MEDS ORDERED: DAPTOmycin 275 MG in SYRINGE 0 ML IV SCH (08:00)
[2019-09-18] MEDS ORDERED: NON-FORMULARY MEDICATION (Glucos Sul 2kcl-Msm-Chond-C-Mn [Glucosamine Chondroitin] 2 CAP) PO SCH (09:00)
[2019-09-18] MEDS: OXYBUTYNIN CHLORIDE XL 5 MG TABCR PO SCH (09:35)
[2019-09-18] MEDS: ATORVASTATIN 20 MG TAB PO SCH (09:36)
[2019-09-18] MEDS: MEMANTINE HCL 5 MG TAB PO SCH ×2 (09:36→23:06)
[2019-09-18] MEDS: CYANOCOBALAMIN 500 MCG TABLET (VITAMIN B-12) PO SCH (09:36)
[2019-09-18] MEDS: POLYETHYLENE (MIRALAX) 17 GM PACK PO SCH (09:41)
--- NOTE | 2019-09-18 10:59 | Emergency Department Note ---
Impression & Plan Acute hypotension, Hematuria, Acute UTI (urinary tract infection), Anemia ED Provider Note NAME: BRIANA MENDES AGE: 83 SEX: M : 1935 ARRIVES VIA: Ambulance INFORMANT: Patient, the patient's significant other ED PROVIDER(S): Vaughn Soriano DO CHIEF COMPLAINT: Low blood pressure HPI: The patient is an 83-year-old male who presented to the emergency department for evaluation of generalized weakness. The patient was recently admitted to our facility for similar complaints. He was having a follow-up appointment with his primary care physician today and was found to have very low blood pressure. The patient also complains of generalized weakness. For this reason he was sent to the emergency department for further evaluation. The patient denies having any chest pain at this time. He is had no recent falls. He is noticed no dark or bloody bowel movements. ROS: See above HPI for pertinent positives & negatives. A total of 10 systems reviewed and were otherwise negative. PAST MEDICAL HISTORY: See Below PAST SURGICAL HISTORY: See Below FAMILY HISTORY: See Below SOCIAL HISTORY: See Below HOME MEDICATIONS: See Below ALLERGIES: See Below VITALS: See Below PHYSICAL EXAMINATION: GENERAL: The patient is awake and alert. He is nonanxious appearing and comfortable. EYES: The conjunctivae are pale. The pupils are round and reactive. EARS, NOSE, MOUTH AND THROAT: The nose is without any evidence of any deformity. NECK: The neck is nontender and supple. RESPIRATORY: Normal respiratory effort is noted there is no evidence of wheezing rhonchi or rales CARDIOVASCULAR: Regular rate and rhythm noted there no murmurs rubs or gallops normal S1 normal S2. GASTROINTESTINAL: The abdomen is soft. Abdomen is nontender. MUSCULOSKELETAL/EXTREMITIES: There is no evidence of gross deformity full range of motion is noted in the hips and shoulders. SKIN: There is no obvious evidence of any rash. Pedal edema was noted bilaterally. NEUROLOGIC: Patient is awake alert and oriented x3. Strength is symmetric but diminished. MEDICAL DECISION MAKING: The patient is an 83-year-old male who presented to the emergency department for an evaluation of low blood pressure. The patient was treated with IV fluids in the emergency department. He was also treated with IV antibiotics for presumed urinary tract infection noted on urinalysis. I discussed the patient's laboratory and radiographic studies with him and his significant other. I also [facility] agreed to evaluate the patient in the emergency department for further management and disposition. Triage Nursing notes reviewed. Prior medical records reviewed Vital Signs: reviewed and remarkable for low blood pressure. Differential diagnosis: Infection, dehydration, metabolic abnormality, hypo/hyperglycemia, electrolyte disturbance, anemia, hypoxia, cardiac sources, intracerebral event, toxicologic, neurologic, as well as other pathologies. ER treatment provided: See below Diagnostics interpreted by me: ECG: EKG was obtained in the emergency department. My interpretation is normal sinus rhythm at 74 bpm. LVH was noted by voltage criteria. There is no acute ST segment abnormalities noted. This was compared to a tracing from August 20, 2019. No significant changes were noted. Cardiac Monitoring: An order was placed for continuous cardiac monitoring. The monitor shows a rate of 82 with sinus rhythm. Laboratory studies: As stated above and show below. Imaging studies: See below Consultation(s): [facility]. They have agreed to evaluate the patient for further management and disposition. Past Med/Surg History Medical History Anemia s/p transfusion (04/2018) felt r/t chemo Asthma childhood/no current issues Cancer bladder, prostate cancer; s/p chemo/xrt completed 04/2018 CVA (cerebral vascular accident) evidence of old infarct on MRI "years ago" HLD (hyperlipidemia) HTN (hypertension) Left knee DJD Lung nodule Short-term memory loss "mild"/no definitive diagnosis Thrombocytopenia hx Surgical History History of bladder surgery Cystoscopy, TURBT= 02/18/18= LMA#5 at [facility] History of bronchoscopy History of cataract surgery R/L History of colonoscopy History of tooth extraction History of vascular access device A-port inserted and removed S/P bronchoscopy with biopsy (03/07/19) Endobronchial Ultrasound Dr. 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) Family History Mother , age 79 Heart disease Father , age 79 Myocardial infarction Brother , age 79 Dementia Daughter COPD (chronic obstructive pulmonary disease) Son No problems noted. Son No problems noted. 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 Feels Safe at Home: Yes Allergies Allergies Allergy/AdvReac Type Severity Reaction Status Date / Time No Known Allergies Allergy Verified 09/17/19 17:39 Home Meds Home Medications Medication Instructions Recorded Confirmed cyanocobalamin (vitamin B-12) 1,000 mcg PO QAM 02/15/18 09/17/19 cholecalciferol (vitamin D3) 50 2,000 units PO HS 03/01/18 09/17/19 mcg (2,000 unit) tablet atorvastatin 20 mg PO QAM 03/08/18 09/17/19 Metamucil 1 tsp PO QAM PRN 05/13/18 09/17/19 Glucosamine Chondroitin 2 cap PO DAILY 02/25/19 09/17/19 memantine 5 mg PO BID 08/14/19 09/17/19 Previous Rx's Medication Instructions Recorded polyethylene glycol 3350 [Miralax] 17 g PO DAILY 30 Days #30 ea 07/11/19 calcium carbonate [Tums] 1,000 mg PO Q6H PRN #30 tab 08/29/19 mirtazapine 15 mg PO HS #30 tab 08/29/19 tamsulosin 0.4 mg capsule 0.4 mg PO HS #30 cap 09/08/19 oxybutynin chloride 10 mg 10 mg PO DAILY #30 tab 09/11/19 tablet,extended release 24 hr Results & Data (ED) Vital Signs Vital Signs - 24 hr 09/17/19 15:52 09/17/19 16:00 09/17/19 16:01 Temperature 36.6 C Temperature Source Oral Pulse Rate 77 77 Pulse Rate from SpO2 Sensor Respiratory Rate 20 20 Respiratory Effort / Characteristics Non-Labored Spontaneous Respiratory Depth Normal Respiratory Pattern Regular Blood Pressure 92/64 L Blood Pressure Mean 73 Pulse Oximetry 96 96 96 Oxygen Delivery Method Room Air Room Air Room Air Sepsis Recent Fever Within 48 Hours No Sepsis New/Unexplained Change in Mental Status No Sepsis Action Taken by Nursing No Action Required 09/17/19 16:22 09/17/19 17:32 09/17/19 18:00 Temperature Temperature Source Pulse Rate 65 60 57 L Pulse Rate from SpO2 Sensor 58 L Respiratory Rate 18 20 17 Respiratory Effort / Characteristics Respiratory Depth Respiratory Pattern Blood Pressure 93/54 L 105/59 L 102/52 L Blood Pressure Mean 67 74 70 Pulse Oximetry 94 96 99 Oxygen Delivery Method Room Air Room Air Sepsis Recent Fever Within 48 Hours Sepsis New/Unexplained Change in Mental Status Sepsis Action Taken by Nursing 09/17/19 18:07 09/17/19 18:20 09/17/19 18:30 Temperature Temperature Source Pulse Rate 57 L 58 L 56 L Pulse Rate from SpO2 Sensor 58 L 56 L Respiratory Rate 22 16 16 Respiratory Effort / Characteristics Respiratory Depth Respiratory Pattern Blood Pressure 102/52 L 103/58 L Blood Pressure Mean 68 79 Pulse Oximetry 96 93 95 Oxygen Delivery Method Room Air Sepsis Recent Fever Within 48 Hours Sepsis New/Unexplained Change in Mental Status Sepsis Action Taken by Nursing 09/17/19 19:00 09/17/19 19:01 09/17/19 19:02 Temperature Temperature Source Pulse Rate 60 63 60 Pulse Rate from SpO2 Sensor 60 61 60 Respiratory Rate 18 18 15 Respiratory Effort / Characteristics Respiratory Depth Respiratory Pattern Blood Pressure 133/62 Blood Pressure Mean 88 Pulse Oximetry 97 97 96 Oxygen Delivery Method Sepsis Recent Fever Within 48 Hours Sepsis New/Unexplained Change in Mental Status Sepsis Action Taken by Nursing 09/17/19 19:30 09/17/19 20:00 09/17/19 20:30 Temperature Temperature Source Pulse Rate 56 L 58 L 58 L Pulse Rate from SpO2 Sensor 57 L 58 L 57 L Respiratory Rate 18 16 15 Respiratory Effort / Characteristics Respiratory Depth Respiratory Pattern Blood Pressure 123/65 112/58 L Blood Pressure Mean 73 74 Pulse Oximetry 97 95 97 Oxygen Delivery Method Sepsis Recent Fever Within 48 Hours Sepsis New/Unexplained Change in Mental Status Sepsis Action Taken by Nursing 09/17/19 20:31 09/17/19 21:00 09/17/19 21:01 Temperature Temperature Source Pulse Rate 57 L 66 67 Pulse Rate from SpO2 Sensor 57 L Respiratory Rate 17 21 19 Respiratory Effort / Characteristics Respiratory Depth Respiratory Pattern Blood Pressure 137/53 L 120/55 L Blood Pressure Mean 109 71 Pulse Oximetry 96 Oxygen Delivery Method Sepsis Recent Fever Within 48 Hours Sepsis New/Unexplained Change in Mental Status Sepsis Action Taken by Nursing 09/17/19 21:30 Temperature Temperature Source Pulse Rate 62 Pulse Rate from SpO2 Sensor Respiratory Rate 18 Respiratory Effort / Characteristics Respiratory Depth Respiratory Pattern Blood Pressure 142/66 H Blood Pressure Mean 78 Pulse Oximetry 98 Oxygen Delivery Method Sepsis Recent Fever Within 48 Hours Sepsis New/Unexplained Change in Mental Status Sepsis Action Taken by Snf Medications Current Medication List: was personally reviewed by me Laboratory Data Attestation: I reviewed the patient's lab results. Result diagrams: 09/23/19 07:08 09/23/19 07:08 Lab Results 09/17/19 09/17/19 09/17/19 Range/Units 16:06 16:06 16:06 WBC 5.47 (4.8-10.8) K/uL RBC 2.96 L (4.7-6.1) M/uL Hgb 9.2 L (14.0-18.0) g/dL Hct 29.4 L (42-52) % MCV 99.3 (80-100) fL MCH 31.1 (25-34) pg MCHC 31.3 L (32-36) g/dL RDW Std Deviation 65.3 H (36.4-46.3) fL RDW Coeff of Latasha 18.2 H (11.5-14.5) % Plt Count 156 (130-400) K/uL MPV 9.2 (7.4-10.4) fL Immature Gran % (Auto) 0.9 % Neut % (Auto) 72.5 % Lymph % (Auto) 14.4 % Stone % (Auto) 10.8 % Eos % (Auto) 0.7 % Baso % (Auto) 0.7 % Neut # (Auto) 3.96 (1.4-6.5) K/uL Lymph # (Auto) 0.79 L (1.2-3.4) K/uL Stone # (Auto) 0.59 (0.11-0.59) K/uL Eos # (Auto) 0.04 (0-0.5) K/uL Baso # (Auto) 0.04 (0-0.2) K/uL Immature Gran # (Auto) 0.05 H (0.00-0.02) K/uL Anisocytosis PT 11.9 (9.0-12.0) Seconds INR 1.1 (0.9-1.1) APTT 24.7 (21.0-31.0) Seconds PTT Ratio 0.9 Sodium 144 (136-145) mmol/L Potassium 4.2 (3.5-5.1) mmol/L Chloride 114 H (98-107) mmol/L Carbon Dioxide 23 (21-32) mmol/L Anion Gap 6.0 (3-11) BUN 26 H (7-18) mg/dl Creatinine 1.77 H (0.6-1.4) mg/dl Est Cr Clr Drug Dosing 31.5 ml/min Est GFR ( Amer) 40.0 Est GFR (Non-Af Amer) 34.5 BUN/Creatinine Ratio 14.5 (10-20) Glucose 141 H (70-99) mg/dl Lactate (0.4-2.0) mmol/L Calcium 8.8 (8.5-10.1) mg/dl Magnesium 2.2 (1.8-2.4) mg/dl Total Bilirubin 0.5 (0.2-1) mg/dl AST 19 (15-37) U/L ALT 17 (12-78) U/L Alkaline Phosphatase 83 (45-117) U/L Troponin I < 0.015 (0-0.045) ng/ml Total Protein 7.2 (6.4-8.2) gm/dl Albumin 2.7 L (3.4-5.0) gm/dl Globulin 4.5 H (2.5-4.0) gm/dl Albumin/Globulin Ratio 0.6 L (0.9-2) Procalcitonin (0-0.5) ng/ml Urine Color Urine Appearance (Clear) Urine pH (4.5-7.5) Ur Specific [place] (1.000-1.030) Urine Protein (Negative) Urine Glucose (UA) (Negative) Urine Ketones (Negative) Urine Blood (Negative) Urine Nitrite (Negative) Urine Bilirubin (Negative) Urine Urobilinogen (Negative) Ur Leukocyte Esterase (Negative) Urine RBC (0-4) /hpf Urine WBC (0-5) /hpf Ur Epithelial Cells (0-5) /lpf Urine Bacteria (Negative) Blood Type Antibody Screen Antibody Identification Antibody ID Comment Crossmatch 09/17/19 09/17/19 09/17/19 Range/Units 16:06 16:06 19:00 WBC (4.8-10.8) K/uL RBC (4.7-6.1) M/uL Hgb (14.0-18.0) g/dL Hct (42-52) % MCV (80-100) fL MCH (25-34) pg MCHC (32-36) g/dL RDW Std Deviation (36.4-46.3) fL RDW Coeff of Latasha (11.5-14.5) % Plt Count (130-400) K/uL MPV (7.4-10.4) fL Immature Gran % (Auto) % Neut % (Auto) % Lymph % (Auto) % Stone % (Auto) % Eos % (Auto) % Baso % (Auto) % Neut # (Auto) (1.4-6.5) K/uL Lymph # (Auto) (1.2-3.4) K/uL Stone # (Auto) (0.11-0.59) K/uL Eos # (Auto) (0-0.5) K/uL Baso # (Auto) (0-0.2) K/uL Immature Gran # (Auto) (0.00-0.02) K/uL Anisocytosis PT (9.0-12.0) Seconds INR (0.9-1.1) APTT (21.0-31.0) Seconds PTT Ratio Sodium (136-145) mmol/L Potassium (3.5-5.1) mmol/L Chloride (98-107) mmol/L Carbon Dioxide (21-32) mmol/L Anion Gap (3-11) BUN (7-18) mg/dl Creatinine (0.6-1.4) mg/dl Est Cr Clr Drug Dosing ml/min Est GFR ( Amer) Est GFR (Non-Af Amer) BUN/Creatinine Ratio (10-20) Glucose (70-99) mg/dl Lactate 1.8 (0.4-2.0) mmol/L Calcium (8.5-10.1) mg/dl Magnesium (1.8-2.4) mg/dl Total Bilirubin (0.2-1) mg/dl AST (15-37) U/L ALT (12-78) U/L Alkaline Phosphatase (45-117) U/L Troponin I (0-0.045) ng/ml Total Protein (6.4-8.2) gm/dl Albumin (3.4-5.0) gm/dl Globulin (2.5-4.0) gm/dl Albumin/Globulin Ratio (0.9-2) Procalcitonin 0.08 (0-0.5) ng/ml Urine Color Red Urine Appearance Turbid A (Clear) Urine pH 6.5 (4.5-7.5) Ur Specific [place] 1.025 (1.000-1.030) Urine Protein 3+ H (Negative) Urine Glucose (UA) Trace H (Negative) Urine Ketones Negative (Negative) Urine Blood 3+ H (Negative) Urine Nitrite Negative (Negative) Urine Bilirubin Negative (Negative) Urine Urobilinogen Negative (Negative) Ur Leukocyte Esterase Negative (Negative) Urine RBC >30 H (0-4) /hpf Urine WBC >30 H (0-5) /hpf Ur Epithelial Cells 20-30 H (0-5) /lpf Urine Bacteria Negative (Negative) Blood Type Antibody Screen Antibody Identification Antibody ID Comment Crossmatch 09/18/19 09/18/19 09/18/19 Range/Units 05:21 05:21 18:15 WBC 4.81 (4.8-10.8) K/uL RBC 2.47 L (4.7-6.1) M/uL Hgb 8.2 L 7.4 L (14.0-18.0) g/dL Hct 24.7 L 23.0 L (42-52) % MCV 100.0 (80-100) fL MCH 33.2 (25-34) pg MCHC 33.2 (32-36) g/dL RDW Std Deviation 66.5 H (36.4-46.3) fL RDW Coeff of Latasha 18.4 H (11.5-14.5) % Plt Count 135 (130-400) K/uL MPV 9.2 (7.4-10.4) fL Immature Gran % (Auto) 0.6 % Neut % (Auto) 65.8 % Lymph % (Auto) 19.1 % Stone % (Auto) 12.9 % Eos % (Auto) 1.0 % Baso % (Auto) 0.6 % Neut # (Auto) 3.16 (1.4-6.5) K/uL Lymph # (Auto) 0.92 L (1.2-3.4) K/uL Stone # (Auto) 0.62 H (0.11-0.59) K/uL Eos # (Auto) 0.05 (0-0.5) K/uL Baso # (Auto) 0.03 (0-0.2) K/uL Immature Gran # (Auto) 0.03 H (0.00-0.02) K/uL Anisocytosis PT (9.0-12.0) Seconds INR (0.9-1.1) APTT (21.0-31.0) Seconds PTT Ratio Sodium 149 H (136-145) mmol/L Potassium 4.8 (3.5-5.1) mmol/L Chloride 120 H (98-107) mmol/L Carbon Dioxide 25 (21-32) mmol/L Anion Gap 4.0 (3-11) BUN 22 H (7-18) mg/dl Creatinine 1.36 D (0.6-1.4) mg/dl Est Cr Clr Drug Dosing 37.8 ml/min Est GFR ( Amer) 55.0 Est GFR (Non-Af Amer) 47.4 BUN/Creatinine Ratio 16.1 (10-20) Glucose 93 (70-99) mg/dl Lactate (0.4-2.0) mmol/L Calcium 7.5 L (8.5-10.1) mg/dl Magnesium (1.8-2.4) mg/dl Total Bilirubin (0.2-1) mg/dl AST (15-37) U/L ALT (12-78) U/L Alkaline Phosphatase (45-117) U/L Troponin I (0-0.045) ng/ml Total Protein (6.4-8.2) gm/dl Albumin (3.4-5.0) gm/dl Globulin (2.5-4.0) gm/dl Albumin/Globulin Ratio (0.9-2) Procalcitonin (0-0.5) ng/ml Urine Color Urine Appearance (Clear) Urine pH (4.5-7.5) Ur Specific [place] (1.000-1.030) Urine Protein (Negative) Urine Glucose (UA) (Negative) Urine Ketones (Negative) Urine Blood (Negative) Urine Nitrite (Negative) Urine Bilirubin (Negative) Urine Urobilinogen (Negative) Ur Leukocyte Esterase (Negative) Urine RBC (0-4) /hpf Urine WBC (0-5) /hpf Ur Epithelial Cells (0-5) /lpf Urine Bacteria (Negative) Blood Type Antibody Screen Antibody Identification Antibody ID Comment Crossmatch 09/18/19 09/18/19 09/19/19 Range/Units 18:52 23:17 07:12 WBC 3.94 L (4.8-10.8) K/uL RBC 2.42 L (4.7-6.1) M/uL Hgb 8.1 L 7.7 L (14.0-18.0) g/dL Hct 26.5 L 23.8 L (42-52) % MCV 98.3 (80-100) fL MCH 31.8 (25-34) pg MCHC 32.4 (32-36) g/dL RDW Std Deviation 65.4 H (36.4-46.3) fL RDW Coeff of Latasha 18.5 H (11.5-14.5) % Plt Count 125 L (130-400) K/uL MPV 8.7 (7.4-10.4) fL Immature Gran % (Auto) 0.5 % Neut % (Auto) 65.3 % Lymph % (Auto) 22.3 % Stone % (Auto) 9.6 % Eos % (Auto) 1.8 % Baso % (Auto) 0.5 % Neut # (Auto) 2.57 (1.4-6.5) K/uL Lymph # (Auto) 0.88 L (1.2-3.4) K/uL Stone # (Auto) 0.38 (0.11-0.59) K/uL Eos # (Auto) 0.07 (0-0.5) K/uL Baso # (Auto) 0.02 (0-0.2) K/uL Immature Gran # (Auto) 0.02 (0.00-0.02) K/uL Anisocytosis Present PT (9.0-12.0) Seconds INR (0.9-1.1) APTT (21.0-31.0) Seconds PTT Ratio Sodium (136-145) mmol/L Potassium (3.5-5.1) mmol/L Chloride (98-107) mmol/L Carbon Dioxide (21-32) mmol/L Anion Gap (3-11) BUN (7-18) mg/dl Creatinine (0.6-1.4) mg/dl Est Cr Clr Drug Dosing ml/min Est GFR ( Amer) Est GFR (Non-Af Amer) BUN/Creatinine Ratio (10-20) Glucose (70-99) mg/dl Lactate (0.4-2.0) mmol/L Calcium (8.5-10.1) mg/dl Magnesium (1.8-2.4) mg/dl Total Bilirubin (0.2-1) mg/dl AST (15-37) U/L ALT (12-78) U/L Alkaline Phosphatase (45-117) U/L Troponin I (0-0.045) ng/ml Total Protein (6.4-8.2) gm/dl Albumin (3.4-5.0) gm/dl Globulin (2.5-4.0) gm/dl Albumin/Globulin Ratio (0.9-2) Procalcitonin (0-0.5) ng/ml Urine Color Urine Appearance (Clear) Urine pH (4.5-7.5) Ur Specific [place] (1.000-1.030) Urine Protein (Negative) Urine Glucose (UA) (Negative) Urine Ketones (Negative) Urine Blood (Negative) Urine Nitrite (Negative) Urine Bilirubin (Negative) Urine Urobilinogen (Negative) Ur Leukocyte Esterase (Negative) Urine RBC (0-4) /hpf Urine WBC (0-5) /hpf Ur Epithelial Cells (0-5) /lpf Urine Bacteria (Negative) Blood Type A Positive Antibody Screen POSITIVE A Antibody Identification Anti-Fya Antibody ID Comment Crossmatch See Detail 09/19/19 Range/Units 07:12 WBC (4.8-10.8) K/uL RBC (4.7-6.1) M/uL Hgb (14.0-18.0) g/dL Hct (42-52) % MCV (80-100) fL MCH (25-34) pg MCHC (32-36) g/dL RDW Std Deviation (36.4-46.3) fL RDW Coeff of Latasha (11.5-14.5) % Plt Count (130-400) K/uL MPV (7.4-10.4) fL Immature Gran % (Auto) % Neut % (Auto) % Lymph % (Auto) % Stone % (Auto) % Eos % (Auto) % Baso % (Auto) % Neut # (Auto) (1.4-6.5) K/uL Lymph # (Auto) (1.2-3.4) K/uL Stone # (Auto) (0.11-0.59) K/uL Eos # (Auto) (0-0.5) K/uL Baso # (Auto) (0-0.2) K/uL Immature Gran # (Auto) (0.00-0.02) K/uL Anisocytosis PT (9.0-12.0) Seconds INR (0.9-1.1) APTT (21.0-31.0) Seconds PTT Ratio Sodium 144 (136-145) mmol/L Potassium 4.5 (3.5-5.1) mmol/L Chloride 115 H (98-107) mmol/L Carbon Dioxide 25 (21-32) mmol/L Anion Gap 5.0 (3-11) BUN 16 (7-18) mg/dl Creatinine 1.21 (0.6-1.4) mg/dl Est Cr Clr Drug Dosing 42.5 ml/min Est GFR ( Amer) 63.3 Est GFR (Non-Af Amer) 54.6 BUN/Creatinine Ratio 13.5 (10-20) Glucose 88 (70-99) mg/dl Lactate (0.4-2.0) mmol/L Calcium 8.1 L (8.5-10.1) mg/dl Magnesium (1.8-2.4) mg/dl Total Bilirubin (0.2-1) mg/dl AST (15-37) U/L ALT (12-78) U/L Alkaline Phosphatase (45-117) U/L Troponin I (0-0.045) ng/ml Total Protein (6.4-8.2) gm/dl Albumin (3.4-5.0) gm/dl Globulin (2.5-4.0) gm/dl Albumin/Globulin Ratio (0.9-2) Procalcitonin (0-0.5) ng/ml Urine Color Urine Appearance (Clear) Urine pH (4.5-7.5) Ur Specific [place] (1.000-1.030) Urine Protein (Negative) Urine Glucose (UA) (Negative) Urine Ketones (Negative) Urine Blood (Negative) Urine Nitrite (Negative) Urine Bilirubin (Negative) Urine Urobilinogen (Negative) Ur Leukocyte Esterase (Negative) Urine RBC (0-4) /hpf Urine WBC (0-5) /hpf Ur Epithelial Cells (0-5) /lpf Urine Bacteria (Negative) Blood Type Antibody Screen Antibody Identification Antibody ID Comment Crossmatch Administered Medications Atorvastatin Calcium (Atorvastatin 20 Mg Tab) 20 mg PO [facility] Stop: 10/18/19 08:59 Last Admin: 09/23/19 07:55 Dose: 20 mg Documented by: [id number] Admin: 09/22/19 08:33 Dose: 20 mg Documented by: [id number] Admin: 09/21/19 08:13 Dose: 20 mg Documented by: [id number] Admin: 09/20/19 07:42 Dose: 20 mg Documented by: [id number] Admin: 09/19/19 08:53 Dose: 20 mg Documented by: [id number] Admin: 09/18/19 09:36 Dose: 20 mg Documented by: [id number] Cyanocobalamin (Cyanocobalamin 500 Mcg Tablet (Vitamin B-12)) 1,000 mcg PO [facility] Stop: 10/18/19 08:59 Last Admin: 09/23/19 07:54 Dose: 1,000 mcg Documented by: [id number] Admin: 09/22/19 08:33 Dose: 1,000 mcg Documented by: [id number] Admin: 09/21/19 08:13 Dose: 1,000 mcg Documented by: [id number] Admin: 09/20/19 07:43 Dose: 1,000 mcg Documented by: [id number] Admin: 09/19/19 08:53 Dose: 1,000 mcg Documented by: [id number] Admin: 09/18/19 09:36 Dose: 1,000 mcg Documented by: [id number] Ciprofloxacin (Cipro / D5w) 400 mg in 200 mls @ 100 mls/hr IV Q12H [facility]; Protocol Stop: 10/02/19 07:59 Last Admin: 09/23/19 07:54 Dose: 100 mls/hr Documented by: [id number] Infusion: 09/22/19 21:25 Dose: 0 mls/hr Documented by: [id number] Admin: 09/22/19 19:24 Dose: 100 mls/hr Documented by: [id number] Infusion: 09/22/19 10:32 Dose: 0 mls/hr Documented by: [id number] Admin: 09/22/19 08:32 Dose: 100 mls/hr Documented by: [id number] Memantine (Memantine Hcl 5 Mg Tab) 5 mg PO BID [facility] Stop: 10/18/19 08:59 Last Admin: 09/23/19 07:55 Dose: 5 mg Documented by: [id number] Admin: 09/22/19 19:57 Dose: 5 mg Documented by: [id number] Admin: 09/22/19 08:33 Dose: 5 mg Documented by: [id number] Admin: 09/21/19 20:33 Dose: 5 mg Documented by: [id number] Admin: 09/21/19 08:13 Dose: 5 mg Documented by: [id number] Admin: 09/20/19 20:53 Dose: 5 mg Documented by: [id number] Admin: 09/20/19 07:43 Dose: 5 mg Documented by: [id number] Admin: 09/19/19 22:27 Dose: 5 mg Documented by: [id number] Admin: 09/19/19 08:53 Dose: 5 mg Documented by: [id number] Admin: 09/18/19 23:06 Dose: 5 mg Documented by: [id number] Admin: 09/18/19 09:36 Dose: 5 mg Documented by: [id number] Mirtazapine (Mirtazapine Tab 15 Mg Tab) 15 mg PO HS [facility] Stop: 10/18/19 20:59 Last Admin: 09/22/19 19:57 Dose: 15 mg Documented by: [id number] Admin: 09/21/19 20:33 Dose: 15 mg Documented by: [id number] Admin: 09/20/19 20:53 Dose: 15 mg Documented by: [id number] Admin: 09/19/19 22:26 Dose: 15 mg Documented by: [id number] Admin: 09/18/19 23:07 Dose: 15 mg Documented by: [id number] Oxybutynin Chloride (Oxybutynin Chloride Xl 5 Mg Tabcr) 10 mg PO DAILY [facility] Stop: 10/18/19 08:59 Last Admin: 09/23/19 07:55 Dose: 10 mg Documented by: [id number] Admin: 09/22/19 08:33 Dose: 10 mg Documented by: [id number] Admin: 09/21/19 08:13 Dose: 10 mg Documented by: [id number] Admin: 09/20/19 07:42 Dose: 10 mg Documented by: [id number] Admin: 09/19/19 08:52 Dose: 10 mg Documented by: [id number] Admin: 09/18/19 09:35 Dose: 10 mg Documented by: [id number] Polyethylene Glycol (Polyethylene (Miralax) 17 Gm Pack) 17 gm PO DAILY [facility] Stop: 10/18/19 08:59 Last Admin: 09/23/19 08:01 Dose: 17 gm Documented by: [id number] Admin: 09/22/19 08:33 Dose: Not Given Documented by: [id number] Admin: 09/21/19 08:13 Dose: 17 gm Documented by: [id number] Admin: 09/20/19 15:21 Dose: Not Given Documented by: [id number] Admin: 09/19/19 08:53 Dose: 17 gm Documented by: [id number] Admin: 09/18/19 09:41 Dose: 17 gm Documented by: [id number] Tamsulosin HCl (Tamsulosin Hcl 0.4 Mg Cap) 0.4 mg PO HS MILAGRO Stop: 10/18/19 20:59 Last Admin: 09/22/19 19:57 Dose: 0.4 mg Documented by: [id number] Admin: 09/21/19 20:33 Dose: 0.4 mg Documented by: [id number] Admin: 09/20/19 20:53 Dose: 0.4 mg Documented by: [id number] Admin: 09/19/19 22:27 Dose: 0.4 mg Documented by: [id number] Admin: 09/18/19 23:07 Dose: 0.4 mg Documented by: [id number] Vitamin D (Cholecalciferol 1,000 Units 25 Mcg Tab) 2,000 units PO HS MILAGRO Stop: 10/18/19 20:59 Last Admin: 09/22/19 19:58 Dose: 2,000 units Documented by: [id number] Admin: 09/21/19 20:33 Dose: 2,000 units Documented by: [id number] Admin: 09/20/19 20:53 Dose: 2,000 units Documented by: [id number] Admin: 09/19/19 22:26 Dose: 2,000 units Documented by: [id number] Admin: 09/18/19 23:07 Dose: 2,000 units Documented by: [id number] Discontinued Medications Sodium Chloride (Nss 1000ml) 500 mls @ 999 mls/hr IV .Q31M ONE Stop: 09/17/19 16:13 Last Infusion: 09/17/19 17:33 Dose: 0 mls/hr Documented by: [id number] Admin: 09/17/19 16:21 Dose: 999 mls/hr Documented by: [id number] Sodium Chloride (Nss) 500 mls @ 999 mls/hr IV .Q31M ONE Stop: 09/17/19 19:17 Last Infusion: 09/17/19 19:42 Dose: 0 mls/hr Documented by: [id number] Admin: 09/17/19 19:06 Dose: 999 mls/hr Documented by: [id number] Cefepime HCl (Maxipime) 2,000 mg in 20 mls @ 5 mls/min IV NOW STA; Protocol Stop: 09/17/19 20:22 Last Admin: 09/17/19 20:33 Dose: 5 mls/min Documented by: [id number] Vancomycin HCl 1,500 mg/ (Sodium Chloride) 530 mls @ 200 mls/hr IV NOW ONE Stop: 09/17/19 22:57 Last Infusion: 09/17/19 23:15 Dose: 0 mls/hr Documented by: [id number] Admin: 09/17/19 20:36 Dose: 200 mls/hr Documented by: [id number] Cefepime HCl 2,000 mg/ Syringe 20 mls @ 5.5 mls/min IV Q24H MILAGRO; Protocol Stop: 09/20/19 19:59 Last Admin: 09/19/19 19:55 Dose: 5.5 mls/min Documented by: [id number] Admin: 09/18/19 23:03 Dose: 5.5 mls/min Documented by: [id number] Daptomycin 275 mg/ Syringe 5.5 mls @ 2.75 mls/min IV Q24H MILAGRO; Protocol Stop: 09/27/19 07:59 Last Admin: 09/18/19 09:35 Dose: 2.75 mls/min Documented by: [id number] Sodium Chloride (Nss 1000ml) 1,000 mls @ 80 mls/hr IV .[id number] MILAGRO Stop: 09/19/19 16:59 Last Infusion: 09/19/19 19:50 Dose: 0 mls/hr Documented by: [id number] Admin: 09/19/19 04:37 Dose: 80 mls/hr Documented by: [id number] Infusion: 09/19/19 04:37 Dose: 80 mls/hr Documented by: [id number] Admin: 09/18/19 16:17 Dose: 80 mls/hr Documented by: [id number] Lidocaine HCl (Lidocaine 2% Jelly 5 Ml Tube) Confirm Administered Dose 5 ml .ROUTE .K-MED ONE Stop: 09/21/19 19:05 Last Admin: 09/21/19 19:30 Dose: 5 ml Documented by: [id number] Imaging Data Radiologist's Impression: SINGLE VIEW CHEST CLINICAL HISTORY: Sepsis. FINDINGS: An AP, portable, upright chest radiograph is compared to study dated 03/07/2019 and correlated with chest CT dated 04/22/2019. The heart is enlarged noting atherosclerotic calcification of the thoracic ureter. The pulmonary vasculature is noncongested. Chronic interstitial thickening is similar to previous. There is bibasilar scarring/atelectasis. No airspace consolidation or large pleural effusion is identified. Numerous pulmonary nodules seen on the prior chest CT are not visualized by x-ray. No pneumothorax is seen. The skeletal structures are osteopenic. The bony thorax is grossly intact. IMPRESSION: Mild cardiac enlargement with no acute cardiopulmonary abnormality. ACT 112: Negative or not required by law. Electronically signed by: Ángel Manjarrez M.D. 09/17/2019 4:42 PM Dictated: 09/17/19 1640 Transcribed: 09/17/19 1640 Blood Pressure Blood Pressure Findings: Low blood pressure Discharge Plan Visit Data Chief Complaint: Hypotension Stated Complaint: HYPOTENSION ED Provider: Vaughn Soriano Discharge Problem: Acute hypotension, Hematuria, Acute UTI (urinary tract infection), Anemia Patient Disposition: Admitted As Inpatient Condition: Good Discharge Instructions Interventions: ED Discharge Assessment Last Done: 09/17/19 22:22 Discharge Problem: Hematuria Qualifiers: Hematuria type: gross Qualified Code(s): R31.0 - Gross hematuria Anemia Qualifiers: Anemia type: unspecified type Qualified Code(s): D64.9 - Anemia, unspecified
--- NOTE | 2019-09-18 11:25 | Hospitalist Progress Note ---
Date of Service September 18, 2019 Assessment & Plan (1) Acute on chronic renal failure: (2) Urinary tract infection: Dale Arenas is an 83yo M with a PMHx of dementia, bladder and prostate cancer s/p radiation therapy and chemotherapy, now with resultant radiation cysitis, admitted for evaluation of urinary symptoms. Urine culture growing gram - bacilli. Acute UTI - hx of recurrent UTIs, likely related to radiation cystitis - on chart review, culture from 08/26 grew coag. neg staph resistant to bactrim. culture from 08/13 grew gaspar-sensitive pseudomonas and klebsiella - Urine culture from this admission growing gram - bacilli, awaiting speciation and sensitivities - WBC normal, patient afebrile - patient was started on Dapto/cefepime in ED. Daptomycin was discontinued today. - Kat cath placed - normal saline at 80mls/hr - trend CBC Hematuria - coca-cola urine in kat bag - no CVA tenderness on exam, Cr trending down, little concern for possible stone at this time. - UA 3+ for blood - likely secondary to acute UTI + underlying radiation cystitis - contributory to anemia - treat UTI as above Anemia - Hgb 8.2 on admission, MCV 100 - FOBT ordered - per , lower GI bleeding being worked up as outpatient - ongoing hematuria likely contributory. recent chemotherapy treatment for bladder and prostate cancer likely with some suppressive effect - trend CBC daily - transfuse for Hgb < 7 Radiation cystitis, history of bladder cancer, intermittent LUTS Recurrent UTIs as above, history of recurrent hematuria recently treated with hyperbaric therapy - likely contributory to his anemia Continue home dose tamsulosin follows with [facility] Pedal edema Patient reports that he has had pedal edema for several months - no underlying diagnosis of CHF - outpatient echo scheduled for today can be arranged as inpatient Chronic dementia, memory loss Continue memantine Continue Remeron Disposition: MedSurg with telemetry Diet: Regular DVT prophylaxis: SCDs, defer pharmacal prophylaxis given recurrent history of hematuria CODE STATUS: DNR/DNI. 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 Phillip. In agreement with the documented findings as noted in the resident documentation with any exceptions or additions as noted here. Intermittent mild bladder spasm which is common for the patient. Ongoing dark urine reported, which has happened previously. On examination, S1/S2 nl RRR no MCG. CTAB. Abd NT/ND BS+ve Acute UTI w/ hematuria in the setting of h/o bladder radiation for cancer and chemotherapy - continue cefepime, D/C dapto. Follow UCx. Monitor urine quality w/ kat. Continue tamsulosin for now. Anemia with hematuria as noted above - trend CBC q12. Check FOBT (does have h/o +ve FOBT per spouse). Transfusion at 7. LE edema - f/u echocardiogram Else see resident documentation as noted. Subjective Feeling well. Denies penile discomfort, urgency or frequency now that kat catheter is in place. Reports "I've got everything except my memory." provides history that he was recently admitted and discharged to rehab facility. He has apparently been anemic for a while - he had a positive FOBT at his PCPs office. He was recommend to get a sigmoidoscopy but this had to be rescheduled due to his recent hospitalization. Review of Systems Review of Systems: All systems reviewed & are unremarkable except as noted in HPI & below Physical Exam Constitutional: WD/WN, vitals as above cooperative Cardiovascular: RRR, no murmur, no edema Heart Sounds: normal S1 and normal S2 Extremities: + pedal edema (+1 bilaterally ) Gastrointestinal (Abdomen): normal bowel sounds, soft, nontender, no hep atosplenomegaly Skin: no rashes, warm and dry Neurologic: awake Psychiatric: Orientation: alert, oriented to person and oriented to time; + not oriented to place Genitourinary: no CVA tenderness Kat in place, draining coca-cola colored urine Results & Data Results & Data ([facility]) Vital Signs (Past 12 Hours) Vital Signs Temp Pulse Pulse Resp BP BP Pulse Ox 09/18/19 11:13 36.5 C 62 16 96/57 L 96 09/18/19 03:04 36.3 C L 64 17 126/58 L 95 09/17/19 23:26 65 Pulse Ox 09/18/19 11:13 09/18/19 03:04 09/17/19 23:26 95 Resident Activity Tracking Resident Involvement: Resident Care Provided Care Provided: Adult Hospital Medicine
[2019-09-18] MEDS: SODIUM CHLORIDE 0.9% 1000ML 1,000 ML IV SCH (16:17)
[2019-09-18 18:33] LABS: Hemoglobin 7.4 g/dL (14.0-18.0)
--- NOTE | 2019-09-18 21:00 | XCELERA ---
[id number]
--- NOTE | 2019-09-18 22:08 | Urology Progress Note ---
Date of Service September 18, 2019 Assessment & Plan Admission and Anticipated Discharge Date Admission Date: September 17, 2019 Subjective Patient admitted to the hospital withDysuria fatigue and hematuria. Patient has a history of radiation cystitis. He Had consult with hyperbaric oxygen but has not started the treatments yet Currently he has a three-way catheter with a CBI the urine is currently clear with slow CBI He is not having any pain Currently no fevers or chills Physical exam Abdomen is soft nontender bladder is not palpable Assessment recurrent hematuria secondary to radiation cystitis patient may also have a UTI per his admitting history and physical Would continue CBI for now treat bladder infection pending cultures Continue hyperbaric oxygen when able Results & Data ([facility]) Vital Signs (Past 12 Hours) Vital Signs Temp Pulse Pulse Resp BP BP Pulse Ox 09/18/19 19:46 36.5 C 60 18 113/60 98 09/18/19 16:00 65 09/18/19 15:57 36.5 C 70 18 124/77 94 09/18/19 11:13 36.5 C 62 16 96/57 L 96 PG Care Time/CCT Total # of Minutes Spent Total Time Spent with Patient: Total time spent is greater than 50% in coordination of care (as documented) at patient's floor/unit and/or counseling patient: Coding Level of Care Code None
--- NOTE | 2019-09-18 22:14 | Billing Data ---
Date of Service September 18, 2019 Coding Level of Care Code 07472 Initial Inpt Care Lvl 3
[2019-09-18] MEDS: CEFEPIME 2,000 MG in SYRINGE 7.5 ML IV SCH (23:03)
[2019-09-18] MEDS: TAMSULOSIN HCL 0.4 MG CAP PO SCH (23:07)
[2019-09-18] MEDS: MIRTAZAPINE TAB 15 MG TAB PO SCH (23:07)
[2019-09-18] MEDS: CHOLECALCIFEROL 1,000 UNITS 25 MCG TAB PO SCH (23:07)
[2019-09-18 23:32] LABS: Hematocrit (blood only) 26.5 % (42-52); Hemoglobin 8.1 g/dL (14.0-18.0)
[2019-09-19] MEDS: SODIUM CHLORIDE 0.9% 1000ML 1,000 ML IV SCH (04:37)
[2019-09-19 07:38] LABS: Basophils # (auto) 0.02 K/uL (0-0.2); Basophils % (auto) 0.5 %; Eosinophils # (auto) 0.07 K/uL (0-0.5); Eosinophils % (auto) 1.8 %; Hematocrit (blood only) 23.8 % (42-52); Hemoglobin 7.7 g/dL (14.0-18.0); Immature Granulocytes # (auto) 0.02 K/uL (0.00-0.02); Immature Granulocytes % (auto) 0.5 %; Lymphocytes # (auto) 0.88 K/uL (1.2-3.4); Lymphocytes % (auto) 22.3 %; Mean Corpuscular Hemoglobin 31.8 pg (25-34); Mean Corpuscular Hgb Conc 32.4 g/dL (32-36); Mean Corpuscular Volume 98.3 fL (80-100); Mean Platelet Volume 8.7 fL (7.4-10.4); Monocytes # (auto) 0.38 K/uL (0.11-0.59); Monocytes % (auto) 9.6 %; Neutrophils # (auto) 2.57 K/uL (1.4-6.5); Neutrophils % (auto) 65.3 %; Platelet Count 125 K/uL (130-400); RDW Coefficient of Variation 18.5 % (11.5-14.5); RDW Standard Deviation 65.4 fL (36.4-46.3); Red Blood Count 2.42 M/uL (4.7-6.1); White Blood Count 3.94 K/uL (4.8-10.8)
[2019-09-19 08:06] LABS: BUN Creatinine Ratio 13.5 (10-20); Calcium 8.1 mg/dl (8.5-10.1); Creatinine Clr Calc Pharmacy 42.5 ml/min; Est GFR (African American) 63.3; Est GFR (Non-African American) 54.6; Potassium 4.5 mmol/L (3.5-5.1)
[2019-09-19 08:12] LABS: Anisocytosis Present
[2019-09-19] MEDS: OXYBUTYNIN CHLORIDE XL 5 MG TABCR PO SCH (08:52)
[2019-09-19] MEDS: POLYETHYLENE (MIRALAX) 17 GM PACK PO SCH (08:53)
[2019-09-19] MEDS: CYANOCOBALAMIN 500 MCG TABLET (VITAMIN B-12) PO SCH (08:53)
[2019-09-19] MEDS: ATORVASTATIN 20 MG TAB PO SCH (08:53)
[2019-09-19] MEDS: MEMANTINE HCL 5 MG TAB PO SCH ×2 (08:53→22:27)
--- NOTE | 2019-09-19 10:40 | Hospitalist Progress Note ---
Date of Service September 19, 2019 Assessment & Plan (1) Acute on chronic renal failure: (2) Urinary tract infection: Dale Arenas is an 83yo M with a PMHx of dementia, bladder and prostate cancer s/p radiation therapy and chemotherapy, now with resultant radiation cystitis, admitted for evaluation of urinary symptoms. Urine culture growing gaspar-sensitive pseudomonas. On Day 2 of IV cefepime. Hemoglobin dropping with ongoing hematuria. Acute UTI - hx of recurrent UTIs, likely related to radiation cystitis - Urine culture from this admission growing gaspar sensitive pseudomonas - WBC normal, patient afebrile - patient was started on Dapto/cefepime in ED. Daptomycin was discontinued. On Day 2 of IV cefepime. - Kat cath in place - normal saline at 80mls/hr - trend CBC Hematuria - blood present in kat bag - no CVA tenderness on exam, Cr at baseline, little concern for possible stone at this time. - UA 3+ for blood - likely secondary to acute UTI + underlying radiation cystitis - contributory to anemia - treat UTI as above - continue bladder irrigation Anemia - Hgb 8.2 on admission, MCV 100. Down to 7.7 today. 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 - FOBT ordered - per , lower GI bleeding being worked up as outpatient. Patient was going to get a flexible sigmoidoscopy as outpatient but got canceled due to August hospitalization - ongoing hematuria likely contributory. recent chemotherapy treatment for bladder and prostate cancer likely with some suppressive effect - trend CBC daily - transfuse for Hgb < 7 - blood consent signed and in chart Radiation cystitis, history of bladder cancer, intermittent LUTS Recurrent UTIs as above, history of recurrent hematuria recently treated with hyperbaric therapy - likely contributory to his anemia Continue home dose tamsulosin urology consulted, appreciate recs Pedal edema Patient reports that he has had pedal edema for several months - no underlying diagnosis of CHF - Echo 09/17 showing normal LV systolic function with EF 55-60%, normal RV systolic pressure, mild aortic stenosis, a mildly dilated aortic root Chronic dementia, memory loss Continue memantine Continue Remeron Disposition: MedSurg with telemetry Diet: Regular DVT prophylaxis: SCDs, defer pharmacal prophylaxis given ongoing hematuria CODE STATUS: DNR/DNI. 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 I confirmed wasserman portions of the history and physical exam as noted above. Recurrent UTI/history of Pseudomonas/hematuria Urology consult appreciated Continue cefepime Trend hemoglobin Acute on chronic CKD Creatinine 1.77 upon admission, improved to 1.21 today Monitor BMP Hyperlipidemia Continue atorvastatin Dementia Continue memantine and mirtazapine Subjective No acute events overnight. Eating well. Expresses desire to return home Review of Systems Review of Systems: All systems reviewed & are unremarkable except as noted in HPI & below Physical Exam Constitutional: WD/WN, vitals as above cooperative Eyes: PERRL, conjunctivae normal, anicteric sclerae ENMT: external ear and nose normal, oropharynx normal Neck: normal visual inspection and trachea midline Respiratory: normal respiratory effort, lungs clear to auscultation Cardiovascular: Rate/Rhythm: regular rate and regular rhythm Heart Sounds: normal S1, normal S2 and + murmur (systolic ejection ) Extremities: + pedal edema (+1 bilaterally ) Gastrointestinal (Abdomen): normal bowel sounds, soft, nontender, no hepatosplenomegaly Skin: no rashes, warm and dry Neurologic: awake Psychiatric: Orientation: alert, oriented to person and oriented to time; + not oriented to place Genitourinary: no CVA tenderness Kat in place draining blood tinged urine Results & Data Results & Data ([facility]) Vital Signs (Past 12 Hours) Vital Signs Temp Pulse Pulse Resp BP BP Pulse Ox 09/19/19 07:54 36.6 C 65 16 152/65 H 96 09/19/19 07:44 63 09/19/19 04:19 36.5 C 60 19 151/85 H 99 09/19/19 00:00 62 09/18/19 22:55 36.6 C 63 16 131/67 91 Resident Activity Tracking Resident Involvement: Resident Care Provided Care Provided: Adult [facility] Medicine
--- NOTE | 2019-09-19 13:17 | Urology Consultation ---
Date of Consultation September 19, 2019 Assessment & Plan (1) Hematuria: (2) UTI (urinary tract infection): 83yo M admitted with hematuria and urinary symptoms secondary to radiation cystitis and urinary tract infection Hematuria - Likely secondary to acute UTI and underlying radiation cystitis - Three-way catheter in place, draining light red urine with slow CBI - HgB is 7.7 today, was 8.1 yesterday - Continue to trend - Continue with slow bladder irrigation - Continue hyperbaric oxygen treatments when able Acute UTI - Hx of recurrent UTIs, likely related to radiation cystitis - Urine culture from this admission growing gaspar sensitive pseudomonas - On Day 2 of IV cefepime - WBC and Cr are stable, patient afebrile - Continue with antibiotics, can transition to PO at discharge Will continue to follow while inpatient. Patient agreeable to plan. All questions were answered. Pt seen agree with above . Try to discharge by Sunday for hyperbaric oxygen. Nakul Vincent History of Present Illness Reason for Consultation: Hematuria; UTI Attending Physician: Michael Rico DO History of Present Illness 83yo M with a PMHx of dementia, bladder and prostate cancer s/p radiation therapy and chemotherapy, now with resultant radiation cystitis, admitted for evaluation of urinary symptoms. Chart Review: Afebrile WBC: 3.94 HgB: 7.7 (previous 8.1) Cr:1.21 UA -3+Blood,>30RBCs, >WBCs Urine culture - Pseudomonas aeruginosa, gaspar sensitive. - He is currently on IV Cefepime. Patient examined at bedside today. also at bedside. He currently has a three-way Ang catheter with CBI. Catheter is draining light-red urine with slow CBI. He denies any back, flank, or suprapubic pain. Denies fevers or ch ills. He is tolerating a PO diet without any nausea or vomiting. Patient reports he has had a consult for hyperbaric oxygen, but has not started the treatments yet. No additional Urological concerns today Allergies Allergy/AdvReac Type Severity Reaction Status Date / Time No Known Allergies Allergy Verified 09/17/19 17:39 Home Medications Home Medications Medication Instructions Recorded Confirmed Type cyanocobalamin (vitamin B-12) 1,000 mcg PO QAM 02/15/18 09/17/19 History cholecalciferol (vitamin D3) 50 2,000 units PO HS 03/01/18 09/17/19 History mcg (2,000 unit) tablet atorvastatin 20 mg PO QAM 03/08/18 09/17/19 History Metamucil 1 tsp PO QAM PRN 05/13/18 09/17/19 History Glucosamine Chondroitin 2 cap PO DAILY 02/25/19 09/17/19 History polyethylene glycol 3350 [Miralax] 17 g PO DAILY 30 Days #30 ea 07/11/19 09/17/19 Rx memantine 5 mg PO BID 08/14/19 09/17/19 History calcium carbonate [Tums] 1,000 mg PO Q6H PRN #30 tab 08/29/19 09/17/19 Rx mirtazapine 15 mg PO HS #30 tab 08/29/19 09/17/19 Rx tamsulosin 0.4 mg capsule 0.4 mg PO HS #30 cap 09/08/19 09/17/19 Rx oxybutynin chloride 10 mg 10 mg PO DAILY #30 tab 09/11/19 09/17/19 Rx tablet,extended release 24 hr Patient History Medical History Anemia s/p transfusion (04/2018) felt r/t chemo Asthma childhood/no current issues Cancer bladder, prostate cancer; s/p chemo/xrt completed 04/2018 CVA (cerebral vascular accident) evidence of old infarct on MRI "years ago" HLD (hyperlipidemia) HTN (hypertension) Left knee DJD Lung nodule Short-term memory loss "mild"/no definitive diagnosis Thrombocytopenia hx Surgical History History of bladder surgery Cystoscopy, TURBT= 02/18/18= LMA#5 at [facility] History of bronchoscopy History of cataract surgery R/L History of colonoscopy History of tooth extraction History of vascular access device A-port inserted and removed S/P bronchoscopy with biopsy (03/07/19) Endobronchial Ultrasound Dr. 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) Family History Mother , age 79 Heart disease Father , age 79 Myocardial infarction Brother , age 79 Dementia Daughter COPD (chronic obstructive pulmonary disease) Son No problems noted. Son No problems noted. 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 Feels Safe at Home: Yes Review of Systems Review of Systems: All systems reviewed & are unremarkable except as noted in HPI & below Physical Exam Constitutional: well developed and well nourished; no acute distress Eyes: no eyelid abnormality ENMT: Ears: no external ear abnormality Neck: normal visual inspection; no anterior neck swelling Respiratory: normal respiratory effort and able to speak in complete sentences Cardiovascular: Rate/Rhythm: regular rate and regular rhythm Extremities: + edema (+1BLE) Gastrointestinal (Abdomen): Inspection/Auscultation: abdomen normal to inspection; abdomen not distended Percussion/Palpation: abdomen soft; abdomen nontender and no guarding Musculoskeletal: Head/Neck/Chest: normocephalic and head atraumatic Skin: no rashes, warm and dry normal color to visualized skin areas Neurologic: awake Psychiatric: Orientation: alert, oriented x 3 and cooperative Genitourinary: Three-way Ang catheter intact, draining light- red urine with slow CBI Results & Data ([facility]) Vital Signs (Past 12 Hours) Vital Signs Temp Pulse Pulse Resp BP Pulse Ox 09/19/19 11:54 36.7 C 67 20 125/69 95 09/19/19 07:54 36.6 C 65 16 152/65 H 96 09/19/19 07:44 63 09/19/19 04:19 36.5 C 60 19 151/85 H 99 PG Care Time/CCT Total # of Minutes Spent Total Time Spent with Patient: Total time spent is greater than 50% in coordination of care (as documented) at patient's floor/unit and/or counseling patient: Coding Level of Care Code 26254 Initial Inpt Care Lvl 2 Diagnoses Hematuria R31.0 Hematuria type: gross UTI (urinary tract infection) N39.0 (1) Hematuria Hematuria type: gross Qualified Code(s): R31.0 - Gross hematuria
[2019-09-19 16:31] LABS: Hematocrit (blood only) 22.1 % (42-52); Hemoglobin 7.2 g/dL (14.0-18.0)
[2019-09-19] MEDS: CEFEPIME 2,000 MG in SYRINGE 7.5 ML IV SCH (19:55)
[2019-09-19] MEDS: CHOLECALCIFEROL 1,000 UNITS 25 MCG TAB PO SCH (22:26)
[2019-09-19] MEDS: MIRTAZAPINE TAB 15 MG TAB PO SCH (22:26)
[2019-09-19] MEDS: TAMSULOSIN HCL 0.4 MG CAP PO SCH (22:27)
[2019-09-20 06:06] LABS: Basophils # (auto) 0.03 K/uL (0-0.2); Basophils % (auto) 0.8 %; Eosinophils # (auto) 0.09 K/uL (0-0.5); Eosinophils % (auto) 2.4 %; Hematocrit (blood only) 23.5 % (42-52); Hemoglobin 7.5 g/dL (14.0-18.0); Immature Granulocytes # (auto) 0.03 K/uL (0.00-0.02); Immature Granulocytes % (auto) 0.8 %; Lymphocytes # (auto) 0.79 K/uL (1.2-3.4); Lymphocytes % (auto) 21.4 %; Mean Corpuscular Hemoglobin 31.9 pg (25-34); Mean Corpuscular Hgb Conc 31.9 g/dL (32-36); Mean Platelet Volume 8.9 fL (7.4-10.4); Monocytes # (auto) 0.37 K/uL (0.11-0.59); Neutrophils # (auto) 2.39 K/uL (1.4-6.5); Neutrophils % (auto) 64.6 %; Platelet Count 141 K/uL (130-400); RDW Coefficient of Variation 18.5 % (11.5-14.5); RDW Standard Deviation 65.8 fL (36.4-46.3); Red Blood Count 2.35 M/uL (4.7-6.1)
[2019-09-20 06:23] LABS: RBC Morphology Unremarkable
[2019-09-20] MEDS: ATORVASTATIN 20 MG TAB PO SCH (07:42)
[2019-09-20] MEDS: OXYBUTYNIN CHLORIDE XL 5 MG TABCR PO SCH (07:42)
[2019-09-20] MEDS: CYANOCOBALAMIN 500 MCG TABLET (VITAMIN B-12) PO SCH (07:43)
[2019-09-20] MEDS: MEMANTINE HCL 5 MG TAB PO SCH ×2 (07:43→20:53)
--- NOTE | 2019-09-20 12:23 | Urology Progress Note ---
Date of Service September 20, 2019 Assessment & Plan (1) Hematuria: (2) UTI (urinary tract infection): 83yo M admitted with hematuria and urinary symptoms secondary to radiation cystitis and urinary tract infection Hematuria - Likely secondary to acute UTI and underlying radiation cystitis - Three-way catheter in place, draining light red urine with slow CBI - HgB is 7.5 - Continue to trend - Continue with slow bladder irrigation - Continue hyperbaric oxygen treatments when able - sounds as though this may be on Sunday according to his Acute UTI - Hx of recurrent UTIs, likely related to radiation cystitis - Urine culture from this admission growing gaspar sensitive pseudomonas - On Day 2 of IV cefepime - Continue with antibiotics, can transition to PO at discharge Will continue to follow while inpatient. Patient agreeable to plan. All questions were answered. Admission and Anticipated Discharge Date Admission Date: September 17, 2019 Supervising Physician Co-Signing Physician Notes I also saw the patient concurrent with the resident physician. I confirmed wasserman portions of the history and physical exam as noted above. Recurrent UTI/history of Pseudomonas/hematuria Urology consult appreciated Continue cefepime Trend hemoglobin Acute on chronic CKD Creatinine 1.77 upon admission, improved to 1.21 today Monitor BMP Hyperlipidemia Continue atorvastatin Dementia Continue memantine and mirtazapine Subjective Patient's is at the bedside. Tolerating lunch. No issues with the catheter overnight. CBI is running at a slow drip. No acute events overnight. Eating well. Expresses desire to return home Review of Systems Review of Systems: All systems reviewed & are unremarkable except as noted in HPI & below Physical Exam Constitutional: well developed Genitourinary: urine light pink to dark pink on CBI as I'm seeing the patient Results & Data ([facility]) Vital Signs (Past 12 Hours) Vital Signs Temp Pulse Pulse Resp BP BP Pulse Ox 09/20/19 11:18 36.6 C 83 18 96/57 L 94 09/20/19 07:58 36.8 C 77 18 143/71 H 95 09/20/19 07:30 68 09/20/19 04:00 36.6 C 85 20 135/71 95 PG Care Time/CCT Total # of Minutes Spent Total Time Spent with Patient: Total time spent is greater than 50% in coordination of care (as documented) at patient's floor/unit and/or counseling patient: Coding Level of Care Code 44079 Subseq Hosp Care Lvl 2 Diagnoses Hematuria R31.0 Hematuria type: gross UTI (urinary tract infection) N39.0 (1) Hematuria Hematuria type: gross Qualified Code(s): R31.0 - Gross hematuria
--- NOTE | 2019-09-20 14:48 | Hospitalist Progress Note ---
Date of Service September 20, 2019 Assessment & Plan (1) Urinary tract infection: Dale Arenas is an 83yo M with a PMHx of dementia, bladder and prostate cancer s/p radiation therapy and chemotherapy, now with resultant radiation cystitis, admitted for evaluation of urinary symptoms. Urine culture growing gaspar-sensitive pseudomonas. On Day 3 of IV cefepime. Hemoglobin stable with ongoing hematuria. Acute UTI - hx of recurrent UTIs, likely related to radiation cystitis - Urine culture from this admission growing gapsar sensitive pseudomonas - WBC normal, patient afebrile - patient was started on Dapto/cefepime in ED. Daptomycin was discontinued. On Day 3 of IV cefepime. Will transition to p.o. on discharge, likely Cipro - normal saline at 80mls/hr discontinued Hematuria - Three-way catheter in place, draining light red urine with slow CBI - no CVA tenderness on exam, Cr at baseline, little concern for possible stone at this time. - UA 3+ for blood - likely secondary to acute UTI + underlying radiation cystitis - contributory to anemia - treat UTI as above -Continue hyperbaric oxygen treatments , on Sunday Anemia - Hgb 8.2 on admission, MCV 100. 7.5 today - FOBT ordered, pending - per , lower GI bleeding being worked up as outpatient. Patient was going to get a flexible sigmoidoscopy as outpatient but got canceled due to August hospitalization - ongoing hematuria likely contributory. recent chemotherapy treatment for bladder and prostate cancer likely with some suppressive effect - trend CBC daily - transfuse for Hgb < 7 . Blood consent signed and in chart Radiation cystitis, history of bladder cancer, intermittent LUTS Recurrent UTIs as above, history of recurrent hematuria recently treated with hyperbaric therapy - likely contributory to his anemia Continue home dose tamsulosin urology consulted, appreciate recs Pedal edema Patient reports that he has had pedal edema for several months - no underlying diagnosis of CHF - Echo 09/17 showing normal LV systolic function with EF 55-60%, normal RV systolic pressure, mild aortic stenosis, a mildly dilated aortic root Chronic dementia, memory loss Continue memantine Continue Remeron Diet: Regular DVT prophylaxis: SCDs, defer pharmacal prophylaxis given ongoing hematuria CODE STATUS: DNR/DNI. Disposition: MedSurg with telemetry . PT OT recommends that patient will need 24-hour care, d/c with home PT. Appreciate CM assistance. Patient active with [facility]. Hopefully discharge tomorrow Admission and Anticipated Discharge Date Admission Date: September 17, 2019 Supervising Physician Co-Signing Physician Notes I also saw the patient concurrent with the resident physician. I confirmed wasserman portions of the history and physical exam as noted above. Upon exam, the patient is seated in the bedside chair. His is present. He has no complaints today -and he desires discharge. Unfortunately with his dementia, I think he overestimates what he is able to do in terms of ambulation and self-care. Hemoglobin today 7.5. Recurrent UTI/history of Pseudomonas/hematuria Urology consult appreciated Continue cefepime Trend hemoglobin Acute on chronic CKD Improved Monitor BMP Hyperlipidemia Continue atorvastatin Dementia Continue memantine and mirtazapine Physical therapy consult regarding home safety Subjective Patient found in bed this a.m. with no acute overnight events. Hemoglobin improved slightly to 7.5 from 7.2. CBI ongoing draining cranberry colored urine. Patient tolerated p.o. intake. Patient with no other acute concerns or complaints. Patient's case discussed bedside with . Patient and both desire to go home. Review of Systems Review of Systems: All systems reviewed & are unremarkable except as noted in HPI & below Physical Exam Constitutional: WD/WN, vitals as above Eyes: PERRL, conjunctivae normal, anicteric sclerae ENMT: external ear and nose normal, oropharynx normal Respiratory: normal respiratory effort, lungs clear to auscultation Cardiovascular: Rate/Rhythm: regular rate and regular rhythm Heart Sounds: + murmur (Systolic) Gastrointestinal (Abdomen): normal bowel sounds, soft, nontender, no hepatosplenomegaly Skin: no rashes, warm and dry Psychiatric: A+Ox3, euthymic affect Genitourinary: Ang in place Lymphatic: + lymphedema (+1 LE bilaterally) Results & Data Results & Data ([facility]) Vital Signs (Past 12 Hours) Vital Signs Temp Pulse Pulse Resp BP BP Pulse Ox 09/20/19 11:18 36.6 C 83 18 96/57 L 94 09/20/19 07:58 36.8 C 77 18 143/71 H 95 09/20/19 07:30 68 09/20/19 04:00 36.6 C 85 20 135/71 95 Laboratory Results Laboratory Results - last 24 hr 09/19/19 09/20/19 16:16 05:26 WBC 3.70 L RBC 2.35 L Hgb 7.2 L 7.5 L Hct 22.1 L 23.5 L MCV 100.0 MCH 31.9 MCHC 31.9 L RDW Std Deviation 65.8 H RDW Coeff of Latasha 18.5 H Plt Count 141 MPV 8.9 Immature Gran % (Auto) 0.8 Neut % (Auto) 64.6 Lymph % (Auto) 21.4 [place] % (Auto) 10.0 Eos % (Auto) 2.4 Baso % (Auto) 0.8 Neut # (Auto) 2.39 Lymph # (Auto) 0.79 L [place] # (Auto) 0.37 Eos # (Auto) 0.09 Baso # (Auto) 0.03 Immature Gran # (Auto) 0.03 H RBC Morphology Unremarkable Medications Administered Current Inpatient Medications Acetaminophen (Acetaminophen 325 Mg Tab) 650 mg PO Q4H PRN PRN Reason: pain/fever Stop: 10/17/19 23:25 Atorvastatin Calcium (Atorvastatin 20 Mg Tab) 20 mg PO [facility] Stop: 10/18/19 08:59 Last Admin: 09/20/19 07:42 Dose: 20 mg Documented by: Calcium Carbonate (Calcium Carbonate 500 Mg Chewable Tab) 1,000 mg PO Q6H PRN PRN Reason: dyspepsia Stop: 10/17/19 23:25 Cyanocobalamin (Cyanocobalamin 500 Mcg Tablet (Vitamin B-12)) 1,000 mcg PO [facility] Stop: 10/18/19 08:59 Last Admin: 09/20/19 07:43 Dose: 1,000 mcg Documented by: Cefepime HCl 2,000 mg/ Syringe 20 mls @ 5.5 mls/min IV Q24H [facility]; Protocol Stop: 09/20/19 19:59 Last Admin: 09/19/19 19:55 Dose: 5.5 mls/min Documented by: Memantine (Memantine Hcl 5 Mg Tab) 5 mg PO BID [facility] Stop: 10/18/19 08:59 Last Admin: 09/20/19 07:43 Dose: 5 mg Documented by: Mirtazapine (Mirtazapine Tab 15 Mg Tab) 15 mg PO [facility] Stop: 10/18/19 20:59 Last Admin: 09/19/19 22:26 Dose: 15 mg Documented by: Oxybutynin Chloride (Oxybutynin Chloride Xl 5 Mg Tabcr) 10 mg PO DAILY [facility] Stop: 10/18/19 08:59 Last Admin: 09/20/19 07:42 Dose: 10 mg Documented by: Polyethylene Glycol (Polyethylene (Miralax) 17 Gm Pack) 17 gm PO DAILY [facility] Stop: 10/18/19 08:59 Last Admin: 09/19/19 08:53 Dose: 17 gm Documented by: Polyethylene Glycol (Polyethylene (Miralax) 17 Gm Pack) 17 gm PO DAILY PRN PRN Reason: Constipation Stop: 10/17/19 23:25 Psyllium Hydrophilic Mucilloid (Psyllium 58.6% Powder Packet) 1 pkt PO QAM PRN PRN Reason: CONSTIPATION Tamsulosin HCl (Tamsulosin Hcl 0.4 Mg Cap) 0.4 mg PO [facility] Stop: 10/18/19 20:59 Last Admin: 09/19/19 22:27 Dose: 0.4 mg Documented by: Vitamin D (Cholecalciferol 1,000 Units 25 Mcg Tab) 2,000 units PO [facility] Stop: 10/18/19 20:59 Last Admin: 09/19/19 22:26 Dose: 2,000 units Documented by:
[2019-09-20] MEDS: POLYETHYLENE (MIRALAX) 17 GM PACK PO SCH (15:21)
[2019-09-20] MEDS: TAMSULOSIN HCL 0.4 MG CAP PO SCH (20:53)
[2019-09-20] MEDS: CHOLECALCIFEROL 1,000 UNITS 25 MCG TAB PO SCH (20:53)
[2019-09-20] MEDS: MIRTAZAPINE TAB 15 MG TAB PO SCH (20:53)
[2019-09-21 06:08] LABS: Hematocrit (blood only) 20.2 % (42-52); Hemoglobin 6.6 g/dL (14.0-18.0); Mean Corpuscular Hemoglobin 31.6 pg (25-34); Mean Corpuscular Hgb Conc 32.7 g/dL (32-36); Mean Corpuscular Volume 96.7 fL (80-100); Mean Platelet Volume 8.5 fL (7.4-10.4); Platelet Count 145 K/uL (130-400); RDW Coefficient of Variation 18.6 % (11.5-14.5); RDW Standard Deviation 63.8 fL (36.4-46.3); Red Blood Count 2.09 M/uL (4.7-6.1); White Blood Count 4.02 K/uL (4.8-10.8)
[2019-09-21 06:10] LABS: Basophils # (auto) 0.04 K/uL (0-0.2); Eosinophils # (auto) 0.12 K/uL (0-0.5); Immature Granulocytes # (auto) 0.05 K/uL (0.00-0.02); Immature Granulocytes % (auto) 1.2 %; Lymphocytes # (auto) 0.73 K/uL (1.2-3.4); Lymphocytes % (auto) 18.2 %; Monocytes # (auto) 0.39 K/uL (0.11-0.59); Monocytes % (auto) 9.7 %; Neutrophils # (auto) 2.69 K/uL (1.4-6.5); Neutrophils % (auto) 66.9 %; RBC Morphology Unremarkable
[2019-09-21 06:12] LABS: BUN Creatinine Ratio 15.2 (10-20); Calcium 7.4 mg/dl (8.5-10.1); Creatinine Clr Calc Pharmacy 43.2 ml/min; Est GFR (African American) 64.6; Est GFR (Non-African American) 55.8; Potassium 4.6 mmol/L (3.5-5.1)
[2019-09-21] MEDS ORDERED: SODIUM CHLORIDE 0.9% 250 ML IV PRN (06:17)
[2019-09-21] MEDS: MEMANTINE HCL 5 MG TAB PO SCH ×2 (08:13→20:33)
[2019-09-21] MEDS: ATORVASTATIN 20 MG TAB PO SCH (08:13)
[2019-09-21] MEDS: OXYBUTYNIN CHLORIDE XL 5 MG TABCR PO SCH (08:13)
[2019-09-21] MEDS: CYANOCOBALAMIN 500 MCG TABLET (VITAMIN B-12) PO SCH (08:13)
[2019-09-21] MEDS: POLYETHYLENE (MIRALAX) 17 GM PACK PO SCH (08:13)
--- NOTE | 2019-09-21 14:34 | Urology Progress Note ---
Date of Service September 21, 2019 Assessment & Plan (1) Hematuria: (2) UTI (urinary tract infection): 83yo M admitted with hematuria and urinary symptoms secondary to radiation cystitis and urinary tract infection Hematuria - Likely secondary to acute UTI and underlying radiation cystitis - Three-way catheter in place, draining almost clear urine on slow CBI - Trend Hgb - Titrate CBI to off - Continue hyperbaric oxygen treatments when able - sounds as though this may be on Sunday according to his Acute UTI - Continue with antibiotics, can transition to PO at discharge Will continue to follow while inpatient. Patient agreeable to plan. All questions were answered. Admission and Anticipated Discharge Date Admission Date: September 19, 2019 Supervising Physician Co-Signing Physician Notes I also saw the patient concurrent with the resident physician. I confirmed wasserman portions of the history and physical exam as noted above. Upon exam, the patient is seated in the bedside chair. His is present. He has no complaints today -and he desires discharge. Unfortunately with his dementia, I think he overestimates what he is able to do in terms of ambulation and self-care. Hemoglobin today 7.5. Recurrent UTI/history of Pseudomonas/hematuria Urology consult appreciated Continue cefepime Trend hemoglobin Acute on chronic CKD Improved Monitor BMP Hyperlipidemia Continue atorvastatin Dementia Continue memantine and mirtazapine Physical therapy consult regarding home safety Subjective Patient received a transfusion. He is resting comfortably. Urine is almost clear on a very slow drip. The patient is sleeping and his provides the answers to questions today. Patient continues to tolerate a diet. IV abx have continued as well for treating his UTI. They are hoping to go home tomorrow and attend an appt regarding hyperbaric oxygen. Patient found in bed this a.m. with no acute overnight events. Hemoglobin improved slightly to 7.5 from 7.2. CBI ongoing draining cranberry colored urine. Patient tolerated p.o. intake. Patient with no other acute concerns or complaints. Patient's case discussed bedside with . Patient and both desire to go home. Review of Systems Review of Systems: All systems reviewed & are unremarkable except as noted in HPI & below Physical Exam Constitutional: well developed Genitourinary: urine very light pink to clear on a slow drip Results & Data ([facility]) Vital Signs (Past 12 Hours) Vital Signs Temp Pulse Pulse Resp BP BP Pulse Ox 09/21/19 10:05 36.6 C 86 18 119/60 96 09/21/19 09:05 36.4 C L 88 20 107/64 96 09/21/19 08:36 36.4 C L 88 18 111/72 94 09/21/19 08:06 36.6 C 87 18 118/57 L 98 09/21/19 07:51 36.5 C 73 18 104/63 97 09/21/19 07:34 36.4 C L 62 18 114/68 09/21/19 07:28 70 09/21/19 07:13 36.7 C 80 18 106/65 90 09/21/19 03:00 36.4 C L 70 18 145/75 H 98 PG Care Time/CCT Total # of Minutes Spent Total Time Spent with Patient: Total time spent is greater than 50% in coordination of care (as documented) at patient's floor/unit and/or counseling patient: [place] [address] Inpt Consult Level 5 Patient Type Established History Problem Focused Exam Problem Focused Medical Decision Making Moderate Complexity Diagnoses Hematuria R31.0 Hematuria type: gross UTI (urinary tract infection) N39.0 Time Spent (min) 20 (1) Hematuria Hematuria type: gross Qualified Code(s): R31.0 - Gross hematuria
--- NOTE | 2019-09-21 14:34 | Hospitalist Progress Note ---
Date of Service September 21, 2019 Assessment & Plan (1) Urinary tract infection: Dale Arenas is an 83yo M with a PMHx of dementia, bladder and prostate cancer s/p radiation therapy and chemotherapy, now with resultant radiation cystitis, admitted for evaluation of urinary symptoms. Urine culture growing gaspar-sensitive pseudomonas. On Day 3 of IV cefepime. Hemoglobin stable with ongoing hematuria. Acute UTI - hx of recurrent UTIs, likely related to radiation cystitis - Urine culture from this admission growing gaspar sensitive pseudomonas - WBC normal, patient afebrile - patient was started on Dapto/cefepime in ED. Daptomycin was discontinued. On Day 4 of IV cefepime. Will transition to p.o. on discharge Hematuria - UA 3+ for blood - Three-way catheter in place, draining darker red urine with slow CBI - no CVA tenderness on exam, Cr at baseline, little concern for possible stone at this time. - likely secondary to acute UTI + underlying radiation cystitis - treat UTI as above -Continue hyperbaric oxygen treatments once able on discharge. This was scheduled for tomorrow however patient's will reschedule Anemia - Hgb 8.2 on admission, MCV 100. 6.6 today, patient transfused 1 unit PRBC - FOBT ordered, pending - per , lower GI bleeding being worked up as outpatient. Patient was going to get a flexible sigmoidoscopy as outpatient but got canceled due to August hospitalization - ongoing hematuria likely contributory. recent chemotherapy treatment for bladder and prostate cancer likely with some suppressive effect - trend CBC daily - transfuse for Hgb < 7 . Blood consent signed and in chart Radiation cystitis, history of bladder cancer, intermittent LUTS Recurrent UTIs as above, history of recurrent hematuria recently treated with hyperbaric therapy - likely contributory to his anemia Continue home dose tamsulosin urology consulted, appreciate recs Pedal edema Patient reports that he has had pedal edema for several months - no underlying diagnosis of CHF - Echo 09/17 showing normal LV systolic function with EF 55-60%, normal RV systolic pressure, mild aortic stenosis, a mildly dilated aortic root Chronic dementia, memory loss Continue memantine Continue Remeron Diet: Regular DVT prophylaxis: SCDs, defer pharmacal prophylaxis given ongoing hematuria CODE STATUS: DNR/DNI. Disposition: MedSur with telemetry . PT OT recommends that patient will need 24-hour care, d/c with home PT. Appreciate CM assistance. Patient active with [facility]. Hopefully discharge once hemoglobin stabilizes Admission and Anticipated Discharge Date Admission Date: September 19, 2019 Supervising Physician Co-Signing Physician Notes I also saw the patient concurrent with the resident physician. I confirmed wasserman portions of the history and physical exam as noted above. Unfortunately hemoglobin this morning has dropped to 6.6. Accordingly the patient has increased fatigue and weakness. Discussed need for transfusion with patient and ; our goal has been to keep his hemoglobin greater than 7. Recurrent UTI/history of Pseudomonas/hematuria Continue cefepime Transfusion today CBC in a.m. Acute on chronic CKD Improved Monitor BMP Hyperlipidemia Continue atorvastatin Dementia Continue memantine and mirtazapine Physical therapy consult regarding home safety recommended home PT; however with his current anemia, I do not think is safe for discharge. Subjective Patient found in bed this a.m. with no acute overnight events. Hemoglobin dropped to 6.6 this a.m requiring 1 unit PRBCs. CBI ongoing draining cranberry colored urine. Patient tolerated p.o. intake. Patient with no other acute concerns or complaints. Patient's case discussed bedside with . Patient and both desire to go home. However understands reason for ongoing hospitalization. Review of Systems Review of Systems: All systems reviewed & are unremarkable except as noted in HPI & below Physical Exam Constitutional: WD/WN, vitals as above Eyes: PERRL, conjunctivae normal, anicteric sclerae ENMT: external ear and nose normal, oropharynx normal Respiratory: normal respiratory effort, lungs clear to auscultation Cardiovascular: Rate/Rhythm: regular rate and regular rhythm Heart Sounds: + murmur (Systolic) Gastrointestinal (Abdomen): normal bowel sounds, soft, nontender, no hepatosplenomegaly Skin: no rashes, warm and dry Psychiatric: A+Ox3, euthymic affect Genitourinary: Ang in place Lymphatic: + lymphedema (+1 LE bilaterally) Results & Data Results & Data ([facility]) Vital Signs (Past 12 Hours) Vital Signs Temp Pulse Pulse Resp BP BP Pulse Ox 09/21/19 10:05 36.6 C 86 18 119/60 96 09/21/19 09:05 36.4 C L 88 20 107/64 96 09/21/19 08:36 36.4 C L 88 18 111/72 94 09/21/19 08:06 36.6 C 87 18 118/57 L 98 09/21/19 07:51 36.5 C 73 18 104/63 97 09/21/19 07:34 36.4 C L 62 18 114/68 09/21/19 07:28 70 09/21/19 07:13 36.7 C 80 18 106/65 90 09/21/19 03:00 36.4 C L 70 18 145/75 H 98 Laboratory Results Laboratory Results - last 24 hr 09/18/19 09/21/19 09/21/19 18:52 05:19 05:19 WBC 4.02 L RBC 2.09 L Hgb 6.6 L* Hct 20.2 L* MCV 96.7 MCH 31.6 MCHC 32.7 RDW Std Deviation 63.8 H RDW Coeff of Latasha 18.6 H Plt Count 145 MPV 8.5 Immature Gran % (Auto) 1.2 Neut % (Auto) 66.9 Lymph % (Auto) 18.2 [place] % (Auto) 9.7 Eos % (Auto) 3.0 Baso % (Auto) 1.0 Neut # (Auto) 2.69 Lymph # (Auto) 0.73 L [place] # (Auto) 0.39 Eos # (Auto) 0.12 Baso # (Auto) 0.04 Immature Gran # (Auto) 0.05 H RBC Morphology Unremarkable Sodium 144 Potassium 4.6 Chloride 114 H Carbon Dioxide 25 Anion Gap 5.0 BUN 18 Creatinine 1.19 Est Cr Clr Drug Dosing 43.2 Est GFR ( Amer) 64.6 Est GFR (Non-Af Amer) 55.8 BUN/Creatinine Ratio 15.2 Glucose 90 Calcium 7.4 L Blood Type A Positive Antibody Screen POSITIVE A Antibody Identification Anti-Fya Antibody ID Comment Crossmatch See Detail Medications Administered Current Inpatient Medications Acetaminophen (Acetaminophen 325 Mg Tab) 650 mg PO Q4H PRN PRN Reason: pain/fever Stop: 10/17/19 23:25 Atorvastatin Calcium (Atorvastatin 20 Mg Tab) 20 mg PO QAM [facility] Stop: 10/18/19 08:59 Last Admin: 09/21/19 08:13 Dose: 20 mg Documented by: Calcium Carbonate (Calcium Carbonate 500 Mg Chewable Tab) 1,000 mg PO Q6H PRN PRN Reason: dyspepsia Stop: 10/17/19 23:25 Cyanocobalamin (Cyanocobalamin 500 Mcg Tablet (Vitamin B-12)) 1,000 mcg PO QAM [facility] Stop: 10/18/19 08:59 Last Admin: 09/21/19 08:13 Dose: 1,000 mcg Documented by: Sodium Chloride (Nss) 250 mls @ 15 mls/hr IV .[id number] PRN PRN Reason: For Transfusion Stop: 09/21/19 16:18 Memantine (Memantine Hcl 5 Mg Tab) 5 mg PO BID [facility] Stop: 10/18/19 08:59 Last Admin: 09/21/19 08:13 Dose: 5 mg Documented by: Mirtazapine (Mirtazapine Tab 15 Mg Tab) [address] [facility] Stop: 10/18/19 20:59 Last Admin: 09/20/19 20:53 Dose: 15 mg Documented by: Oxybutynin Chloride (Oxybutynin Chloride Xl 5 Mg Tabcr) 10 mg PO DAILY [facility] Stop: 10/18/19 08:59 Last Admin: 09/21/19 08:13 Dose: 10 mg Documented by: Polyethylene Glycol (Polyethylene (Miralax) 17 Gm Pack) 17 gm PO DAILY [facility] Stop: 10/18/19 08:59 Last Admin: 09/21/19 08:13 Dose: 17 gm Documented by: Polyethylene Glycol (Polyethylene (Miralax) 17 Gm Pack) 17 gm PO DAILY PRN PRN Reason: Constipation Stop: 10/17/19 23:25 Psyllium Hydrophilic Mucilloid (Psyllium 58.6% Powder Packet) 1 pkt PO QAM PRN PRN Reason: CONSTIPATION Tamsulosin HCl (Tamsulosin Hcl 0.4 Mg Cap) 0.[address] [facility] Stop: 10/18/19 20:59 Last Admin: 09/20/19 20:53 Dose: 0.4 mg Documented by: Vitamin D (Cholecalciferol 1,000 Units 25 Mcg Tab) 2,[address] [facility] Stop: 10/18/19 20:59 Last Admin: 09/20/19 20:53 Dose: 2,000 units Documented by: Resident Activity Tracking Resident Involvement: Resident Care Provided Care Provided: Adult [facility] Medicine
[2019-09-21] MEDS ORDERED: LIDOCAINE 2% JELLY 5 ML TUBE ONE (19:04)
[2019-09-21] MEDS: CHOLECALCIFEROL 1,000 UNITS 25 MCG TAB PO SCH (20:33)
[2019-09-21] MEDS: MIRTAZAPINE TAB 15 MG TAB PO SCH (20:33)
[2019-09-21] MEDS: TAMSULOSIN HCL 0.4 MG CAP PO SCH (20:33)
--- NOTE | 2019-09-21 21:04 | Urology Progress Note ---
Date of Service September 21, 2019 Assessment & Plan (1) Hematuria: (2) UTI (urinary tract infection): 83yo M admitted with hematuria and urinary symptoms secondary to radiation cystitis and urinary tract infection Hematuria - Likely secondary to acute UTI and underlying radiation cystitis - Three-way catheter in place, draining almost clear urine on slow CBI earlier today - slowed CBI and he clotted off. Irrigated tonight. Explained to patient that he may need to go to the OR if this continues - unfortunately he ate tonight. NPO after midnight incase he is need of intervention tomorrow. Acute UTI - Continue with antibiotics, can transition to PO at discharge Will continue to follow while inpatient. Patient agreeable to plan. All questions were answered. Admission and Anticipated Discharge Date Admission Date: September 19, 2019 Subjective Contacted that the patient clotted off his catheter. Nursing changed out his catheter to new 24 Fr 3-way. They stated there was a large clot on the tip of the catheter. I irrigate the patient at the bedside - removed about 150cc of clot. Urine was then light pink. Restarted CBI. Patient has some bladder spasms during irrigation but now comfortable. Review of Systems Constitutional: as per Subjective / HPI Genitourinary: + as per Subjective / HPI Physical Exam Constitutional: well developed Genitourinary: urine now pink on CBI, clot irrigated Results & Data ([facility]) Vital Signs (Past 12 Hours) Vital Signs Temp Pulse Pulse Resp BP BP BP 09/21/19 19:57 36.2 C L 77 20 127/74 09/21/19 15:16 36.4 C L 72 18 107/65 09/21/19 10:05 36.6 C 86 18 119/60 09/21/19 09:05 36.4 C L 88 20 107/64 Pulse Ox 09/21/19 19:57 97 09/21/19 15:16 98 09/21/19 10:05 96 09/21/19 09:05 96 PG Care Time/CCT Total # of Minutes Spent Total Time Spent with Patient: Total time spent is greater than 50% in coordination of care (as documented) at patient's floor/unit and/or counseling patient: Coding Level of Care Code 91645 Inpt Consult Level 5 History Problem Focused Exam Problem Focused Medical Decision Making Moderate Complexity Diagnoses Hematuria R31.0 Hematuria type: gross UTI (urinary tract infection) N39.0 Time Spent (min) 30 (1) Hematuria Hematuria type: gross Qualified Code(s): R31.0 - Gross hematuria
[2019-09-22 06:12] LABS: Basophils # (auto) 0.03 K/uL (0-0.2); Basophils % (auto) 0.8 %; Eosinophils # (auto) 0.13 K/uL (0-0.5); Eosinophils % (auto) 3.6 %; Hematocrit (blood only) 22.8 % (42-52); Hemoglobin 7.5 g/dL (14.0-18.0); Immature Granulocytes # (auto) 0.05 K/uL (0.00-0.02); Immature Granulocytes % (auto) 1.4 %; Lymphocytes # (auto) 0.63 K/uL (1.2-3.4); Lymphocytes % (auto) 17.6 %; Mean Corpuscular Hemoglobin 31.1 pg (25-34); Mean Corpuscular Hgb Conc 32.9 g/dL (32-36); Mean Corpuscular Volume 94.6 fL (80-100); Mean Platelet Volume 8.9 fL (7.4-10.4); Monocytes # (auto) 0.35 K/uL (0.11-0.59); Monocytes % (auto) 9.8 %; Neutrophils # (auto) 2.39 K/uL (1.4-6.5); Neutrophils % (auto) 66.8 %; Platelet Count 138 K/uL (130-400); RDW Coefficient of Variation 18.9 % (11.5-14.5); RDW Standard Deviation 63.4 fL (36.4-46.3); Red Blood Count 2.41 M/uL (4.7-6.1); White Blood Count 3.58 K/uL (4.8-10.8)
[2019-09-22 06:31] LABS: RBC Morphology Unremarkable
[2019-09-22 06:33] LABS: BUN Creatinine Ratio 13.5 (10-20); Calcium 7.9 mg/dl (8.5-10.1); Creatinine Clr Calc Pharmacy 42.5 ml/min; Est GFR (African American) 63.3; Est GFR (Non-African American) 54.6
[2019-09-22] MEDS: CIPROFLOXACIN / D5W 400 MG/200 ML BAG IV SCH ×2 (08:32→19:24)
[2019-09-22] MEDS: ATORVASTATIN 20 MG TAB PO SCH (08:33)
[2019-09-22] MEDS: OXYBUTYNIN CHLORIDE XL 5 MG TABCR PO SCH (08:33)
[2019-09-22] MEDS: MEMANTINE HCL 5 MG TAB PO SCH ×2 (08:33→19:57)
[2019-09-22] MEDS: CYANOCOBALAMIN 500 MCG TABLET (VITAMIN B-12) PO SCH (08:33)
[2019-09-22] MEDS: POLYETHYLENE (MIRALAX) 17 GM PACK PO SCH (08:33)
--- NOTE | 2019-09-22 10:12 | Hospitalist Progress Note ---
Date of Service September 22, 2019 Assessment & Plan (1) Urinary tract infection: Dale Arenas is an 83yo M with a PMHx of dementia, bladder and prostate cancer s/p radiation therapy and chemotherapy, now with resultant radiation cystitis, admitted for evaluation of urinary symptoms. Urine culture growing gaspar-sensitive pseudomonas. On Day 3 of IV cefepime. Hemoglobin stable with ongoing hematuria. Acute UTI - recurrent UTI hx secondary to radiation cystitis - UCx growing pseudomonas pansensitive. initially treated with dapto/cefepime in ED. Received 3 days of cefepime total prior to order falling off over weekend. - Ciprofloxacin IV ordered for today, can switch to PO at discharge. WIll require total of 7 days of antibiotics given complicated UTI. Hematuria 2/2 radiation cystitis - grossly blood urine, passing clots in kat - Three-way catheter in place, draining red urine with slow CBI - no CVA tenderness on exam, Cr at baseline, little concern for possible stone at this time. - likely secondary to acute UTI + underlying radiation cystitis -Continue hyperbaric oxygen treatments once able on discharge. This was scheduled for today however patient's will reschedule Anemia s/p 1 u pRBC transfusion - Hgb 8.1 - per , lower GI bleeding being worked up as outpatient. Patient was going to get a flexible sigmoidoscopy as outpatient but got canceled due to August hospitalization - ongoing hematuria likely contributory. recent chemotherapy treatment for bladder and prostate cancer likely with some suppressive effect - trend CBC daily - transfuse for Hgb < 7 . Blood consent signed and in chart Radiation cystitis, history of bladder cancer, intermittent LUTS Recurrent UTIs as above, history of recurrent hematuria recently treated with hyperbaric therapy - likely contributory to his anemia Continue home dose tamsulosin urology consulted, appreciate recs Pedal edema Patient reports that he has had pedal edema for several months - no underlying diagnosis of CHF - Echo 09/17 showing normal LV systolic function with EF 55-60%, normal RV systolic pressure, mild aortic stenosis, a mildly dilated aortic root Chronic dementia, memory loss Continue memantine Continue Remeron Diet: Regular DVT prophylaxis: SCDs, defer pharmacal prophylaxis given ongoing hematuria CODE STATUS: DNR/DNI. Disposition: MedSurg with telemetry . PT OT recommends that patient will need 24-hour care, d/c with home PT. Appreciate CM assistance. [facility]. Hopefully discharge once hematuria stabilizes Admission and Anticipated Discharge Date Admission Date: September 19, 2019 Supervising Physician Co-Signing Physician Notes I personally examined the patient and verified all wasserman points of history and exam, discussed case, and agree with decision making with Dr Corral. ongoing hematuria wonders about procedure. right now after d/w urology -ongiong irrigation and hopefully back to hyperbaric for treatment vitals noted nad heent nc at mmm urine copper when seen earlier today then bright red when seen again in afternoon Recurrent UTI/history of Pseudomonas/acute blood loss anemia in the setting of hematuria treated wtih transfusion 1 unit PRBC Continue cipro Hgb responded nicely to transfusion Acute on chronic CKD Improved follow BMP Hyperlipidemia Continue atorvastatin Dementia Continue memantine and mirtazapine reassurance and supportive care otherwise as above Subjective Feeling well this AM, much improved from admission after transfusion. Review of Systems Constitutional: no fever, no chills, no body aches and no fatigue Respiratory: no cough and no dyspnea Cardiovascular: no chest pain, no dyspnea and no edema Gastrointestinal: no abdominal pain, no nausea, no vomiting, no constipation and no diarrhea/loose stools Genitourinary: + hematuria; no dysuria, no urinary frequency and no flank pain Physical Exam Constitutional: cooperative; no acute distress and not ill appearing Neck: normal visual inspection Respiratory: normal respiratory effort and able to speak in complete sentences; no respiratory distress, no labored breathing, no retractions, no cough and no audible wheezes Auscultation: lungs clear to auscultation bilaterally; no crackles, no rales, no rhonchi and no wheezes Cardiovascular: Rate/Rhythm: regular rate and regular rhythm Heart Sounds: normal S1 and normal S2; no gallop, no murmur and no cardiac rub Vessels: posterior tibial pulses present Extremities: no pedal edema and no edema Gastrointestinal (Abdomen): Inspection/Auscultation: abdomen normal to inspection and normal bowel sounds; abdomen not distended Percussion/Palpati on: abdomen soft; abdomen nontender, no guarding, abdomen not rigid and no abdominal mass Genitourinary: arciniega red urine in kat bag after being changed this morning Results & Data Results & Data ([facility]) Vital Signs (Past 12 Hours) Vital Signs Temp Pulse Pulse Resp BP Pulse Ox 09/22/19 07:31 74 09/22/19 07:21 36.3 C L 73 18 113/70 90 09/22/19 04:00 36.5 C 69 18 124/80 96 09/22/19 01:29 70 09/21/19 23:30 36.6 C 73 20 131/58 L 98 CBC: WBC 3.58/ hg 7.5/plt 138 BMP: WNL, BUN 16, Cr 1.21 Ucx: Pseudomonas sensitive to ciprofloxacin Bcx: negative at 48 hrs x 2 Resident Activity Tracking Resident Involvement: Resident Care Provided Care Provided: Adult Hospital Medicine
[2019-09-22 14:25] LABS: Hematocrit (blood only) 24.5 % (42-52); Hemoglobin 8.1 g/dL (14.0-18.0)
--- NOTE | 2019-09-22 16:15 | Urology Progress Note ---
Date of Service September 22, 2019 Assessment & Plan (1) Hematuria: Hematuria doing well with CBI. Patient's blood counts have normalized after transfusion. Patient is tolerating catheter without major problems or issues. Due to the severe recurrent nature of these severe bleeds from bowel and bladder recommend coordinating with wound care center to initiate hyperbaric oxygen therapy as soon as possible. Patient has failed multiple other interventions and has now had multiple hospitalizations over the last 2 to 3 months with need for multiple transfusions. Did discuss alternatives and other options however at this point due to severe nature options likely limited. Patient also following with oncology due to his history of small cell with metastatic disease. Agree with plans for supportive care. Continue to titrate CBI down to clear with hope to turn off later today. We recommend attempting to contact the wound center to see if referral/assessment can be rescheduled/moved up to later this week. Admission and Anticipated Discharge Date Admission Date: September 19, 2019 Subjective Patient admitted with gross hematuria, retention and discomfort. 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 Patient had undergone transfusion this hospitalization. Patient is afebrile. Has been undergoing continuous bladder irrigation with supportive care with oral medications, IV medications, IV fluids, and oral intake. CBI is currently running at a low rate and urine is clear without any red or pink tinge. No clots. Is doing better without considerable increase in pain or major issues. Has not developed severe vomiting or other issues. Has not experienced fever or chills. Has been tolerating oral medications. Is tolerating fluids. Has noticed some frequency and urgency. Has not had severe pain in the back and flank. Does have occasional burning and irritation. No severe episodes or major changes. Patient was set to undergo hyperbaric oxygen therapy today with wound center for his recurrent episodes of severe acute blood loss anemia due to radiation cystitis and proctitis. This is going to be rescheduled per patient's who is bedside Review of Systems Review of Systems: All systems reviewed & are unremarkable except as noted in HPI & below Physical Exam Physical Exam: General: Alert in no acute distress. Cachectic and weak. Advanced age. Chronic Medical issues. HEENT: Normocephalic. Inspection normal. Cranial Nerves 2-12 Grossly intact with some hearing issues. Normal inspection of face. Normal inspection of neck. Psychologic: Normal affect. Baseline issues with memory. Respiratory: Nonlabored. No use of accessory muscles. No tachypnea or dyspnea. Cardiovascular: No tachycardia Skin: [place] and Dry. No rashes or visible lesions. Extremities/Lymphatics: Minor Mobility issues. Slow Gait. Abdomen: Soft Non-distended. No rebound or guarding. : CBI at low rate with clear urine. Catheter in place. Results & Data ([facility]) Vital Signs (Past 12 Hours) Vital Signs Temp Pulse Pulse Resp BP BP Pulse Ox 09/22/19 15:21 36.3 C L 75 18 102/62 95 09/22/19 12:07 36.9 C 82 18 118/70 93 09/22/19 07:31 74 09/22/19 07:21 36.3 C L 73 18 113/70 90 PG Care Time/CCT Total # of Minutes Spent Total Time Spent with Patient: Total time spent is greater than 50% in coordination of care (as documented) at patient's floor/unit and/or counseling patient: Coding Level of Care Code 79240 Subseq Hosp Care Lvl 3 Diagnoses Hematuria R31.0 Hematuria type: gross (1) Hematuria Hematuria type: gross Qualified Code(s): R31.0 - Gross hematuria
--- NOTE | 2019-09-22 18:04 | Billing Data ---
Date of Service September 22, 2019 Coding Level of Care Code 96954 Subseq Hosp Care Lvl 3
[2019-09-22] MEDS: TAMSULOSIN HCL 0.4 MG CAP PO SCH (19:57)
[2019-09-22] MEDS: MIRTAZAPINE TAB 15 MG TAB PO SCH (19:57)
[2019-09-22] MEDS: CHOLECALCIFEROL 1,000 UNITS 25 MCG TAB PO SCH (19:58)
[2019-09-23 07:34] LABS: Hematocrit (blood only) 22.6 % (42-52); Hemoglobin 7.5 g/dL (14.0-18.0); Mean Corpuscular Hemoglobin 31.5 pg (25-34); Mean Corpuscular Hgb Conc 33.2 g/dL (32-36); Mean Platelet Volume 8.6 fL (7.4-10.4); Platelet Count 157 K/uL (130-400); RDW Coefficient of Variation 19.1 % (11.5-14.5); RDW Standard Deviation 62.2 fL (36.4-46.3); Red Blood Count 2.38 M/uL (4.7-6.1); White Blood Count 3.66 K/uL (4.8-10.8)
[2019-09-23] MEDS: CIPROFLOXACIN / D5W 400 MG/200 ML BAG IV SCH (07:54)
[2019-09-23] MEDS: CYANOCOBALAMIN 500 MCG TABLET (VITAMIN B-12) PO SCH (07:54)
[2019-09-23] MEDS: ATORVASTATIN 20 MG TAB PO SCH (07:55)
[2019-09-23] MEDS: OXYBUTYNIN CHLORIDE XL 5 MG TABCR PO SCH (07:55)
[2019-09-23] MEDS: MEMANTINE HCL 5 MG TAB PO SCH ×2 (07:55→20:08)
[2019-09-23 08:01] LABS: BUN Creatinine Ratio 14.4 (10-20); Calcium 8.6 mg/dl (8.5-10.1); Creatinine Clr Calc Pharmacy 36.7 ml/min; Est GFR (African American) 53.1; Est GFR (Non-African American) 45.8; Potassium 4.3 mmol/L (3.5-5.1)
[2019-09-23] MEDS: POLYETHYLENE (MIRALAX) 17 GM PACK PO SCH (08:01)
--- NOTE | 2019-09-23 10:04 | Urology Progress Note ---
Date of Service September 23, 2019 Assessment & Plan (1) Hematuria: Clamp CBI now If urine remains relatively stable, he may be could be discharged home and begin hyperbaric oxygen as an outpatient If he continues to bleed we will have to entertain other options or even consider starting hyperbaric oxygen as an inpatient I have also discussed the possibility of formalin, this would require an anesthetic, I do not think were quite ready to consider that yet Admission and Anticipated Discharge Date Admission Date: September 19, 2019 Subjective Subjectively comfortable He denies any major issues overnight He has CBI running at a moderate pace but clear urine this morning He has had no issues for the last several hours, however he did have irrigation problems last eveningrequiring manual irrigation He has had some drop in his hemoglobin He is very anxious to move forward with a more definitive treatmenti.e. hyperbaric oxygen Physical Exam Physical Exam: Moderate lower extremity edema Abdomen soft Urine relatively clear in the tubing with CBI running moderately Constitutional: well developed and well nourished Neck: neck nontender Respiratory: normal respiratory effort; no respiratory distress and does not use accessory muscles Cardiovascular: Rate/Rhythm: regular rate Vessels: radial pulses present Extremities: no edema Gastrointestinal (Abdomen): Inspection/Auscultation: abdomen normal to inspec tion Percussion/Palpation: abdomen soft; abdomen nontender and no guarding Musculoskeletal: Head/Neck/Chest: normocephalic and head atraumatic Extremities: extremities normal to inspection Skin: no rashes and no lesions Trauma: no evidence of skin trauma Neurologic: awake; not obtunded Speech / Cognition: normal speech Motor/Sensory: no tremor Psychiatric: Orientation: alert and oriented x 3 Genitourinary: no CVA tenderness Lymphatic: no lymphadenopathy Results & Data ([facility]) Vital Signs (Past 12 Hours) Vital Signs Temp Pulse Pulse Resp BP Pulse Ox 09/23/19 07:37 81 09/23/19 07:15 37.0 C 79 16 115/64 96 09/23/19 03:00 36.7 C 78 18 133/75 94 09/23/19 01:21 77 09/23/19 00:02 36.5 C 83 18 113/71 96 PG Care Time/CCT Total # of Minutes Spent Total Time Spent with Patient: Total time spent is greater than 50% in coordination of care (as documented) at patient's floor/unit and/or counseling patient: Coding Level of Care Code 93711 Subseq Hosp Care Lvl 2 Diagnoses Hematuria R31.0 Hematuria type: gross (1) Hematuria Hematuria type: gross Qualified Code(s): R31.0 - Gross hematuria
[2019-09-23] MEDS ORDERED: SODIUM CHLORIDE 0.9% 500 ML IV SCH (10:45)
--- NOTE | 2019-09-23 11:12 | Discharge Summary ---
Date of Service September 23, 2019 Admission HPI Per Admitting Provider Mr. Arenas is an 83-year-old male with a past medical history of radiation cystitis, dementia and memory loss, and hypertension with recurrent urologic interventions who presents with dysuria, fatigue, and hypotension. He is seen at the bedside with his who helps give collateral. They report his symptoms began about 1 day ago, and he was seen at a follow-up appointment with urology who noted that he was hypotensive and recommended he be seen in the emergency department. He denies fever, chills, sweats, and abdominal pain but endorses bladder spasm, dysuria, and increased incontinence and urgency overnig ht for 1 day. He denies lightheadedness, syncope, presyncope. He has had multiple urinary tract infections before with multiple pathogens including Pseudomonas. His thinks that he was scheduled to have a test done tomorrow, but does not remember the name of the test and would like us to double check to see if this can be done while he is in the hospital. No other questions or concerns at time of HPI. Medical history: Reviewed Surgical history: Reviewed Medications: Reviewed Allergies: Reviewed Social: Former tobacco use, no current alcohol/tobacco/recreational drug use. CODE STATUS: NR/DNI, confirmed with patient and his Discharge Data Allergies Allergy/AdvReac Type Severity Reaction Status Date / Time No Known Allergies Allergy Verified 09/17/19 17:39 Consultations 09/17/19 20:20 ED Decision to Admit Stat 09/18/19 19:38 Consult Urology Routine 09/20/19 14:52 Consult Case Management - Discharge Planning Routine Hospital Course (1) Urinary tract infection: Dale Arenas is an 83yo M with a PMHx of dementia, bladder and prostate cancer s/p radiation therapy and chemotherapy, now with resultant radiation cystitis, admitted for evaluation of urinary symptoms. Urine culture growing gaspar-sensitive pseudomonas. On Day 3 of IV cefepime. Hemoglobin stable with ongoing hematuria. Acute UTI - recurrent UTI hx secondary to radiation cystitis - UCx growing pseudomonas pansensitive. initially treated with dapto/cefepime in ED. Received 3 days of cefepime total prior to order falling off over weekend. - Ciprofloxacin IV ordered for today, can switch to PO at discharge. WIll require total of 7 days of antibiotics given complicated UTI. Hematuria 2/2 radiation cystitis - grossly blood urine, passing clots in kat - Three-way catheter in place, draining red urine with slow CBI - no CVA tenderness on exam, Cr at baseline, little concern for possible stone at this time. - likely secondary to acute UTI + underlying radiation cystitis -Continue hyperbaric oxygen treatments once able on discharge. This was scheduled for today however patient's will reschedule Anemia s/p 1 u pRBC transfusion - Hgb 8.1 - per , lower GI bleeding being worked up as outpatient. Patient was going to get a flexible sigmoidoscopy as outpatient but got canceled due to August hospitalization - ongoing hematuria likely contributory. recent chemotherapy treatment for bladder and prostate cancer likely with some suppressive effect - trend CBC daily - transfuse for Hgb < 7 . Blood consent signed and in chart Radiation cystitis, history of bladder cancer, intermittent LUTS Recurrent UTIs as above, history of recurrent hematuria recently treated with hyperbaric therapy - likely contributory to his anemia Continue home dose tamsulosin urology consulted, appreciate recs Pedal edema Patient reports that he has had pedal edema for several months - no underlying diagnosis of CHF - Echo 09/17 showing normal LV systolic function with EF 55-60%, normal RV systolic pressure, mild aortic stenosis, a mildly dilated aortic root Chronic dementia, memory loss Continue memantine Continue Remeron Diet: Regular DVT prophylaxis: SCDs, defer pharmacal prophylaxis given ongoing hematuria CODE STATUS: DNR/DNI. Disposition: MedSur with telemetry . PT OT recommends that patient will need 24-hour care, d/c with home PT. Appreciate CM assistance. [facility]. Hopefully discharge once hematuria stabilizes Discharge Plan Discharge Items Patient Disposition: Home - Home Health Services Reason For Visit: UTI Discharge Diagnosis: UTI, Radiation Cystitis Condition on Discharge: Good Activity: Resume your previous activity Non-emergency contact: Primary Care Provider and Urologist Call non-emergency contact if: your symptoms worsen Follow-up/Referrals: Yeny Mast MD [Primary Care Provider] - Diet: Regular Addtl Attending Provider Instructions: You were seen in the hospital after being found to have low blood pressures while experiencing painful urination. You were found to have a urinary tract infection that was treatable with Ciprofloxacin, which was started in the hospital. You will require a total of 7 days of treatment, and received 4 days of treatment in the hospital. You also had a high degree of urinary blood loss while hospitalized, which is most likely secondary to the radiation cystitis. Urology was consulted and recommended you resume the hyperbaric oxygen treatments as soon as possible after the bleeding was under better control. You did require a transfusion of 1 unit of blood during your stay as your blood levels dropped during admission, but they rebounded nicely after transfusion. No changes were made to your medication list, but we recommend you continue to manage the radiation cystitis and bleeding by keeping in close contact with your urologist and doing the hyperbaric oxygen therapies at the wound center. Pending Studies at Discharge: No Stand-Alone Forms: My [facility], Smoking Cessation Medications and DC Order Prescriptions: New ciprofloxacin HCl 500 mg tablet 500 mg PO BID 3 Days Qty: 6 RF: 0 Continued cholecalciferol (vitamin D3) 2,000 unit tablet 2,000 units PO HS RF: 0 tamsulosin 0.4 mg capsule 0.4 mg PO HS Qty: 30 RF: 5 oxybutynin chloride 10 mg tablet extended release 24hr 10 mg PO DAILY Qty: 30 RF: 2 cyanocobalamin (vitamin B-12) 1,000 mcg Tablet 1,000 mcg PO QAM RF: 0 Glucosamine Chondroitin 550-30-1 mg Capsule 2 cap PO DAILY RF: 0 atorvastatin 20 mg Tablet 20 mg PO QAM RF: 0 Metamucil 3.4 gram/5.4 gram Powder 1 tsp PO QAM PRN (Reason: ..) RF: 0 polyethylene glycol 3350 [Miralax] 17 gram Powder In Packet 17 g PO DAILY 30 Days Qty: 30 RF: 3 memantine 5 mg Tablet 5 mg PO BID RF: 0 calcium carbonate [Tums] 200 mg calcium (500 mg) Tablet,Chewable 1,000 mg PO Q6H PRN (Reason: dyspepsia) Qty: 30 RF: 0 mirtazapine 15 mg Tablet 15 mg PO HS Qty: 30 RF: 0 Admission Data Admit Date/Time: 09/19/19 10:30 Attending Provider: Haroon Briscoe Admit Provider: Ashu Colindres Primary Care Provider: Yeny Mast Other Providers: [facility] ; Mahad Shultz ; Faby Corral ; Michael Rico
--- NOTE | 2019-09-23 19:30 | Hospitalist Progress Note ---
Date of Service September 23, 2019 Assessment & Plan Admission and Anticipated Discharge Date Admission Date: September 19, 2019 Supervising Physician Co-Signing Physician Notes Recurrent UTI/history of Pseudomonas/acute blood loss anemia in the setting of hematuria treated wtih transfusion 1 unit PRBC Continue cipro Hgb responded nicely to transfusion urine red but no clots - continue to hold irrigation for now orthostasis -fluids, increase activity. hopefully home vs needing rehab Acute on chronic CKD Improved follow BMP periodically Hyperlipidemia Continue atorvastatin Dementia Continue memantine and mirtazapine reassurance and supportive care otherwise as above Subjective urine still red but no clots was thinking he'd be OK to go home - but then got up and walking got quite orthostatic. then was concerned about him going home and thinking rehab. later revisited and then she felt that as long as he's no longer orthostatic she thinks he could probably go home otherwise no complaints, ROS otherwise negative except for as above Review of Systems Review of Systems: All systems reviewed & are unremarkable except as noted in HPI & below Physical Exam Physical Exam: gen aao pleasant nad heent nc at mmm breathing unlabored no accessory muscles good effort skin no rashes no pallor or icterus. urine arciniega red no clots Results & Data Results & Data ([facility]) Vital Signs (Past 12 Hours) Vital Signs Temp Pulse Pulse Resp BP Pulse Ox 09/23/19 15:26 98.1 F 86 18 108/71 95 09/23/19 11:48 98.4 F 91 H 16 131/70 09/23/19 11:29 98.1 F 90 20 101/57 L 99 09/23/19 10:37 127 H 80/51 L 99 09/23/19 07:37 81 PG Care Time/CCT Total # of Minutes Spent Total Time Spent with Patient: Total time spent is greater than 50% in coordination of care (as documented) at patient's floor/unit and/or counseling patient: Coding Level of Care Code 73058 Subseq Hosp Care Lvl 3
[2019-09-23] MEDS: CHOLECALCIFEROL 1,000 UNITS 25 MCG TAB PO SCH (20:08)
[2019-09-23] MEDS: TAMSULOSIN HCL 0.4 MG CAP PO SCH (20:08)
[2019-09-23] MEDS: CIPROFLOXACIN 500 MG TAB PO SCH (20:08)
[2019-09-23] MEDS: MIRTAZAPINE TAB 15 MG TAB PO SCH (20:09)
[2019-09-24 07:35] LABS: Hemoglobin 6.9 g/dL (14.0-18.0); Mean Corpuscular Hemoglobin 31.7 pg (25-34); Mean Corpuscular Hgb Conc 32.9 g/dL (32-36); Mean Corpuscular Volume 96.3 fL (80-100); Mean Platelet Volume 8.5 fL (7.4-10.4); Platelet Count 153 K/uL (130-400); RDW Coefficient of Variation 19.4 % (11.5-14.5); RDW Standard Deviation 64.5 fL (36.4-46.3); Red Blood Count 2.18 M/uL (4.7-6.1); White Blood Count 4.63 K/uL (4.8-10.8)
[2019-09-24] MEDS ORDERED: SODIUM CHLORIDE 0.9% 250 ML IV PRN (08:15)
[2019-09-24] MEDS: CYANOCOBALAMIN 500 MCG TABLET (VITAMIN B-12) PO SCH (08:18)
[2019-09-24] MEDS: CIPROFLOXACIN 500 MG TAB PO SCH ×2 (08:19→22:07)
[2019-09-24] MEDS: OXYBUTYNIN CHLORIDE XL 5 MG TABCR PO SCH (08:19)
[2019-09-24] MEDS: POLYETHYLENE (MIRALAX) 17 GM PACK PO SCH (08:19)
[2019-09-24] MEDS: ATORVASTATIN 20 MG TAB PO SCH (08:19)
[2019-09-24] MEDS: MEMANTINE HCL 5 MG TAB PO SCH ×2 (08:19→22:06)
[2019-09-24 17:59] LABS: Hematocrit (blood only) 25.9 % (42-52); Hemoglobin 8.6 g/dL (14.0-18.0)
--- NOTE | 2019-09-24 18:32 | Discharge Summary ---
Date of Service September 24, 2019 Admission HPI Per Admitting Provider Mr. Arenas is an 83-year-old male with a past medical history of radiation cystitis, dementia and memory loss, and hypertension with recurrent urologic interventions who presents with dysuria, fatigue, and hypotension. He is seen at the bedside with his who helps give collateral. They report his symptoms began about 1 day ago, and he was seen at a follow-up appointment with urology who noted that he was hypotensive and recommended he be seen in the emergency department. He denies fever, chills, sweats, and abdominal pain but endorses bladder spasm, dysuria, and increased incontinence and urgency overni ght for 1 day. He denies lightheadedness, syncope, presyncope. He has had multiple urinary tract infections before with multiple pathogens including Pseudomonas. His thinks that he was scheduled to have a test done tomorrow, but does not remember the name of the test and would like us to double check to see if this can be done while he is in the hospital. No other questions or concerns at time of HPI. Medical history: Reviewed Surgical history: Reviewed Medications: Reviewed Allergies: Reviewed Social: Former tobacco use, no current alcohol/tobacco/recreational drug use. CODE STATUS: NR/DNI, confirmed with patient and his Admission Exam Per Admitting Provider General: Alert, cooperative, pleasant. Not oriented to date. Oriented to place and name. HEENT: Atraumatic, normocephalic. Pupils equal and responsive to light and accommodation. Visual acuity grossly intact. Pulm: CTAB A&P. -wheezes, -rales, -rhonchi. Symmetrical chest rise. No increase work of breathing. No respiratory distress. Cardiac: RRR, -mrg. Radial pulses intact and symmetrical. Trace ankle edema bilaterally. Abdominal: Nontender, nondistended, soft. BS present. Extremities: Moving all extremities equally, sensation to soft touch grossly intact in upper and lower distal extremities without deficit. Principal Diagnosis radiation cystitis Discharge Exam Constitutional cooperative; no acute distress and not ill appearing Neck normal visual inspection Respiratory normal respiratory effort and able to speak in complete sentences; no respiratory distress, no labored breathing, no retractions, no cough and no audible wheezes Auscultation: lungs clear to auscultation bilaterally; no crackles, no rales, no rhonchi and no wheezes Cardiovascular Rate/Rhythm: regular rate and regular rhythm Heart Sounds: normal S1 and normal S2; no gallop, no murmur and no cardiac rub Vessels: posterior tibial pulses present Extremities: no pedal edema and no edema Gastrointestinal (Abdomen) Inspection/Auscultation: abdomen normal to inspection and normal bowel sounds; abdomen not distended Percussion/Palpation: abdomen soft; abdomen nontender, no guarding, abdomen not rigid and no abdominal mass Discharge Data Allergies Allergy/AdvReac Type Severity Reaction Status Date / Time No Known Allergies Allergy Verified 09/17/19 17:39 Consultations 09/17/19 20:20 ED Decision to Admit Stat 09/18/19 19:38 Consult Urology Routine 09/20/19 14:52 Consult Case Management - Discharge Planning Routine Hospital Course (1) Urinary tract infection: Dale Arenas is an 83yo M with a PMHx of dementia, bladder and prostate cancer s/p radiation therapy and chemotherapy, now with resultant radiation cystitis, admitted for evaluation of urinary symptoms. Urine culture growing gaspar-sensitive pseudomonas. Acute UTI History of recurrent UTIs secondary to radiation cystitis. Urine culture this admission growing pseudomonas pansensitive. Discharged on Ciprofloxacin with 2 days of antibiotics left to complete full course. Hematuria 2/2 radiation cystitis with hx bladder cancer, intermittent LUTS Grossly blood urine, CBI 3 way catheter used to flush out clots. Urology recommendation to continue hyperbaric oxygen treatments on discharge. Ang continues to output reddish-pink urine. Anemia s/p 3 u pRBC transfusion Patient required 2 separate transfusions during hospital stay for a total of 3u pRBCs. Patient getting outpatient workup for lower GI bleeding, however flex sig cancelled due to hospitalization in august. Ongoing hematuria contributory to ongoing blood losses. Hg 8.6 on discharge. Would benefit from weekly H&H checks for anemia monitoring. Complex Care Needs - continue memantine for dementia - PT recommended 24 hour care for improvement in functional status - patient to go home with home health (aid, [facility] assistance, home PT) Total Time Total Time Spent Total Time Spent (In Minutes): <30 Discharge Plan Discharge Items Patient Disposition: Home - Home Health Services Reason For Visit: UTI Discharge Diagnosis: UTI, Radiation Cystitis Condition on Discharge: Good Activity: Resume your previous activity Non-emergency contact: Primary Care Provider and Urologist Call non-emergency contact if: your symptoms worsen Follow-up/Referrals: Yeny Mast MD [Primary Care Provider] - Diet: Regular Addtl Attending Provider Instructions: You were seen in the hospital after being found to have low blood pressures while experiencing painful urination. You were found to have a urinary tract infection that was treatable with Ciprofloxacin, which was started in the hospital. You will require a total of 7 days of treatment, and received 4 days of treatment in the hospital. You also had a high degree of urinary blood loss while hospitalized, which is most likely secondary to the radiation cystitis. Urology was consulted and recommended you resume the hyperbaric oxygen treatments as soon as possible after the bleeding was under better control. You did require a transfusion of 1 unit of blood during your stay as your blood levels dropped during admission, but they rebounded nicely after transfusion. No changes were made to your medication list, but we recommend you continue to manage the radiation cystitis and bleeding by keeping in close contact with your urologist and doing the hyperbaric oxygen therapies at the wound center. Pending Studies at Discharge: No Stand-Alone Forms: [facility], Smoking Cessation Medications and DC Order Prescriptions: New ciprofloxacin HCl 500 mg tablet 500 mg PO BID 3 Days Qty: 6 RF: 0 Continued cholecalciferol (vitamin D3) 2,000 unit tablet 2,000 units PO HS RF: 0 tamsulosin 0.4 mg capsule 0.4 mg PO HS Qty: 30 RF: 5 oxybutynin chloride 10 mg tablet extended release 24hr 10 mg PO DAILY Qty: 30 RF: 2 cyanocobalamin (vitamin B-12) 1,000 mcg Tablet 1,000 mcg PO QAM RF: 0 Glucosamine Chondroitin 550-30-1 mg Capsule 2 cap PO DAILY RF: 0 atorvastatin 20 mg Tablet 20 mg PO QAM RF: 0 Metamucil 3.4 gram/5.4 gram Powder 1 tsp PO QAM PRN (Reason: ..) RF: 0 polyethylene glycol 3350 [Miralax] 17 gram Powder In Packet 17 g PO DAILY 30 Days Qty: 30 RF: 3 memantine 5 mg Tablet 5 mg PO BID RF: 0 calcium carbonate [Tums] 200 mg calcium (500 mg) Tablet,Chewable 1,000 mg PO Q6H PRN (Reason: dyspepsia) Qty: 30 RF: 0 mirtazapine 15 mg Tablet 15 mg PO HS Qty: 30 RF: 0 Admission Data Admit Date/Time: 09/19/19 10:30 Attending Provider: Haroon Briscoe Admit Provider: Ashu Colindres Primary Care Provider: Yeny Mast Other Providers: Yanci,[facility] ; Mahad Shultz ; Faby Corral ; Michael Rico ; [facility] ; Kamilla,[facility] [place] Other Interventions: Discharge Summary Assessment (RN) Last Done: 09/24/19 18:38 Supervising Physician Co-Signing Physician Notes I personally examined the patient and verified all wasserman points of history and exam, discussed case, and agree with decision making with Dr Corral. feeling better wants to go home comfortable wtih home vitals noted nad heent nc at mmmbreathing unlabored no accessory muscles Recurrent UTI/history of Pseudomonas/acute blood loss anemia in the setting of hematuria treated wtih transfusion 3 units PRBC Continue cipro for course of treatment f/u CBC at least weekly as outpt hyperbaric best treatment for bladder per urology Acute on chronic CKD Improved follow BMP as outpt Hyperlipidemia Continue atorvastatin Dementia Continue memantine and mirtazapine reassurance and supportive care otherwise as above Resident Activity Tracking Resident Involvement: Resident Care Provided Care Provided: Adult Hospital Medicine
[2019-09-24] MEDS ORDERED: LIDOCAINE 2% JELLY 5 ML TUBE ONE (19:24)
--- NOTE | 2019-09-24 19:39 | Billing Data ---
Date of Service September 24, 2019 Coding Level of Care Code D/C Day Management <30 mins
--- NOTE | 2019-09-24 21:29 | Urology Progress Note ---
Date of Service September 24, 2019 Assessment & Plan (1) Hematuria: Patient and family were anticipating discharge this evening however this was delayed due to another episode of leakage, clot retention, and issues related to the catheter. Discussed different options at length after catheter w as exchanged for a three-way 24 [place] hematuria catheter which is now draining well. Discussed concerns and issues with patient and who is at bedside. Discussed long-term goals and plans for management. Discussed patient's current acute issues likely once again being related to bleeding from the nonhealing resection beds of the right lateral wall and right bladder neck/prostate. 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 Patient is established with wound care with plans to undergo hyperbaric oxygen therapy for severe episodes of acute low blood loss anemia with radiation cystitis and nonhealing bladder neck/bladder wall. Long conversation with and patient. Considering different options. As the catheters are likely irritating the bladder neck which was a known area to have considerable issues may be reasonable to consider a suprapubic catheter placement to be done with minimal sedation and local anesthetic. Essentially plan will be to divert catheter away from bleeding area/wound with plans to be able to irrigate or drain through the suprapubic tube and avoid urethral catheterization. Tonight patient will remain n.p.o. and will plan to reassess in the morning with plans to possibly add on patient for cystoscopy with suprapubic catheter placement. Risk and benefits were discussed at length with patient and patient's . Discussed anesthetic risk, bleeding, infection, and injury to surrounding tissue. Discussed other concerns and issues. 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 Had possibly become dislodged a new 22 [place] coud catheter was placed and continued to have leakage around. He with manipulation did have some improve drainage however continues to have major issues and problems. At time of assessment patient was moderately distended and found to have over 300 cc on bladder scan. A 24 [place] three-way catheter was placed and a dark red urine was drained. Approximately 400 cc. This was attached to CBI and quickly cleared to a light red-tinged irrigant. Patient had considerable discomfort has been dealing with discomfort and irritation from catheter. Has a very long history of severe chronic anemia with episodes of significant acute blood loss anemia due to radiation cystitis with nonhealing bladder neck/transurethral resection area from bladder tumor. Patient has a history of a small cell carcinoma of the bladder and had undergone radiation and chemotherapy. Patient currently has a metastatic lesion within the lung and was undergoing Keytruda treatment this is been delayed due to these recurrent episodes of bleeding. Patient was set to start hyperbaric oxygen with the wound center however this was also delayed Review of Systems Review of Systems: All systems reviewed & are unremarkable except as noted in HPI & below Physical Exam Physical Exam: General: Alert in no acute distress. Advanced age. Chronic M edical issues. Weekend. HEENT: Normocephalic. Inspection normal. Cranial Nerves 2-12 Grossly intact with some hearing issues. Normal inspection of face. Normal inspection of neck. Psychologic: Normal affect. Baseline issues with memory. Respiratory: Nonlabored. No use of accessory muscles. No tachypnea or dyspnea. Cardiovascular: No tachycardia Skin: [place] and Dry. No rashes or visible lesions. Extremities/Lymphatics: Minor Mobility issues. Slow Gait. Abdomen: Moderately distended. No rebound or guarding. : Three-way catheter placed by myself using sterile technique and attached to irrigation and irrigated. Currently running CBI with low flow and mild red tinge irrigant draining. Results & Data ([facility]) Vital Signs (Past 12 Hours) Vital Signs Temp Pulse Pulse Pulse Resp BP BP 09/24/19 19:00 36.9 C 75 20 09/24/19 18:38 36.7 C 77 70 16 117/74 09/24/19 17:22 36.7 C 78 16 114/61 09/24/19 16:51 85 09/24/19 14:00 36.6 C 86 18 101/60 09/24/19 13:59 36.6 C 86 18 101/63 09/24/19 13:43 36.5 C 84 20 116/74 09/24/19 13:00 36.4 C L 94 H 18 114/74 09/24/19 12:27 36.4 C L 94 H 18 114/74 09/24/19 12:00 36.5 C 94 H 18 122/75 09/24/19 11:30 36.7 C 90 18 113/71 09/24/19 10:57 36.6 C 87 18 113/68 09/24/19 10:45 36.5 C 65 18 110/62 09/24/19 10:23 36.6 C 65 18 114/64 BP Pulse Ox 09/24/19 19:00 101/60 95 09/24/19 18:38 122/63 95 09/24/19 17:22 95 09/24/19 16:51 09/24/19 14:00 09/24/19 13:59 09/24/19 13:43 09/24/19 13:00 09/24/19 12:27 09/24/19 12:00 09/24/19 11:30 09/24/19 10:57 96 09/24/19 10:45 09/24/19 10:23 PG Care Time/CCT Total # of Minutes Spent Total Time Spent with Patient: Total time spent is greater than 50% in coordination of care (as documented) at patient's floor/unit and/or counseling patient: Coding Level of Care Code 64516 Subseq Hosp Care Lvl 3 Diagnoses Hematuria R31.0 Hematuria type: gross Acute blood loss anemia D62 Hematuria R31.0 Hematuria type: gross Radiation proctitis K62.7 Small cell carcinoma of bladder C67.9 (1) Hematuria Hematuria type: gross Qualified Code(s): R31.0 - Gross hematuria (2) Hematuria Hematuria type: gross Qualified Code(s): R31.0 - Gross hematuria
[2019-09-24] MEDS: CHOLECALCIFEROL 1,000 UNITS 25 MCG TAB PO SCH (22:05)
[2019-09-24] MEDS: TAMSULOSIN HCL 0.4 MG CAP PO SCH (22:06)
[2019-09-24] MEDS: MIRTAZAPINE TAB 15 MG TAB PO SCH (22:06)
--- NOTE | 2019-09-25 07:14 | Urology Progress Note ---
Date of Service September 25, 2019 Assessment & Plan (1) Acute blood loss anemia: (2) Hematuria: Risks and benefits discussed at length for procedure. These include bleeding, infection, injury to surrounding tissues or organs, and risks associated with anesthesia. Patient states understanding and agrees to proceed. Will sign consent and schedule. Plan for cystoscopy with possible clot evacuation and fulguration and Suprapubic tube placement. Likely still able to be discharged today. Plan to leave patient without urethral catheter and plan for home to start Hyperbaric O2 as soon as possible. (3) Small cell carcinoma of bladder: Admission and Anticipated Discharge Date Admission Date: September 19, 2019 Subjective Patient tolerated catheter exchange. Severe Chronic ABLA from GI and bleeding. Significant nonhealing bladder neck and right lateral wall with radiation cystitis. No severe issues. No significant changes. Continues to have intermittent hematuria. Developed clot retention last PM during discharge process. No fever or chills Review of Systems Review of Systems: All systems reviewed & are unremarkable except as noted in HPI & below Physical Exam Physical Exam: General: Alert in no acute distress. Advanced age. Chronic Medical issues. Weekend. HEENT: Normocephalic. Inspection normal. Cranial Nerves 2-12 Grossly intact with some hearing issues. Normal inspection of face. Normal inspection of neck. Psychologic: Normal affect. Baseline issues with memory. Respiratory: Nonlabored. No use of accessory muscles. No tachypnea or dyspnea. Cardiovascular: No tachycardia Skin: [place] and Dry. No rashes or visible lesions. Extremities/Lymphatics: Minor Mobility issues. Slow Gait. Abdomen: Moderately distended. No rebound or guarding. : Three-way catheter placed by myself using sterile technique and attached to irrigation and irrigated. Currently running CBI with low flow and mild red tinge irrigant draining. Results & Data ([facility]) Vital Signs (Past 12 Hours) Vital Signs Temp Pulse Pulse Resp BP Pulse Ox 09/25/19 03:00 36.5 C 71 20 142/77 H 98 09/25/19 00:00 65 09/24/19 23:00 36.9 C 63 18 120/69 97 PG Care Time/CCT Total # of Minutes Spent Total Time Spent with Patient: Total time spent is greater than 50% in coordination of care (as documented) at patient's floor/unit and/or counseling patient: Coding Level of Care Code 68275 Subseq Hosp Care Lvl 3 Diagnoses Acute blood loss anemia D62 Hematuria R31.0 Hematuria type: gross Small cell carcinoma of bladder C67.9 (1) Hematuria Hematuria type: gross Qualified Code(s): R31.0 - Gross hematuria
[2019-09-25 07:32] LABS: Basophils # (auto) 0.04 K/uL (0-0.2); Basophils % (auto) 0.9 %; Eosinophils # (auto) 0.14 K/uL (0-0.5); Eosinophils % (auto) 3.2 %; Hematocrit (blood only) 27.2 % (42-52); Hemoglobin 8.8 g/dL (14.0-18.0); Immature Granulocytes # (auto) 0.11 K/uL (0.00-0.02); Immature Granulocytes % (auto) 2.5 %; Lymphocytes # (auto) 0.82 K/uL (1.2-3.4); Lymphocytes % (auto) 18.7 %; Mean Corpuscular Hemoglobin 30.3 pg (25-34); Mean Corpuscular Hgb Conc 32.4 g/dL (32-36); Mean Corpuscular Volume 93.8 fL (80-100); Mean Platelet Volume 8.2 fL (7.4-10.4); Monocytes # (auto) 0.44 K/uL (0.11-0.59); Neutrophils # (auto) 2.84 K/uL (1.4-6.5); Neutrophils % (auto) 64.7 %; Platelet Count 144 K/uL (130-400); RDW Coefficient of Variation 19.2 % (11.5-14.5); RDW Standard Deviation 61.3 fL (36.4-46.3); White Blood Count 4.39 K/uL (4.8-10.8)
[2019-09-25] MEDS ORDERED: fentaNYL citrate 100 MCG/2 ML VIAL ONE (09:00)
[2019-09-25] MEDS ORDERED: PHENYLEPHRINE 100MCG/ML 5ML SYR ONE (09:00)
[2019-09-25] MEDS ORDERED: LIDOCAINE HCL 2% 2 ML VIAL/AMP(20MG/ML) INFIL ONE (09:00)
[2019-09-25] MEDS ORDERED: PROPOFOL IV EMULSION 10 MG/ML 20 ML VIAL IV ONE ×2 (09:00→11:05)
[2019-09-25] MEDS ORDERED: ePHEDrine sulfate 50 MG/ML SYR ONE (09:00)
--- NOTE | 2019-09-25 09:43 | Anesthesiology Consultation ---
Date of Service September 25, 2019 Assessment & Plan Chart Review Chart Review: Acceptable Risk for Surgery and Patient NOT seen in Pre Admission Testing Consults Requested none ASA ASA4 Proposed Anesthesia Anesthesia Type: General and MAC Risk / Benefits Reviewed With: PT / POA / Parent / Guardian, Accepts Plan and Informed Consent Obtained Additional Comments: covid test History Surgery Operation Date: 09/25/19 09:35 Proposed Procedures p Cystoscopy, Clot Evacuation, - Ifeanyi Araiza DO s Suprapubic Tube Placement - Ifeanyi Araiza DO Height/Weight Height: 5 ft 7 in Weight: 72.1 kg Allergies Allergy/AdvReac Type Severity Reaction Status Date / Time No Known Allergies Allergy Verified 09/17/19 17:39 Medications Home Medications Medication Instructions Recorded Confirmed Last Taken cyanocobalamin (vitamin B-12) 1,000 mcg PO QAM 02/15/18 09/17/19 03/23/19 09:00 cholecalciferol (vitamin D3) 50 2,000 units PO HS 03/01/18 09/17/19 03/23/19 20:00 mcg (2,000 unit) tablet atorvastatin 20 mg PO QAM 03/08/18 09/17/19 03/23/19 20:00 Metamucil 1 tsp PO QAM PRN 05/13/18 09/17/19 03/23/19 09:00 Glucosamine Chondroitin 2 cap PO DAILY 02/25/19 09/17/19 02/21/19 polyethylene glycol 3350 [Miralax] 17 g PO DAILY 30 Days #30 ea 07/11/19 09/17/19 Unknown memantine 5 mg PO BID 08/14/19 09/17/19 Unknown calcium carbonate [Tums] 1,000 mg PO Q6H PRN #30 tab 08/29/19 09/17/19 Unknown mirtazapine 15 mg PO HS #30 tab 08/29/19 09/17/19 Unknown tamsulosin 0.4 mg capsule 0.4 mg PO HS #30 cap 09/08/19 09/17/19 Unknown oxybutynin chloride 10 mg 10 mg PO DAILY #30 tab 09/11/19 09/17/19 Unknown tablet,extended release 24 hr ciprofloxacin HCl 500 mg PO BID 3 Days #6 tab 09/23/19 Unknown Active Medications Generic Name Dose Route Start Last Admin Trade Name Freq PRN Reason Stop Dose Admin Atorvastatin Calcium 20 mg 09/18/19 09:00 09/24/19 08:19 Atorvastatin 20 Mg Tab PO 10/18/19 08:59 20 mg QAM MILAGRO Administration Ciprofloxacin 500 mg 09/23/19 21:00 09/24/19 22:07 Ciprofloxacin 500 Mg Tab PO 10/02/19 20:59 500 mg BID MILAGRO Administration Cyanocobalamin 1,000 mcg 09/18/19 09:00 09/24/19 08:18 Cyanocobalamin 500 Mcg Tablet (Vitamin B-12) PO 10/18/19 08:59 1,000 mcg QAM MILAGRO Administration Memantine 5 mg 09/18/19 09:00 09/24/19 22:06 Memantine Hcl 5 Mg Tab PO 10/18/19 08:59 5 mg BID MILAGRO Administration Mirtazapine 15 mg 09/18/19 21:00 09/24/19 22:06 Mirtazapine Tab 15 Mg Tab PO 10/18/19 20:59 15 mg HS MILAGRO Administration Oxybutynin Chloride 10 mg 09/18/19 09:00 09/24/19 08:19 Oxybutynin Chloride Xl 5 Mg Tabcr PO 10/18/19 08:59 10 mg DAILY MILAGRO Administration Polyethylene Glycol 17 gm 09/18/19 09:00 09/24/19 08:19 Polyethylene (Miralax) 17 Gm Pack PO 10/18/19 08:59 17 gm DAILY MILAGRO Administration Tamsulosin HCl 0.4 mg 09/18/19 21:00 09/24/19 22:06 Tamsulosin Hcl 0.4 Mg Cap PO 10/18/19 20:59 0.4 mg HS MILAGRO Administration Vitamin D 2,000 units 09/18/19 21:00 09/24/19 22:05 Cholecalciferol 1,000 Units 25 Mcg Tab PO 10/18/19 20:59 2,000 units HS MILAGRO Administration NPO Date Last Intake of Fluids: 09/24/19 Time Last Intake of Fluids: 23:55 Date Last Intake of Solids: 09/24/19 Time Last Intake of Solids: 18:00 Past Medical History Medical History Anemia s/p transfusion (04/2018) felt r/t chemo Asthma childhood/no current issues Cancer bladder, prostate cancer; s/p chemo/xrt completed 04/2018 CVA (cerebral vascular accident) evidence of old infarct on MRI "years ago" HLD (hyperlipidemia) HTN (hypertension) Left knee DJD Lung nodule Short-term memory loss "mild"/no definitive diagnosis Thrombocytopenia hx Exercise / Class Metabolic Activity III < 4 Walking/Shop/Light housework Past Family History Family History Mother , age 79 Heart disease Father , age 79 Myocardial infarction Brother , age 79 Dementia Daughter COPD (chronic obstructive pulmonary disease) Son No problems noted. Son No problems noted. Grandmother Diabetes Past Surgical History Surgical History History of bladder surgery Cystoscopy, TURBT= 02/18/18= LMA#5 at [facility] History of bronchoscopy History of cataract surgery R/L History of colonoscopy History of tooth extraction History of vascular access device A-port inserted and removed S/P bronchoscopy with biopsy (03/07/19) Endobronchial Ultrasound Dr. 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) Past Anesthesia History No Hx of Anesthesia Complications and No Family Hx of Anesthesia Complications History of PONV No Hx of PONV and No Hx of Motion Sickness Social History Smoking Status: Former smoker Hx Alcohol Use: No Alcohol type: beer alcohol intake frequency: a few times a month Hx Substance Use: No substance use type: does not use Physical Exam Vital Signs Last Vital Signs Temp 36.4 C L 09/25/19 09:22 Pulse 72 09/25/19 09:22 Resp 18 09/25/19 09:22 BP 127/80 09/25/19 09:22 Pulse Ox 95 09/25/19 09:22 Constitutional not obese ENMT Mouth: + dentition abnormality and + poor dentition Thyromental Distance: > or= 3.5 Finger Breadths Mallampati Class: II Neck normal visual inspection, trachea midline and + facial hair; neck extension not limited Respiratory normal respiratory effort Auscultation: lungs clear to auscultation bilaterally and + diminished lung sounds Cardiovascular Rate/Rhythm: regular rate and regular rhythm Heart Sounds: + murmur (at RUSB) Vessels: no carotid bruit Musculoskeletal Spine: normal cervical ROM Extremities: extremities normal to inspection Neurologic moves all extremities Motor/Sensory: no sensory deficit Psychiatric Orientation: alert and oriented x 3 Testing Laboratory Results 09/25/19 07:18 09/23/19 07:08 PT 11.9 Seconds (9.0-12.0) 09/17/19 16:06 INR 1.1 (0.9-1.1) 09/17/19 16:06 APTT 24.7 Seconds (21.0-31.0) 09/17/19 16:06 Urine Color Red 09/17/19 19:00 Urine Appearance Turbid (Clear) A 09/17/19 19:00 Urine pH 6.5 (4.5-7.5) 09/17/19 19:00 Ur Specific [place] 1.025 (1.000-1.030) 09/17/19 19:00 Urine Protein 3+ (Negative) H 09/17/19 19:00 Urine Glucose (UA) Trace (Negative) H 09/17/19 19:00 Urine Ketones Negative (Negative) 09/17/19 19:00 Urine Nitrite Negative (Negative) 09/17/19 19:00 Ur Leukocyte Esterase Negative (Negative) 09/17/19 19:00 Urine RBC >30 /hpf (0-4) H 09/17/19 19:00 Urine WBC >30 /hpf (0-5) H 09/17/19 19:00 Ur Epithelial Cells 20-30 /lpf (0-5) H 09/17/19 19:00 Blood Type A Positive 09/24/19 07:47 Antibody Screen POSITIVE A 09/24/19 07:47 09/17/19 16:06 Aerobic Blood Culture - Final Blood No growth in Aerobic bottle after 5 days. Anaerobic Blood Culture - Final No growth in Anaerobic bottle after 5 days. 09/17/19 15:56 Aerobic Blood Culture - Final Blood No growth in Aerobic bottle after 5 days. Anaerobic Blood Culture - Final No growth in Anaerobic bottle after 5 days. 09/17/19 19:00 Urine Culture - Final Urine,Clean Catch Pseudomonas aeruginosa Electrocardiogram Date: 09/17/19 Findings: + NSR @ (at 73) and + LVH Chest X-Ray Date: 09/17/19 Findings: + NAD, + cardiomegaly and + atherosclerosis of thoracic aorta Echocardiogram Date: 09/18/19 EF: 55% LV Function: normal RWMA: + none Other Findings: + LVH Valvular Disease: + (mild)
[2019-09-25] MEDS ORDERED: ePHEDrine sulfate 50 MG/ML AMP IV PRN (09:48)
[2019-09-25] MEDS ORDERED: ATROPINE SULFATE 0.1 MG/ML 10ML SYR IV PRN (09:48)
[2019-09-25] MEDS ORDERED: BUPIVACAINE 0.5 % 5 MG/1 ML MPF 30ML VIAL ONE (10:05)
[2019-09-25] MEDS: CIPROFLOXACIN 500 MG TAB PO SCH ×2 (10:50→20:40)
[2019-09-25] MEDS ORDERED: CEFAZOLIN 250 MG/ML 1 GM VIAL ONE (10:52)
--- NOTE | 2019-09-25 11:30 | Operative Report ---
PG Post Operative Report Pre & Post Diagnosis Operation Date: 09/25/19 09:35 Pre-Op Diagnosis: Gross Hematuria Post-Op Diagnosis: Gross Hematuria I identified the patient and participated in the time-out.: Yes Procedure Operation Date: 09/25/19 09:35 Actual Procedures p Cystoscopy, Clot Evacuation, Fulguration(Not Applicable) - Ifeanyi Araiza DO s Suprapubic Tube Placement(Not Applicable) - Ifeanyi Araiza DO Surgeon Ifeanyi Araiza, II, DO Rn Surgery None Estimated Blood Loss 5 Findings Consistent with Post-Op Diagnosis Bleeding Bladder lesions and varcosity and vein bleeding in the prostatic urethra and bladder neck. Bleeding controlled with fulguration. 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 Risks and benefits discussed at length. Description of Procedure Patient was consented and brought back to the operating room. Patient was placed under anesthesia in the supine position and moved to the dorsal lithotomy position. Patient was prepped and draped in the regular sterile fashion. A time out was completed. A 30 degree Cystoscope was placed into the bladder and the entire bladder was examined. The UO's were identified as well as the bladder neck, trigone, dome, and the other important landmarks. Multiple areas of bleeding and irritation on the right lateral and posterior wall as well as the bladder neck and prostatic u rehtra. A large amount of clot was evacuated. The Lesions were fulgurated with the bipolar loop and all bleeding control. The lower abdomen had also been prepped and draped. The skin was marked and local injected. A spinal needle was used to access the bladder and this was completed with the scope monitoring. A wire was placed through the spinal needle. The skin was then incised with a scalpel and the tissues dissected. The Tear away trocar was placed over the wire and under direct visualization placed into the bladder. A 16 Fr catheter was placed through the sheath after removing the trocar. The balloon was elevated and the catheter positioned. The skin was closed with a 2- 0 Silk suture and the suprapubic catheter was secured. The entire bladder was inspected a final time. The skin was cleaned and bandaged. The bladder was emptied. The scope was removed. The patient was cleaned, aroused from anesthesia, and transferred to the pacu in stable condition having tolerated the procedure well with no complications. I was present and participated in all aspects of the procedure. The patient will be monitored in the PACU until transferred. I attest to the content of the Intraoperative Record and any orders documented therein. Any exceptions are noted below.
--- NOTE | 2019-09-25 12:16 | Anesthesiology Progress Note ---
Date of Service September 25, 2019 Anesthesia Post Procedure Vital Signs Vital Signs: Temp Pulse Pulse Pulse Pulse Resp BP 09/25/19 11:50 72 17 09/25/19 11:40 78 18 09/25/19 11:31 37.2 C 66 18 09/25/19 09:22 36.4 C L 72 18 09/25/19 08:00 66 09/25/19 07:22 36.7 C 72 18 09/25/19 03:00 36.5 C 71 20 09/25/19 00:00 65 09/24/19 23:00 36.9 C 63 18 09/24/19 19:00 36.9 C 75 20 09/24/19 18:38 36.7 C 77 70 16 09/24/19 17:22 36.7 C 78 16 114/61 09/24/19 16:51 85 09/24/19 14:00 36.6 C 86 18 101/60 09/24/19 13:59 36.6 C 86 18 101/63 09/24/19 13:43 36.5 C 84 20 116/74 09/24/19 13:00 36.4 C L 94 H 18 114/74 09/24/19 12:27 36.4 C L 94 H 18 114/74 BP BP Pulse Ox 09/25/19 11:50 139/69 95 09/25/19 11:40 141/73 H 99 09/25/19 11:31 108/64 100 09/25/19 09:22 127/80 95 09/25/19 08:00 09/25/19 07:22 123/65 95 09/25/19 03:00 142/77 H 98 09/25/19 00:00 09/24/19 23:00 120/69 97 09/24/19 19:00 101/60 95 09/24/19 18:38 117/74 122/63 95 09/24/19 17:22 95 09/24/19 16:51 09/24/19 14:00 09/24/19 13:59 09/24/19 13:43 09/24/19 13:00 09/24/19 12:27 Transfer of Care Handoff Completed per policy Notes Mental Status: alert / awake / arousable Patient Amnestic to Procedure: Yes Nausea / Vomiting: adequately controlled Pain: adequately controlled Airway Patency, RR, SpO2: stable & adequate BP & HR: stable & adequate Hydration State: stable & adequate Anesthetic Complications: no major complications apparent
[2019-09-25] MEDS: OXYBUTYNIN CHLORIDE XL 5 MG TABCR PO SCH (13:16)
[2019-09-25] MEDS: ATORVASTATIN 20 MG TAB PO SCH (13:16)
[2019-09-25] MEDS: MEMANTINE HCL 5 MG TAB PO SCH ×2 (13:16→20:39)
[2019-09-25] MEDS: POLYETHYLENE (MIRALAX) 17 GM PACK PO SCH (13:16)
[2019-09-25] MEDS: CYANOCOBALAMIN 500 MCG TABLET (VITAMIN B-12) PO SCH (13:16)
--- NOTE | 2019-09-25 16:30 | Hospitalist Progress Note ---
Date of Service September 25, 2019 Assessment & Plan (1) Hematuria: Recurrent UTI/history of Pseudomonas/acute blood loss anemia in the setting of hematuria treated wtih transfusion 1 unit PRBC finish course of cipro Hgb responded nicely to transfusion urine red but no clots - continue to hold irrigation for now orthostasis -improved Acute on chronic CKD Improved continue to follow BMP periodically Hyperlipidemia Continue atorvastatin Dementia Continue memantine and mirtazapine reassurance and supportive care Admission and Anticipated Discharge Date Admission Date: September 19, 2019 Subjective feeling ok was weak post procedure now getting around better home health not set to start until tomorrow pt/ pleased with care Review of Systems Review of Systems: All systems reviewed & are unremarkable except as noted in HPI & below Physical Exam Physical Exam: gen nad heent nc at mmm breathing unlabored no accessory muscles good effort skin no rashes no pallor or icterus urine still arciniega red Results & Data [facility] & [facility] ([facility]) Vital Signs (Past 12 Hours) Vital Signs Temp Pulse Pulse Pulse Resp BP BP 09/25/19 15:46 98.1 F 85 18 139/77 09/25/19 14:04 98.2 F 74 18 129/70 09/25/19 13:18 98.1 F 75 18 126/70 09/25/19 12:30 97.3 F L 90 18 125/72 09/25/19 12:05 98.2 F 73 18 133/69 09/25/19 11:50 72 17 139/69 09/25/19 11:40 78 18 141/73 H 09/25/19 11:31 99.0 F 66 18 108/64 09/25/19 09:22 97.5 F L 72 18 127/80 09/25/19 08:00 66 09/25/19 07:22 98.1 F 72 18 123/65 Pulse Ox 09/25/19 15:46 95 09/25/19 14:04 96 09/25/19 13:18 95 09/25/19 12:30 95 09/25/19 12:05 96 09/25/19 11:50 95 09/25/19 11:40 99 09/25/19 11:31 100 09/25/19 09:22 95 09/25/19 08:00 09/25/19 07:22 95 PG Care Time/CCT Total # of Minutes Spent Total Time Spent with Patient: Total time spent is greater than 50% in coordination of care (as documented) at patient's floor/unit and/or counseling patient: Coding Level of Care Code 40348 Subseq Hosp Care Lvl 1 Diagnoses Hematuria R31.0 Hematuria type: gross (1) Hematuria Hematuria type: gross Qualified Code(s): R31.0 - Gross hematuria
--- NOTE | 2019-09-25 16:32 | Hospitalist Progress Note ---
Date of Service September 24, 2019 Assessment & Plan (1) Hematuria: Recurrent UTI/history of Pseudomonas/acute blood loss anemia in the setting of hematuria treated wtih transfusion 3 units PRBC to complete course of cipro Hgb responded nicely to transfusions - follow periodicially orthostasis -improved Acute on chronic CKD Improved will ask to follow BMP periodically Hyperlipidemia Continue atorvastatin Dementia Continue memantine and mirtazapine reassurance and supportive care Admission and Anticipated Discharge Date Admission Date: September 19, 2019 Subjective feeling ok but was going to go home then had clots - for urologic procedure tomorrow no other new complaints, still bloody urine, no further orthostasis Review of Systems Review of Systems: All systems reviewed & are unremarkable except as noted in HPI & below Physical Exam Physical Exam: gen aao pleasant nad heent nc at mmm breathing unlabored no accessory muscles good effort skin no rashes no pallor or icterus red urine ongoing Results & Data Results & Data ([facility]) Vital Signs (Past 12 Hours) Vital Signs Temp Pulse Pulse Pulse Resp BP BP 09/25/19 15:46 98.1 F 85 18 139/77 09/25/19 14:04 98.2 F 74 18 129/70 09/25/19 13:18 98.1 F 75 18 126/70 09/25/19 12:30 97.3 F L 90 18 125/72 09/25/19 12:05 98.2 F 73 18 133/69 09/25/19 11:50 72 17 139/69 09/25/19 11:40 78 18 141/73 H 09/25/19 11:31 99.0 F 66 18 108/64 09/25/19 09:22 97.5 F L 72 18 127/80 09/25/19 08:00 66 09/25/19 07:22 98.1 F 72 18 123/65 Pulse Ox 09/25/19 15:46 95 09/25/19 14:04 96 09/25/19 13:18 95 09/25/19 12:30 95 09/25/19 12:05 96 09/25/19 11:50 95 09/25/19 11:40 99 09/25/19 11:31 100 09/25/19 09:22 95 09/25/19 08:00 09/25/19 07:22 95 PG Care Time/CCT Total # of Minutes Spent Total Time Spent with Patient: Total time spent is greater than 50% in coordination of care (as documented) at patient's floor/unit and/or counseling patient: Coding Level of Care Code 93515 Subseq Hosp Care Lvl 2 Diagnoses Hematuria R31.0 Hematuria type: gross (1) Hematuria Hematuria type: gross Qualified Code(s): R31.0 - Gross hematuria
[2019-09-25] MEDS: CHOLECALCIFEROL 1,000 UNITS 25 MCG TAB PO SCH (20:39)
[2019-09-25] MEDS: MIRTAZAPINE TAB 15 MG TAB PO SCH (20:40)
[2019-09-25] MEDS: TAMSULOSIN HCL 0.4 MG CAP PO SCH (20:40)
[2019-09-26 07:07] VITALS: BP 125/62; TEMP 98.1; O2SAT 95
[2019-09-26 07:14] LABS: Hematocrit (blood only) 27.7 % (42-52)
--- NOTE | 2019-09-26 08:34 | Urology Progress Note ---
Date of Service September 26, 2019 Assessment & Plan (1) Hematuria: 83yo M with a history of radiation cystitis and recurrent UTI who is s/p Cystoscopy, Clot Evacuation, Fulguration, Suprapubic Tube Placement on 09/25/[address] Araiza -Patient doing well, remains afebrile -WBC and Cr remain stable -HgB is improving, was 9.0 today (8.8 previously) -Continue with SPT -Recommend home with PO Cipro for UTI, Flomax, and Oxybutynin -Plan to start Hyperbaric O2 when able -OK for discharge from perspective -Will arrange outpatient follow-up with our clinic within 1-2 weeks of discharge -Patient agreeable to above plan. All questions were answered. Admission and Anticipated Discharge Date Admission Date: September 19, 2019 Subjective 83yo M who is POD#1 s/p Cystoscopy, Clot Evacuation, Fulguration, Suprapubic Tube Placement on 09/25/[address] Araiza Patient is doing well Denies any pain or discomfort Denies fevers or chills No nausea or vomiting SPT is intact and draining red colored urine He is eager to go home today at bedside No additional Urological concerns today Review of Systems Review of Systems: All systems reviewed & are unremarkable except as noted in HPI & below Physical Exam Constitutional: well developed; no acute distress Respiratory: normal respiratory effort and able to speak in complete sentences Cardiovascular: Rate/Rhythm: regular rate and regular rhythm Extremities: + edema (1+BLE) Gastrointestinal (Abdomen): Inspection/Auscultation: abdomen normal to inspection; abdomen not distended Neurologic: awake Psychiatric: Orientation: alert, oriented x 3 and cooperative Genitourinary: SPT intact and draining. Hematuria noted with a few small clots in catheter tubing Results & Data ([facility]) Vital Signs (Past 12 Hours) Vital Signs Temp Pulse Pulse Resp BP Pulse Ox 09/26/19 07:06 36.7 C 68 17 125/62 95 09/26/19 03:44 73 09/26/19 02:49 36.6 C 75 18 118/62 92 09/25/19 23:13 36.5 C 73 19 123/69 94 PG Care Time/CCT Total # of Minutes Spent Total Time Spent with Patient: Total time spent is greater than 50% in coordination of care (as documented) at patient's floor/unit and/or counseling patient: Coding Level of Care Code 57364 Subseq Hosp Care Lvl 2 Diagnoses Hematuria R31.0 Hematuria type: gross (1) Hematuria Hematuria type: gross Qualified Code(s): R31.0 - Gross hematuria
[2019-09-26] MEDS: POLYETHYLENE (MIRALAX) 17 GM PACK PO SCH (08:45)
[2019-09-26] MEDS: ATORVASTATIN 20 MG TAB PO SCH (08:48)
[2019-09-26] MEDS: MEMANTINE HCL 5 MG TAB PO SCH (08:48)
[2019-09-26] MEDS: CIPROFLOXACIN 500 MG TAB PO SCH (08:48)
[2019-09-26] MEDS: CYANOCOBALAMIN 500 MCG TABLET (VITAMIN B-12) PO SCH (08:48)
[2019-09-26] MEDS: OXYBUTYNIN CHLORIDE XL 5 MG TABCR PO SCH (08:48)
[2019-09-26 11:33] VITALS: PULSE 72
--- NOTE | 2019-09-26 18:04 | Billing Data ---
Date of Service September 26, 2019 Coding Level of Care Code D/C Day Management <30 mins
== END 2019-09-26 12:16 | disposition home health service (06) | DRG 699 ==
LOC: 2N 15:36 → ED 15:36 → SUATTDRO 21:32 → 2N 22:22 → SUATTDRO 09-19 10:30

== ENCOUNTER 2019-10-28 06:08 | Inpatient (IN) ==
[2019-10-28] MEDS ORDERED: ALBUTEROL HFA 8 GM INHALER INH ONE (06:36)
--- NOTE | 2019-10-28 07:02 | Emergency Department Note ---
History of Present Illness General Chief complaint: Hematuria Stated complaint: BLOOD COMING OUT OF CATHETER Time Seen by Provider: 10/28/19 06:26 Source: patient, family (), EMS, RN notes reviewed and old records reviewed Mode of arrival: EMS Limitations: no limitations History of Present Illness Provider complaint: Weakness Onset (ago): day(s) 1 Relieved By: + rest Exacerbated By: + movement Associated symptoms: + other (hematuria) Treatments prior to arrival: none This is an 84-year-old male who presents emergency department complaining of weakness that has been ongoing for the past day. The patient has a history of hematuria and has a Ang catheter in place. 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 The patient has previously needed blood transfusions for his hematuria and he follows up with wound clinic for this. Upon arrival to the emergency department the patient is hypoxic. He is not normally on oxygen at home. Home Medications Home Medications Medication Instructions Recorded Confirmed Type cyanocobalamin (vitamin B-12) 1,000 mcg PO QAM 02/15/18 10/28/19 History cholecalciferol (vitamin D3) 50 2,000 units PO HS 03/01/18 10/28/19 History mcg (2,000 unit) tablet atorvastatin 20 mg PO QAM 03/08/18 10/28/19 History Glucosamine Chondroitin 2 cap PO DAILY 02/25/19 10/28/19 History memantine 5 mg PO BIDM 08/14/19 10/28/19 History calcium carbonate [Tums] 1,000 mg PO Q6H PRN #30 tab 08/29/19 10/28/19 Rx mirtazapine 15 mg PO HS #30 tab 08/29/19 10/28/19 Rx tamsulosin 0.4 mg capsule 0.4 mg PO HS #30 cap 09/08/19 10/28/19 Rx oxybutynin chloride 10 mg 10 mg PO DAILY #30 tab 09/11/19 10/28/19 Rx tablet,extended release 24 hr donepezil 10 mg PO DAILY 10/28/19 10/28/19 History lisinopril 5 mg PO DAILY 10/28/19 10/28/19 History qmkveegl-zjagcvzmy-LA 4 drp OTL TID 10/28/19 10/28/19 History polyethylene glycol 3350 [Miralax] 17 g PO DAILY PRN 10/28/19 10/28/19 History Allergies Allergy/AdvReac Type Severity Reaction Status Date / Time No Known Allergies Allergy Verified 10/28/19 06:26 Past Med/Surg History Medical History Anemia s/p transfusion (04/2018) felt r/t chemo Asthma childhood/no current issues Cancer bladder, prostate cancer; s/p chemo/xrt completed 04/2018 CVA (cerebral vascular accident) evidence of old infarct on MRI "years ago" HLD (hyperlipidemia) HTN (hypertension) Left knee DJD Lung nodule Short-term memory loss "mild"/no definitive diagnosis Thrombocytopenia hx Surgical History History of bladder surgery Cystoscopy, TURBT= 02/18/18= LMA#5 at [facility] History of bronchoscopy History of cataract surgery R/L History of colonoscopy History of tooth extraction History of vascular access device A-port inserted and removed S/P bronchoscopy with biopsy (03/07/19) Endobronchial Ultrasound Dr. 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) Family History Mother , age 79 Heart disease Father , age 79 Myocardial infarction Brother , age 79 Dementia Daughter COPD (chronic obstructive pulmonary disease) Son No problems noted. Son No problems noted. 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 Other Information That Helps Us Care for You: No Feels Safe at Home: Yes Safety Concerns: Feels Safe At This Time Assistive Devices: Glasses and Walker Review of Systems A total of 10 systems reviewed and were otherwise negative Physical Exam Vital Signs Vital Signs - 24 hr 10/28/19 06:18 10/28/19 06:43 10/28/19 07:18 Temperature 36.9 C Temperature Source Oral Pulse Rate 88 Pulse Rate [Left Finger] 82 Pulse Rhythm Regular Pulse Strength Normal Respiratory Rate 22 18 Blood Pressure 103/64 Blood Pressure [Left Arm] 103/56 L Blood Pressure Mean 77 Blood Pressure Mean [Left Arm] 71 Blood Pressure Position Sitting Pulse Oximetry 80 L 93 100 Oxygen Delivery Method Room Air Nasal Cannula Room Air Oxygen Flow Rate 3 Sepsis Recent Fever Within 48 Hours No Sepsis New/Unexplained Change in Mental Status No Sepsis Action Taken by Nursing No Action Required 10/28/19 07:38 10/28/19 08:11 10/28/19 08:41 Temperature Temperature Source Pulse Rate Pulse Rate [Left Finger] 83 78 86 Pulse Rhythm Pulse Strength Respiratory Rate 16 20 16 Blood Pressure Blood Pressure [Left Arm] 93/45 L 98/53 L 127/77 Blood Pressure Mean Blood Pressure Mean [Left Arm] 61 68 93 Blood Pressure Position Pulse Oximetry 98 100 100 Oxygen Delivery Method Nasal Cannula Nasal Cannula Nasal Cannula Oxygen Flow Rate 3 3 3 Sepsis Recent Fever Within 48 Hours Sepsis New/Unexplained Change in Mental Status Sepsis Action Taken by Nursing VITAL SIGNS - Vital signs and nursing notes were reviewed. GENERAL - 84-year-old male appearing pale stated age who is in no acute distress. Communicates well with provider and answers questions appropriately. SKIN - Without rashes. HEAD - NC/AT. EYES - PERRL with EOMI bilaterally. Sclera anicteric. Palpebral conjunctiva pink and moist with no injection noted. EARS - No deformities of external structures noted on gross examination bilaterally. No pain elicited with palpation of the tragus bilaterally. External auditory canals without discharge or otorrhea. Tympanic membranes pearly watson without retraction or bulging. No fluid or purulent material visualized behind the TM. Handle of malleus, umbo, cone of light, pars tensa/flaccid all easily vi sualized. NOSE - Midline and without cyanosis. No epistaxis or purulent drainage noted. Septum midline without deviation or septal hematoma noted. MOUTH/OROPHARYNX - Without perioral cyanosis. Buccal mucosa pink and moist and without leukoplakia. Tongue midline with equal elevation of palate bilaterally. No tonsillar hypertrophy, erythema, or exudates noted. dentition noted. NECK - Neck with FROM. Supple to palpation. lymphadenopathy noted. No nuchal rigidity. LUNGS - Chest wall symmetric without accessory muscle use, intercostals retractions, or central cyanosis. Normal vesicular breath sounds CTA B/L. No wheezes, rales, or rhonchi appreciated. CARDIAC - RRR with S1/S2. No murmur, rubs, or gallops appreciated. ABDOMEN - Abdominal contour without pulsations or visible masses. BS normoactive all four quadrants. No tenderness, palpable masses, hepatosplenomegaly, or ascites noted. : Ang in place draining bloody urine EXTREMITIES - No clubbing or peripheral cyanosis. No pretibial edema present. +3/5 radial, posterior tibial, and dorsalis pedis pulses palpated throughout. +5/5 strength noted in UE/LE bilaterally. NEUROLOGIC - Cranial nerves II through XII grossly intact. Sensory intact to light touch throughout. Patellar reflexes +2/4. PSYCH - A&Ox3 and cooperates fully with examiner. Pt is very pleasant and interacts well with examiner. Course Administered Medications Atorvastatin Calcium (Atorvastatin 20 Mg Tab) 20 mg PO QAM [facility] Stop: 11/27/19 10:29 Last Admin: 10/28/19 11:19 Dose: 20 mg Documented by: [id number] Donepezil HCl (Donepezil Hcl 10 Mg Tab) 10 mg PO DAILY [facility] Stop: 11/27/19 10:29 Last Admin: 10/28/19 11:19 Dose: 10 mg Documented by: [id number] Lisinopril (Lisinopril 5 Mg Tab) 5 mg PO DAILY [facility] Stop: 11/27/19 10:29 Last Admin: 10/28/19 11:19 Dose: 5 mg Documented by: [id number] Neomycin/Polymyxin/Hydrocortisone (Neomycin/Polymyx/Hydrocort Ot Soln 10 Ml Btl) 4 drops OT TID [facility] Stop: 10/29/19 00:00 Last Admin: 10/28/19 14:01 Dose: Not Given Documented by: [id number] Admin: 10/28/19 11:18 Dose: 4 drops Documented by: [id number] Oxybutynin Chloride (Oxybutynin Chloride Xl 5 Mg Tabcr) 10 mg PO DAILY [facility] Stop: 11/27/19 10:29 Last Admin: 10/28/19 11:19 Dose: 10 mg Documented by: [id number] Discontinued Medications Albuterol (Albuterol Hfa 8 Gm Inhaler) 2 puffs INH NOW ONE Stop: 10/28/19 06:37 Last Admin: 10/28/19 06:48 Dose: 2 puffs Documented by: [id number] Sodium Chloride (Nss 1000ml) 500 mls @ 999 mls/hr IV .Q31M ONE Stop: 10/28/19 08:27 Last Infusion: 10/28/19 08:40 Dose: 0 mls/hr Documented by: [id number] Admin: 10/28/19 08:09 Dose: 999 mls/hr Documented by: [id number] Sodium Chloride (Nss) 500 mls @ 500 mls/hr IV .Q1H [facility] Stop: 10/28/19 11:17 Last Infusion: 10/28/19 12:42 Dose: 0 mls/hr Documented by: [id number] Admin: 10/28/19 11:18 Dose: 500 mls/hr Documented by: [id number] Critical Care Time I have personally spent greater than 30 minutes of critical care time in the direct management of this patient. This includes bedside care, interpretation of diagnostic studies, and testing, discussion with consultants, patient, and family members, and other required patient management activities. This 30 minutes is in excess of all separately billable procedures. Medical Decision Making Differential Diagnosis Infection, dehydration, metabolic abnormality, hypo/hyperglycemia, electrolyte disturbance, anemia, hypoxia, cardiac sources, intracerebral event, toxicologic, neurologic, as well as other pathologies. Medical Records Attestation: I reviewed the patient's medical records. Home Medications Current Medication List: was personally reviewed by me Laboratory Data Attestation: I reviewed the patient's lab results. Result diagrams: 10/28/19 10:53 10/28/19 06:52 Lab Results 10/28/19 10/28/19 10/28/19 Range/Units 06:52 06:52 06:52 WBC 9.96 (4.8-10.8) K/uL RBC 1.68 L (4.7-6.1) M/uL Hgb 5.6 L* (14.0-18.0) g/dL Hct 17.0 L* (42-52) % MCV 101.2 H (80-100) fL MCH 33.3 (25-34) pg MCHC 32.9 (32-36) g/dL RDW Std Deviation 75.4 H (36.4-46.3) fL RDW Coeff of Latasha 21.0 H (11.5-14.5) % Plt Count 206 (130-400) K/uL MPV 8.4 (7.4-10.4) fL Immature Gran % (Auto) 1.0 % Neut % (Auto) 85.3 % Lymph % (Auto) 6.4 % [place] % (Auto) 6.8 % Eos % (Auto) 0.3 % Baso % (Auto) 0.2 % Neut # (Auto) 8.49 H (1.4-6.5) K/uL Lymph # (Auto) 0.64 L (1.2-3.4) K/uL [place] # (Auto) 0.68 H (0.11-0.59) K/uL Eos # (Auto) 0.03 (0-0.5) K/uL Baso # (Auto) 0.02 (0-0.2) K/uL Immature Gran # (Auto) 0.10 H (0.00-0.02) K/uL Polychromasia 1+ Anisocytosis Present PT 11.9 (9.0-12.0) Seconds INR 1.1 (0.9-1.1) APTT 25.9 (21.0-31.0) Seconds PTT Ratio 0.9 Sodium (136-145) mmol/L Potassium (3.5-5.1) mmol/L Chloride (98-107) mmol/L Carbon Dioxide (21-32) mmol/L Anion Gap (3-11) BUN (7-18) mg/dl Creatinine (0.6-1.4) mg/dl Est Cr Clr Drug Dosing ml/min Est GFR ( Amer) Est GFR (Non-Af Amer) BUN/Creatinine Ratio (10-20) Glucose (70-99) mg/dl Calcium (8.5-10.1) mg/dl Iron (35-175) mcg/dl Transferrin (200-360) mg/dl Transferrin % Sat (20-50) % Ferritin (8-388) ng/ml Total Bilirubin (0.2-1) mg/dl AST (15-37) U/L ALT (12-78) U/L Alkaline Phosphatase (45-117) U/L Total Creatine Kinase (39-308) U/L CK-MB (CK-2) (0.5-3.6) ng/ml CK/CKMB % Calc (0-3.0) Troponin I (0-0.045) ng/ml Total Protein (6.4-8.2) gm/dl Albumin (3.4-5.0) gm/dl Globulin (2.5-4.0) gm/dl Albumin/Globulin Ratio (0.9-2) Blood Type A Positive Antibody Screen POSITIVE A Antibody Identification Anti-Fya Antibody ID Comment Crossmatch See Detail 10/28/19 10/28/19 Range/Units 06:52 06:52 WBC (4.8-10.8) K/uL RBC (4.7-6.1) M/uL Hgb (14.0-18.0) g/dL Hct (42-52) % MCV (80-100) fL MCH (25-34) pg MCHC (32-36) g/dL RDW Std Deviation (36.4-46.3) fL RDW Coeff of Latasha (11.5-14.5) % Plt Count (130-400) K/uL MPV (7.4-10.4) fL Immature Gran % (Auto) % Neut % (Auto) % Lymph % (Auto) % [place] % (Auto) % Eos % (Auto) % Baso % (Auto) % Neut # (Auto) (1.4-6.5) K/uL Lymph # (Auto) (1.2-3.4) K/uL [place] # (Auto) (0.11-0.59) K/uL Eos # (Auto) (0-0.5) K/uL Baso # (Auto) (0-0.2) K/uL Immature Gran # (Auto) (0.00-0.02) K/uL Polychromasia Anisocytosis PT (9.0-12.0) Seconds INR (0.9-1.1) APTT (21.0-31.0) Seconds PTT Ratio Sodium 140 (136-145) mmol/L Potassium 4.4 (3.5-5.1) mmol/L Chloride 110 H (98-107) mmol/L Carbon Dioxide 22 (21-32) mmol/L Anion Gap 8.0 (3-11) BUN 36 H (7-18) mg/dl Creatinine 2.32 H (0.6-1.4) mg/dl Est Cr Clr Drug Dosing 25.6 ml/min Est GFR ( Amer) 28.6 Est GFR (Non-Af Amer) 24.7 BUN/Creatinine Ratio 15.6 (10-20) Glucose 147 H (70-99) mg/dl Calcium 8.0 L (8.5-10.1) mg/dl Iron 42 (35-175) mcg/dl Transferrin 177 L (200-360) mg/dl Transferrin % Sat 17 L (20-50) % Ferritin 274.9 (8-388) ng/ml Total Bilirubin 0.5 (0.2-1) mg/dl AST 18 (15-37) U/L ALT 15 (12-78) U/L Alkaline Phosphatase 82 (45-117) U/L Total Creatine Kinase 83 (39-308) U/L CK-MB (CK-2) 2.3 (0.5-3.6) ng/ml CK/CKMB % Calc 2.8 (0-3.0) Troponin I < 0.015 (0-0.045) ng/ml Total Protein 6.4 (6.4-8.2) gm/dl Albumin 2.5 L (3.4-5.0) gm/dl Globulin 3.9 (2.5-4.0) gm/dl Albumin/Globulin Ratio 0.6 L (0.9-2) Blood Type Antibody Screen Antibody Identification Antibody ID Comment Crossmatch Imaging Data Attestation: I personally reviewed and interpreted this imaging study as follows: Radiologist's Impression: [facility] [place] [phone] XRay Report Patient: BRIANA MENDES Admit Date: 10/28/19 MR#: [id number] Address1: [address] [place] [address] Acct ID:[id number] Address2: [facility] [address] Date: 1935 [facility] Zip: [place] [address] Age: 84 Location: ED Sex: M Room/Bed: Att Phy: Diagnosis: BLOOD COMING OUT OF CATHETER Alison Phy: Yeny Mast MD Service Date: 10/28/19 Fam Phy: Interpreting Phy: Judson Santo Admit Phy: Ordering Phy: Patrick Anderson MD cc: ~ XR chest 1V portable HISTORY: 84 years-old Male pt c/o hypoxia acute hypoxia COMPARISON: Chest radiograph 09/17/2019, chest CT 04/22/2019. TECHNIQUE: Portable AP view of the chest FINDINGS: Cardiac mediastinal and hilar silhouettes are within normal limits. Descending thoracic aortic tortuosity. No pneumothorax, pleural effusion, airspace consolidation or overt pulmonary edema. 2.5 cm nodular opacity of the basal right lower lobe. Degenerative changes of the shoulders and spine. IMPRESSION: 1. No acute process. 2. 2.5 cm pulmonary nodule of the right lower lobe is better characterized on comparison chest CT. ACT 112: Negative or not required by law. The above report was generated using voice recognition software. It may contain grammatical, syntax or spelling errors. Electronically signed by: Pj Santo M.D. 10/28/2019 7:21 AM Dictated: 10/28/19718 Transcribed: 10/28/19718 ECG Data Attestation: I personally reviewed and interpreted this ECG as follows: Indication: + weakness Rate (beats per minute): 87 Rhythm: + sinus with SA ECG Intervals/blocks: + Right Bundle branch block ECG Marion: + Left axis deviation ECG ST segments: no ST depression and no ST elevation Comparison ECG Date: from (09/17/2019) Change: the following changes noted (New RBBB present) Blood Pressure Blood Pressure Findings: Low blood pressure MDM Narrative Patient was seen and evaluated as above in room A12. Review was performed of nursing notes and vital signs. I did review pertinent previous visits and patient history. After obtaining a thorough history and physical examination the above work up was performed. While in the department, I personally reevaluated the patient several times and each time the patient was found to be resting comfortably. The patient was edu cated upon management, educated upon todays findings/results, educated upon importance of follow up from today's visit, educated upon symptoms in which to return, had questions answered prior to discharge, verbalized understanding, and was discharged home in good condition. An order was placed for continuous cardiac monitoring. The monitor shows a rate of 90 with Normal Sinus rhythm. The patient was evaluated during the global COVID-19 pandemic, and that diagnosis was suspected/considered upon their initial presentation. Their evaluation, treatment and testing was consistent with current guidelines for patients who present with complaints or symptoms that may be related to COVID- 19. 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
[2019-10-28 07:17] LABS: INR 1.1 (0.9-1.1); Partial Thromboplastin Ratio 0.9; Partial Thromboplastin Time 25.9 Seconds (21.0-31.0); Prothrombin Time 11.9 Seconds (9.0-12.0)
[2019-10-28 07:22] LABS: Hemoglobin 5.6 g/dL (14.0-18.0); Mean Corpuscular Hemoglobin 33.3 pg (25-34); Mean Corpuscular Hgb Conc 32.9 g/dL (32-36); Mean Corpuscular Volume 101.2 fL (80-100); Mean Platelet Volume 8.4 fL (7.4-10.4); Platelet Count 206 K/uL (130-400); RDW Standard Deviation 75.4 fL (36.4-46.3); Red Blood Count 1.68 M/uL (4.7-6.1); White Blood Count 9.96 K/uL (4.8-10.8)
--- NOTE | 2019-10-28 07:22 | XRay Report ---
XR chest 1V portable HISTORY: 84 years-old Male pt c/o hypoxia acute hypoxia COMPARISON: Chest radiograph 09/17/2019, chest CT 04/22/2019. TECHNIQUE: Portable AP view of the chest FINDINGS: Cardiac mediastinal and hilar silhouettes are within normal limits. Descending thoracic aortic tortuo sity. No pneumothorax, pleural effusion, airspace consolidation or overt pulmonary edema. 2.5 cm nodu lar opacity of the basal right lower lobe. Degenerative changes of the shoulders and spine. IMPRESSION: 1. No acute process. 2. 2.5 cm pulmonary nodule of the right lower lobe is better characterized on comparison chest CT. ACT 112: Negative or not required by law. The above report was generated using voice recognition software. It may contain grammatical, syntax o r spelling errors. Electronically signed by: Pj Santo M.D. 10/28/2019 7:21 AM
[2019-10-28 07:26] LABS: Anisocytosis Present; Basophils # (auto) 0.02 K/uL (0-0.2); Basophils % (auto) 0.2 %; Eosinophils # (auto) 0.03 K/uL (0-0.5); Eosinophils % (auto) 0.3 %; Lymphocytes # (auto) 0.64 K/uL (1.2-3.4); Lymphocytes % (auto) 6.4 %; Monocytes # (auto) 0.68 K/uL (0.11-0.59); Monocytes % (auto) 6.8 %; Neutrophils # (auto) 8.49 K/uL (1.4-6.5); Neutrophils % (auto) 85.3 %; Polychromasia 1+
[2019-10-28] MEDS ORDERED: SODIUM CHLORIDE 0.9% 250 ML IV PRN ×5 (07:29→23:03)
[2019-10-28 07:42] LABS: Alanine Aminotransferase 15 U/L (12-78); Albumin Globulin Ratio 0.6 (0.9-2); Albumin Level 2.5 gm/dl (3.4-5.0); Aspartate Aminotransferase 18 U/L (15-37); BUN Creatinine Ratio 15.6 (10-20); Bilirubin,Total 0.5 mg/dl (0.2-1); Blood Urea Nitrogen 36 mg/dl (7-18); Carbon Dioxide 22 mmol/L (21-32); Chloride 110 mmol/L (98-107); Creatinine Clr Calc Pharmacy 25.6 ml/min; Est GFR (African American) 28.6; Est GFR (Non-African American) 24.7; Globulin 3.9 gm/dl (2.5-4.0); Glucose 147 mg/dl (70-99); Potassium 4.4 mmol/L (3.5-5.1); Sodium 140 mmol/L (136-145); Total Protein 6.4 gm/dl (6.4-8.2)
[2019-10-28 07:46] LABS: Alkaline Phosphatase 82 U/L (45-117); Creatine Kinase 83 U/L (39-308); Creatine Kinase MB 2.3 ng/ml (0.5-3.6); Troponin I < 0.015 ng/ml (0-0.045)
[2019-10-28] MEDS ORDERED: SODIUM CHLORIDE 0.9% 1000ML 500 ML IV ONE (07:57)
--- NOTE | 2019-10-28 09:04 | History & Physical Report ---
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 - Hg 5.6, hct 17 - 3 units pRBCs ordered; typed and crossed, transfusion pending delivery of blood up to the floor - asymptomatic while laying down - H&H ordered Q6H - f/u iron studies; may benefit from IV iron given frequency of anemia and blood loss - new oxygen requirement of 3L NC with anemia, is not on oxygen at home Present on Admission?: Yes (2) Acute hypotension: Secondary to acute blood loss Improved with 500 cc NS fluid bolus Present on Admission?: Yes (3) Hematuria: kat in place draining old blood pt complaining of painful clot passage urology consulted for kat irrigation/repeat cystoscopy? (4) Acute on chronic renal failure: PILY - Cr elevated from normal to 2.32 likely secondary to poor cardiac output from low blood volume received 500 cc NS bolus gentle hydration alongside pRBC transfusions monitor i/o in kat (5) BPH (benign prostatic hyperplasia): continue tamsulosin, oxybutynin from home (6) Impaired fasting glucose: (7) Memory loss: pleasantly demented and circular in thought processes continue memantine and donepazil (8) Enlarged prostate with lower urinary tract symptoms (LUTS): as above for BPH (9) Hyperlipidemia: continue statin (10) HTN (hypertension): will d/c lisinopril considering persistent hematuria and blood loss. 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 WBC currently 6, hg and hct considerably decreased. Plt normal at 206. daily cbc to monitor (15) Mass of right lung: follows with cancer care center due to have repeat CT scan to follow 2 enlarging nodules of lung per . unsure if this is standard CT chest or PET scan. DVT Ppx: contraindicated in acute bleed FEN/GI: heart healthy, low salt diet code status: DNR/DNI Dispo: Med/surg with tele (16) Adenocarcinoma of prostate: History of Present Illness 84 yo M with hx small cell carcinoma of bladder and adenocarcinoma of prostate s/p radiation and chemo, radiation proctitis, radiation cystitis, hematuria, acute on chronic renal failure, on treatment with hyperbaric oxygen for recurrent hematuria, presenting to ER with worsening hematuria and dizziness over the past week. Patient's says he has frequently been dizzy and syncopal when getting up to go to the bathroom, while sitting in bed or standing. He has not had any recent falls. Denies BRBPR, melanotic stools. continues to have hematuria and pass painful clots. Having intermittent right sided chest pain described as pressure, nonradiating, reproducible with palpation. EKG in ER showed no ST segment changes, RBBB still present. He will be admitted for hematuria and acute blood loss anemia requiring blood transfusion and overnight monitoring. Primary Care Provider: Yeny Mast MD Allergies Allergy/AdvReac Type Severity Reaction Status Date / Time No Known Allergies Allergy Verified 10/28/19 06:26 Home Medications Home Medications Medication Instructions Recorded Confirmed Type cyanocobalamin (vitamin B-12) 1,000 mcg PO QAM 02/15/18 10/28/19 History cholecalciferol (vitamin D3) 50 2,000 units PO HS 03/01/18 10/28/19 History mcg (2,000 unit) tablet atorvastatin 20 mg PO QAM 03/08/18 10/28/19 History Glucosamine Chondroitin 2 cap PO DAILY 02/25/19 10/28/19 History memantine 5 mg PO BIDM 08/14/19 10/28/19 History calcium carbonate [Tums] 1,000 mg PO Q6H PRN #30 tab 08/29/19 10/28/19 Rx mirtazapine 15 mg PO HS #30 tab 08/29/19 10/28/19 Rx tamsulosin 0.4 mg capsule 0.4 mg PO HS #30 cap 09/08/19 10/28/19 Rx oxybutynin chloride 10 mg 10 mg PO DAILY #30 tab 09/11/19 10/28/19 Rx tablet,extended release 24 hr donepezil 10 mg PO DAILY 10/28/19 10/28/19 History lisinopril 5 mg PO DAILY 10/28/19 10/28/19 History [id number] 4 drp OTL TID 10/28/19 10/28/19 History polyethylene glycol 3350 [Miralax] 17 g PO DAILY PRN 10/28/19 10/28/19 History Past Med/Surg History Medical History Anemia s/p transfusion (04/2018) felt r/t chemo Asthma childhood/no current issues Cancer bladder, prostate cancer; s/p chemo/xrt completed 04/2018 CVA (cerebral vascular accident) evidence of old infarct on MRI "years ago" HLD (hyperlipidemia) HTN (hypertension) Left knee DJD Lung nodule Short-term memory loss "mild"/no definitive diagnosis Thrombocytopenia hx Surgical History History of bladder surgery Cystoscopy, TURBT= 02/18/18= LMA#5 at [facility] History of bronchoscopy History of cataract surgery R/L History of colonoscopy History of tooth extraction History of vascular access device A-port inserted and removed S/P bronchoscopy with biopsy (03/07/19) Endobronchial Ultrasound Dr. 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) Family History Mother , age 79 Heart disease Father , age 79 Myocardial infarction Brother , age 79 Dementia Daughter COPD (chronic obstructive pulmonary disease) Son No problems noted. Son No problems noted. 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 Other Information That Helps Us Care for You: No Feels Safe at Home: Yes Safety Concerns: Feels Safe At This Time Assistive Devices: Glasses and Walker Review of Systems Constitutional: + fatigue and + weakness; no fever, no chills and no sweats Respiratory: no cough, no dyspnea, no hemoptysis and no pain on inspiration Cardiovascular: + chest pain at rest, + dyspnea at rest and + lightheadedness; no edema Gastrointestinal: no abdominal pain, no nausea, no vomiting, no hematemesis, no constipation, no diarrhea/loose stools and no blood in stools Genitourinary: + dysuria (pain with passing clots) and + hematuria Neurologic: no gait abnormality, no falls, no tingling and no numbness Physical Exam Constitutional: + ill appearing and + thin; + not well developed, + not well nourished, no acute distress and no altered mental status Eyes: PERRL, conjunctivae normal, anicteric sclerae Neck: trachea midline, no thyromegaly Respiratory: normal respiratory effort; no respiratory distress, no labored breathing, no retractions and no cough Auscultation: no crackles, no rales, no rhonchi and no wheezes Cardiovascular: Rate/Rhythm: regular rate and regular rhythm Heart Sounds: no abnormal opening sounds, no gallop, no murmur and no cardiac rub Extremities: + abnormal capillary refill Gastrointestinal (Abdomen): Inspection/Auscultation: abdomen normal to inspection and normal bowel sounds; abdomen not distended Percussion/Palpation: abdomen soft; abdomen nontender Skin: pale, loose skin Results & Data Results & Data ([facility]) Vital Signs (Past 12 Hours) Laboratory Results WBC 9.96 K/uL (4.8-10.8) 10/28/19 06:52 RBC 1.68 M/uL (4.7-6.1) L 10/28/19 06:52 Hgb 5.6 g/dL (14.0-18.0) L* 10/28/19 06:52 Hct 17.0 % (42-52) L* 10/28/19 06:52 MCV 101.2 fL (80-100) H 10/28/19 06:52 MCH 33.3 pg (25-34) 10/28/19 06:52 MCHC 32.9 g/dL (32-36) 10/28/19 06:52 RDW Std Deviation 75.4 fL (36.4-46.3) H 10/28/19 06:52 RDW Coeff of Latasha 21.0 % (11.5-14.5) H 10/28/19 06:52 Plt Count 206 K/uL (130-400) 10/28/19 06:52 MPV 8.4 fL (7.4-10.4) 10/28/19 06:52 Immature Gran % (Auto) 1.0 % 10/28/19 06:52 Neut % (Auto) 85.3 % 10/28/19 06:52 Lymph % (Auto) 6.4 % 10/28/19 06:52 [place] % (Auto) 6.8 % 10/28/19 06:52 Eos % (Auto) 0.3 % 10/28/19 06:52 Baso % (Auto) 0.2 % 10/28/19 06:52 Neut # (Auto) 8.49 K/uL (1.4-6.5) H 10/28/19 06:52 Lymph # (Auto) 0.64 K/uL (1.2-3.4) L 10/28/19 06:52 [place] # (Auto) 0.68 K/uL (0.11-0.59) H 10/28/19 06:52 Eos # (Auto) 0.03 K/uL (0-0.5) 10/28/19 06:52 Baso # (Auto) 0.02 K/uL (0-0.2) 10/28/19 06:52 Immature Gran # (Auto) 0.10 K/uL (0.00-0.02) H 10/28/19 06:52 Polychromasia 1+ 10/28/19 06:52 Anisocytosis Present 10/28/19 06:52 PT 11.9 Seconds (9.0-12.0) 10/28/19 06:52 INR 1.1 (0.9-1.1) 10/28/19 06:52 APTT 25.9 Seconds (21.0-31.0) 10/28/19 06:52 PTT Ratio 0.9 10/28/19 06:52 Sodium 140 mmol/L (136-145) 10/28/19 06:52 Potassium 4.4 mmol/L (3.5-5.1) 10/28/19 06:52 Chloride 110 mmol/L (98-107) H 10/28/19 06:52 Carbon Dioxide 22 mmol/L (21-32) 10/28/19 06:52 Anion Gap 8.0 (3-11) 10/28/19 06:52 BUN 36 mg/dl (7-18) H 10/28/19 06:52 Creatinine 2.32 mg/dl (0.6-1.4) H 10/28/19 06:52 Est Cr Clr Drug Dosing 25.6 ml/min 10/28/19 06:52 Est GFR ( Amer) 28.6 10/28/19 06:52 Est GFR (Non-Af Amer) 24.7 10/28/19 06:52 BUN/Creatinine Ratio 15.6 (10-20) 10/28/19 06:52 Glucose 147 mg/dl (70-99) H 10/28/19 06:52 Calcium 8.0 mg/dl (8.5-10.1) L 10/28/19 06:52 Total Bilirubin 0.5 mg/dl (0.2-1) 10/28/19 06:52 AST 18 U/L (15-37) 10/28/19 06:52 ALT 15 U/L (12-78) 10/28/19 06:52 Alkaline Phosphatase 82 U/L (45-117) 10/28/19 06:52 Total Creatine Kinase 83 U/L (39-308) 10/28/19 06:52 CK-MB (CK-2) 2.3 ng/ml (0.5-3.6) 10/28/19 06:52 CK/CKMB % Calc 2.8 (0-3.0) 10/28/19 06:52 Troponin I < 0.015 ng/ml (0-0.045) 10/28/19 06:52 Total Protein 6.4 gm/dl (6.4-8.2) 10/28/19 06:52 Albumin 2.5 gm/dl (3.4-5.0) L 10/28/19 06:52 Globulin 3.9 gm/dl (2.5-4.0) 10/28/19 06:52 Albumin/Globulin Ratio 0.6 (0.9-2) L 10/28/19 06:52 Blood Type A Positive 10/28/19 06:52 Antibody Screen POSITIVE A 10/28/19 06:52 Antibody Identification Anti-Fya 10/28/19 06:52 Crossmatch See Detail 10/28/19 06:52 Vital Signs Temp Pulse Pulse Resp BP BP Pulse Ox 10/28/19 08:41 86 16 127/77 100 10/28/19 08:11 78 20 98/53 L 100 10/28/19 07:38 83 16 93/45 L 98 10/28/19 07:18 82 18 103/56 L 100 10/28/19 06:43 93 10/28/19 06:18 36.9 C 88 22 103/64 80 L Supervising Physician Co-Signing Physician Notes Resident Physician Supervision Note: I independently interviewed and examined the patient and verified the wasserman history and physical, reviewed labs and image studies, discussed the case with the resident Dr. Corral and agree with the findings and care plan. Resident Activity Tracking Resident Involvement: Resident Care Provided Care Provided: Adult Hospital Medicine (1) Hematuria Hematuria type: gross Qualified Code(s): R31.0 - Gross hematuria
[2019-10-28 09:57] LABS: Folate (Folic Acid) 8.06 ng/ml (>5.38)
[2019-10-28 09:58] LABS: Ferritin 274.9 ng/ml (8-388)
[2019-10-28] MEDS ORDERED: NON-FORMULARY MEDICATION (Glucos Sul 2kcl-Msm-Chond-C-Mn [Glucosamine Chondroitin] 2 CAP) PO SCH (10:18)
[2019-10-28] MEDS ORDERED: NITROGLYCERIN SL 0.4 MG/TAB TAB SL PRN (10:18)
[2019-10-28] MEDS ORDERED: ONDANSETRON INJ 2 MG/ML 2 ML VIAL IV PRN (10:18)
[2019-10-28] MEDS ORDERED: POLYETHYLENE (MIRALAX) 17 GM PACK PO PRN (10:18)
[2019-10-28] MEDS ORDERED: SODIUM CHLORIDE 0.9% 500 ML IV SCH (10:18)
[2019-10-28] MEDS ORDERED: CALCIUM CARBONATE 500 MG CHEWABLE TAB PO PRN (10:18)
[2019-10-28] MEDS ORDERED: lisinopriL 5 MG TAB PO SCH (10:30)
[2019-10-28] MEDS ORDERED: DiphenhydrAMINE HCL 50 MG/ML VIAL IV PRN (10:41)
[2019-10-28] MEDS: NEOMYCIN/POLYMYX/HYDROCORT OT SOLN 10 ML BTL OT SCH ×3 (11:18→20:18)
[2019-10-28] MEDS: OXYBUTYNIN CHLORIDE XL 5 MG TABCR PO SCH (11:19)
[2019-10-28] MEDS: DONEPEZIL HCL 10 MG TAB PO SCH (11:19)
[2019-10-28] MEDS: ATORVASTATIN 20 MG TAB PO SCH (11:19)
[2019-10-28 11:28] LABS: Hematocrit (blood only) 15.4 % (42-52)
--- NOTE | 2019-10-28 12:14 | Urology Consultation ---
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: History of bladder cancer with radiation cystitis and refractory hematuria He has had numerous interventions in the past Hemoglobin is quite low now He has relatively clear urine at the moment and is not symptomatic Recommend supportive care with transfusion as necessary No immediate plan for any intervention or continuous bladder irrigation at this stage Irrigate the bladder manually as needed History of Present Illness Attending Physician: Kunal Boogie History of Present Illness 84-year-old gentleman with a long history of bladder cancer is extremely well- known to our service secondary to numerous admissions over the past several months He returns now with general weakness and ill feeling as well as an extremely low hemoglobin He has been experiencing gross hematuria intermittently for several monthsworse recently Numerous prior interventions On evaluation today he reports that he is drastically improved now as compared to when he arrived in the emergency room He is borderline hypotensive, not tachycardic Hemoglobin 5.8 Allergies Allergy/AdvReac Type Severity Reaction Status Date / Time No Known Allergies Allergy Verified 10/28/19 06:26 Home Medications Home Medications Medication Instructions Recorded Confirmed Type cyanocobalamin (vitamin B-12) 1,000 mcg PO QAM 02/15/18 10/28/19 History cholecalciferol (vitamin D3) 50 2,000 units PO HS 03/01/18 10/28/19 History mcg (2,000 unit) tablet atorvastatin 20 mg PO QAM 03/08/18 10/28/19 History Glucosamine Chondroitin 2 cap PO DAILY 02/25/19 10/28/19 History memantine 5 mg PO BIDM 08/14/19 10/28/19 History calcium carbonate [Tums] 1,000 mg PO Q6H PRN #30 tab 08/29/19 10/28/19 Rx mirtazapine 15 mg PO HS #30 tab 08/29/19 10/28/19 Rx tamsulosin 0.4 mg capsule 0.4 mg PO HS #30 cap 09/08/19 10/28/19 Rx oxybutynin chloride 10 mg 10 mg PO DAILY #30 tab 09/11/19 10/28/19 Rx tablet,extended release 24 hr donepezil 10 mg PO DAILY 10/28/19 10/28/19 History lisinopril 5 mg PO DAILY 10/28/19 10/28/19 History [id number] 4 drp OTL TID 10/28/19 10/28/19 History polyethylene glycol 3350 [Miralax] 17 g PO DAILY PRN 10/28/19 10/28/19 History Patient History Medical History Anemia s/p transfusion (04/2018) felt r/t chemo Asthma childhood/no current issues Cancer bladder, prostate cancer; s/p chemo/xrt completed 04/2018 CVA (cerebral vascular accident) evidence of old infarct on MRI "years ago" HLD (hyperlipidemia) HTN (hypertension) Left knee DJD Lung nodule Short-term memory loss "mild"/no definitive diagnosis Thrombocytopenia hx Surgical History History of bladder surgery Cystoscopy, TURBT= 02/18/18= LMA#5 at [facility] History of bronchoscopy History of cataract surgery R/L History of colonoscopy History of tooth extraction History of vascular access device A-port inserted and removed S/P bronchoscopy with biopsy (03/07/19) Endobronchial Ultrasound Dr. 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) Family History Mother , age 79 Heart disease Father , age 79 Myocardial infarction Brother , age 79 Dementia Daughter COPD (chronic obstructive pulmonary disease) Son No problems noted. Son No problems noted. 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 Other Information That Helps Us Care for You: No Feels Safe at Home: Yes Safety Concerns: Feels Safe At This Time Assistive Devices: Glasses and Walker Review of Systems Review of Systems: All systems reviewed & are unremarkable except as noted in HPI & below Physical Exam Constitutional: well developed and well nourished Pale appearing, frail Neck: neck nontender Respiratory: normal respiratory effort; no respiratory distress and does not use accessory muscles Cardiovascular: Rate/Rhythm: regular rate Vessels: radial pulses present Extremities: no edema Gastrointestinal (Abdomen): Inspection/Auscultation: abdomen normal to inspection Percussion/Palpation: abdomen soft; abdomen nontender and no guarding Musculoskeletal: Head/Neck/Chest: normocephalic and head atraumatic Extremities: extremities normal to inspection Skin: no rashes and no lesions Trauma: no evidence of skin trauma Neurologic: awake; not obtunded Speech / Cognition: normal speech Motor/Sensory: no tremor Psychiatric: Orientation: alert and oriented x 3 Genitourinary: no CVA tenderness Relatively clear urine in the tubing, however dark old blood within the back Lymphatic: no lymphadenopathy Results & Data ([facility]) Vital Signs (Past 12 Hours) Vital Signs Temp Pulse Pulse Resp BP BP Pulse Ox 10/28/19 12:00 36.4 C L 98 H 18 95/58 L 96 10/28/19 10:21 36.3 C L 88 20 109/66 99 10/28/19 09:42 92 H 20 102/60 99 10/28/19 09:33 92 H 20 102/60 99 10/28/19 08:41 86 16 127/77 100 10/28/19 08:11 78 20 98/53 L 100 10/28/19 07:38 83 16 93/45 L 98 10/28/19 07:18 82 18 103/56 L 100 10/28/19 06:43 93 10/28/19 06:18 36.9 C 88 22 103/64 80 L PG Care Time/CCT Total # of Minutes Spent Total Time Spent with Patient: Total time spent is greater than 50% in coordination of care (as documented) at patient's floor/unit and/or counseling patient: Coding Level of Care Code 50948 Inpt Consult Level 3 Diagnoses 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
[2019-10-28] MEDS: ACETAMINOPHEN 325 MG TAB PO PRN (15:43)
[2019-10-28] MEDS ORDERED: SODIUM CHLORIDE 0.9% 1000ML 250 ML IV ONE (16:33)
[2019-10-28] MEDS: MEMANTINE HCL 5 MG TAB PO SCH (17:50)
[2019-10-28] MEDS: SODIUM CHLORIDE 0.9% 500 ML IV SCH ×2 (18:11→19:31)
[2019-10-28 18:15] LABS: Hematocrit (blood only) 21.5 % (42-52); Hemoglobin 7.3 g/dL (14.0-18.0)
[2019-10-28] MEDS ORDERED: SODIUM CHLORIDE 0.9% 1000ML 1,000 ML IV SCH (19:15)
[2019-10-28] MEDS: TAMSULOSIN HCL 0.4 MG CAP PO SCH (20:17)
[2019-10-28] MEDS: CHOLECALCIFEROL 1,000 UNITS 25 MCG TAB PO SCH (20:18)
[2019-10-28] MEDS: MIRTAZAPINE TAB 15 MG TAB PO SCH (20:18)
[2019-10-28] MEDS: SODIUM CHLORIDE 0.9% 1000ML 1,000 ML IV SCH (20:44)
[2019-10-28 22:54] LABS: Hematocrit (blood only) 22.2 % (42-52); Hemoglobin 7.6 g/dL (14.0-18.0)
[2019-10-29] MEDS: SODIUM CHLORIDE 0.9% 1000ML 1,000 ML IV SCH ×2 (04:52→12:24)
[2019-10-29 06:55] LABS: Albumin Level 1.7 gm/dl (3.4-5.0); BUN Creatinine Ratio 13.2 (10-20); Calcium 7.1 mg/dl (8.5-10.1); Creatinine Clr Calc Pharmacy 17.1 ml/min; Est GFR (African American) 17.6; Est GFR (Non-African American) 15.2; Potassium 4.6 mmol/L (3.5-5.1)
[2019-10-29 07:06] LABS: Anisocytosis Present; Basophils # (auto) 0.02 K/uL (0-0.2); Basophils % (auto) 0.1 %; Eosinophils # (auto) 0.01 K/uL (0-0.5); Hematocrit (blood only) 24.9 % (42-52); Hemoglobin 8.4 g/dL (14.0-18.0); Immature Granulocytes # (auto) 0.23 K/uL (0.00-0.02); Immature Granulocytes % (auto) 0.9 %; Lymphocytes # (auto) 0.62 K/uL (1.2-3.4); Lymphocytes % (auto) 2.3 %; Mean Corpuscular Hemoglobin 30.7 pg (25-34); Mean Corpuscular Hgb Conc 33.7 g/dL (32-36); Mean Corpuscular Volume 90.9 fL (80-100); Mean Platelet Volume 8.5 fL (7.4-10.4); Monocytes # (auto) 1.15 K/uL (0.11-0.59); Monocytes % (auto) 4.3 %; Neutrophils # (auto) 24.47 K/uL (1.4-6.5); Neutrophils % (auto) 92.4 %; Nucleated RBC # (auto) 0.02 K/uL (0-0); Nucleated RBC % (auto) 0.1 %; Platelet Count 129 K/uL (130-400); Platelet Estimate Decreased (Normal); RDW Coefficient of Variation 20.2 % (11.5-14.5); RDW Standard Deviation 60.5 fL (36.4-46.3); Red Blood Count 2.74 M/uL (4.7-6.1)
[2019-10-29 07:20] LABS: Albumin Globulin Ratio 0.5 (0.9-2); Bilirubin,Total 0.8 mg/dl (0.2-1); Globulin 3.2 gm/dl (2.5-4.0); Total Protein 4.9 gm/dl (6.4-8.2)
--- NOTE | 2019-10-29 07:28 | Hospitalist Progress Note ---
Date of Service October 29, 2019 Assessment & Plan (1) Symptomatic anemia: Dale Arenas is a very pleasant 84-year-old gentleman with a notable past medical history of SCC of the bladder and prostatic adenocarcinoma (s/p chemo, radiation, and TURBT) - complicated by radiation cystitis with recurrent hematuria, alongside radiation proctitis - dementia, HTN, HLD, and [id number] renal failure who was admitted to [facility] on 10/27 for management of acute, symptomatic blood loss anemia 2/2 his recurrent hematuria. Since receiving 4x units of pRBC, he has been hemodynamically stable. Symptomatic Acute Blood Loss Anemia - Acute blood loss anemia 2/2 recurrent hematuria as a result of radiation cystitis -- patient had been receiving daily hyperbaric oxygen treatments in the outpatient setting for management of this - Upon admission, patient's was reporting that Dale had been experiencing recent dizziness and episodes of pre-syncope - Arrival H&H (10/27): 5.0/15.4 - s/p total of 4 units pRBC since arrival - 3 in ED, 1 since transfer to floor - H&H stable this AM at 8.4/24.9 - CBC qAM Hypovolemic shock - 2/2 Acute Blood Loss Anemia: Resolving - Patient currently hemodynamically stable -- BP 100/61, HR 70, SpO2 98% RA - s/p 4 units pRBC, multiple boluses/maintenance infusions of NS since arrival - Continue NSS maintenance fluids for now in setting of PILY - Hold lisinopril -- of note, this was discontinued in the outpatient setting and should remain held upon d/c Leukocytosis, new - WBC this AM did reveal a new leukocytosis at 26.5 (9.9 on admission) with neutrophilic predominance - Leukocytosis appeared after transfusion of 4 units of pRBC -- suspect leukemoid reaction as primary etiology - Patient does have history of recurrent UTIs involving Pseudomonas, and also has Ang in place - will order UA + culture to r/o this as contributory - Given patient's significant abdominal pain yesterday, which is clinically absent today on exam, can also consider CT of the abdomen and pelvis to rule out intraabdominal source (e.g., diverticulitis) - Patient is afebrile and hemodynamically stable - CBC qAM Recurrent Hematuria 2/2 Radiation Cystitis - Notable history of SCC of the bladder and prostatic adenocarcinoma, s/p radiation, chemo, and TURBT - Patient has been hyperbaric oxygen treatments in the outpatient setting for management of his recurrent hematuria -- has received 14 of 20 treatments - Urology following -- planning to place Ang, alongside CBI via his suprapubic tube Acute Kidney Injury - Admission BUN and Cr: 36 / 2.32 - Most recent BUN and Cr: 46 / 3.42 (BUN/CR = 13.2) - Suspect this is likely due to profound hypovolemia w/ ATN upon arrival - Continue mIVF - 1000mL NSS at 125mL/hr -- current normotensive w/o signs of volume overload. D/c fluids at noon - I&O since arrival: in 4534 / out 1141 / balance +3394 (0.58 mL/kg/hr) - Recheck BMP at noon today - BMP qAM Chronic Medical Problems - BPH: Continue tamsulosin, oxybutynin - Dementia: Continue donepezil, memantine - HLD: Continue atorvastatin - HTN: as above -- d/c lisinopril - Right Lung Mass: Follows with cancer center -- indicates that he was supposed to have a CT in early November for f/u - RBBB: Present on EKGs in the past, and on EKG at admission General Functional Status - Thorough discussion was held today with patient and regarding goals of care moving forward -- would like to move towards [facility] and hospice upon discharge given continued decline and treatment failure, as outlined above Family present: , Negrita DVT PPX: SCDs -- hold pharmacologic ppx in setting of active bleed FEN/GI: heart healthy diet Dispo: Med/surg with tele Code status: DNR/DNI (2) Acute hypotension: (3) Hematuria: (4) Anemia: (5) 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: (6) Acute on chronic renal failure: (7) Depression: (8) Acute blood loss anemia: (9) Radiation proctitis: (10) BPH (benign prostatic hyperplasia): (11) Hyperlipidemia: (12) HTN (hypertension): (13) Dementia: (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 Gilliam and agree with the findings and care plan. Subjective Patient received an additional unit of blood overnight. Reports feeling well overall this morning. , Negrita, is at the bedside. Of note, just does report within the last 2 days having frequent, loose bowel movements. He does not regard them as diarrhea. While bowel movements today not been associated with any pain, Dale notes that his bowel movements yesterday were severely painful, which is not typical for him. Negrita clarifies that it is normal for him to have loose bowel movements, but it seems like these may have picked up in frequency. Denies any dark or discolored stools, or blood in his stool recently. This morning, Dale denies any pain, discomfort, chest pain, chest pressure, or shortness of breath. Over the last several days, he denies any pain with ur ination or urinary frequency. does add that his suprapubic tube has been leaking a little bit. Review of Systems Constitutional: no fever and no chills Respiratory: no dyspnea Cardiovascular: no chest pain and no dyspnea at rest Gastrointestinal: no nausea and no vomiting Yesterday, did endorse pain with his bowel movements which have subsequently resolved Physical Exam Constitutional: 84-year-old gentleman who is lying on his right side in bed, freely conversive. He occasionally deviates from previous conversation, forgetting what we were talking about. He was waiting for nurse assistance regarding a recent bowel movement, and attributes some discomfort to this, but otherwise does not appear in any acute distress. Respiratory: Good respiratory effort with symmetric expansion of the chest, lungs are clear to auscultation bilaterally without any crackles or wheezes Cardiovascular: Normal rate and regular rhythm, S1 and S2 are present without any murmurs rubs or gallops. Gastrointestinal (Abdomen): Abdomen is soft and nondistended. There is no tenderness to palpation. No rebound or guarding. Suprapubic tube in place, with no evidence of leakage at the site; urine colle ction bag collecting diana blood. No evidence of bleeding from the penis meatus. Psychiatric: A+Ox3, euthymic affect Results & Data Results & Data ([facility]) Vital Signs (Past 12 Hours) Vital Signs Temp Pulse Pulse Resp BP BP Pulse Ox 10/29/19 04:40 36.5 C 70 16 100/61 98 10/29/19 03:20 36.4 C L 79 16 88/48 L 98 10/29/19 02:14 97 H 10/29/19 01:15 36.8 C 96 H 18 82/47 L 10/29/19 00:45 36.7 C 100 H 85/45 L 98 10/29/19 00:15 37.1 C 106 H 18 84/43 L 10/29/19 00:02 36.5 C 108 H 18 86/46 L 97 10/28/19 23:44 36.5 C 94 H 18 89/48 L 10/28/19 23:00 37.0 C 99 H 20 90/48 L 98 10/28/19 22:19 109 H 20 92/53 L 95 10/28/19 21:40 37.4 C 95 H 20 89/45 L 98 10/28/19 20:30 36.9 C 96 H 18 100/62 99 10/28/19 20:00 36.6 C 113 H 18 118/74 100 Resident Activity Tracking Resident Involvement: Resident Care Provided Care Provided: Adult Hospital Medicine (1) Hematuria Hematuria type: gross Qualified Code(s): R31.0 - Gross hematuria (2) Anemia Anemia type: unspecified type Qualified Code(s): D64.9 - Anemia, unspecified (3) Acute on chronic renal failure Acute renal failure type: unspecified Chronic kidney disease stage: unspecified stage Qualified Code(s): N17.9 - Acute kidney failure, unspecified; N18.9 - Chronic kidney disease, unspecified
--- NOTE | 2019-10-29 07:40 | Urology Progress Note ---
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 and refractory hematuria Chart review: Afebrile BP 116/64, P 81 WBC-26.50 (previously 9.96) HgB-8.4 (previously 7.6) - Received x4 units pRBC Cr- 3.47 (previously 2.32) Patient alert, resting in bed, forgetful at times Denies any pain/discomfort Denies fevers or chills Tolerating PO diet without nausea or vomiting Suprapubic catheter draining dark bloody urine Denies additional Urological issues Review of Systems Constitutional: as per Subjective / HPI Gastrointestinal: as per Subjective / HPI Genitourinary: + as per Subjective / HPI Psychiatric: as per Subjective / HPI Physical Exam Constitutional: no acute distress Respiratory: normal respiratory effort and able to speak in complete sentences Gastrointestinal (Abdomen): Inspection/Auscultation: abdomen normal to inspection; abdomen not distended Percussion/Palpation: abdomen soft; abdomen nontender Skin: Warm and dry Neurologic: moves all extremities and awake Psychiatric: Orientation: alert and cooperative Genitourinary: SPT intact and draining dark, bloody urine. Minimal dried blood around meatus. Results & Data ([facility]) Vital Signs (Past 12 Hours) Vital Signs Temp Pulse Pulse Resp BP BP Pulse Ox 10/29/19 04:40 36.5 C 70 16 100/61 98 10/29/19 03:20 36.4 C L 79 16 88/48 L 98 10/29/19 02:14 97 H 10/29/19 01:15 36.8 C 96 H 18 82/47 L 10/29/19 00:45 36.7 C 100 H 85/45 L 98 10/29/19 00:15 37.1 C 106 H 18 84/43 L 10/29/19 00:02 36.5 C 108 H 18 86/46 L 97 10/28/19 23:44 36.5 C 94 H 18 89/48 L 10/28/19 23:00 37.0 C 99 H 20 90/48 L 98 10/28/19 22:19 109 H 20 92/53 L 95 10/28/19 21:40 37.4 C 95 H 20 89/45 L 98 10/28/19 20:30 36.9 C 96 H 18 100/62 99 10/28/19 20:00 36.6 C 113 H 18 118/74 100 PG Care Time/CCT Total # of Minutes Spent Total Time Spent with Patient: Total time spent is greater than 50% in coordination of care (as documented) at patient's floor/unit and/or counseling patient: Coding Level of Care Code 01549 Subseq Hosp Care Lvl 2 Diagnoses 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
[2019-10-29] MEDS: ATORVASTATIN 20 MG TAB PO SCH (08:38)
[2019-10-29] MEDS: OXYBUTYNIN CHLORIDE XL 5 MG TABCR PO SCH (08:38)
[2019-10-29] MEDS: MEMANTINE HCL 5 MG TAB PO SCH ×2 (08:38→17:03)
[2019-10-29] MEDS: DONEPEZIL HCL 10 MG TAB PO SCH (08:39)
[2019-10-29] MEDS: CYANOCOBALAMIN 500 MCG TABLET (VITAMIN B-12) PO SCH (10:19)
[2019-10-29] MEDS: ACETAMINOPHEN 325 MG TAB PO PRN ×2 (12:15→17:03)
[2019-10-29 12:33] LABS: BUN Creatinine Ratio 13.8 (10-20); Creatinine Clr Calc Pharmacy 17.3 ml/min; Est GFR (African American) 17.8; Est GFR (Non-African American) 15.4; Potassium 4.4 mmol/L (3.5-5.1)
--- NOTE | 2019-10-29 14:00 | Electrocardiogram Report ---
Test Reason : Blood Pressure : / mmHG Vent. Rate : 087 BPM Atrial Rate : 087 BPM P-R Int : 130 ms QRS Dur : 122 ms QT Int : 410 ms P-R-T Axes : 004 -39 028 degrees QTc Int : 493 ms Poor data quality, interpretation may be adversely affected Normal sinus rhythm with sinus arrhythmia Left axis deviation Right bundle branch block Minimal voltage criteria for LVH, may be normal variant Abnormal ECG When compared with ECG of 17-SEP-2019 15:46, Right bundle branch block is now Present Confirmed by Reuben Chaudhari ([id number]) on 10/29/2019 2:00:15 PM Referred By: REFERRED SELF Confirmed By:Reuben Chaudhari
--- NOTE | 2019-10-29 14:06 | Electrocardiogram Report ---
Test Reason : Blood Pressure : / mmHG Vent. Rate : 084 BPM Atrial Rate : 084 BPM P-R Int : 146 ms QRS Dur : 120 ms QT Int : 428 ms P-R-T Axes : 000 -29 055 degrees QTc Int : 505 ms Poor data quality, interpretation may be adversely affected Normal sinus rhythm Right bundle branch block Abnormal ECG When compared with ECG of 28-OCT-2019 06:24, (unconfirmed) ST now depressed in Lateral leads Nonspecific T wave abnormality now evident in Lateral leads Confirmed by Reuben Chaudhari ([id number]) on 10/29/2019 2:06:08 PM Referred By: REFERRED SELF Confirmed By:Reuben Chaudhari
[2019-10-29 15:03] LABS: Hematocrit (blood only) 25.1 % (42-52); Hemoglobin 8.5 g/dL (14.0-18.0); Mean Corpuscular Hemoglobin 30.9 pg (25-34); Mean Corpuscular Hgb Conc 33.9 g/dL (32-36); Mean Corpuscular Volume 91.3 fL (80-100); Mean Platelet Volume 8.7 fL (7.4-10.4); Platelet Count 129 K/uL (130-400); RDW Coefficient of Variation 20.4 % (11.5-14.5); RDW Standard Deviation 62.3 fL (36.4-46.3); Red Blood Count 2.75 M/uL (4.7-6.1); White Blood Count 22.69 K/uL (4.8-10.8)
[2019-10-29 15:22] LABS: BUN Creatinine Ratio 13.9 (10-20); Calcium 7.4 mg/dl (8.5-10.1); Creatinine Clr Calc Pharmacy 17.3 ml/min; Est GFR (African American) 17.9; Est GFR (Non-African American) 15.5; Potassium 4.3 mmol/L (3.5-5.1)
--- NOTE | 2019-10-29 16:55 | Communication Note ---
Date of Service: October 29, 2019 Extended discussion this afternoon on goals of care. Discussed with patient and his at bedside. Mr. Arenas expresses he is fatigued over treatments, but 'more importantly' his goals of care are to be at home and with family. Hospice and comfort goals discussed, pt recognizes that focusing on comfort and avoiding hospitalizations may resulted in a shorter length of life, but he feels that is is more important to be home with family available and a better quality of life. He does not wish to pursue attempted curative treatments at this time, and wishes for comfort oriented treatments. He understands that he may continue to have bleeding, but would rather remain home than return to the hospital for transfusions and fluid management. He would like to defer additional chemo therapy and imaging studies at this time. He reports that he 'feels much better and happier' with this decision, and 'is happy' [he has had] 'a wonderful life' and would like to 'spend the rest of it comfortably with family.' He is not sure and will think about hyperbaric oxygen treatments, although may want to remain home and defer this. He and his will think about this tonight. His has an apartment at [facility] that will be available that has no stairs and which they would like him to return to with Hospice services when able. Discussed with case management and Urology. Recommend patient have suprapubic catheter for management and to defer any kat catheters/further irrigation. Will defer TRENCH TRIMMER FINE orderset at this time with goal of optimizing today and tomorrow with goal of converted to TRENCH TRIMMER FINE at discharge to home w/ hospice.
[2019-10-29] MEDS ORDERED: SODIUM CHLORIDE 0.9% 1000ML 500 ML IV ONE ×2 (19:44→21:11)
[2019-10-29] MEDS ORDERED: MoRPHine SULFATE 4 MG/ML 1 ML CARP\\VIAL IV STA (21:04)
[2019-10-29] MEDS: CHOLECALCIFEROL 1,000 UNITS 25 MCG TAB PO SCH (22:16)
[2019-10-29] MEDS: TAMSULOSIN HCL 0.4 MG CAP PO SCH (22:16)
[2019-10-29] MEDS: MIRTAZAPINE TAB 15 MG TAB PO SCH (22:16)
[2019-10-30 04:14] VITALS: O2SAT 94
[2019-10-30] MEDS: MoRPHine SULFATE 2 MG/ML CARP IV PRN ×3 (05:02→14:05)
[2019-10-30 06:42] LABS: Hematocrit (blood only) 23.4 % (42-52); Hemoglobin 7.9 g/dL (14.0-18.0); Mean Corpuscular Hemoglobin 30.7 pg (25-34); Mean Corpuscular Hgb Conc 33.8 g/dL (32-36); Mean Corpuscular Volume 91.1 fL (80-100); Mean Platelet Volume 8.8 fL (7.4-10.4); Nucleated RBC # (auto) 0.02 K/uL (0-0); Nucleated RBC % (auto) 0.1 %; Platelet Count 119 K/uL (130-400); RDW Standard Deviation 65.6 fL (36.4-46.3); Red Blood Count 2.57 M/uL (4.7-6.1); White Blood Count 20.23 K/uL (4.8-10.8)
[2019-10-30 07:06] LABS: ALC (manual) 0.71 K/uL (1.2-3.4); ANC (manual) 18.79 K/uL (1.4-6.5); Anisocytosis Present; Echinocytes 1+; Eosinophils # (manual) 0.18 K/uL (0-0.5); Eosinophils % (manual) 0.9 %; Lymphocytes # (manual) 0.71 K/uL (1.2-3.4); Lymphocytes % (manual) 3.5 %; Monocytes # (manual) 0.55 K/uL (0.11-0.59); Monocytes % (manual) 2.7 %; Neutrophils # (manual) 18.79 K/uL (1.4-6.5); Neutrophils % (manual) 92.9 %; Polychromasia 1+
[2019-10-30 07:09] LABS: Creatinine Clr Calc Pharmacy 18.5 ml/min; Est GFR (African American) 19.4; Est GFR (Non-African American) 16.7; Potassium 4.5 mmol/L (3.5-5.1)
[2019-10-30 07:41] VITALS: PULSE 68; TEMP 97.3
[2019-10-30] MEDS: OXYBUTYNIN CHLORIDE XL 5 MG TABCR PO SCH (08:03)
[2019-10-30] MEDS: MEMANTINE HCL 5 MG TAB PO SCH (08:03)
[2019-10-30] MEDS: DONEPEZIL HCL 10 MG TAB PO SCH (08:03)
[2019-10-30] MEDS: ATORVASTATIN 20 MG TAB PO SCH (08:04)
[2019-10-30] MEDS: CYANOCOBALAMIN 500 MCG TABLET (VITAMIN B-12) PO SCH (08:04)
[2019-10-30] MEDS ORDERED: LACTATED RINGER'S 500 ML IV SCH (09:00)
[2019-10-30 11:37] VITALS: BP 125/70
--- NOTE | 2019-10-30 12:52 | Urology Progress Note ---
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 Patient and family have considered at length different options are now proceeding with plans to go on to palliation and hospice type care. Patient is dealing with severe deconditioning and weakness and has had exacerbation of his underlying baseline memory issues. Is currently resting comfortably. Spoke with daughter and patient for short period of time and confirm plans to move forward with this. Plan will be from urological standpoint to maintain suprapubic tube as a drainage but remove catheter and to monitor. Discussed possible issues and concerns. Discussed multiple options moving forward. At this point will be available for any interventions or concerns or questions that come about but will plan to continue and assist with mostly supportive care. Admission and Anticipated Discharge Date Admission Date: October 28, 2019 Subjective Patient with history of small cell carcinoma invasion into the muscle of the bladder with radiation and chemotherapy with recurrence and metastasis undergoing Immuno 1 targeted therapy. 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 Patient has been deconditioned significantly and severely and has had worsening memory and other issues. Patient and family have considered options at length and are now trying to facilitate transition to a palliative care plan. Plan will likely be going into effect later this afternoon. He is currently resting comfortably. Is tolerating a suprapubic tube and a regular Ang catheter however plans are to remove Ang catheter later today. Review of Systems Review of Systems: All systems reviewed & are unremarkable except as noted in HPI & below Physical Exam Physical Exam: General: Alert, mild confusion with exacerbation of baseline memory issues. Cachectic and severely deconditioned HEENT: Normocephalic Atraumatic. Inspection normal. Cranial Nerves 2-12 Grossly intact. Normal inspection of face. Normal inspection of neck. Psychologic: Normal affect. Respiratory: Nonlabored. No use of accessory muscles. No tachypnea or dyspnea. Cardiovascular: No tachycardia Skin: [place] and Dry. No rashes or visible lesions. Extremities/Lymphatics: No edema Abdomen: Soft Non-distended. No rebound or guarding. 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
--- NOTE | 2019-10-30 20:14 | Discharge Summary ---
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 Patient's says he has frequently been dizzy and syncopal when getting up to go to the bathroom, while sitting in bed or standing. He has not had any recent falls. Denies BRBPR, melanotic stools. continues to have hematuria and pass painful clots. Having intermittent right sided chest pain described as pressure, nonradiating, reproducible with palpation. EKG in ER showed no ST segment changes, RBBB still present. He will be admitted for hematuria and acute blood loss anemia requiring blood transfusion and overnight monitoring. Primary Care Provider: Yeny Mast MD Admission Exam Per Admitting Provider Constitutional: + ill appearing and + thin; + not well developed, + not well nourished, no acute distress and no altered mental status Eyes: PERRL, conjunctivae normal, anicteric sclerae Neck: trachea midline, no thyromegaly Respiratory: normal respiratory effort; no respiratory distress, no labored breathing, no retractions and no cough Auscultation: no crackles, no rales, no rhonchi and no wheezes Cardiovascular: Rate/Rhythm: regular rate and regular rhythm Heart Sounds: no abnormal opening sounds, no gallop, no murmur and no cardiac rub Extremities: + abnormal capillary refill Gastrointestinal (Abdomen): Inspection/Auscultation: abdomen normal to inspection and normal bowel sounds; abdomen not distended Percussion/Palpation: abdomen soft; abdomen nontender Skin: pale, loose skin Principal Diagnosis symptomatic anemia hematuria due to radiation cystitis Discharge Exam Constitutional Ill-appearing 84-year-old gentleman who is lying back in his hospital bed, lying on his right side. He is conversive and responds to questions appropriately. He is in no acute distress at the time of exam. Respiratory Normal respiratory effort with symmetric expansion of the chest. Lungs are clear to auscultation bilaterally without any crackles or wheezes. Cardiovascular Normal rate and regular rhythm. S1 and S2 are present without any murmurs rubs or gallops. Gastrointestinal (Abdomen) The abdomen is nontender nondistended to palpation. The suprapubic tube and Kat catheters are in place, there is evidence of diana blood in the urine collection bag. Discharge Data Allergies Allergy/AdvReac Type Severity Reaction Status Date / Time No Known Allergies Allergy Verified 10/28/19 06:26 Consultations 10/28/19 07:42 ED Decision to Admit Stat 10/28/19 10:18 Consult Urology Routine Hospital Course (1) Symptomatic anemia: (2) Acute hypotension: Dale Arenas is a very pleasant 84-year-old gentleman with a notable past medical history of SCC of the bladder and prostatic adenocarcinoma (s/p chemo, radiation, and TURBT) - complicated by radiation cystitis with recurrent h ematuria (s/p SPT placement), alongside radiation proctitis - dementia, HTN, HLD, and [id number]-tjezbai renal failure who was admitted to [facility] on 10/27 for management of acute, symptomatic blood loss anemia 2/2 his recurrent hematuria. Since receiving 4x units of pRBC, he has been hemodynamically stable. Recurrent Hematuria 2/2 Radiation Cystitis - Notable history of SCC of the bladder and prostatic adenocarcinoma, s/p radiation, chemo, and TURBT - s/p SPT placement approximately a month ago by urology to aid with irrigation and drainage of the bladder - Patient has been hyperbaric oxygen treatments in the outpatient setting for management of his recurrent hematuria -- has received 14 of 20 treatments - Urology followed through course -- Kat was initially placed during this course (in addition to his SPT) to aid irrigation/drainage of the bladder - At the advice of urology and knowing d/c goals involved hospice/FLIGHT READINESS TECHNICIAN, Kat was removed prior to discharge as it caused patient significant pain Symptomatic Acute Blood Loss Anemia - Patient and his , Negrita, presented to [facility] on 10/27 complaining of significant dizziness and recurrent episodes of pre-syncope - Patient has experienced several episodes/hospitalizations of this before in the context of his radiation cystitis that has been complicated by severe and recurrent hematuria - Arrival H&H (10/27): 5.0/15.4 - Acute blood loss anemia 2/2 recurrent hematuria as a result of radiation cystitis -- patient had been receiving daily hyperbaric oxygen treatments in the outpatient setting for management of this and recently had treatment - - s/p total of 4 units pRBC since arrival - 3 in ED, 1 since transfer to floor - H&H stable following AM at 8.4/24.9 - H&H at discharge: 7.9/23.4 -- asymptomatic Hypovolemic shock - 2/2 Acute Blood Loss Anemia: Resolving - s/p 4 units pRBC, multiple boluses/maintenance infusions of NS since arrival - Patient initially was hemodynamically stable -- BP 100/61, HR 70, SpO2 98% RA - His second night here, did become hypotensive into 70s/40s -- required 1L NSS bolus to achieve normotension/stability - Hold lisinopril -- of note, this was discontinued in the outpatient setting and should remain held upon d/c Leukocytosis, new - CBC the morning after his admission did reveal a leukocytosis at 26.5 (9.9 on admission) with neutrophilic predominance that persisted throughout hospitalization - Etiology likely multifactorial: - Leukocytosis appeared after night involving transfusion of 4 units of pRBC -- possible that this represents component of leukomoid reaction - Patient does have history of recurrent UTIs involving Pseudomonas, and also has 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 x 10 days to support FLIGHT READINESS TECHNICIAN-goal Acute Kidney Injury - Admission BUN and Cr: 36 / 2.32 - d/c BUN and Cr: 51 and 3.20 - Suspect this is likely due to profound hypovolemia w/ ATN upon arrival - Received multiple bags of NSS mIVF to support hypotension, PILY -- discontinued first full day of his hospitalization Chronic Medical Problems - BPH: Continue tamsulosin, oxybutynin - Dementia: Continue donepezil, memantine - HLD: Continue atorvastatin - HTN: as above -- d/c lisinopril - Right Lung Mass: Follows with [facility] -- indicates that he was supposed to have a CT in early November for f/u - RBBB: Present on EKGs in the past, and on EKG at admission General Functional Status/Planning - FLIGHT READINESS TECHNICIAN and Hospice Upon Discharge - Thorough discussion was held today with patient and regarding goals of c are moving forward -- would like to move towards FLIGHT READINESS TECHNICIAN and hospice upon discharge given continued decline and treatment failure, as outlined above - Patient's family has coordinated with home hospice agency to get him a hospital bed and in-home services - Kat removed at recs of urology in lieu of FLIGHT READINESS TECHNICIAN - UTI treatment with cefdinir as measure of FLIGHT READINESS TECHNICIAN, as above - Outpatient analgesia in setting of hospice: morphine PO PRN - Outpatient anxiety management in setting of hospice: ativan PO PRN Family present: , Negrita DVT PPX: SCDs -- hold pharmacologic ppx in setting of active bleed FEN/GI: heart healthy diet Dispo: Med/surg with tele Code status: DNR/DNI (3) Hematuria: (4) Anemia: (5) 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: (6) Acute on chronic renal failure: (7) Depression: (8) Acute blood loss anemia: (9) Radiation proctitis: (10) BPH (benign prostatic hyperplasia): (11) Hyperlipidemia: (12) HTN (hypertension): (13) Dementia: (14) Small cell carcinoma of bladder: (15) Adenocarcinoma of prostate: (16) Mass of right lung: Total Time Total Time Spent Total Time Spent (In Minutes): 1 day Total Time Includes: Examination of the Patient, Discharge Planning, Medication Reconciliation, Communication With Other Providers and Other Discharge Plan Discharge Items Patient Disposition: Hospice - Home Reason For Visit: SYMPTOMATIC ANEMIA Discharge Diagnosis: Symptomatic Anemia Activity: As commented below Non-emergency contact: Primary Care Provider Call non-emergency contact if: you have any medication questions, your symptoms worsen, your pain is not controlled, your pain is worsening, your pain is unusual for you, your pain is concerning for you and you have a fever Follow-up/Referrals: Yeny Mast MD [Primary Care Provider] - Diet: Regular Addtl Attending Provider Instructions: You were seen in the hospital for a recurrent bleed within the bladder. You were treated with bladder irrigation and blood transfusion. After goals of care discussion and meetings between yourself, your , and your providers you expressed that your care goals were to remain and home be with family at this time. You have been connected with home hospice services who will assist in keeping you comfortable at home. Your kat catheter has been removed, your suprapubic bladder catheter will be kept and maintained as best possible, if this stops functioning at home focus will be shifted to keeping you comfortable rather than bringing you back to the hospital to have this changed/flushed as in the past. You have had medications that have been held. Please STOP TAKING lisinopril and atorvastatin. Your blood pressure was low during hospitalization, so lisinopril is not indicated at this time. Please also stop taking atorvastatin at this time. This medication lowers stroke risk over many years; however, all medications have side effects and based on shared decision making with benefits/harms discussion and a comfort care goal this has been held to help minimize pill burden and discomfort. You have been connected to hospice services. They will help provide continued care while you are at home and will regularly evaluate pain and other symptoms. A followup appointment with your Primary Care Provider, Dr. Rico, is being made. This followup is being scheduled by a virtual appointment you can have while at home. If you do not hear from their office regarding details of this appointment, or need to change your appointment, please call his office at [phone]. If you develop any new or worsening symptoms including pain, nausea, fever, chills, sweats, chest pain, chest pressure, difficulty breathing, uncontrolled nausea/vomiting, rash, wheezing, passing out or nearly passing out, bleeding, black/bloody bowel movements, or other new or concerning symptoms please call your primary care physician or discuss them with your home hospice services. Pending Studies at Discharge: No Stand-Alone Forms: [facility] Medications and DC Order Prescriptions: New cefdinir 300 mg capsule 300 mg PO BID 10 Days Qty: 20 RF: 0 morphine 10 mg/5 mL solution 5 mg buccal Q3H PRN (Reason: pain) Qty: 100 RF: 0 lorazepam 2 mg/mL concentrate 0.5 mg PO Q6H PRN (Reason: anxiety) Qty: 30 RF: 0 Continued cholecalciferol (vitamin D3) 2,000 unit tablet 2,000 units PO HS RF: 0 tamsulosin 0.4 mg capsule 0.4 mg PO HS Qty: 30 RF: 5 oxybutynin chloride 10 mg tablet extended release 24hr 10 mg PO DAILY Qty: 30 RF: 2 cyanocobalamin (vitamin B-12) 1,000 mcg Tablet 1,000 mcg PO QAM RF: 0 Glucosamine Chondroitin 550-30-1 mg Capsule 2 cap PO DAILY RF: 0 donepezil 10 mg tablet 10 mg PO DAILY RF: 0 polyethylene glycol 3350 [Miralax] 17 gram powder in packet 17 g PO DAILY PRN (Reason: Constipation) RF: 0 [id number]-[id number] 3.5-10,000-1 mg/mL-unit/mL-% solution 4 drp OTL TID RF: 0 memantine 5 mg Tablet 5 mg PO BIDM RF: 0 calcium carbonate [Tums] 200 mg calcium (500 mg) Tablet,Chewable 1,000 mg PO Q6H PRN (Reason: dyspepsia) Qty: 30 RF: 0 mirtazapine 15 mg Tablet 15 mg PO HS Qty: 30 RF: 0 Discontinued lisinopril 5 mg tablet 5 mg PO DAILY RF: 0 atorvastatin 20 mg Tablet 20 mg PO QAM RF: 0 Discharge Orders: Discharge Order (Routine); Ordered 10/30/19 Ordered By: Haroon Gilliam Admission Data Admit Date/Time: 10/28/19 08:45 Attending Provider: Kunal Boogie Admit Provider: Kunal oBogie Primary Care Provider: Yeny Mast Other Providers: Kunal Boogie ; Reid Jarrell ; [facility] Other Interventions: Discharge Summary Assessment (RN) Last Done: 10/30/19 13:48 Supervising Physician Co-Signing Physician Notes Resident Physician Supervision Note: I independently interviewed and examined the patient and verified the wasserman history and physical, reviewed labs and image studies, discussed the case with the resident Dr. Gilliam and agree with the findings and care plan. Resident Activity Tracking Resident Involvement: Resident Care Provided Care Provided: Adult Hospital Medicine
== END 2019-10-30 16:27 | disposition hospice, home (50) | DRG 699 ==
LOC: ED 06:08 → 2N 08:45